=== PATIENT | male | born 1945 | race Caucasian/White ===

== ENCOUNTER → 2017-01-16 | Outpatient (CLI) | payer MEDICARE, MEDICAID ==
[~2017-01-16] MED LIST: ASP81CT PO; ASPI325T32 PO; ATOR40TA PO; CILO100T PO; CLCX200C PO; CLON2TAB3 PO; CLPD75T PO; FEXO180T PO; FLT11013 IH; FLUD0.1T7 PO; FNST5T PO; FURO40TA4 PO; IOHEXOL 350 MG/ML 100 ML (OMNIPAQUE 350) VIAL IV ONE; KCL10CCR PO; LEVO175T3 PO; LVT.15T PO; MORP100T8 PO; MORP60CA17 PO; MORP60TA28 PO; NS 100 ML (IVPB) BAG IV ONE; PANT40TA PO; RT-COMBINH IH; TMSL.4C PO; VIT1TABL82 PO
--- NOTE | 2017-01-16 11:32 | Diagnostic Imaging Report ---
PROCEDURE: CT chest with contrast only. TECHNIQUE: Multiple contiguous axial images were obtained through the chest after administration of intravenous contrast. INDICATION: Evaluate for pulmonary mass. Outside radiograph indicates pulmonary mass. COMPARISON: None available. FINDINGS: Lungs and airway: There is a spiculated nodule within the anterior aspect of the superior segment of the right lower lobe which has associated pleural tag. This nodule measures 1.9 x 1.7 cm. No additional indeterminate nodules. There is a subpleural 0.5 cm nodule in the posterior aspect of right upper lobe which is unchanged from CTA neck from 05/16/2016 and therefore of benign etiology given long-term stability. There are few subcentimeter triangular and rectangular nodules along the left major fissure inferiorly which likely represent intrapulmonary lymphoid tissue. Calcified right upper lobe pulmonary granuloma. Pleura: No pleural effusion, pneumothorax or nodularity. Heart and mediastinum: No supraclavicular or axillary lymphadenopathy. No mediastinal, hilar or juxtaphrenic lymphadenopathy. Heart is normal in size without pericardial effusion. There is fatty hypertrophy of the inter-atrial septum of the heart, which is an incidental finding frequently seen in asymptomatic patients. Normal caliber thoracic aorta. Upper abdomen: No evidence of metastatic disease in the upper abdomen. Musculoskeletal: No concerning focal osseous lesions. IMPRESSION: 1. Spiculated 1.9 cm nodule in the superior segment of the right lower lobe is most compatible with primary lung cancer. Consider PET/CT for further assessment. Alternatively, this may be biopsied with CT guidance. 2. No definitive pulmonary metastases. Micronodules along the left major fissure likely represent benign intrapulmonary lymphoid tissue. 3. No intrathoracic lymphadenopathy. Dictated by: Dictated on workstation # [id number]
== END ==
LOC: RAD 09:23
PROVIDERS: ATTEND Thoracic Surgery (Cardiothoracic Vascular Surgery)
DX: R91.8 Other nonspecific abnormal finding of lung field (principal)
CPT/HCPCS: 71260

== ENCOUNTER → 2017-01-24 | Outpatient (CLI) | payer MEDICARE, MEDICAID ==
[~2017-01-24] MED LIST changes: -IOHEXOL 350 MG/ML 100 ML (OMNIPAQUE 350) VIAL IV ONE; -NS 100 ML (IVPB) BAG IV ONE
--- NOTE | 2017-01-24 16:20 | Diagnostic Imaging Report ---
EXAMINATION: PET-CT TECHNIQUE: Serum glucose level at the time of the study is: 105 mg/dL. 13.1 mCi of FDG was administered intravenously followed by obtaining PET images with corresponding noncontrast CT scan images. The CT scan was performed for anatomic correlation and attenuation correction and was not performed according to the diagnostic protocol of the areas covered. The scan was performed from the head to mid thighs. INDICATION: Pulmonary nodule. FINDINGS: There is a hypermetabolic pulmonary nodule in the superior segment of the right lower lobe with maximum SUV of 8. This is highly suggestive of lung cancer. It is approximately 1.9 cm in size. It is located in the superior segment of the right lower lobe. There is no other suspicious pulmonary nodule seen. There is a calcified granuloma along the medial aspect of the right major fissure in the upper right chest. There is no hypermetabolic lymphadenopathy seen in the right hilum, or in the mediastinum. No significant hypermetabolic lesion is seen in the left lung. In the neck, there is a hypermetabolic lesion with maximum SUV of 5 seen within a small nodule in the left parotid gland. This measures 1.2 cm in size and could be an intraparotid lymph node or related to a primary parotid tumor. No other significant hypermetabolic lesion is seen in the neck. In the abdomen and pelvis, there is expected excretion of the tracer in the urinary tract with no suspicious hypermetabolic mass seen. There is mild hypermetabolism corresponding to nonspecific soft tissue thickening along the right groin anterior to location of a vascular graft which could relate to postoperative inflammatory changes. No suspicious hypermetabolic lesion in the abdomen or pelvis is identified. IMPRESSION: 1. A 1.9 cm suspicious hypermetabolic pulmonary nodule in the superior segment of the right lower lobe suggestive of a primary lung cancer. No associated lymphadenopathy in the right hilum or mediastinum seen. 2. A moderately hypermetabolic 1.2 cm nodule in the inferior aspect of the left parotid gland could relate to a lymph node or primary parotid tumor. This can be evaluated with ultrasound-guided fine needle aspiration if needed. Dictated by: Dictated on workstation # [id number]
== END ==
LOC: RAD 09:51
PROVIDERS: ATTEND Thoracic Surgery (Cardiothoracic Vascular Surgery)
DX: C78.01 Secondary malignant neoplasm of right lung (principal)

== ENCOUNTER → 2017-01-25 | Outpatient (CLI) | payer MEDICARE, MEDICAID ==
[~2017-01-25] MED LIST changes: +RT-ALBUTEROL SULF 2.5 MG/3 ML PRE-MIX VIAL IH ONE
== END ==
LOC: RT 14:08
PROVIDERS: ATTEND Thoracic Surgery (Cardiothoracic Vascular Surgery)
DX: R91.8 Other nonspecific abnormal finding of lung field (principal)
CPT/HCPCS: 94060; 94640; 94726; 94729

== ENCOUNTER → 2020-07-02 | Outpatient (CLI) | payer MEDICARE, MEDICAID ==
[~2020-07-02] VITALS: Ht 172.7 cm; Wt 109.1 kg
[~2020-07-02] MED LIST changes: +LIDOCAINE 1% INJ 20 ML 20 ML VIAL INJ ONE; -RT-ALBUTEROL SULF 2.5 MG/3 ML PRE-MIX VIAL IH ONE
--- NOTE | 2020-07-02 16:42 | Diagnostic Imaging Report ---
INDICATION: Left parotid nodule. EXAMINATION: Patient presents for fine-needle aspiration utilizing ultrasound guidance. PROCEDURE: Patient was brought to the procedure room and placed on table in the [id number] decubitus position. Left parotid region was evaluated to evaluate appropriate entry site. Left neck was then prepped and draped in the usual sterile fashion. A small amount of 1% lidocaine was utilized for local anesthesia. A total of three passes were made into the hypoechoic nodule in the left parotid gland utilizing 25-gauge needles and fine-needle aspiration technique. Hemostasis was obtained using manual compression. Patient tolerated the procedure well and left the department in stable condition. IMPRESSION: Successful ultrasound-guided left parotid nodule fine-needle aspiration. Pathology results are currently pending. Dictated by: Dictated on workstation # [id number]
== END ==
LOC: RAD 14:00
PROVIDERS: ATTEND Otolaryngology Otolaryngology/Facial Plastic Surgery
DX: K11.8 Other diseases of salivary glands (principal)
CPT/HCPCS: 76942

== ENCOUNTER → 2020-11-06 | Outpatient (CLI) | payer MEDICARE, MEDICAID ==
[~2020-11-06] MED LIST changes: -LIDOCAINE 1% INJ 20 ML 20 ML VIAL INJ ONE
== END | disposition home or self-care (01) ==
LOC: PREOP 05:33
PROVIDERS: ATTEND Otolaryngology Otolaryngology/Facial Plastic Surgery
DX: Z01.818 Encounter for other preprocedural examination (principal)

== ENCOUNTER 2020-11-26 09:04 | Outpatient (CLI) | payer MEDICARE, MEDICAID ==
[~2020-11-26] VITALS: Ht 172.7 cm; Wt 109.1 kg
== END 2020-11-26 14:22 ==
LOC: PREOP 09:04
PROVIDERS: ATTEND Otolaryngology Otolaryngology/Facial Plastic Surgery
DX: Z01.818 Encounter for other preprocedural examination (principal)

== ENCOUNTER 2020-12-04 06:07 | Day surgery (SDC) | payer MEDICARE, MEDICAID ==
[2020-12-04] VITALS (11 sets, daily range): BP systolic 133–177; BP diastolic 65–85
[~2020-12-04] VITALS: Ht 172.7 cm; Wt 109.1 kg
--- OUTSIDE RECORDS SUMMARY | 2020-12-04 06:11 | XMS REPORT | Clinical Summary ---
Author Author Admin, Charlie Hankins Organization [facility] Address Unknown Phone Unavailable Allergies, Adverse Reactions, Alerts Allergy Name Reaction Description Start Date Severity Status Pr ovider NKA Critical Active Dena Lacy APR N KEFLEX Mild No Longer Active Rui Arndt MD KEFLEX itch Moderate No Longer Active Vinod Alatorre DELIVERY DRIVER/SUPERVISOR NKDA Critical No Longer Active Rui Arndt MD KEFLEX UNK Inactive Georgina gautam MA NKDA Critical Inactive Irma Chaidez Conditions or Problems Problem Name Problem Code Onset Date Status Entry Date Provider Comment Standard Description Annotate COPD 496 Active Rui Arndt MD Chronic airway obstruction, not elsewhere classified Osteoporosis 733.00 Active Rui Arndt MD Osteoporosis, unspecified Osteoarthritis 715.90 Active Rui Arndt MD Osteoarthrosis, unspecified whether generalized or localized, involving unspecified site Seasonal allergies 477.9 Active Rui Arndt MD Allergic rhinitis, cause unspecified Hearing loss 389.9 Active Rui Arndt MD Unspecified hearing loss Hyperlipidemia 272.4 Refinement Rui Arndt MD Other and unspecified hyperlipidemia Familial hypercholesterolemia 272.4 Active 2018/0 10/26 Rui Arndt MD Other and unspecified hyperlipidemia Hypothyroidism 244.9 Active Rui Arndt MD Unspecified hypothyroidism HEALTH MAINTENANCE EXAM V70.0 Resolved Jose Arndt MD Routine general medical examination at [facility] Cataracts 366.9 Inactive Rui Arndt MD Unspecified cataract Examination, general medical V70.0 Resolved Rui Arndt MD Routine general medical examination at a health care facility Chronic pain syndrome 338.4 Resolved Georgina Luis A Chronic pain syndrome 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 Rui Arndt MD Neoplasm of uncertain behavior of skin Tobacco user 305.1 Resolved Rui Arndt MD Tobacco use disorder Hypogonadism, low testosterone 257.2 Active 10/07 Rui Arndt MD Other testicular hypofunction Contusion, shoulder 923.00 Resolved Rui sabillon MD Contusion of shoulder region Abdominal pain, left lower quadrant 789.04 Resolved Rui Arndt MD Abdominal pain, left lower quadrant Epistaxis 784.7 Resolved Rui Arndt MD Epistaxis Colonic polyps, hx of V12.72 Resolved Rui Arndt MD Personal history of colonic polyps GERD 530.81 Active Dena Glass ophageal reflux Dysphagia 787.20 Resolved Rui Arndt MD Dysphagia, unspecified Peripheral neuropathy 356.9 Active Rui Bee MD Unspecified hereditary and idiopathic peripheral neuropathy Diverticulosis 562.10 Active Rui Arndt MD Diverticulosis of colon (without mention of hemorrhage) Abnormal blood chemistry NEC 790.99 Resolved Rui Arndt MD Other nonspecific findings on examinatio n of blood Leg cramps 729.82 Resolved Rui Arndt MD Cramp of limb Fatigue 780.79 Resolved Rui Arndt MD Other malaise and fatigue Monoclonal gammopathy 273.1 Active Eboni villasenor CINDER SNAPPER Monoclonal paraproteinemia Peripheral edema 782.3 Active Fabiana Speaks A PRN Edema Dyspnea 786.09 Resolved Rui Arndt MD Other dyspnea and respiratory abnormality Need for prophylactic vaccination and inoculation against in fluenza V04.81 Resolved Rui Arndt MD Need for prophylactic vaccination and inoculation against influenza Peripheral artery disease 443.9 [facility] Peripheral vascular disease, unspecified Abdominal pain, left lower quadrant 789.04 Resolved Rui Arndt MD Abdominal pain, left lower quadrant Ileus 560.1 Resolved Rui Arndt MD Paralytic ileus Fever 780.60 Resolved Rui Arndt MD Fever, unspecified Diverticulitis of colon 562.11 Resolved Nadia Arndt MD Diverticulitis of colon without mention of hemorrhage Hammer toe, acquired 735.4 Active Rui sabillon MD Other hammer toe (acquired) Preoperative examination V72.84 Resolved Rui Arndt MD Preoperative examination, unspecified Frailty 797 Resolved Rui Arndt MD Senility without mention of psychosis Declining mobility 438.89 Resolved Rui villasenor MD Other late effects of cerebrovascular disease Congestive heart failure, chronic 428.0 Active 20 09/10/05 Teri Howard APRN Congestive heart failure, unspecified Wound check 879.8 Resolved Rui Arndt MD Open wound(s) (multiple) of unspecified site(s) except limbs, without mention of complication Upper respiratory infection 465.9 Resolved Rui Arndt MD Acute upper respiratory infections of un specified site Obstructive sleep apnea 327.23 Active Jose Arndt MD Obstructive sleep apnea (adult) (pediatric) Cigarette smoker 305.1 Active Lori Diaz LR T Tobacco use disorder Low testosterone level 796.4 Resolved Hardik Arndt MD Other abnormal clinical findings Pruritus 698.9 Resolved Rui Arndt MD Unspecified pruritic disorder Hyperglycemia 790.29 Active Rui Arndt MD Other abnormal glucose Excessive belching 787.3 Resolved Rui villasenor MD Flatulence, eructation, and gas pain Obesity, BMI 35-39.9, adult 278.00 Refinement Rui Arndt MD Obesity, unspecified Obesity Class II (BMI 35-39.9) 278.00 Refinement 05/09 Rui Arndt MD Obesity, unspecified Obesity Class III (BMI >=40) 278.00 Refinement Ade Brush MD Obesity, unspecified Obesity Class II (BMI 35-39.9) 278.00 Refinement 04/02 Rui Arndt MD Obesity, unspecified Obesity Class III (BMI >=40) 278.00 Refinement Rui Arndt MD Obesity, unspecified Obesity Class II (BMI 35-39.9) 278.00 Refinement 09/03 Rui Arndt MD Obesity, unspecified Morbid obesity due to excess calories 278.00 Refinemen t Rui Arndt MD Obesity, unspecified Obesity Class II (BMI 35-39.9) 278.00 Active 03/30 Rui Arndt MD Obesity, unspecified Depression, recurrent, in remission 296.36 Active Rui Arndt MD Major depressive disorder, recurrent epi sode, in full remission Insomnia 780.52 Active Rui Arndt MD Insomnia, unspecified BMI 37-37.9 adult V85.37 Resolved Rui Arndt MD Body Mass Index 37.0-37.9, adult BMI 36-36.9 adult V85.36 Inactive Rui Arndt MD Body Mass Index 36.0-36.9, adult BMI 38-38.9 adult V85.38 Resolved Rui Arndt MD Body Mass Index 38.0-38.9, adult COPD, acute exacerbation 491.21 Resolved Georgina Juancarlos garcia MA Obstructive chronic bronchitis with (acute) exacerbation Malignant neoplasm of lower lobe, right bronchus or lung 162.5 Active Carmen Madrid Malignant neoplasm of lower lobe, bronchus or lung History of colon polyps V12.72 Active Dena Lacy APRN Personal history of colonic polyps Pre-procedural laboratory examination V72.63 Resolved Rui Arndt MD Pre-procedural laboratory examination Pleural effusion 511.9 Resolved Rui Arndt MD Unspecified pleural effusion Fatigue 780.79 Resolved Rui Arndt MD Other malaise and fatigue Cough 786.2 Resolved Rui Arndt MD Cough Opioid dependence 304.00 Active Rui Arndt MD Opioid type dependence, unspecified use Chronic pain - on daily narcotics 338.29 Active 20 11/09/06 Rui Arndt MD Other chronic pain Wellness exam V70.0 Active Rui Arndt MD Routine general medical examination at a health care facility Pyloric channel ulcer 531.90 Active Dena CEE Gastric ulcer, unspecified as acute or chronic, without mention of hemorrhage or perforation, without mention of obstruction Influenza Vaccination for Prophylaxis V04.81 Inactive Mari Stanley PA-C Need for prophylactic vaccin ation and inoculation against influenza Congestive heart failure 428.0 Resolved Mari Stanley PA-C Congestive heart failure, unspecified Pre-Hypertension/Elevated BP 796.2 Resolved Rui Arndt MD Elevated blood pressure reading without diagnosis of hypertension Body Mass Index 39.0-39.9 Adult Refinement 2017 Rui Arndt MD Body Mass Index 39.0-39.9, adult BMI 38-38.9 Refinement Luke Gonzales APRN Body Mass Index 39.0-39.9, adult BMI 39-39.9 Refinement Rui Arndt MD Body Mass Index 39.0-39.9, adult BMI 38-38.9 Refinement Rui Arndt MD Body Mass Index 39.0-39.9, adult BMI 39-39.9 Refinement Rui Arndt MD Body Mass Index 39.0-39.9, adult BMI 40-44.9 Refinement Ade Brush MD Body Mass Index 39.0-39.9, adult BMI 39-39.9 Refinement Rui Arndt MD Body Mass Index 39.0-39.9, adult BMI 40-44.9 Refinement Rui Arndt MD Body Mass Index 39.0-39.9, adult BMI 38-38.9 Refinement Rui Arndt MD Body Mass Index 39.0-39.9, adult BMI 37-37.9 Refinement Rui Arndt MD Body Mass Index 39.0-39.9, adult BMI 38-38.9 Refinement Rui Arndt MD Body Mass Index 39.0-39.9, adult BMI 37-37.9 Refinement Rui Arndt MD Body Mass Index 39.0-39.9, adult BMI 38-38.9 Refinement Rui Arndt MD Body Mass Index 39.0-39.9, adult BMI 37-37.9 Active Keyonna Barajas DELIVERY DRIVER/SUPERVISOR-C Body Mass Index 39.0-39.9, adult Abdominal bloating 787.3 Active Luke SAM RN Flatulence, eructation, and gas pain Chest cough 786.2 Resolved Rui Arndt MD Cough 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 Ade Brush MD Hypertrophy (benign) of pros walls with urinary obstruction and other lower urinary tract symptoms (LUTS) Coronary artery disease 414.00 Active Jose Arndt MD Coronary atherosclerosis of unspecified type of vessel , [place] or graft 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 Tracie Sutton Generalized nonconvulsive epilepsy, without mention of intractable epilepsy Back pain, lumbar, with radiculopathy 724.4 Active Rui Arndt MD Thoracic or lumbosacral neuritis or radi culitis, unspecified Pre-Hypertension/Elevated BP 796.2 Active Rui Arndt MD Elevated blood pressure reading without diagnosis of hypertension Influenza Vaccination for Prophylaxis (ICD-V04.81) V04.81 202 Active Rui Arndt MD Need for prophylacti c vaccination and inoculation against influenza Elevated blood sugar 790.29 Resolved Rui Bee MD Other abnormal glucose Cough 786.2 Active Keyonna Barajas DELIVERY DRIVER/SUPERVISOR-C Cough Shortness of breath 786.05 Active Emanuel Barajas DELIVERY DRIVER/SUPERVISOR-C Shortness of breath HEALTH MAINTENANCE EXAM ICD-V70.0 Inactive Nadia Arndt MD Examination, general medical ICD-V70.0 Inactiv yassine Arndt MD Chronic pain syndrome ICD-338.4 Inactive Georgina Almaraz MA Tobacco user ICD-305.1 Inactive Rui Arndt MD 20 14/10/01 Contusion, shoulder ICD-923.00 Inactive Hardik Arndt MD Abdominal pain, left lower quadrant ICD-789.04 Inactive Rui Arndt MD Epistaxis ICD-784.7 Inactive Rui Arndt MD Colonic polyps, hx of ICD-V12.72 Inactive Rui Arndt MD Dysphagia ICD-787.20 Inactive Rui Booth Abnormal blood chemistry NEC ICD-790.99 Inactiv e Rui Arndt MD Leg cramps ICD-729.82 Inactive Rui Arndt MD Fatigue ICD-780.79 Inactive Rui Arndt MD 201 11/26/12 Dyspnea ICD-786.09 Inactive Rui Arndt MD 201 11/26/12 Need for prophylactic vaccination and inoculation against in fluenza ICD-V04.81 Inactive Rui Arndt MD Abdominal pain, left lower quadrant ICD-789.04 Inactive Rui Arndt MD Ileus ICD-560.1 Inactive Rui Arndt MD 2015 Fever ICD-780.60 Inactive Rui Arndt MD 201 08/26/02 Diverticulitis of colon ICD-562.11 Jose Raul Arndt MD Preoperative examination ICD-V72.84 Inactive Rui Arndt MD Frailty ICD-797 Inactive Rui Arndt MD 05/09 Declining mobility ICD-438.89 Inactive Rui Arndt MD Wound check ICD-879.8 Inactive Rui Arndt MD Upper respiratory infection ICD-465.9 Inactive Rui Arndt MD Low testosterone level ICD-796.4 Inactive Shahrzad Arndt MD Pruritus ICD-698.9 Inactive Rui Arndt MD 201 11/26/12 Excessive belching ICD-787.3 Inactive Rui Arndt MD BMI 37-37.9 adult ICD-V85.37 Inactive Rui Arndt MD BMI 38-38.9 adult ICD-V85.38 Inactive Rui Arndt MD COPD, acute exacerbation ICD-491.21 Inactive Georgina Almaraz MA Pre-procedural laboratory examination ICD-V72.63 3 Inactive Rui Arndt MD Pleural effusion ICD-511.9 Inactive Rui saleem MD Fatigue ICD-780.79 Inactive Rui Arndt MD 201 11/26/12 Cough ICD-786.2 Inactive Rui Arndt MD 2018 Influenza Vaccination for Prophylaxis ICD-V04.81 3 Inactive Yulissa Armenta MA Congestive heart failure ICD-428.0 Inactive Mari Stanley PA-C Pre-Hypertension/Elevated BP ICD-796.2 Inactiv e Rui Arndt MD Chest cough ICD-786.2 Inactive Rui Arndt MD Elevated blood sugar ICD-790.29 Inactive Rui Arndt MD Medication List Medication Instructions Start Date Stop Date Generic Name NDC Status Provider Patient Instruction PROAIR HFA 108 (90 BASE) MCG/ACT INHALATION AEROSOL SO LUTION Take 2 puffs every 6 hours as needed for shortness of breath or wheezing. ALBUTEROL SULFATE 97671878990 Active Keyonna Jenn DELIVERY DRIVER/SUPERVISOR-C Activ e PREDNISONE 20 MG ORAL TABLET Take 2 tablets by mouth d aily for 3 days then 1 tablet daily for 2 days PREDNISONE 07370927683 Active Keyonna Jenn DELIVERY DRIVER/SUPERVISOR-C Active ZITHROMAX 250 MG ORAL TABLET Take 2 tablets by mouth o n day 1 then 1 tablet the next 4 days AZITHROMYCIN 84040365787 Active Keyonna Br itt DELIVERY DRIVER/SUPERVISOR-C Active ZUBSOLV 11.4-2.9 MG SUBLINGUAL TABLET SUBLINGUAL Take 1 tablet dailyDEA; [id number] BUPRENORPHINE HCL-NALOXONE HCL 25557317848 Acti ve Rui Arndt MD Active CEFUROXIME AXETIL 500 MG ORAL TABLET TAKE 1/2 TABLET TWICE DAILY CEFUROXIME AXETIL 76477435103 No Longer Active Rui Arndt MD Active POTASSIUM CHLORIDE ER 10 MEQ CR-CAPS TAKE ONE TABLET BY MOUT H TWICE DAILY. POTASSIUM CHLORIDE 16175235256 AGUSTO Richardson Active OMEPRAZOLE 40MG TAKE 1 CAPSULE BY MOUTH EVERY MORNING OMEPRAZOLE 61094300067 AGUSTO Richardson Active SPIRIVA HANDIHLR INHALE CONTENTS OF ONE CAPSULE VIA HANDI HALER ONCE DAILY TIOTROPIUM BROMIDE MONOHYDRATE 65647294089 AGUSTO Richardson Active BUMETANIDE 1MG TAKE 1 TABLET BY MOUTH ONCE DAILY IF NEE DED FOR SWELLING BUMETANIDE 17841380455 AGUSTO Richardson Active ZOLPIDEM TARTRATE 10 MG TABS TAKE 1 TABLET BY MOUTH AT NIGHT IF NEEDED FOR SLEEP ZOLPIDEM TARTRATE 60320656776 Active Rui Arndt MD Active FUROSEMIDE 40MG TAKE 2 TABLETS BY MOUTH EVERY MORNING FUROSEMIDE 55375071952 Active Liudmila Tirado RN Active GABAPENTIN 300MG TAKE 1 CAPSULE BY MOUTH THREE TIMES DAILY GABAPENTIN 65179678752 Active AGUSTO Hall Active ATORVASTATIN 80MG TAKE 1 TABLET BY MOUTH DAILY AT BEDTIME 6 ATORVASTATIN CALCIUM 81662378216 Active AGUSTO Hall A ctive SUPER B-100 ORAL TABLET 1 q d B COMPLEX-BIOTI N-FA 98479614002 Active Tarun Chavez MD Active ASPIRIN 325 MG ORAL TABLET 1 q d ASPIRIN 6642929162 9 Active Tarun Chavez MD Active DIGITEK 125 MCG ORAL TABLET 1 q d DIGOXIN 164764891 01 Active Tarun Chavez MD Active VENTOLIN HFA 108 (90 BASE) MCG/ACT INHALATION AEROSOL SOLUTI ON 1 puff every day ALBUTEROL SULFATE 93460461569 No Longer Active Alan Chavez MD Active LEVOTHYROXINE SODIUM 200 MCG ORAL TABLET 1 po q a.m. for thyroid LEVOTHYROXINE SODIUM 43718965941 No Longer Active Tarun Chavez MD Active PROAIR HFA 108 (90 BASE) MCG/ACT INHALATION AEROSOL SO LUTION 2 puffs four times a day as needed ALBUTEROL SULFATE 65682989697 No Long er Active Tarun Chavez MD Active FLOMAX 0.4 MG ORAL CAPSULE 1 capsule by mouth in the evening for prostate TAMSULOSIN HCL 08396353126 No Longer Active Tarun Chavez MD Active ELIQUIS 5 MG TABS TAKE ONE TABLET BY MOUTH TWO TIMES A DAY APIXABAN 55712090576 Active AGUSTO Hall Active PREDNISONE 20 MG ORAL TABLET Take 2 tablets daily for 5 days and 1 tablet daily for 5 days. PREDNISONE 23265406885 No Longer Active Rui Arndt MD Active POTASSIUM CHLORIDE ER 10 MEQ CR-TABS TAKE ONE TABLET BY CATERINA TH TWICE DAILY. POTASSIUM CHLORIDE 96116697417 Active AGUSTO Hall Active KLOR-CON M10 10 MEQ ORAL TABLET EXTENDED RELEASE one tablet twic e a day POTASSIUM CHLORIDE JORDAN CR 03565132162 No Longer Active AGUSTO Suarez Active LORATADINE 10MG ORAL TABLET TAKE ONE TABLET BY MOUTH ONE TIME DAILY IF NEEDED FOR ALLERGIES. LORATADINE 37121725741 Active Alma Madrid AGUSTO Active LEVOTHYROXINE SODIUM 150MCG ORAL TABLET TAKE ONE TABLE T BY MOUTH ONE TIME DAILY FOR THYROID. LEVOTHYROXINE SODIUM 53155497983 Active S osiel Madrid AGUSTO Active PLAVIX 75 MG ORAL TABLET 1 tablet by mouth daily for 30 days 202 CLOPIDOGREL BISULFATE 66502820919 No Longer Active Rui Arndt MD Active PLAVIX 75 MG ORAL TABLET 1 tablet by mouth daily 03/11 CLOPIDOGREL BISULFATE 18081131013 No Longer Active Rui Arndt MD Activ e ASPIRIN 325 MG ORAL TABLET Take 1 tablet daily ASPIRIN 53822069610 No Longer Active Rui Arndt MD Active PREDNISONE 20 MG ORAL TABLET 1 tab twice daily for 3 d ay, then one daily for three days PREDNISONE 36798114574 No Longer Active Rui Arndt MD Active MORPHINE SULFATE ER 15 MG ORAL TABLET EXTENDED RELEASE 1 TID a d ay MORPHINE SULFATE 04839873593 No Longer Active Rui Arndt MD Active DEPO-TESTOSTERONE 100 MG/ML INTRAMUSCULAR SOLUTION 201 11/29/02 TESTOSTERONE CYPIONATE 19818051124 Active Brittny Aguila MA Active SUBOXONE 2-0.5 MG SUBLINGUAL FILM Bring to appointment before taking for induction. Stop the Morphine 12 hours before the appointment. BUPRENORPHINE HCL-NALOXONE HCL 85207157143 No Longer Active Rui Arndt MD Active MUCINEX D 60-600 MG ORAL TABLET EXTENDED RELEASE 12 HO UR 1 po BID PRN Congestion PSEUDOEPHEDRINE-GUAIFENESIN 33314326987 Active Luke Gonzales DELIVERY DRIVER/SUPERVISOR Active ZITHROMAX Z-PETE 250 MG ORAL TABLET 2 today, then 1 daily for 4 d ays AZITHROMYCIN 89033303633 No Longer Active Luke Gonzales APRN Active MORPHINE SULFATE ER 60 MG ORAL TABLET EXTENDED RELEASE 1 twi ce a day for pain MORPHINE SULFATE 49623624390 No Longer Active Luke valdez APRN Active MORPHINE SULFATE ER 100 MG ORAL TABLET EXTENDED RELEASE one tabl et at bedtime MORPHINE SULFATE 46513053820 No Longer Active Luke Gonzales APRN Active DEPO-TESTOSTERONE 100 MG/ML INTRAMUSCULAR SOLUTION 1mL q4H TESTOSTERONE CYPIONATE 33662053017 No Longer Active Luke Gonzales APRN Active PANTOPRAZOLE SODIUM 40 MG ORAL TABLET DELAYED RELEASE 1 pill by mouth daily PANTOPRAZOLE SODIUM 97478939015 No Longer Active Jose Arndt MD Active FLOMAX 0.4 MG ORAL CAPSULE one capsule in the evening 1/2 hour a fter supper TAMSULOSIN HCL 94150189092 No Longer Active Rui Arndt MD Active LEVOTHYROXINE SODIUM 175 MCG ORAL TABLET 1 pill by mouth daily f or thyroid LEVOTHYROXINE SODIUM 04392280939 No Longer Active Fabiana Perdomo RN Active CLARITIN 10 MG ORAL TABLET 1 tablet by mouth daily as needed for allergies LORATADINE 51972823547 No Longer Active Mari bhakta PA-C Active CARAFATE 1 GM ORAL TABLET Take 1 tablet 4 times daily. Before meals and at bedtime SUCRALFATE 71093015179 No Longer Active Mari Stanley PA-C Active DULCOLAX 5 MG ORAL TABLET DELAYED RELEASE 1 tab daily BISACODYL 48920826390 Active Sara Moeller RN Active SUCRALFATE 1 GM ORAL TABLET 1 four times a day for GERD SUCRALFATE 38915267500 No Longer Active Sara Moeller RN Act berna FISH OIL CAPSULE 1 capsule daily OMEGA-3 FATTY ACIDS CAPS 75525268869 No Longer Active Sara Moeller RN Active PROBIOTIC DAILY ORAL CAPSULE 1 capsule daily 3 PROBIOTIC PRODUCT 01699212560 No Longer Active Sara Moeller RN Act berna B COMPLEX FORMULA 1 ORAL TABLET 1 tablet daily B COMPLEX- FOLIC ACID 86969268091 No Longer Active Sara Moeller RN Act berna PROAIR HFA 108 (90 BASE) MCG/ACT INHALATION AEROSOL SO LUTION 2 puffs four times a day as needed ALBUTEROL SULFATE 36674311721 No Long er Active Sara Moeller RN Active MULTIVITAMINS ORAL CAPSULE Take 1 daily MULTIPL E VITAMIN 40826823299 No Longer Active Sara Moeller RN Active CLONAZEPAM 2 MG ORAL TABLET one tablet at bed time CLONAZEPAM 55671878329 No Longer Active Sara Moeller RN Active DEPO-TESTOSTERONE 200 MG/ML INTRAMUSCULAR SOLUTION 100mg it[place] ry 4 weeks TESTOSTERONE CYPIONATE 64530995838 No Longer Active Sara Moeller RN Active ATIVAN 0.5 MG ORAL TABLET 1 tab 30 minutes prior to sleep study LORAZEPAM 86061136098 No Longer Active Rui Arndt MD Active NARCAN 4 MG/0.1ML NASAL LIQUID 1 spray in nostril ever y 2 to 3 minutes until responsive or EMS arrives NALOXONE HCL 96684582624 Active Rui Arndt MD Active LEVAQUIN 500 MG ORAL TABLET 1 daily for infection 2017 LEVOFLOXACIN 94185280036 No Longer Active Dena Lacy APRN Active PREDNISONE 20 MG TABS Take 2 daily for 5 days and then 1 stephy ly for 5 days PREDNISONE 49339504086 No Longer Active Rui saleem MD Active PREDNISONE 20 MG ORAL TABLET 2 tabs daily for 4 days, 1 tab daily for 4 days, 1/2 tab daily for 4 days PREDNISONE 31765783965 No Longer Active Rui Arndt MD Active OXYGEN 2L at night time - Dx: J44.9 Active Lori Winter LPN Active PREDNISONE 20 MG ORAL TABLET Take 2 daily for 5 days a nd then 1 daily for 5 days PREDNISONE 22121340235 No Longer Active Rui Arndt MD Active NORCO 10-325 MG ORAL TABLET Take 1-2 tablets every 6 hours a s needed for pain HYDROCODONE-ACETAMINOPHEN 92687275078 No Longer Activ e Rui Arndt MD Active FUROSEMIDE 20 MG ORAL TABLET 1 daily for blood pressure and swel ling FUROSEMIDE 86802469815 No Longer Active Rui Arndt MD Active PAMELOR 10 MG ORAL CAPSULE NORTRIPTY LINE HCL 33842491250 No Longer Active Rui Arndt MD Active AEROSPAN 80 MCG/ACT INHALATION AEROSOL SOLUTION 2 puffs twice FLUNISOLIDE HFA 34213719854 No Longer Active Rui Arndt MD Active LISINOPRIL 10 MG ORAL TABLET take one tab once daily 09/22 LISINOPRIL 43360865323 No Longer Active Rui Arndt MD Active BD INTEGRA SYRINGE 25G X 1" 1 ML Use with Depo provera INSULIN SYRINGE-NEEDLE U-100 Active Brittny Aguila MA Act berna MORPHINE SULFATE ER BEADS 75 MG ORAL CAPSULE EXTENDED RELEASE 24 HOUR 1 twice a day MORPHINE SULFATE BEADS 33198383776 No Longer Ac tive Rui Arndt MD Active COMBIVENT RESPIMAT 20-100 MCG/ACT INHALATION AEROSOL S OLUTION 1 puff four times a day IPRATROPIUM-ALBUTEROL 28582483744 No Longer Act berna Rui Arndt MD Active POTASSIUM CHLORIDE 20 MEQ ORAL PACKET 1 qDay with Lasix POTASSIUM CHLORIDE 28185480780 No Longer Active Rui Arndt MD Activ e PROAIR HFA 108 (90 Base) MCG/ACT INHALATION AEROSOL SO LUTION 2 puffs four times a day as needed ALBUTEROL SULFATE 48111375536 No Longer Ac tive Rui Arndt MD Active ASMANEX 60 METERED DOSES 220 MCG/INH INHALATION AEROSO L POWDER BREATH ACTIVATED 1 puff bid with rinse after MOMETASONE FUROATE 7436430 4102 No Longer Active Rui Arndt MD Active OMEPRAZOLE 40 MG ORAL CAPSULE DELAYED RELEASE 1 po q a.m. OMEPRAZOLE 42661898444 No Longer Active Anahi Ashley LPN Act berna ASMANEX 60 METERED DOSES 220 MCG/INH INHALATION AEROSO L POWDER BREATH ACTIVATED 1 puff bid with rinse after ASMANEX 60 M ETERED DOSES 220 MCG/INH INHALATION AEROSOL POWDER BREATH ACTIVATED MOMETASONE FUROAT E Inactive PROAIR HFA 108 (90 Base) MCG/ACT INHALATION AEROSOL SO LUTION 2 puffs four times a day as needed PROAIR HFA 108 (90 B ase) MCG/ACT INHALATION AEROSOL SOLUTION ALBUTEROL SULFATE Inactive COMBIVENT RESPIMAT 20-100 MCG/ACT INHALATION AEROSOL S OLUTION 1 puff four times a day COMBIVENT RESPIMAT 2 0-100 MCG/ACT INHALATION AEROSOL SOLUTION IPRATROPIUM-ALBUTEROL Inactive MORPHINE SULFATE ER BEADS 75 MG ORAL CAPSULE EXTENDED RELEASE 24 HOUR 1 twice a day MORPHINE SULFATE ER BEADS 75 MG ORAL CAPSULE EXTENDED RELEASE 24 HOUR MORPHINE SULFATE BEADS Inactive LISINOPRIL 10 MG ORAL TABLET take one tab once daily 2 LISINOPRIL 10 MG ORAL TABLET 972843 LISINOPRIL Inactive AEROSPAN 80 MCG/ACT INHALATION AEROSOL SOLUTION 2 puffs twice AEROSPAN 80 MCG/ACT INHALATION AEROSOL SOLUTION FLUNISOLIDE HFA Inactive PAMELOR 10 MG ORAL CAPSULE PAMELOR 1 0 MG ORAL CAPSULE 209788 NORTRIPTYLINE HCL Inactive FUROSEMIDE 20 MG ORAL TABLET 1 daily for blood pressure and swel ling FUROSEMIDE 20 MG ORAL TABLET 206807 FUROSEMIDE Corinna ctive NORCO 10-325 MG ORAL TABLET Take 1-2 tablets every 6 hours a s needed for pain NORCO 10-325 MG ORAL TABLET HYDROCODONE-A CETAMINOPHEN Inactive PREDNISONE 20 MG ORAL TABLET 2 tabs daily for 4 days, 1 tab daily for 4 days, 1/2 tab daily for 4 days PREDNISONE 20 MG ORAL T ABLET 877107 PREDNISONE Inactive LEVAQUIN 500 MG ORAL TABLET 1 daily for infection 2017 LEVAQUIN 500 MG ORAL TABLET 766280 LEVOFLOXACIN Inactive ATIVAN 0.5 MG ORAL TABLET 1 tab 30 minutes prior to sleep study ATIVAN 0.5 MG ORAL TABLET 020545 LORAZEPAM Inacti ve DEPO-TESTOSTERONE 200 MG/ML INTRAMUSCULAR SOLUTION 100mg [place] ry 4 weeks DEPO-TESTOSTERONE 200 MG/ML INTRAMUSCULA R SOLUTION 8830239 TESTOSTERONE CYPIONATE Inactive CLONAZEPAM 2 MG ORAL TABLET one tablet at bed time 201 11/01/12 CLONAZEPAM 2 MG ORAL TABLET 748960 CLONAZEPAM Inactive MULTIVITAMINS ORAL CAPSULE Take 1 daily M ULTIVITAMINS ORAL CAPSULE MULTIPLE VITAMIN Inactive PROAIR HFA 108 (90 BASE) MCG/ACT INHALATION AEROSOL SO LUTION 2 puffs four times a day as needed PROAIR HFA 108 (90 B ASE) MCG/ACT INHALATION AEROSOL SOLUTION ALBUTEROL SULFATE Inactive B COMPLEX FORMULA 1 ORAL TABLET 1 tablet daily B COMPLEX FORMULA 1 ORAL TABLET B COMPLEX-FOLIC ACID Inactive PROBIOTIC DAILY ORAL CAPSULE 1 capsule daily 3 PROBIOTIC DAILY ORAL CAPSULE 7749874 PROBIOTIC PRODUCT Inactive FISH OIL CAPSULE 1 capsule daily FISH OIL CAPSUL E OMEGA- 3 FATTY ACIDS CAPS Inactive SUCRALFATE 1 GM ORAL TABLET 1 four times a day for GERD SUCRALFATE 1 GM ORAL TABLET 957452 SUCRALFATE Inactive CARAFATE 1 GM ORAL TABLET Take 1 tablet 4 times daily. Before meals and at bedtime CARAFATE 1 GM ORAL TABLET 781202 SUCRALFATE Inactive CLARITIN 10 MG ORAL TABLET 1 tablet by mouth daily as needed for allergies CLARITIN 10 MG ORAL TABLET 651981 LORATADINE I nactive LEVOTHYROXINE SODIUM 175 MCG ORAL TABLET 1 pill by mouth daily f or thyroid LEVOTHYROXINE SODIUM 175 MCG ORAL TABLET 464365 LEVOTHY ROXINE SODIUM Inactive FLOMAX 0.4 MG ORAL CAPSULE one capsule in the evening 1/2 hour a fter supper FLOMAX 0.4 MG ORAL CAPSULE 130042 TAMSULOSIN HCL Inact berna PANTOPRAZOLE SODIUM 40 MG ORAL TABLET DELAYED RELEASE 1 pill by mouth daily PANTOPRAZOLE SODIUM 40 MG ORAL TABLET DE LAYED RELEASE 492541 PANTOPRAZOLE SODIUM Inactive DEPO-TESTOSTERONE 100 MG/ML INTRAMUSCULAR SOLUTION 1mL q4H DEPO-TESTOSTERONE 100 MG/ML INTRAMUSCULAR SOLUTION 364589 TESTOSTERONE CYPIONATE Inactive MORPHINE SULFATE ER 100 MG ORAL TABLET EXTENDED RELEASE one tabl et at bedtime MORPHINE SULFATE ER 100 MG ORAL TABLET EXTENDED RELEASE MORPHINE SULFATE Inactive MORPHINE SULFATE ER 60 MG ORAL TABLET EXTENDED RELEASE 1 twi ce a day for pain MORPHINE SULFATE ER 60 MG ORAL TABLET EXTENDED R ELEASE MORPHINE SULFATE Inactive MORPHINE SULFATE ER 15 MG ORAL TABLET EXTENDED RELEASE 1 TID a d ay MORPHINE SULFATE ER 15 MG ORAL TABLET EXTENDED RELEASE MORPHINE SULFATE Inactive PREDNISONE 20 MG ORAL TABLET 1 tab twice daily for 3 d ay, then one daily for three days PREDNISONE 20 MG ORAL TABLET 015428 PREDNIS ONE Inactive ASPIRIN 325 MG ORAL TABLET Take 1 tablet daily ASPIRIN 325 MG ORAL TABLET 951059 ASPIRIN Inactive PLAVIX 75 MG ORAL TABLET 1 tablet by mouth daily 03/11 PLAVIX 75 MG ORAL TABLET 519099 CLOPIDOGREL BISULFATE Inactive PLAVIX 75 MG ORAL TABLET 1 tablet by mouth daily for 30 days 202 PLAVIX 75 MG ORAL TABLET 023273 CLOPIDOGREL BISULFATE I nactive KLOR-CON M10 10 MEQ ORAL TABLET EXTENDED RELEASE one tablet twic e a day KLOR-CON M10 10 MEQ ORAL TABLET EXTENDED RELEASE 2411880 POTASSIUM CHLORIDE JORDAN CR Inactive PREDNISONE 20 MG ORAL TABLET Take 2 tablets daily for 5 days and 1 tablet daily for 5 days. PREDNISONE 20 MG ORAL TABLET 451933 PREDNISONE Inactive FLOMAX 0.4 MG ORAL CAPSULE 1 capsule by mouth in the evening for prostate FLOMAX 0.4 MG ORAL CAPSULE 135179 TAMSULOSIN HCL Inactive PROAIR HFA 108 (90 BASE) MCG/ACT INHALATION AEROSOL SO LUTION 2 puffs four times a day as needed PROAIR HFA 108 (90 B ASE) MCG/ACT INHALATION AEROSOL SOLUTION ALBUTEROL SULFATE Inactive LEVOTHYROXINE SODIUM 200 MCG ORAL TABLET 1 po q a.m. for thyroid LEVOTHYROXINE SODIUM 200 MCG ORAL TABLET 582374 LEVOTHY ROXINE SODIUM Inactive VENTOLIN HFA 108 (90 BASE) MCG/ACT INHALATION AEROSOL SOLUTI ON 1 puff every day VENTOLIN HFA 108 (90 BASE) M CG/ACT INHALATION AEROSOL SOLUTION ALBUTEROL SULFATE Inactive POTASSIUM CHLORIDE 20 MEQ ORAL PACKET 1 qDay with Lasix POTASSIUM CHLORIDE 20 MEQ ORAL PACKET 0614261 POTASSIUM CHLORIDE Inactive PREDNISONE 20 MG ORAL TABLET Take 2 daily for 5 days a nd then 1 daily for 5 days PREDNISONE 20 MG ORAL TABLET 481258 PREDNIS ONE Inactive PREDNISONE 20 MG TABS Take 2 daily for 5 days and then 1 stephy ly for 5 days PREDNISONE 20 MG TABS 822267 PREDNISONE Inacti ve ZITHROMAX Z-PETE 250 MG ORAL TABLET 2 today, then 1 daily for 4 d ays ZITHROMAX Z-PETE 250 MG ORAL TABLET 529889 AZITHROMYCIN Inactive CEFUROXIME AXETIL 500 MG ORAL TABLET TAKE 1/2 TABLET TWICE DAILY CEFUROXIME AXETIL 500 MG ORAL TABLET 476836 CEFUROXIME AXETIL Inactive Advance Directives Directive Description Start Date PERMISSION TO SHARE FORMS GIVEN DISCUSSED WITH PATIENT -- NO DECISION MADE Immunizations Vaccine Administration Date Value Standard Emmanuel cription influenza immunization (Flu Vax) has been administered 12/30 Flublok Quadrivalent [place] influenza virus vaccine, unspecified formulation influenza immunization (Flu Vax) has been administered 12/18 Fluzone (Flu) 10Pk Syringe IM (Medicare) influenza virus vaccine, unspecified for mulation influenza immunization (Flu Vax) has been administered 01/26 Done according to patient influenza virus vaccine, unspecified for mulation pneumococcal immunization administered Pneumococ esvin Poly-unspecified pneumococcal polysaccharide vaccine, 23 valent Vital Signs Date Name Value Unit Range Description blood pressure, diastolic, repeated by physician 81 BP pena blood pressure, diastolic 81 mm[Hg] BP pena blood pressure, systolic, repeated by physician 117 BP sys blood pressure, systolic 117 mm[Hg] BP sys pulse rate 90 /min Heart rate respiratory rate E&M 22 /min Resp rate temperature E&M 98.4 [degF] Body temp erature weight E&M 240.50 [lb_av] Weight Measure d blood pressure, diastolic, second observation 72 m m[Hg] BP pena blood pressure, diastolic, repeated by physician 72 BP pena blood pressure, diastolic 69 mm[Hg] BP pena blood pressure, systolic, second observation 132 mm [Hg] BP sys blood pressure, systolic, repeated by physician 132 BP sys blood pressure, systolic 148 mm[Hg] BP sys height E&M 67 [in_us] Bdy height pulse rate 69 /min Heart rate temperature E&M 98.4 [degF] Body temp erature weight E&M 246 [lb_av] Weight Measure d blood pressure, diastolic 53 mm[Hg] BP pena blood pressure, systolic 135 mm[Hg] BP sys height E&M 67 [in_us] Bdy height pulse rate 75 /min Heart rate temperature E&M 98.1 [degF] Body temp erature weight E&M 240.50 [lb_av] Weight Measure d blood pressure, diastolic, repeated by physician 70 BP pena blood pressure, diastolic 70 mm[Hg] BP pena blood pressure, systolic, repeated by physician 121 BP sys blood pressure, systolic 121 mm[Hg] BP sys height E&M 67 [in_us] Bdy height pulse rate 88 /min Heart rate temperature E&M 99.2 [degF] Body temp erature weight E&M 243 [lb_av] Weight Measure d blood pressure, diastolic, second observation 72 m m[Hg] BP pena blood pressure, diastolic, repeated by physician 72 BP pena blood pressure, diastolic 67 mm[Hg] BP pena blood pressure, systolic, second observation 132 mm [Hg] BP sys blood pressure, systolic, repeated by physician 132 BP sys blood pressure, systolic 148 mm[Hg] BP sys height E&M 67 [in_us] Bdy height pulse rate 78 /min Heart rate temperature E&M 98.4 [degF] Body temp erature weight E&M 244.50 [lb_av] Weight Measure d blood pressure, diastolic, second observation 62 m m[Hg] BP pena blood pressure, diastolic, repeated by physician 62 BP pena blood pressure, diastolic 65 mm[Hg] BP pena blood pressure, systolic, second observation 135 mm [Hg] BP sys blood pressure, systolic, repeated by physician 135 BP sys blood pressure, systolic 143 mm[Hg] BP sys height E&M 67 [in_us] Bdy height pulse rate 72 /min Heart rate temperature E&M 97.7 [degF] Body temp erature blood pressure, diastolic, repeated by physician 60 BP pena blood pressure, diastolic 60 mm[Hg] BP pena blood pressure, systolic, repeated by physician 137 BP sys blood pressure, systolic 137 mm[Hg] BP sys height E&M 67 [in_us] Bdy height pulse rate 62 /min Heart rate temperature E&M 97.9 [degF] Body temp erature weight E&M 241.50 [lb_av] Weight Measure d Diagnostic Results Date Name Value Unit Range Description Lab Report: Comp. Metabolic Panel, Lipid Panel, Magnesium - Chemistry sodium, serum 138 mmol/L 805-124 8672/12/04 carbon dioxide, venous blood 28.3 mmol/L 21.0-32 .0 potassium, serum 4.3 mmol/L 3.5-5.2 chloride, serum 100 mmol/L 98-107 blood glucose 118 mg/dL 65-95 urea nitrogen, blood 16 mg/dL 7-18 creatinine, serum 1.22 mg/dL 0.60-1.30 Estimated Glomerular Filtration Rate (calc) 62 (?) mL/min/1.73m2 = OR > 60 mL/min alanine aminotransferase (SGPT), serum 20 U/L 12-78 aspartate aminotransferase (SGOT), serum 20 U/L 19-43 calcium, serum 9.0 mg/dL 8.5-10.1 bilirubin, serum, total 0.90 mg/dL 0.00-1.00 cholesterol, serum 121 mg/dL 064-789 9487/12/04 triglyceride, serum, fasting 137 mg/dL 30-200 HDL cholesterol, serum 26 mg/dL 32-60 LDL cholesterol, serum 68 mg/dL 0-130 Lab Report: Comp. Metabolic Panel, Lipid Panel, Magnesium - Lab Alkaline phosphatase 134 50-136 Lab Report: HGBA1C - Chemistry hemoglobin A1C, blood, as % of total hemoglobin 6.0 % 4.3-6.0 Lab Report: Prostatic Specific Ag, Comp. Metabolic Panel - Chemistry calcium, serum 8.1 mg/dL 8.5-10.1 bilirubin, serum, total 0.50 mg/dL 0.00-1.00 prostate specific antigen 2.60 ng/mL 0.00-4.00 sodium, serum 136 mmol/L 063-546 4126/10/06 carbon dioxide, venous blood 29.5 mmol/L 21.0-32 .0 potassium, serum 4.0 mmol/L 3.5-5.2 chloride, serum 102 mmol/L 98-107 blood glucose 118 mg/dL 65-95 urea nitrogen, blood 13 mg/dL 7-18 creatinine, serum 1.08 mg/dL 0.60-1.30 Estimated Glomerular Filtration Rate (calc) 71 (?) mL/min/1.73m2 = OR > 60 mL/min alanine aminotransferase (SGPT), serum 20 U/L 12-78 aspartate aminotransferase (SGOT), serum 21 U/L 19-43 Lab Report: Prostatic Specific Ag, Comp. Metabolic Panel - Lab Alkaline phosphatase 141 50-136 Office Visit: [facility] - SUB 107 - Lab PSA (prostate specific antigent), recomm endation and action PSA ordered Office Visit: pain, pduq 110 - PMH sexually transmitted disease no risk noted Encounters Code Encounter Date Provider Facility CPT-99227 80301: Ofc Vst-Est Level III-Low MDM or 20-29 minutes 08:12:06 CDT Keyonna COVINGTON [facility] CPT-50953 30256: Ofc Vst-Est Level IV-Moderate MDM or 30-39 minutes 12:21:30 CDT Rui Arndt MD [facility] CPT-89519 85447-Zkh Vst-Est Level IV 09:46:31 CDT Lobo Arndt MD [facility] CPT-27850 55533-Mhn Vst-Est Level IV 10:42:47 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 Lobo Arndt MD [facility] CPT-74833 72535-Eih Vst-Est Level IV 11:02:04 CDT Lobo Arndt MD [facility] CPT-52024 14517-Dem Vst-Est Level IV 13:58:45 CDT Lobo Arndt MD [facility] CPT-55055 99586-Mcv Vst-Est Level IV 15:13:53 CDT Lobo ert Wanda Arndt MD [facility] CPT-52340 30060-Zps Vst-Est Level IV 11:54:49 CDT Lobo ert Wanda Arndt MD [facility] CPT-79387 04716-Ukr Vst-Est Level IV 11:04:27 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 [employer] KN[employer] Lobo Arndt MD [facility] CPT-27972 Level 4 New Patient 12:35:21 CDT Ade chung MD [facility] CPT-56048 Ofc Vst-Est Level IV 16:12:07 CDT Rui Arndt MD [facility] CPT-84377 84181-Ylh Vst-Est Level IV 16:25:05 CDT Lobo Arndt MD [facility] CPT-18928 34051-Fky Vst-Est Level III 10:55:45 CDT Rui Arndt MD [facility] CPT-49646 47576-Jzj Vst-Est Level IV 14:16:20 CDT Lobo Arndt MD [facility] CPT-43324 Level 3 Est. 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 Patient 15:23:12 CDT Dena ley [facility] [place] CPT-06080 Level 4 Est. Patient 13:12:22 CDT Rui Arndt MD [facility] CPT-24849 Level 4 Est. Patient 14:44:13 CDT Dena ley [facility] [place] CPT-69216 80489-Mnt Vst-Est Level III 11:23:31 CDT Rui Arndt MD [facility] CPT-26296 93534-Gud Vst-Est Level V 10:04:33 CDT Jose Arndt [facility] CPT-59638 Level 4 Est. Patient 16:17:47 CDT Rui Arndt MD [facility] CPT-94409 Level 4 Est. Patient 10:53:57 CDT Rui Arndt MD [facility] CPT-19706 Level 3 Est. Patient 16:09:12 CDT Jemal marti [facility] CPT-18809 Level 4 Est. Patient 11:32:24 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 THREE KNIFE Rui Arndt MD [facility] CPT-97327 Level 4 Est. Patient 14:55:39 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 [employer] KNIFE Dena ley [facility] [place] CPT-47302 Level 3 Est. Patient 15:10:46 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 [employer] KNIFE Rui Arndt MD [facility]-44373 Level 3 Est. Patient 12:01:26 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 [employer] KNIFE Rui Arndt MD [facility] CPT-60666 Level 3 Est. Patient 10:35:15 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 [employer] KNIFE Rui Arndt MD [facility] CPT-58609 Level 3 Est. Patient 15:04:30 CDT Rui Arndt MD [facility] CPT-41632 Level 3 Est. Patient 10:15:00 CDT Vinod fenton [facility] [place] CPT-14002 Level 4 Est. Patient 14:59:25 CDT Rui Arndt MD [facility] CPT-65899 Level 4 Est. Patient 12:07:34 CDT Rui Arndt MD [facility]-43594 Level 3 Est. Patient 10:42:08 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 [employer] KNIFE Rui Arndt MD [facility]-07540 Level 3 Est. Patient 17:29:10 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 [employer] KN[employer] Rui Arndt MD [facility]-59820 Level 4 Est. Patient 15:12:05 CDT Rui Arndt MD [facility]-16302 Level 2 Est. Patient 16:27:53 CDT Rui Arndt MD [facility]-80037 Level 3 Est. Patient 12:02:36 CDT Rui Arndt MD [facility]-33712 Level 4 Est. Patient 11:17:39 CDT Rui Arndt MD [facility]-27914 Level 4 Est. Patient 15:46:07 CDT Rui Arndt MD [facility]-86681 Level 4 Est. Patient 17:18:59 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 [employer] KNIFE Rui Arndt MD [facility]-13138 Level 4 Est. Patient 15:09:55 CDT Fabiana Grayman ERICKSON [facility] CPT-02794 Level 3 Est. Patient 15:49:06 CDT Rui Arndt MD [facility] CPT-46216 Level 3 Est. Patient 11:40:46 CDT Rui Arndt MD [facility]-04585 Level 3 Est. Patient 18:00:51 CDT Rui Arndt MD [facility] CPT-83885 Level 4 Est. Patient 10:25:35 CDT Rui Arndt MD [facility]-03502 Level 3 Est. Patient 15:45:51 CDT Rui Arndt MD [facility]-01541 Level 4 Est. Patient 11:32:17 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 [employer] KNIFE Rui Arndt MD [facility] CPT-46453 Level 4 New Patient 17:03:03 CDT Rui yoder MD [facility] Procedures Code Procedure Name Date Entry Date Standard Desc ription CPT-58235 MOD COVID19 mRNA 100mcg/0.5mL 1st Dose 9 13:33:26 CDT CPT-J1071 Depo Testosterone 100mg 10:43:46 CDT 10/19 CPT-96565 Abx/Therapy Injection 10:43:46 CDT CPT-J1071 Depo Testosterone 100mg 13:15:20 CDT 09/16 CPT-30664 Abx/Therapy Injection 13:15:20 CDT CPT-J1071 Depo Testosterone 100mg 13:00:53 CDT 08/18 CPT-83708 Abx/Therapy Injection 13:00:53 CDT CPT-J1071 Depo Testosterone 100mg 16:00:36 CDT 07/22 CPT-95048 Abx/Therapy Injection 16:00:36 CDT CPT-J1071 Depo Testosterone 100mg 15:59:22 CDT 06/24 CPT-16699 Abx/Therapy Injection 15:59:22 CDT CPT-J1071 Depo Testosterone 100mg 17:34:08 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 [employer]NIFE 05/27 CPT-76071 Abx/Therapy Injection 17:34:08 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 [employer] CPT-LM8949D (4274F) Influenza immunization administe red or previously received 12:03:02 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 [employer] CPT-KV6253K (4274F) Influenza immunization administe red or previously received 10:42:46 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 [employer] CPT-J1071 Depo Testosterone 100mg 14:29:40 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 [employer] 05/19 CPT-72758 Abx/Therapy Injection 14:29:40 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 [employer] CPT-59698 Venipuncture Draw Fee 09:50:26 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 [employer] CPT-78897 Venipuncture Draw Fee 11:06:37 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 [employer] CPT-J1071 Depo Testosterone 100mg 13:49:54 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 [employer] 04/20 CPT-36420 Abx/Therapy Injection 13:49:54 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 [employer] CPT-J1071 Depo Testosterone 100mg 16:22:38 CDT CPT-35999 Abx/Therapy Injection 16:22:38 CDT CPT-000 Give Appropriate Flu Vaccine 11:02:04 CDT 2 CPT-48513 78292 - Immun Admin 1 vac 11:43:22 CDT 2019 CPT-81330 Flublok Quadrivalent [place] 11:43:22 CDT CPT-15571 Venipuncture Draw Fee 11:14:23 CDT CPT-SG6924K (4274F 2P) Patient Reason Influenza immu nization not administered 11:02:04 CDT CPT-G0439 Subsequent Annual Wellness Exam 14:24:52 CDT CPT-ZT9207U (4013F) Statin therapy prescribed or cur rently being taken 14:24:52 CDT CPT-GI7988M (4274F 2P) Patient Reason Influenza immu nization not administered 14:24:52 CDT CPT-J1071 Depo Testosterone 100mg 13:29:13 CDT 0 12/23 CPT-22017 Abx/Therapy Injection 13:29:13 CDT CPT-J1071 Depo Testosterone 100mg 14:43:03 CDT 0 11/24 CPT-37653 Abx/Therapy Injection 14:43:03 CDT CPT-J1071 Depo Testosterone 100mg 17:18:41 CDT 0 10/27 CPT-93645 Abx/Therapy Injection 17:18:41 CDT CPT-56862 4M Drug Screen cup test, Multi-panel, urine 2019 13:58:45 CDT CPT-J1071 Depo Testosterone 100mg 16:42:20 CDT 0 09/23 CPT-33246 Abx/Therapy Injection 16:42:20 CDT CPT-J1071 Depo Testosterone 100mg 16:43:18 CDT 0 08/26 CPT-62285 Abx/Therapy Injection 16:43:18 CDT CPT-81233 Venipuncture Draw Fee 13:01:56 CDT CPT-J1071 Depo Testosterone 100mg 15:54:02 CDT 0 07/28 CPT-20176 Abx/Therapy Injection 15:54:02 CDT CPT-J1071 Depo Testosterone 100mg 15:17:11 CDT 0 06/30 CPT-23259 Abx/Therapy Injection 15:17:10 CDT CPT-34478 Venipuncture Draw Fee 11:58:13 CDT CPT-J1071 Depo Testosterone 200mg 14:59:06 CDT 0 06/02 CPT-59986 Abx/Therapy Injection 14:59:06 CDT CPT-J1071 Depo Testosterone 100mg 14:08:37 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 [employer]NIFE 05/06 CPT-65165 Abx/Therapy Injection 14:08:37 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 [employer] CPT-97679 Venipuncture Draw Fee 15:15:20 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 [employer] CPT-J1071 Depo Testosterone 100mg 15:40:35 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 [employer]NIFE 04/08 CPT-08566 Abx/Therapy Injection 15:40:35 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 [employer] CPT-TCMM Transitional Care Mgmt-Moderate 12:40:08 CS T CPT-MC9909B (4274F) Influenza immunization administe red or previously received 12:40:07 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 [employer] CPT-83148 Venipuncture Draw Fee 15:13:23 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 [employer] CPT-03996 Venipuncture Draw Fee 12:39:02 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 [employer] CPT-J1071 Depo Testosterone 100mg 11:35:50 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 [employer]NIFE 05/12 CPT-37630 Abx/Therapy Injection 11:35:50 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 [employer] CPT-IK2965U (4274F) Influenza immunization administe red or previously received 11:04:25 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 [employer] CPT-J1071 Depo Testosterone 100mg 11:32:22 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 [employer]NIFE 04/13 CPT-23812 Abx/Therapy Injection 11:32:22 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 [employer]NIFE CPT-19127 26663 - Immun Admin 1 vac 16:43:51 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 [employer] KNIFE 2018 CPT-39134 Shingrix 16:43:51 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 [employer] CPT-J1071 Depo Testosterone 100mg 18:38:18 CDT CPT-16833 Abx/Therapy Injection 18:38:17 CDT CPT-J1071 Depo Testosterone 100mg 14:36:52 CDT 12/18 CPT-60553 Abx/Therapy Injection 14:36:52 CDT CPT-G0008 Administration of Influenza Virus Vaccine 12/18 14:35:05 CDT CPT-89535 Fluzone (Flu) 10Pk Syringe IM (Medicare) 14:35:05 CDT CPT-09010 Bladder Scan 12:35:21 CDT CPT-37199 Venipuncture Draw Fee 16:41:57 CDT CPT-43911 48117 - Immun Admin 1 vac 16:31:08 CDT 2018 CPT-65961 Shingrix 16:31:07 CDT CPT-G0439 [facility] Annual Wellness Exam 16:12:06 CDT CPT-J1071 Depo Testosterone 100mg 12:18:42 CDT 11/20 CPT-37527 Abx/Therapy Injection 12:18:42 CDT CPT-J1071 Depo Testosterone 100mg 11:42:38 CDT 09/03 CPT-82178 Abx/Therapy Injection 11:42:38 CDT CPT-J1071 Depo Testosterone 100mg 12:00:58 CDT 08/06 CPT-72002 Abx/Therapy Injection 12:00:58 CDT CPT-J1071 Depo Testosterone 100mg 12:34:21 CDT 07/09 CPT-30684 Abx/Therapy Injection 12:34:21 CDT CPT-59156 Abdomen, 2 views 13:20:15 CDT CPT-08549 Chest, 2 views 13:20:15 CDT CPT-J1071 Depo Testosterone 200mg 14:21:46 CDT 06/12 CPT-67155 Abx/Therapy Injection 14:21:46 CDT CPT-J1071 Depo Testosterone 100mg 14:34:38 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 [employer]IFE 05/14 CPT-37594 Abx/Therapy Injection 14:34:38 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 [employer] CPT-000 Give Pneumovax 11:57:22 CDT CPT-J1071 Depo Testosterone 100mg 17:09:47 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 [employer]NIFE 04/13 CPT-33488 Abx/Therapy Injection 17:09:47 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 [employer] CPT-J1071 Depo Testosterone 100mg 15:41:42 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 [employer]NIFE 05/17 CPT-13755 Abx/Therapy Injection 15:41:42 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 [employer] CPT-J1071 Depo Testosterone 100mg 13:42:43 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 [employer]NIFE 04/18 CPT-22776 Abx/Therapy Injection 13:42:43 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 [employer] CPT-J1071 Depo Testosterone 100mg 13:24:43 CDT CPT-67754 Abx/Therapy Injection 13:24:43 CDT CPT-60144 First Vx - Ix admin for Medicare patients 18:07:22 CDT CPT-97601 Fluzone Quadrivalent Intramuscular Suspe nsion 0.5 ML 18:07:22 CDT CPT-J1071 Depo Testosterone 100mg 12:06:21 CDT 12/21 CPT-57042 Abx/Therapy Injection 12:06:21 CDT CPT-J1071 Depo Testosterone 100mg 16:09:00 CDT 11/23 CPT-41003 Abx/Therapy Injection 16:09:00 CDT CPT-G0439 [facility] Annual Wellness Exam 13:12:23 CDT CPT-J1071 Depo Testosterone 100mg 10:40:29 CDT 10/26 CPT-08565 Abx/Therapy Injection 10:40:29 CDT CPT-J1071 Depo Testosterone 100mg 09:15:44 CDT 09/28 CPT-22921 Abx/Therapy Injection 09:15:43 CDT CPT-J1071 Depo Testosterone 100mg 10:53:34 CDT 08/31 CPT-13272 Abx/Therapy Injection 10:53:34 CDT CPT-96654 [place] pre/post w graphic rec - XRAY USE ONLY 201 10/30/06 10:24:51 CDT CPT-J1071 Depo Testosterone 100mg 14:11:00 CDT 08/03 CPT-71119 Abx/Therapy Injection 14:11:00 CDT CPT-J1071 Depo Testosterone 100mg 15:15:13 CDT 07/04 CPT-89898 Abx/Therapy Injection 15:15:13 CDT CPT-J2310 Narcan HCI .4mg per 1 ml 15:52:42 CDT 06/26 CPT-16033 Chest, 2 views 15:11:39 CDT CPT-000 Give Appropriate Flu Vaccine 12:01:26 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 [employer] 2 CPT-33555 Chest single view 16:11:20 CDT CPT-J1071 Depo Testosterone 100mg 10:50:45 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 [employer] 05/29 CPT-46436 Abx/Therapy Injection 10:50:45 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 [employer] CPT-83768 Chest, 2 views 11:49:28 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 [employer] CPT-J1071 Depo Testosterone 100mg 16:07:43 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 [employer] KNIFE 05/02 CPT-70136 Abx/Therapy Injection 16:07:43 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 [employer]NIFE CPT-J1071 Depo Testosterone 100mg 15:31:04 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 [employer] KNIFE 03/31 CPT-27097 Abx/Therapy Injection 15:31:04 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 [employer]NIFE CPT-J1071 Depo Testosterone 100mg 16:29:48 CDT CPT-73696 Abx/Therapy Injection 16:29:48 CDT CPT-J1071 Depo Testosterone 100mg 14:42:01 CDT 12/23 CPT-72021 Abx/Therapy Injection 14:42:01 CDT CPT-G0439 [facility] Annual Wellness Exam 14:14:09 CDT CPT-J1071 Depo Testosterone 100mg 13:48:18 CDT 11/17 CPT-00517 Abx/Therapy Injection 13:48:18 CDT CPT-G0009 Administration of Pneumococcal Vaccine 4 12:06:23 CDT CPT-37299 Pneumovax 23 Injection Injectable 25 MCG /0.5ML 12:06:23 CDT CPT-J1071 Depo Testosterone 100mg 13:11:36 CDT 10/19 CPT-89596 Abx/Therapy Injection 13:11:36 CDT CPT-J1071 Depo Testosterone 100mg 13:17:59 CDT 09/21 CPT-74288 Abx/Therapy Injection 13:17:59 CDT CPT-J1071 Depo Testosterone 100mg 13:08:38 CDT 09/21 CPT-J1071 Depo Testosterone 100mg 13:06:32 CDT 09/21 CPT-30629 Bone Density - XRAY USE ONLY 09:04:29 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 [employer]NIFE 2 CPT-08970 BMP - LAB USE ONLY 17:39:11 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 [employer] CPT-21162 Venipuncture Draw Fee 17:39:11 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 [employer] CPT-000 Give Appropriate Flu Vaccine 15:16:28 CDT CPT-J1071 Depo Testosterone 200mg 16:59:53 CDT 10/21 CPT-80728 Abx/Therapy Injection 16:59:53 CDT CPT-85275 Abx/Therapy Injection 18:58:42 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 [employer] CPT-41790 First Vx - Ix admin for Medicare patients 15:47:06 CDT CPT-68389 Fluzone High-Dose Intramuscular Suspension 01/19 15:47:06 CDT CPT-47908 Abx/Therapy Injection 14:12:15 CDT CPT-73974 Abx/Therapy Injection 13:34:08 CDT CPT-41312 Abx/Therapy Injection 14:41:47 CDT CPT-G0438 Initial Annual Wellness Exam 10:06:26 CD T CPT-J1071 Depo Testosterone 200mg 11:42:49 CDT 09/22 CPT-93785 Abx/Therapy Injection 11:42:49 CDT CPT-13680 Abx/Therapy Injection 16:55:18 CDT CPT-95368 Abx/Therapy Injection 13:49:32 CDT CPT-J1071 Depo Testosterone 200mg 09:48:27 CDT 06/28 CPT-53409 Abx/Therapy Injection 09:48:27 CDT CPT-93789 Abx/Therapy Injection 16:27:06 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 CPT-78102 No Charge Offi Visit 18:00:02 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 8 CPT-72107 Abd compl w upright 12:29:27 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 CPT-000 Give Appropriate Flu Vaccine 16:15:45 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 2 CPT-17375 Abx/Therapy Injection 11:03:39 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 CPT-99222 Venipuncture Draw Fee 13:07:59 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 CPT-98033 Immunization Single Admin 12:03:42 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 2014 CPT-28448 Fluzone High Dose (65+) 12:03:41 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 05/05 CPT-88938 Chest 2V Frontal and Lat 15:25:23 CDT 12/29 CPT-74851 Venipuncture Draw Fee 15:57:34 CDT CPT-76735 Abx/Therapy Injection 12:52:43 CDT CPT-50520 Abx/Therapy Injection 08:58:56 CDT CPT-59013 Venipuncture Draw Fee 15:59:37 CDT CPT-05592 Abx/Therapy Injection 08:36:16 CDT CPT-000 Give Pneumovax 11:32:18 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 CPT-000 Give Appropriate Flu Vaccine 11:32:18 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 2 CPT-09800 Abx/Therapy Injection 09:52:48 CDT CPT-27727 Abx/Therapy Injection 09:56:54 CDT CPT-OV Office Visit 16:35:19 CDT CPT-84662 Abx/Therapy Injection 08:25:48 CDT CPT-67585 Abx/Therapy Injection 09:17:15 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 CPT-92983 Abx/Therapy Injection 08:52:31 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 CPT-15482 Abx/Therapy Injection 09:32:50 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 CPT-68332 Abx/Therapy Injection 08:28:14 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 CPT-60707 Abx/Therapy Injection 10:43:07 CDT CPT-J1070 Depo Testosterone 100 mg 08:39:09 CDT 12/05 CPT-43896 Abx/Therapy Injection 08:39:09 CDT CPT-41222 Abx/Therapy Injection 11:22:03 CDT CPT-94963 Shoulder comp min 2V 14:11:48 CDT 1 CPT-50349 Abx/Therapy Injection 09:56:35 CDT CPT-LR Lesion Removal 09:49:45 CDT
--- OUTSIDE RECORDS SUMMARY | 2020-12-04 06:11 | XMS REPORT | Clinical Summary ---
Author Author Admin, Charlie Hankins Organization [facility] [employer] Address Unknown Phone Unavailable Allergies, Adverse Reactions, Alerts Allergy Name Reaction Description Start Date Severity Status Pr ovider NKA Critical Active Dena Lacy APR N KEFLEX Mild No Longer Active Rui Arndt MD KEFLEX itch Moderate No Longer Active Vinod Alatorre DIRECTOR NEWS NKDA Critical No Longer Active Rui Arndt MD NKDA Critical Inactive Irma Chaidez KEFLEX UNK Inactive Georgina gautam MA Conditions or Problems Problem Name Problem Code [...] Arndt MD [facility] Cat[facility] 366.9 Inactive Rui Arndt MD Unspecified [...] fatigue Monoclonal gammopathy 273.1 Active 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 Monoclonal paraproteinemia Peripheral edema 782.3 Active Fabiana Speaks A PRN Edema Dyspnea 786.09 Resolved Rui Arndt MD Other dyspnea and respiratory abnormality Need for prophylactic vaccination and inoculation against in fluenza V04.81 Resolved Rui Arndt MD Need for prophylactic vaccination and inoculation against influenza Peripheral artery disease 443.9 Active [facility] Peripheral vascular disease, unspecified Abdominal [...] sode, in full remission Insomnia 780.52 Active uRi Arndt MD Insomnia, unspecified BMI 37-37.9 adult [...] 39.0-39.9, adult BMI 37-37.9 Active Keyonna Barajas DIRECTOR NEWS-C Body Mass Index 39.0-39.9, adult Abdominal bloating [...] atherosclerosis of unspecified type of vessel , [place] or graft 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 ALBUTEROL SULFATE 95409346483 Active Keyonna Jenn DIRECTOR NEWS-C Activ e PREDNISONE 20 MG ORAL TABLET Take 2 tablets by mouth d aily for 3 days then 1 tablet daily for 2 days PREDNISONE 33588989160 Active Keyonna Jenn DIRECTOR NEWS-C Active ZITHROMAX 250 MG ORAL TABLET Take 2 tablets by mouth o n day 1 then 1 tablet the next 4 days AZITHROMYCIN 83457803264 Active Keyonna Br itt DIRECTOR NEWS-C Active ZUBSOLV 11.4-2.9 MG SUBLINGUAL TABLET SUBLINGUAL Take 1 tablet dailyDEA; [id number] BUPRENORPHINE HCL-NALOXONE HCL 89635090625 Acti ve Rui Arndt MD Active CEFUROXIME AXETIL 500 MG ORAL TABLET TAKE 1/2 TABLET TWICE DAILY CEFUROXIME AXETIL 34022762782 No Longer Active Rui Arndt MD Active POTASSIUM CHLORIDE ER 10 MEQ CR-CAPS TAKE ONE TABLET BY MOUT H TWICE DAILY. POTASSIUM CHLORIDE 16603471272 AGUSTO Richardson Active OMEPRAZOLE 40MG TAKE 1 CAPSULE BY MOUTH EVERY MORNING OMEPRAZOLE 43543205496 AGUSTO Richardson Active SPIRIVA HANDIHLR INHALE CONTENTS OF ONE CAPSULE VIA HANDI HALER ONCE DAILY TIOTROPIUM BROMIDE MONOHYDRATE 80703373158 AGUSTO Richardson Active BUMETANIDE 1MG TAKE 1 TABLET BY MOUTH ONCE DAILY IF NEE DED FOR SWELLING BUMETANIDE 36747933486 AGUSTO Richardson Active ZOLPIDEM TARTRATE 10 MG TABS TAKE 1 TABLET BY MOUTH AT NIGHT IF NEEDED FOR SLEEP ZOLPIDEM TARTRATE 75072258872 Active Rui Arndt MD Active FUROSEMIDE 40MG TAKE 2 TABLETS BY MOUTH EVERY MORNING FUROSEMIDE 08263921948 Active Liudmila Tirado RN Active GABAPENTIN 300MG TAKE 1 CAPSULE BY MOUTH THREE TIMES DAILY GABAPENTIN 28055134637 Active AGUSTO Hall Active ATORVASTATIN 80MG TAKE 1 TABLET BY MOUTH DAILY AT BEDTIME 6 ATORVASTATIN CALCIUM 27625051919 Active AGUSTO Hall A ctive SUPER B-100 ORAL TABLET 1 q d B COMPLEX-BIOTI N-FA 05348358191 Active Tarun Chavez MD Active ASPIRIN 325 MG ORAL TABLET 1 q d ASPIRIN 9864805998 9 Active Tarun Chavez MD Active DIGITEK 125 MCG ORAL TABLET 1 q d DIGOXIN 788445183 01 Active Tarun Chavez MD Active VENTOLIN HFA 108 (90 BASE) MCG/ACT INHALATION AEROSOL SOLUTI ON 1 puff every day ALBUTEROL SULFATE 95426772713 No Longer Active Alan Chavez MD Active LEVOTHYROXINE SODIUM 200 MCG ORAL TABLET 1 po q a.m. for thyroid LEVOTHYROXINE SODIUM 01772406462 No Longer Active Tarun Chavez MD Active PROAIR HFA 108 (90 BASE) MCG/ACT INHALATION AEROSOL SO LUTION 2 puffs four times a day as needed ALBUTEROL SULFATE 50660951491 No Long er Active Tarun Chavez MD Active FLOMAX 0.4 MG ORAL CAPSULE 1 capsule by mouth in the evening for prostate TAMSULOSIN HCL 31945515265 No Longer Active Tarun Chavez MD Active ELIQUIS 5 MG TABS TAKE ONE TABLET BY MOUTH TWO TIMES A DAY APIXABAN 64197963708 Active AGUSTO Hall Active PREDNISONE 20 MG ORAL TABLET Take 2 tablets daily for 5 days and 1 tablet daily for 5 days. PREDNISONE 30316790308 No Longer Active Rui Arndt MD Active POTASSIUM CHLORIDE ER 10 MEQ CR-TABS TAKE ONE TABLET BY CATERINA TH TWICE DAILY. POTASSIUM CHLORIDE 27537044707 Active AGUSTO Hall Active KLOR-CON M10 10 MEQ ORAL TABLET EXTENDED RELEASE one tablet twic e a day POTASSIUM CHLORIDE JORDAN CR 34850408982 No Longer Active AGSUTO Suarez Active LORATADINE 10MG ORAL TABLET TAKE ONE TABLET BY MOUTH ONE TIME DAILY IF NEEDED FOR ALLERGIES. LORATADINE 63220663738 Active Alma Madrid AGUSTO Active LEVOTHYROXINE SODIUM 150MCG ORAL TABLET TAKE ONE TABLE T BY MOUTH ONE TIME DAILY FOR THYROID. LEVOTHYROXINE SODIUM 72810182911 Active S osiel Madrid AGUSTO Active PLAVIX 75 MG ORAL TABLET 1 tablet by mouth daily for 30 days 202 CLOPIDOGREL BISULFATE 15338983093 No Longer Active Rui Arndt MD Active PLAVIX 75 MG ORAL TABLET 1 tablet by mouth daily 03/11 CLOPIDOGREL BISULFATE 40625975929 No Longer Active Rui Arndt MD Activ e ASPIRIN 325 MG ORAL TABLET Take 1 tablet daily ASPIRIN 45174419697 No Longer Active Rui Arndt MD Active PREDNISONE 20 MG ORAL TABLET 1 tab twice daily for 3 d ay, then one daily for three days PREDNISONE 89662315029 No Longer Active Rui Arndt MD Active MORPHINE SULFATE ER 15 MG ORAL TABLET EXTENDED RELEASE 1 TID a d ay MORPHINE SULFATE 13860055909 No Longer Active Rui Arndt MD Active DEPO-TESTOSTERONE 100 MG/ML INTRAMUSCULAR SOLUTION 201 11/29/02 TESTOSTERONE CYPIONATE 21109952449 Active Brittny Aguila MA Active SUBOXONE 2-0.5 MG SUBLINGUAL FILM Bring to appointment before taking for induction. Stop the Morphine 12 hours before the appointment. BUPRENORPHINE HCL-NALOXONE HCL 07650583971 No Longer Active Rui Arndt MD Active MUCINEX D 60-600 MG ORAL TABLET EXTENDED RELEASE 12 HO UR 1 po BID PRN Congestion PSEUDOEPHEDRINE-GUAIFENESIN 49321066704 Active Luke Gonzales DIRECTOR NEWS Active ZITHROMAX Z-PETE 250 MG ORAL TABLET 2 today, then 1 daily for 4 d ays AZITHROMYCIN 70170398920 No Longer Active Luke Gonzales APRN Active MORPHINE SULFATE ER 60 MG ORAL TABLET EXTENDED RELEASE 1 twi ce a day for pain MORPHINE SULFATE 06462547676 No Longer Active Luke valdez APRN Active MORPHINE SULFATE ER 100 MG ORAL TABLET EXTENDED RELEASE one tabl et at bedtime MORPHINE SULFATE 79496387443 No Longer Active Luke Gonzales APRN Active DEPO-TESTOSTERONE 100 MG/ML INTRAMUSCULAR SOLUTION 1mL q4H TESTOSTERONE CYPIONATE 52744725944 No Longer Active Luke Gonzales APRN Active PANTOPRAZOLE SODIUM 40 MG ORAL TABLET DELAYED RELEASE 1 pill by mouth daily PANTOPRAZOLE SODIUM 79654354166 No Longer Active Jose Arndt MD Active FLOMAX 0.4 MG ORAL CAPSULE one capsule in the evening 1/2 hour a fter supper TAMSULOSIN HCL 60148051227 No Longer Active Rui Arndt MD Active LEVOTHYROXINE SODIUM 175 MCG ORAL TABLET 1 pill by mouth daily f or thyroid LEVOTHYROXINE SODIUM 69074851231 No Longer Active Fabiana Perdomo RN Active CLARITIN 10 MG ORAL TABLET 1 tablet by mouth daily as needed for allergies LORATADINE 96005494375 No Longer Active Mari bhakta PA-C Active CARAFATE 1 GM ORAL TABLET Take 1 tablet 4 times daily. Before meals and at bedtime SUCRALFATE 38343441650 No Longer Active Mari Stanley PA-C Active DULCOLAX 5 MG ORAL TABLET DELAYED RELEASE 1 tab daily BISACODYL 23106983005 Active Sara Moeller RN Active SUCRALFATE 1 GM ORAL TABLET 1 four times a day for GERD SUCRALFATE 04596606736 No Longer Active Sara Moeller RN Act berna FISH OIL CAPSULE 1 capsule daily OMEGA-3 FATTY ACIDS CAPS 37350536800 No Longer Active Sara Moeller RN Active PROBIOTIC DAILY ORAL CAPSULE 1 capsule daily 3 PROBIOTIC PRODUCT 97917179786 No Longer Active Sara Moeller RN Act berna B COMPLEX FORMULA 1 ORAL TABLET 1 tablet daily B COMPLEX- FOLIC ACID 62613922360 No Longer Active Sara Moeller RN Act berna PROAIR HFA 108 (90 BASE) MCG/ACT INHALATION AEROSOL SO LUTION 2 puffs four times a day as needed ALBUTEROL SULFATE 15884031566 No Long er Active Sara Moeller RN Active MULTIVITAMINS ORAL CAPSULE Take 1 daily MULTIPL E VITAMIN 92913420498 No Longer Active Sara Moeller RN Active CLONAZEPAM 2 MG ORAL TABLET one tablet at bed time CLONAZEPAM 73620183291 No Longer Active Sara Moeller RN Active DEPO-TESTOSTERONE 200 MG/ML INTRAMUSCULAR SOLUTION 100mg italia ry 4 weeks TESTOSTERONE CYPIONATE 37906478681 No Longer Active Sara Moeller RN Active ATIVAN 0.5 MG ORAL TABLET 1 tab 30 minutes prior to sleep study LORAZEPAM 62521717554 No Longer Active Rui Arndt MD Active NARCAN 4 MG/0.1ML NASAL LIQUID 1 spray in nostril ever y 2 to 3 minutes until responsive or EMS arrives NALOXONE HCL 49453036482 Active Rui Arndt MD Active LEVAQUIN 500 MG ORAL TABLET 1 daily for infection 2017 LEVOFLOXACIN 03598335987 No Longer Active Dena Lacy APRN Active PREDNISONE 20 MG TABS Take 2 daily for 5 days and then 1 stephy ly for 5 days PREDNISONE 74833372692 No Longer Active Rui saleem MD Active PREDNISONE 20 MG ORAL TABLET 2 tabs daily for 4 days, 1 tab daily for 4 days, 1/2 tab daily for 4 days PREDNISONE 74652984001 No Longer Active Rui Arndt MD Active OXYGEN 2L at night time - Dx: J44.9 Active Lori Winter LPN Active PREDNISONE 20 MG ORAL TABLET Take 2 daily for 5 days a nd then 1 daily for 5 days PREDNISONE 13210987909 No Longer Active Rui Arndt MD Active NORCO 10-325 MG ORAL TABLET Take 1-2 tablets every 6 hours a s needed for pain HYDROCODONE-ACETAMINOPHEN 99930684507 No Longer Activ e Rui Arndt MD Active FUROSEMIDE 20 MG ORAL TABLET 1 daily for blood pressure and swel ling FUROSEMIDE 84657341808 No Longer Active Rui Arndt MD Active PAMELOR 10 MG ORAL CAPSULE NORTRIPTY LINE HCL 14965758746 No Longer Active Rui Arndt MD Active AEROSPAN 80 MCG/ACT INHALATION AEROSOL SOLUTION 2 puffs twice FLUNISOLIDE HFA 28825646846 No Longer Active Rui Arndt MD Active LISINOPRIL 10 MG ORAL TABLET take one tab once daily 09/22 LISINOPRIL 61199470507 No Longer Active Rui Arndt MD Active BD INTEGRA SYRINGE 25G X 1" 1 ML Use with Depo provera INSULIN SYRINGE-NEEDLE U-100 Active Brittny Aguila MA Act berna MORPHINE SULFATE ER BEADS 75 MG ORAL CAPSULE EXTENDED RELEASE 24 HOUR 1 twice a day MORPHINE SULFATE BEADS 17751440728 No Longer Ac tive Rui Arndt MD Active COMBIVENT RESPIMAT 20-100 MCG/ACT INHALATION AEROSOL S OLUTION 1 puff four times a day IPRATROPIUM-ALBUTEROL 29885585857 No Longer Act berna Rui Arndt MD Active POTASSIUM CHLORIDE 20 MEQ ORAL PACKET 1 qDay with Lasix POTASSIUM CHLORIDE 29560536729 No Longer Active Rui Arndt MD Activ e PROAIR HFA 108 (90 Base) MCG/ACT INHALATION AEROSOL SO LUTION 2 puffs four times a day as needed ALBUTEROL SULFATE 50911668968 No Longer Ac tive Rui Arndt MD Active ASMANEX 60 METERED DOSES 220 MCG/INH INHALATION AEROSO L POWDER BREATH ACTIVATED 1 puff bid with rinse after MOMETASONE FUROATE 0687132 4102 No Longer Active Rui Arndt MD Active OMEPRAZOLE 40 MG ORAL CAPSULE DELAYED RELEASE 1 po q a.m. OMEPRAZOLE 32467577318 No Longer Active Anahi Ashley LPN Act [...] daily 2 LISINOPRIL 10 MG ORAL TABLET 951302 LISINOPRIL Inactive AEROSPAN 80 MCG/ACT INHALATION AEROSOL SOLUTION 2 puffs twice AEROSPAN 80 MCG/ACT INHALATION AEROSOL SOLUTION FLUNISOLIDE HFA Inactive PAMELOR 10 MG ORAL CAPSULE PAMELOR 1 0 MG ORAL CAPSULE 259877 NORTRIPTYLINE HCL Inactive FUROSEMIDE 20 MG ORAL TABLET 1 daily for blood pressure and swel ling FUROSEMIDE 20 MG ORAL TABLET 472693 FUROSEMIDE Corinna ctive NORCO 10-325 MG ORAL TABLET Take 1-2 tablets every 6 hours a s needed for pain NORCO 10-325 MG ORAL TABLET HYDROCODONE-A CETAMINOPHEN Inactive PREDNISONE 20 MG ORAL TABLET 2 tabs daily for 4 days, 1 tab daily for 4 days, 1/2 tab daily for 4 days PREDNISONE 20 MG ORAL T ABLET 047180 PREDNISONE Inactive LEVAQUIN 500 MG ORAL TABLET 1 daily for infection 2017 LEVAQUIN 500 MG ORAL TABLET 649784 LEVOFLOXACIN Inactive ATIVAN 0.5 MG ORAL TABLET 1 tab 30 minutes prior to sleep study ATIVAN 0.5 MG ORAL TABLET 007189 LORAZEPAM Inacti ve DEPO-TESTOSTERONE 200 MG/ML INTRAMUSCULAR SOLUTION 100mg italia ry 4 weeks DEPO-TESTOSTERONE 200 MG/ML INTRAMUSCULA R SOLUTION 7462225 TESTOSTERONE CYPIONATE Inactive CLONAZEPAM 2 MG ORAL TABLET one tablet at bed time 201 11/01/12 CLONAZEPAM 2 MG ORAL TABLET 507591 CLONAZEPAM Inactive MULTIVITAMINS ORAL CAPSULE Take 1 [...] capsule daily 3 PROBIOTIC DAILY ORAL CAPSULE 0521385 PROBIOTIC PRODUCT Inactive FISH OIL CAPSULE 1 capsule daily FISH OIL CAPSUL E OMEGA- 3 FATTY ACIDS CAPS Inactive SUCRALFATE 1 GM ORAL TABLET 1 four times a day for GERD SUCRALFATE 1 GM ORAL TABLET 486749 SUCRALFATE Inactive CARAFATE 1 GM ORAL TABLET Take 1 tablet 4 times daily. Before meals and at bedtime CARAFATE 1 GM ORAL TABLET 640467 SUCRALFATE Inactive CLARITIN 10 MG ORAL TABLET 1 tablet by mouth daily as needed for allergies CLARITIN 10 MG ORAL TABLET 999475 LORATADINE I nactive LEVOTHYROXINE SODIUM 175 MCG ORAL TABLET 1 pill by mouth daily f or thyroid LEVOTHYROXINE SODIUM 175 MCG ORAL TABLET 706974 LEVOTHY ROXINE SODIUM Inactive FLOMAX 0.4 MG ORAL CAPSULE one capsule in the evening 1/2 hour a fter supper FLOMAX 0.4 MG ORAL CAPSULE 063738 TAMSULOSIN HCL Inact berna PANTOPRAZOLE SODIUM 40 MG ORAL TABLET DELAYED RELEASE 1 pill by mouth daily PANTOPRAZOLE SODIUM 40 MG ORAL TABLET DE LAYED RELEASE 769286 PANTOPRAZOLE SODIUM Inactive DEPO-TESTOSTERONE 100 MG/ML INTRAMUSCULAR SOLUTION 1mL q4H DEPO-TESTOSTERONE 100 MG/ML INTRAMUSCULAR SOLUTION 161627 TESTOSTERONE CYPIONATE Inactive MORPHINE SULFATE ER 100 [...] three days PREDNISONE 20 MG ORAL TABLET 964084 PREDNIS ONE Inactive ASPIRIN 325 MG ORAL TABLET Take 1 tablet daily ASPIRIN 325 MG ORAL TABLET 009721 ASPIRIN Inactive PLAVIX 75 MG ORAL TABLET 1 tablet by mouth daily 03/11 PLAVIX 75 MG ORAL TABLET 501527 CLOPIDOGREL BISULFATE Inactive PLAVIX 75 MG ORAL TABLET 1 tablet by mouth daily for 30 days 202 PLAVIX 75 MG ORAL TABLET 335715 CLOPIDOGREL BISULFATE I nactive KLOR-CON M10 10 MEQ ORAL TABLET EXTENDED RELEASE one tablet twic e a day KLOR-CON M10 10 MEQ ORAL TABLET EXTENDED RELEASE 3407232 POTASSIUM CHLORIDE JORDAN CR Inactive PREDNISONE 20 MG ORAL TABLET Take 2 tablets daily for 5 days and 1 tablet daily for 5 days. PREDNISONE 20 MG ORAL TABLET 768919 PREDNISONE Inactive FLOMAX 0.4 MG ORAL CAPSULE 1 capsule by mouth in the evening for prostate FLOMAX 0.4 MG ORAL CAPSULE 548546 TAMSULOSIN HCL Inactive PROAIR HFA 108 (90 BASE) MCG/ACT INHALATION AEROSOL SO LUTION 2 puffs four times a day as needed PROAIR HFA 108 (90 B ASE) MCG/ACT INHALATION AEROSOL SOLUTION ALBUTEROL SULFATE Inactive LEVOTHYROXINE SODIUM 200 MCG ORAL TABLET 1 po q a.m. for thyroid LEVOTHYROXINE SODIUM 200 MCG ORAL TABLET 399073 LEVOTHY ROXINE SODIUM Inactive VENTOLIN HFA 108 (90 BASE) MCG/ACT INHALATION AEROSOL SOLUTI ON 1 puff every day VENTOLIN HFA 108 (90 BASE) M CG/ACT INHALATION AEROSOL SOLUTION ALBUTEROL SULFATE Inactive POTASSIUM CHLORIDE 20 MEQ ORAL PACKET 1 qDay with Lasix POTASSIUM CHLORIDE 20 MEQ ORAL PACKET 4526919 POTASSIUM CHLORIDE Inactive PREDNISONE 20 MG ORAL TABLET Take 2 daily for 5 days a nd then 1 daily for 5 days PREDNISONE 20 MG ORAL TABLET 813817 PREDNIS ONE Inactive PREDNISONE 20 MG TABS Take 2 daily for 5 days and then 1 stephy ly for 5 days PREDNISONE 20 MG TABS 136574 PREDNISONE Inacti ve ZITHROMAX Z-PETE 250 MG ORAL TABLET 2 today, then 1 daily for 4 d ays ZITHROMAX Z-PETE 250 MG ORAL TABLET 278944 AZITHROMYCIN Inactive CEFUROXIME AXETIL 500 MG ORAL TABLET TAKE 1/2 TABLET TWICE DAILY CEFUROXIME AXETIL 500 MG ORAL TABLET 672185 CEFUROXIME AXETIL Inactive Advance Directives Directive Description [...] Magnesium - Chemistry sodium, serum 138 mmol/L 108-933 2588/12/04 carbon dioxide, venous blood 28.3 mmol/L 21.0-32 [...] 0.90 mg/dL 0.00-1.00 cholesterol, serum 121 mg/dL 129-096 4349/12/04 triglyceride, serum, fasting 137 mg/dL 30-200 HDL [...] 2.60 ng/mL 0.00-4.00 sodium, serum 136 mmol/L 443-895 3276/10/06 carbon dioxide, venous blood 29.5 mmol/L 21.0-32 [...] noted Encounters Code Encounter Date Provider Facility CPT-30396 56124: Ofc Vst-Est Level III-Low MDM or 20-29 minutes 08:12:06 CDT Keyonna C[facility] CPT-02201 11224: Ofc Vst-Est Level IV-Moderate MDM or 30-39 minutes 12:21:30 CDT Rui Arndt MD [facility] CPT-26777 77034-Qhw Vst-Est Level IV 09:46:31 CDT Lobo Arndt MD [facility] CPT-41745 12492-Zan Vst-Est Level IV 10:42:47 DATA EXAMINATION CLERK Lobo Arndt MD [facility] CPT-97506 86356-Knz Vst-Est Level IV 11:02:04 CDT Lobo Arndt MD [facility] CPT-73560 85965-Qen Vst-Est Level IV 13:58:45 CDT Lobo Arndt MD [facility] CPT-78436 19960-Btb Vst-Est Level IV 15:13:53 CDT Lobo ert Wanda Arndt MD [facility] CPT-60684 33831-Klk Vst-Est Level IV 11:54:49 CDT Lobo ert Wanda Arndt MD [facility] CPT-06381 53754-Yog Vst-Est Level IV 11:04:27 DATA EXAMINATION CLERK Lobo Arndt MD [facility] CPT-02640 Level 4 New Patient 12:35:21 CDT Ade chung MD [facility] CPT-05129 Ofc Vst-Est Level IV 16:12:07 CDT uRi Arndt MD [facility] CPT-07321 52420-Eju Vst-Est Level IV 16:25:05 CDT Lobo Arndt MD [facility] CPT-35715 17960-Ddg Vst-Est Level III 10:55:45 CDT Rui Arndt MD [facility] CPT-88277 28765-Vrl Vst-Est Level IV 14:16:20 CDT Lobo Arndt MD [facility] CPT-66299 Level 3 Est. Patient 13:14:20 CDT Luke rascon DIRECTOR NEWS [facility] CPT-93542 17571-Vwf Vst-Est Level IV 09:53:37 DATA EXAMINATION CLERK Lobo Arndt MD [facility] CPT-56904 63283-Hut Vst-Est Level IV 09:44:38 CDT Lobo Arndt MD [facility] CPT-00432 Level 3 Est. Patient 15:23:12 CDT Dena ley [facility] CPT-11639 Level 4 Est. Patient 13:12:22 CDT Rui Arndt MD [facility] CPT-46503 Level 4 Est. Patient 14:44:13 CDT eDna ley [facility] CPT-57779 97863-Zwh Vst-Est Level III 11:23:31 CDT Rui Arndt MD [facility] CPT-73355 93994-Ymv Vst-Est Level V 10:04:33 CDT Jose Arndt [facility] CPT-05622 Level 4 Est. Patient 16:17:47 CDT Rui Arndt MD [facility] CPT-16260 Level 4 Est. Patient 10:53:57 CDT Rui Arndt MD [facility] CPT-95621 Level 3 Est. Patient 16:09:12 CDT Jemal marti [facility] CPT-87688 Level 4 Est. Patient 11:32:24 DATA EXAMINATION CLERK Rui Arndt MD [facility] CPT-08144 Level 4 Est. Patient 14:55:39 DATA EXAMINATION CLERK Dena ley [facility] CPT-53170 Level 3 Est. Patient 15:10:46 DATA EXAMINATION CLERK Rui Arndt MD [facility]-63130 Level 3 Est. Patient 12:01:26 DATA EXAMINATION CLERK Rui Arndt MD [facility] CPT-99753 Level 3 Est. Patient 10:35:15 DATA EXAMINATION CLERK Rui Arndt MD [facility] CPT-21099 Level 3 Est. Patient 15:04:30 CDT Rui Arndt MD [facility] CPT-91133 Level 3 Est. Patient 10:15:00 CDT Vinod fenton [facility] CPT-37900 Level 4 Est. Patient 14:59:25 CDT Rui Arndt MD [facility] CPT-88997 Level 4 Est. Patient 12:07:34 CDT Rui Arndt MD [facility]-90230 Level 3 Est. Patient 10:42:08 DATA EXAMINATION CLERK Rui Arndt MD [facility]-42973 Level 3 Est. Patient 17:29:10 DATA EXAMINATION CLERK Rui Arndt MD [facility]-78959 Level 4 Est. Patient 15:12:05 CDT Rui Arndt MD [facility]-74390 Level 2 Est. Patient 16:27:53 CDT Rui Arndt MD [facility]-15321 Level 3 Est. Patient 12:02:36 CDT Rui Arndt MD [facility]-85338 Level 4 Est. Patient 11:17:39 CDT Rui Arndt MD [facility]-27681 Level 4 Est. Patient 15:46:07 CDT Rui Arndt MD [facility]-31986 Level 4 Est. Patient 17:18:59 DATA EXAMINATION CLERK Rui Arndt MD [facility]-57552 Level 4 Est. Patient 15:09:55 CDT Fabiana Grayman ERICKSON [facility] CPT-38857 Level 3 Est. Patient 15:49:06 CDT Rui Arndt MD [facility] CPT-70943 Level 3 Est. Patient 11:40:46 CDT Rui Arndt MD [facility]-97195 Level 3 Est. Patient 18:00:51 CDT Rui Arndt MD [facility] CPT-17615 Level 4 Est. Patient 10:25:35 CDT Rui Arndt MD [facility]-80102 Level 3 Est. Patient 15:45:51 CDT Rui Arndt MD [facility]-98707 Level 4 Est. Patient 11:32:17 DATA EXAMINATION CLERK Rui Arndt MD [facility] CPT-41018 Level 4 New Patient 17:03:03 CDT Rui yoder MD [facility] Procedures Code Procedure Name Date Entry Date Standard Desc ription CPT-68744 MOD COVID19 mRNA 100mcg/0.5mL 1st Dose 9 13:33:26 CDT CPT-J1071 Depo Testosterone 100mg 10:43:46 CDT 10/19 CPT-65654 Abx/Therapy Injection 10:43:46 CDT CPT-J1071 Depo Testosterone 100mg 13:15:20 CDT 09/16 CPT-49584 Abx/Therapy Injection 13:15:20 CDT CPT-J1071 Depo Testosterone 100mg 13:00:53 CDT 08/18 CPT-01653 Abx/Therapy Injection 13:00:53 CDT CPT-J1071 Depo Testosterone 100mg 16:00:36 CDT 07/22 CPT-97490 Abx/Therapy Injection 16:00:36 CDT CPT-J1071 Depo Testosterone 100mg 15:59:22 CDT 06/24 CPT-63377 Abx/Therapy Injection 15:59:22 CDT CPT-J1071 Depo Testosterone 100mg 17:34:08 DATA EXAMINATION CLERK 05/27 CPT-92540 Abx/Therapy Injection 17:34:08 DATA EXAMINATION CLERK CPT-OS0179Y (4274F) Influenza immunization administe red or previously received 12:03:02 DATA EXAMINATION CLERK CPT-IF8056I (4274F) Influenza immunization administe red or previously received 10:42:46 DATA EXAMINATION CLERK CPT-J1071 Depo Testosterone 100mg 14:29:40 DATA EXAMINATION CLERK 05/19 CPT-11330 Abx/Therapy Injection 14:29:40 DATA EXAMINATION CLERK CPT-11620 Venipuncture Draw Fee 09:50:26 DATA EXAMINATION CLERK CPT-97529 Venipuncture Draw Fee 11:06:37 DATA EXAMINATION CLERK CPT-J1071 Depo Testosterone 100mg 13:49:54 DATA EXAMINATION CLERK 04/20 CPT-02022 Abx/Therapy Injection 13:49:54 DATA EXAMINATION CLERK CPT-J1071 Depo Testosterone 100mg 16:22:38 CDT CPT-89163 Abx/Therapy Injection 16:22:38 CDT CPT-000 Give Appropriate Flu Vaccine 11:02:04 CDT 2 CPT-68006 57911 - Immun Admin 1 vac 11:43:22 CDT 2019 CPT-88851 [employer] Quadrivalent [place] 11:43:22 CDT CPT-18858 Venipuncture Draw Fee 11:14:23 CDT CPT-KS1991Q (4274F 2P) Patient Reason Influenza immu nization not administered 11:02:04 CDT CPT-G0439 Subsequent Annual Wellness Exam 14:24:52 CDT CPT-KS2190S (4013F) Statin therapy prescribed or cur rently being taken 14:24:52 CDT CPT-SO4583Y (4274F 2P) Patient Reason Influenza immu nization not administered 14:24:52 CDT CPT-J1071 Depo Testosterone 100mg 13:29:13 CDT 0 12/23 CPT-32666 Abx/Therapy Injection 13:29:13 CDT CPT-J1071 Depo Testosterone 100mg 14:43:03 CDT 0 11/24 CPT-80874 Abx/Therapy Injection 14:43:03 CDT CPT-J1071 Depo Testosterone 100mg 17:18:41 CDT 0 10/27 CPT-10652 Abx/Therapy Injection 17:18:41 CDT CPT-92774 4M Drug Screen cup test, Multi-panel, urine 2019 13:58:45 CDT CPT-J1071 Depo Testosterone 100mg 16:42:20 CDT 0 09/23 CPT-15925 Abx/Therapy Injection 16:42:20 CDT CPT-J1071 Depo Testosterone 100mg 16:43:18 CDT 0 08/26 CPT-63622 Abx/Therapy Injection 16:43:18 CDT CPT-25562 Venipuncture Draw Fee 13:01:56 CDT CPT-J1071 Depo Testosterone 100mg 15:54:02 CDT 0 07/28 CPT-22265 Abx/Therapy Injection 15:54:02 CDT CPT-J1071 Depo Testosterone 100mg 15:17:11 CDT 0 06/30 CPT-31102 Abx/Therapy Injection 15:17:10 CDT CPT-12400 Venipuncture Draw Fee 11:58:13 CDT CPT-J1071 Depo Testosterone 200mg 14:59:06 CDT 0 06/02 CPT-60224 Abx/Therapy Injection 14:59:06 CDT CPT-J1071 Depo Testosterone 100mg 14:08:37 DATA EXAMINATION CLERK 05/06 CPT-02008 Abx/Therapy Injection 14:08:37 DATA EXAMINATION CLERK CPT-04898 Venipuncture Draw Fee 15:15:20 DATA EXAMINATION CLERK CPT-J1071 Depo Testosterone 100mg 15:40:35 DATA EXAMINATION CLERK 04/08 CPT-25177 Abx/Therapy Injection 15:40:35 DATA EXAMINATION CLERK CPT-TCMM Transitional Care Mgmt-Moderate 12:40:08 CS T CPT-JO2104V (4274F) Influenza immunization administe red or previously received 12:40:07 DATA EXAMINATION CLERK CPT-11147 Venipuncture Draw Fee 15:13:23 DATA EXAMINATION CLERK CPT-09114 Venipuncture Draw Fee 12:39:02 DATA EXAMINATION CLERK CPT-J1071 Depo Testosterone 100mg 11:35:50 DATA EXAMINATION CLERK 05/12 CPT-40642 Abx/Therapy Injection 11:35:50 DATA EXAMINATION CLERK CPT-ID8385F (4274F) Influenza immunization administe red or previously received 11:04:25 DATA EXAMINATION CLERK CPT-J1071 Depo Testosterone 100mg 11:32:22 DATA EXAMINATION CLERK 04/13 CPT-72627 Abx/Therapy Injection 11:32:22 DATA EXAMINATION CLERK CPT-02089 89055 - Immun Admin 1 vac 16:43:51 DATA EXAMINATION CLERK 2018 CPT-18533 Shingrix 16:43:51 DATA EXAMINATION CLERK CPT-J1071 Depo Testosterone 100mg 18:38:18 CDT CPT-98574 Abx/Therapy Injection 18:38:17 CDT CPT-J1071 Depo Testosterone 100mg 14:36:52 CDT 12/18 CPT-90498 Abx/Therapy Injection 14:36:52 CDT CPT-G0008 Administration of Influenza Virus Vaccine 12/18 14:35:05 CDT CPT-08478 Fluzone (Flu) 10Pk Syringe IM (Medicare) 14:35:05 CDT CPT-44286 Bladder Scan 12:35:21 CDT CPT-39571 Venipuncture Draw Fee 16:41:57 CDT CPT-23152 66572 - Immun Admin 1 vac 16:31:08 CDT 2018 CPT-78558 Shingrix 16:31:07 CDT CPT-G0439 [facility] Annual Wellness Exam 16:12:06 CDT CPT-J1071 Depo Testosterone 100mg 12:18:42 CDT 11/20 CPT-89076 Abx/Therapy Injection 12:18:42 CDT CPT-J1071 Depo Testosterone 100mg 11:42:38 CDT 09/03 CPT-79812 Abx/Therapy Injection 11:42:38 CDT CPT-J1071 Depo Testosterone 100mg 12:00:58 CDT 08/06 CPT-35441 Abx/Therapy Injection 12:00:58 CDT CPT-J1071 Depo Testosterone 100mg 12:34:21 CDT 07/09 CPT-65836 Abx/Therapy Injection 12:34:21 CDT CPT-47700 Abdomen, 2 views 13:20:15 CDT CPT-85942 Chest, 2 views 13:20:15 CDT CPT-J1071 Depo Testosterone 200mg 14:21:46 CDT 06/12 CPT-28819 Abx/Therapy Injection 14:21:46 CDT CPT-J1071 Depo Testosterone 100mg 14:34:38 DATA EXAMINATION CLERK 05/14 CPT-46443 Abx/Therapy Injection 14:34:38 DATA EXAMINATION CLERK CPT-000 Give Pneumovax 11:57:22 CDT CPT-J1071 Depo Testosterone 100mg 17:09:47 DATA EXAMINATION CLERK 04/13 CPT-45556 Abx/Therapy Injection 17:09:47 DATA EXAMINATION CLERK CPT-J1071 Depo Testosterone 100mg 15:41:42 DATA EXAMINATION CLERK 05/17 CPT-32161 Abx/Therapy Injection 15:41:42 DATA EXAMINATION CLERK CPT-J1071 Depo Testosterone 100mg 13:42:43 DATA EXAMINATION CLERK 04/18 CPT-98145 Abx/Therapy Injection 13:42:43 DATA EXAMINATION CLERK CPT-J1071 Depo Testosterone 100mg 13:24:43 CDT CPT-19738 Abx/Therapy Injection 13:24:43 CDT CPT-57187 First Vx - Ix admin for Medicare patients 18:07:22 CDT CPT-32356 Fluzone Quadrivalent Intramuscular Suspe nsion 0.5 ML 18:07:22 CDT CPT-J1071 Depo Testosterone 100mg 12:06:21 CDT 12/21 CPT-01915 Abx/Therapy Injection 12:06:21 CDT CPT-J1071 Depo Testosterone 100mg 16:09:00 CDT 11/23 CPT-69200 Abx/Therapy Injection 16:09:00 CDT CPT-G0439 [facility] Annual Wellness Exam 13:12:23 CDT CPT-J1071 Depo Testosterone 100mg 10:40:29 CDT 10/26 CPT-83083 Abx/Therapy Injection 10:40:29 CDT CPT-J1071 Depo Testosterone 100mg 09:15:44 CDT 09/28 CPT-36179 Abx/Therapy Injection 09:15:43 CDT CPT-J1071 Depo Testosterone 100mg 10:53:34 CDT 08/31 CPT-53333 Abx/Therapy Injection 10:53:34 CDT CPT-42023 Nathalie pre/post w graphic rec - XRAY USE ONLY 201 10/30/06 10:24:51 CDT CPT-J1071 Depo Testosterone 100mg 14:11:00 CDT 08/03 CPT-13052 Abx/Therapy Injection 14:11:00 CDT CPT-J1071 Depo Testosterone 100mg 15:15:13 CDT 07/04 CPT-90401 Abx/Therapy Injection 15:15:13 CDT CPT-J2310 Narcan HCI .4mg per 1 ml 15:52:42 CDT 06/26 CPT-50118 Chest, 2 views 15:11:39 CDT CPT-000 Give Appropriate Flu Vaccine 12:01:26 DATA EXAMINATION CLERK 2 CPT-49182 Chest single view 16:11:20 CDT CPT-J1071 Depo Testosterone 100mg 10:50:45 DATA EXAMINATION CLERK 05/29 CPT-39167 Abx/Therapy Injection 10:50:45 DATA EXAMINATION CLERK CPT-41903 Chest, 2 views 11:49:28 DATA EXAMINATION CLERK CPT-J1071 Depo Testosterone 100mg 16:07:43 DATA EXAMINATION CLERK 05/02 CPT-75274 Abx/Therapy Injection 16:07:43 DATA EXAMINATION CLERK CPT-J1071 Depo Testosterone 100mg 15:31:04 DATA EXAMINATION CLERK 03/31 CPT-56823 Abx/Therapy Injection 15:31:04 DATA EXAMINATION CLERK CPT-J1071 Depo Testosterone 100mg 16:29:48 CDT CPT-83913 Abx/Therapy Injection 16:29:48 CDT CPT-J1071 Depo Testosterone 100mg 14:42:01 CDT 12/23 CPT-76032 Abx/Therapy Injection 14:42:01 CDT CPT-G0439 [facility] Annual Wellness Exam 14:14:09 CDT CPT-J1071 Depo Testosterone 100mg 13:48:18 CDT 11/17 CPT-09252 Abx/Therapy Injection 13:48:18 CDT CPT-G0009 Administration of Pneumococcal Vaccine 4 12:06:23 CDT CPT-63411 Pneumovax 23 Injection Injectable 25 MCG /0.5ML 12:06:23 CDT CPT-J1071 Depo Testosterone 100mg 13:11:36 CDT 10/19 CPT-49351 Abx/Therapy Injection 13:11:36 CDT CPT-J1071 Depo Testosterone 100mg 13:17:59 CDT 09/21 CPT-64031 Abx/Therapy Injection 13:17:59 CDT CPT-J1071 Depo Testosterone 100mg 13:08:38 CDT 09/21 CPT-J1071 Depo Testosterone 100mg 13:06:32 CDT 09/21 CPT-19904 Bone Density - XRAY USE ONLY 09:04:29 DATA EXAMINATION CLERK 2 CPT-79419 BMP - LAB USE ONLY 17:39:11 DATA EXAMINATION CLERK CPT-16329 Venipuncture Draw Fee 17:39:11 DATA EXAMINATION CLERK CPT-000 Give Appropriate Flu Vaccine 15:16:28 CDT CPT-J1071 Depo Testosterone 200mg 16:59:53 CDT 10/21 CPT-66741 Abx/Therapy Injection 16:59:53 CDT CPT-00433 Abx/Therapy Injection 18:58:42 DATA EXAMINATION CLERK CPT-32822 First Vx - Ix admin for Medicare patients 15:47:06 CDT CPT-43150 Fluzone High-Dose Intramuscular Suspension 01/19 15:47:06 CDT CPT-05715 Abx/Therapy Injection 14:12:15 CDT CPT-15981 Abx/Therapy Injection 13:34:08 CDT CPT-16824 Abx/Therapy Injection 14:41:47 CDT CPT-G0438 Initial Annual Wellness Exam 10:06:26 CD T CPT-J1071 Depo Testosterone 200mg 11:42:49 CDT 09/22 CPT-21279 Abx/Therapy Injection 11:42:49 CDT CPT-69417 Abx/Therapy Injection 16:55:18 CDT CPT-09168 Abx/Therapy Injection 13:49:32 CDT CPT-J1071 Depo Testosterone 200mg 09:48:27 CDT 06/28 CPT-50355 Abx/Therapy Injection 09:48:27 CDT CPT-92283 Abx/Therapy Injection 16:27:06 DATA EXAMINATION CLERK CPT-44622 No Charge Offi Visit 18:00:02 DATA EXAMINATION CLERK 8 CPT-25466 Abd compl w upright 12:29:27 DATA EXAMINATION CLERK CPT-000 Give Appropriate Flu Vaccine 16:15:45 DATA EXAMINATION CLERK 2 CPT-66771 Abx/Therapy Injection 11:03:39 DATA EXAMINATION CLERK CPT-69159 Venipuncture Draw Fee 13:07:59 DATA EXAMINATION CLERK CPT-96934 Immunization Single Admin 12:03:42 DATA EXAMINATION CLERK 2014 CPT-93196 Fluzone High Dose (65+) 12:03:41 DATA EXAMINATION CLERK 05/05 CPT-98784 Chest 2V Frontal and Lat 15:25:23 CDT 12/29 CPT-77156 Venipuncture Draw Fee 15:57:34 CDT CPT-24528 Abx/Therapy Injection 12:52:43 CDT CPT-49468 Abx/Therapy Injection 08:58:56 CDT CPT-59688 Venipuncture Draw Fee 15:59:37 CDT CPT-83979 Abx/Therapy Injection 08:36:16 CDT CPT-000 Give Pneumovax 11:32:18 DATA EXAMINATION CLERK CPT-000 Give Appropriate Flu Vaccine 11:32:18 DATA EXAMINATION CLERK 2 CPT-02309 Abx/Therapy Injection 09:52:48 CDT CPT-14553 Abx/Therapy Injection 09:56:54 CDT CPT-OV Office Visit 16:35:19 CDT CPT-54695 Abx/Therapy Injection 08:25:48 CDT CPT-43291 Abx/Therapy Injection 09:17:15 DATA EXAMINATION CLERK CPT-83233 Abx/Therapy Injection 08:52:31 DATA EXAMINATION CLERK CPT-26675 Abx/Therapy Injection 09:32:50 DATA EXAMINATION CLERK CPT-22445 Abx/Therapy Injection 08:28:14 DATA EXAMINATION CLERK CPT-45459 Abx/Therapy Injection 10:43:07 CDT CPT-J1070 Depo Testosterone 100 mg 08:39:09 CDT 12/05 CPT-76814 Abx/Therapy Injection 08:39:09 CDT CPT-46714 Abx/Therapy Injection 11:22:03 CDT CPT-08553 Shoulder comp min 2V 14:11:48 CDT 1 CPT-62186 Abx/Therapy Injection 09:56:35 CDT CPT-LR Lesion Removal 09:49:45 CDT
--- OUTSIDE RECORDS SUMMARY | 2020-12-04 06:11 | XMS REPORT | Clinical Summary ---
Author Author Mya, Charlie Hankins Organization [facility] Address Unknown Phone Unavailable Allergies, Adverse Reactions, Alerts Allergy Name Reaction Description Start Date Severity Status Pr ovider NKA Critical Active Dena Lacy APR N KEFLEX Mild No Longer Active Rui Arndt MD KEFLEX itch Moderate No Longer Active Vinod Alatorre KINESIOLOGIST NKDA Critical No Longer Active Rui Arndt [...] Arndt MD [facility]ine [facility] Cat[facility] 366.9 Inactive Rui Arndt MD Unspecified [...] fatigue Monoclonal gammopathy 273.1 Active Eboni villasenor NURSING PROJECT COORDINATOR Monoclonal paraproteinemia Peripheral edema 782.3 Active Fabiana Speaks A PRN Edema Dyspnea 786.09 Resolved Rui Arndt MD Other dyspnea and respiratory abnormality Need for prophylactic vaccination and inoculation against in fluenza V04.81 Resolved Rui Arndt MD Need for prophylactic vaccination and inoculation against influenza Peripheral artery disease 443.9 Active Laurita ChongMilton [facility] Peripheral vascular disease, unspecified Abdominal pain, left [...] 39.0-39.9, adult BMI 37-37.9 Active Keyonna Barajas KINESIOLOGIST-C Body Mass Index 39.0-39.9, adult Abdominal bloating [...] atherosclerosis of unspecified type of vessel , [place] or graft 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 Tracie [...] abnormal glucose Cough 786.2 Active Keyonna Barajas KINESIOLOGIST-C Cough Shortness of breath 786.05 Active Emanuel Barajas KINESIOLOGIST-C Shortness of breath HEALTH MAINTENANCE EXAM ICD-V70.0 Inactive Nadia Arndt MD Examination, general medical ICD-V70.0 Inactiv yassine Arndt MD Chronic pain syndrome ICD-338.4 Inactive Georgina Almaraz MA Tobacco user ICD-305.1 Inactive Rui Arndt MD 20 14/10/01 Contusion, shoulder ICD-923.00 Inactive Hardik Arndt MD Abdominal pain, left lower quadrant ICD-789.04 Inactive Rui Arndt MD Epistaxis ICD-784.7 Inactive Rui Arndt MD Dysphagia ICD-787.20 Inactive [...] MD 201 08/26/02 Diverticulitis of colon ICD-562.11 Inactive Nadia Arndt MD Preoperative examination ICD-V72.84 Inactive Rui Arndt MD Frailty ICD-797 Inactive Rui Arndt MD 05/09 Declining mobility ICD-438.89 Inactive Rui Arndt MD Wound check ICD-879.8 Inactive Rui Arndt MD Upper respiratory infection ICD-465.9 Inactive Rui Arndt MD Low testosterone level ICD-796.4 Inactive Shahrzad Arndt MD Pruritus ICD-698.9 Inactive Rui Arndt MD 201 11/26/12 Excessive belching ICD-787.3 Inactive Rui Arndt MD Colonic polyps, hx of ICD-V12.72 Inactive Rui Arndt MD BMI 37-37.9 adult ICD-V85.37 Inactive Rui Arndt MD COPD, acute exacerbation [...] BP ICD-796.2 Inactiv e Rui Arndt MD BMI 38-38.9 adult ICD-V85.38 Inactive Rui Arndt MD Chest cough ICD-786.2 Inactive Rui Arndt MD Elevated blood sugar ICD-790.29 Inactive Rui Arndt MD Medication List Medication Instructions Start Date Stop Date Generic Name NDC Status Provider Patient Instruction PROAIR HFA 108 (90 BASE) MCG/ACT INHALATION AEROSOL SO LUTION Take 2 puffs every 6 hours as needed for shortness of breath or wheezing. ALBUTEROL SULFATE 95823208422 Active Keyonna Jenn KINESIOLOGIST-C Activ e PREDNISONE 20 MG ORAL TABLET Take 2 tablets by mouth d aily for 3 days then 1 tablet daily for 2 days PREDNISONE 15284527543 Active Keyonna Jenn KINESIOLOGIST-C Active ZITHROMAX 250 MG ORAL TABLET Take 2 tablets by mouth o n day 1 then 1 tablet the next 4 days AZITHROMYCIN 37576794253 Active Keyonna Br itt KINESIOLOGIST-C Active ZUBSOLV 11.4-2.9 MG SUBLINGUAL TABLET SUBLINGUAL Take 1 tablet dailyDEA; [id number] BUPRENORPHINE HCL-NALOXONE HCL 70729113657 Acti ve Rui Arndt MD Active CEFUROXIME AXETIL 500 MG ORAL TABLET TAKE 1/2 TABLET TWICE DAILY CEFUROXIME AXETIL 96775708637 No Longer Active Rui Arndt MD Active POTASSIUM CHLORIDE ER 10 MEQ CR-CAPS TAKE ONE TABLET BY MOUT H TWICE DAILY. POTASSIUM CHLORIDE 78149813098 AGUSTO Richardson Active OMEPRAZOLE 40MG TAKE 1 CAPSULE BY MOUTH EVERY MORNING OMEPRAZOLE 30789340632 AGUSTO Richardson Active SPIRIVA HANDIHLR INHALE CONTENTS OF ONE CAPSULE VIA HANDI HALER ONCE DAILY TIOTROPIUM BROMIDE MONOHYDRATE 79591241537 AGUSTO Richardson Active BUMETANIDE 1MG TAKE 1 TABLET BY MOUTH ONCE DAILY IF NEE DED FOR SWELLING BUMETANIDE 90138013715 AGUSTO Richardson Active ZOLPIDEM TARTRATE 10 MG TABS TAKE 1 TABLET BY MOUTH AT NIGHT IF NEEDED FOR SLEEP ZOLPIDEM TARTRATE 90154138267 Active Rui Arndt MD Active FUROSEMIDE 40MG TAKE 2 TABLETS BY MOUTH EVERY MORNING FUROSEMIDE 31647657411 Active Liudmila Tirado RN Active GABAPENTIN 300MG TAKE 1 CAPSULE BY MOUTH THREE TIMES DAILY GABAPENTIN 48584018392 Active AGUSTO Hall Active ATORVASTATIN 80MG TAKE 1 TABLET BY MOUTH DAILY AT BEDTIME 6 ATORVASTATIN CALCIUM 24247759411 Active AGUSTO Hall A ctive SUPER B-100 ORAL TABLET 1 q d B COMPLEX-BIOTI N-FA 03431607752 Active Tarun Chavez MD Active ASPIRIN 325 MG ORAL TABLET 1 q d ASPIRIN 2976828584 9 Active Tarun Chavez MD Active DIGITEK 125 MCG ORAL TABLET 1 q d DIGOXIN 263753336 01 Active Tarun Chavez MD Active VENTOLIN HFA 108 (90 BASE) MCG/ACT INHALATION AEROSOL SOLUTI ON 1 puff every day ALBUTEROL SULFATE 86695848587 No Longer Active Alan Chavez MD Active LEVOTHYROXINE SODIUM 200 MCG ORAL TABLET 1 po q a.m. for thyroid LEVOTHYROXINE SODIUM 51137486191 No Longer Active Tarun Chavez MD Active PROAIR HFA 108 (90 BASE) MCG/ACT INHALATION AEROSOL SO LUTION 2 puffs four times a day as needed ALBUTEROL SULFATE 51339111200 No Long er Active Tarun Chavez MD Active FLOMAX 0.4 MG ORAL CAPSULE 1 capsule by mouth in the evening for prostate TAMSULOSIN HCL 34888550039 No Longer Active Tarun Chavez MD Active ELIQUIS 5 MG TABS TAKE ONE TABLET BY MOUTH TWO TIMES A DAY APIXABAN 83282437464 Active AGUSTO Hall Active PREDNISONE 20 MG ORAL TABLET Take 2 tablets daily for 5 days and 1 tablet daily for 5 days. PREDNISONE 30654569276 No Longer Active Rui Arndt MD Active POTASSIUM CHLORIDE ER 10 MEQ CR-TABS TAKE ONE TABLET BY CATERINA TWICE DAILY. POTASSIUM CHLORIDE 86060827576 Active Alma STEW MadridAlfred Active KLOR-CON M10 10 MEQ ORAL TABLET EXTENDED RELEASE one tablet twic e a day POTASSIUM CHLORIDE JORDAN CR 55905758376 No Longer Active Yuval izaguirre STEW MadridAlfred Active LORATADINE 10MG ORAL TABLET TAKE ONE TABLET BY MOUTH ONE TIME DAILY IF NEEDED FOR ALLERGIES. LORATADINE 31661326630 Active AlmaAGUSTO Chávez Active LEVOTHYROXINE SODIUM 150MCG ORAL TABLET TAKE ONE TABLE T BY MOUTH ONE TIME DAILY FOR THYROID. LEVOTHYROXINE SODIUM 07009553729 Active S osiel STEW MadridAlfred Active PLAVIX 75 MG ORAL TABLET 1 tablet by mouth daily for 30 days 202 CLOPIDOGREL BISULFATE 52421936420 No Longer Active Rui Arndt MD Active PLAVIX 75 MG ORAL TABLET 1 tablet by mouth daily 03/11 CLOPIDOGREL BISULFATE 31962675055 No Longer Active uRi Arndt MD Activ e ASPIRIN 325 MG ORAL TABLET Take 1 tablet daily ASPIRIN 37109671183 No Longer Active Rui Arndt MD Active PREDNISONE 20 MG ORAL TABLET 1 tab twice daily for 3 d ay, then one daily for three days PREDNISONE 60865339223 No Longer Active Rui Arndt MD Active MORPHINE SULFATE ER 15 MG ORAL TABLET EXTENDED RELEASE 1 TID a d ay MORPHINE SULFATE 39807535914 No Longer Active Rui Arndt MD Active DEPO-TESTOSTERONE 100 MG/ML INTRAMUSCULAR SOLUTION 201 11/29/02 TESTOSTERONE CYPIONATE 83499648366 Active Brittny Aguila MA Active SUBOXONE 2-0.5 MG SUBLINGUAL FILM Bring to appointment before taking for induction. Stop the Morphine 12 hours before the appointment. BUPRENORPHINE HCL-NALOXONE HCL 63289191670 No Longer Active Rui Arndt MD Active MUCINEX D 60-600 MG ORAL TABLET EXTENDED RELEASE 12 HO UR 1 po BID PRN Congestion PSEUDOEPHEDRINE-GUAIFENESIN 34993526902 Active Luke Christian KINESIOLOGIST Active ZITHROMAX Z-PETE 250 MG ORAL TABLET 2 today, then 1 daily for 4 d ays AZITHROMYCIN 30554722504 No Longer Active Luke Gonzales APRN Active MORPHINE SULFATE ER 60 MG ORAL TABLET EXTENDED RELEASE 1 twi ce a day for pain MORPHINE SULFATE 06270533764 No Longer Active Luke valdez APRN Active MORPHINE SULFATE ER 100 MG ORAL TABLET EXTENDED RELEASE one tabl et at bedtime MORPHINE SULFATE 26742132609 No Longer Active Luke Gonzales APRN Active DEPO-TESTOSTERONE 100 MG/ML INTRAMUSCULAR SOLUTION 1mL q4H TESTOSTERONE CYPIONATE 13997836449 No Longer Active Luke Gonzales APRN Active PANTOPRAZOLE SODIUM 40 MG ORAL TABLET DELAYED RELEASE 1 pill by mouth daily PANTOPRAZOLE SODIUM 32843978276 No Longer Active Jose Arndt MD Active FLOMAX 0.4 MG ORAL CAPSULE one capsule in the evening 1/2 hour a fter supper TAMSULOSIN HCL 76415593603 No Longer Active Rui Arndt MD Active LEVOTHYROXINE SODIUM 175 MCG ORAL TABLET 1 pill by mouth daily f or thyroid LEVOTHYROXINE SODIUM 51030596425 No Longer Active Fabiana Perdomo RN Active CLARITIN 10 MG ORAL TABLET 1 tablet by mouth daily as needed for allergies LORATADINE 58787645009 No Longer Active Mari bhakta PA-C Active CARAFATE 1 GM ORAL TABLET Take 1 tablet 4 times daily. Before meals and at bedtime SUCRALFATE 67835762798 No Longer Active Mari Stanley PA-C Active DULCOLAX 5 MG ORAL TABLET DELAYED RELEASE 1 tab daily BISACODYL 06688659846 Active Sara Moeller RN Active SUCRALFATE 1 GM ORAL TABLET 1 four times a day for GERD SUCRALFATE 02042504595 No Longer Active Sara Moeller RN Act berna FISH OIL CAPSULE 1 capsule daily OMEGA-3 FATTY ACIDS CAPS 18192833189 No Longer Active Sara Moeller RN Active PROBIOTIC DAILY ORAL CAPSULE 1 capsule daily 3 PROBIOTIC PRODUCT 60331129214 No Longer Active Sara Moeller RN Act berna B COMPLEX FORMULA 1 ORAL TABLET 1 tablet daily B COMPLEX- FOLIC ACID 85665482334 No Longer Active Sara Moeller RN Act berna PROAIR HFA 108 (90 BASE) MCG/ACT INHALATION AEROSOL SO LUTION 2 puffs four times a day as needed ALBUTEROL SULFATE 59595982938 No Long er Active Sara Moeller RN Active MULTIVITAMINS ORAL CAPSULE Take 1 daily MULTIPL E VITAMIN 40160757624 No Longer Active Sara Moeller RN Active CLONAZEPAM 2 MG ORAL TABLET one tablet at bed time CLONAZEPAM 82167979176 No Longer Active Sara Moeller RN Active DEPO-TESTOSTERONE 200 MG/ML INTRAMUSCULAR SOLUTION 100mg italia ry 4 weeks TESTOSTERONE CYPIONATE 77978713297 No Longer Active Sara Moeller RN Active ATIVAN 0.5 MG ORAL TABLET 1 tab 30 minutes prior to sleep study LORAZEPAM 04301633318 No Longer Active Rui Arndt MD Active NARCAN 4 MG/0.1ML NASAL LIQUID 1 spray in nostril ever y 2 to 3 minutes until responsive or EMS arrives NALOXONE HCL 89981070009 Active Rui Arndt MD Active LEVAQUIN 500 MG ORAL TABLET 1 daily for infection 2017 LEVOFLOXACIN 28843458581 No Longer Active Dena Lacy APRN Active PREDNISONE 20 MG TABS Take 2 daily for 5 days and then 1 stephy ly for 5 days PREDNISONE 80394986704 No Longer Active Rui saleem MD Active PREDNISONE 20 MG ORAL TABLET 2 tabs daily for 4 days, 1 tab daily for 4 days, 1/2 tab daily for 4 days PREDNISONE 84557838636 No Longer Active Rui Arndt MD Active OXYGEN 2L at night time - Dx: J44.9 Active Lori Winter LPN Active PREDNISONE 20 MG ORAL TABLET Take 2 daily for 5 days a nd then 1 daily for 5 days PREDNISONE 25758214367 No Longer Active Rui Arndt MD Active NORCO 10-325 MG ORAL TABLET Take 1-2 tablets every 6 hours a s needed for pain HYDROCODONE-ACETAMINOPHEN 64032753879 No Longer Activ e Rui Arndt MD Active FUROSEMIDE 20 MG ORAL TABLET 1 daily for blood pressure and swel ling FUROSEMIDE 14156325044 No Longer Active Rui Arndt MD Active PAMELOR 10 MG ORAL CAPSULE NORTRIPTY LINE HCL 14932239576 No Longer Active Rui Arndt MD Active AEROSPAN 80 MCG/ACT INHALATION AEROSOL SOLUTION 2 puffs twice FLUNISOLIDE HFA 51548802476 No Longer Active Rui Arndt MD Active LISINOPRIL 10 MG ORAL TABLET take one tab once daily 09/22 LISINOPRIL 26176101646 No Longer Active Rui Arndt MD Active BD INTEGRA SYRINGE 25G X 1" 1 ML Use with Depo provera INSULIN SYRINGE-NEEDLE U-100 Active Brittny MingoJESE Act berna MORPHINE SULFATE ER BEADS 75 MG ORAL CAPSULE EXTENDED RELEASE 24 HOUR 1 twice a day MORPHINE SULFATE BEADS 82259176555 No Longer Ac tive Rui Arndt MD Active COMBIVENT RESPIMAT 20-100 MCG/ACT INHALATION AEROSOL S OLUTION 1 puff four times a day IPRATROPIUM-ALBUTEROL 05397966672 No Longer Act berna Rui Arndt MD Active POTASSIUM CHLORIDE 20 MEQ ORAL PACKET 1 qDay with Lasix POTASSIUM CHLORIDE 95859766214 No Longer Active Rui Arndt MD Activ e PROAIR HFA 108 (90 Base) MCG/ACT INHALATION AEROSOL SO LUTION 2 puffs four times a day as needed ALBUTEROL SULFATE 00163661944 No Longer Ac tive Rui Arndt MD Active ASMANEX 60 METERED DOSES 220 MCG/INH INHALATION AEROSO L POWDER BREATH ACTIVATED 1 puff bid with rinse after MOMETASONE FUROATE 8342530 4102 No Longer Active Rui Arndt MD Active OMEPRAZOLE 40 MG ORAL CAPSULE DELAYED RELEASE 1 po q a.m. OMEPRAZOLE 14286149488 No Longer Active Anahi Ashley LPN Act [...] daily 2 LISINOPRIL 10 MG ORAL TABLET 769161 LISINOPRIL Inactive AEROSPAN 80 MCG/ACT INHALATION AEROSOL SOLUTION 2 puffs twice AEROSPAN 80 MCG/ACT INHALATION AEROSOL SOLUTION FLUNISOLIDE HFA Inactive PAMELOR 10 MG ORAL CAPSULE PAMELOR 1 0 MG ORAL CAPSULE 923044 NORTRIPTYLINE HCL Inactive FUROSEMIDE 20 MG ORAL TABLET 1 daily for blood pressure and swel ling FUROSEMIDE 20 MG ORAL TABLET 352298 FUROSEMIDE Corinna ctive NORCO 10-325 MG ORAL TABLET Take 1-2 tablets every 6 hours a s needed for pain NORCO 10-325 MG ORAL TABLET HYDROCODONE-A CETAMINOPHEN Inactive PREDNISONE 20 MG ORAL TABLET 2 tabs daily for 4 days, 1 tab daily for 4 days, 1/2 tab daily for 4 days PREDNISONE 20 MG ORAL T ABLET 050896 PREDNISONE Inactive LEVAQUIN 500 MG ORAL TABLET 1 daily for infection 2017 LEVAQUIN 500 MG ORAL TABLET 859847 LEVOFLOXACIN Inactive ATIVAN 0.5 MG ORAL TABLET 1 tab 30 minutes prior to sleep study ATIVAN 0.5 MG ORAL TABLET 291074 LORAZEPAM Inacti ve DEPO-TESTOSTERONE 200 MG/ML INTRAMUSCULAR SOLUTION 100mg italia ry 4 weeks DEPO-TESTOSTERONE 200 MG/ML INTRAMUSCULA R SOLUTION 2366515 TESTOSTERONE CYPIONATE Inactive CLONAZEPAM 2 MG ORAL TABLET one tablet at bed time 201 11/01/12 CLONAZEPAM 2 MG ORAL TABLET 951446 CLONAZEPAM Inactive MULTIVITAMINS ORAL CAPSULE Take 1 [...] capsule daily 3 PROBIOTIC DAILY ORAL CAPSULE 6817505 PROBIOTIC PRODUCT Inactive FISH OIL CAPSULE 1 capsule daily FISH OIL CAPSUL E OMEGA- 3 FATTY ACIDS CAPS Inactive SUCRALFATE 1 GM ORAL TABLET 1 four times a day for GERD SUCRALFATE 1 GM ORAL TABLET 904274 SUCRALFATE Inactive CARAFATE 1 GM ORAL TABLET Take 1 tablet 4 times daily. Before meals and at bedtime CARAFATE 1 GM ORAL TABLET 603624 SUCRALFATE Inactive CLARITIN 10 MG ORAL TABLET 1 tablet by mouth daily as needed for allergies CLARITIN 10 MG ORAL TABLET 115026 LORATADINE I nactive LEVOTHYROXINE SODIUM 175 MCG ORAL TABLET 1 pill by mouth daily f or thyroid LEVOTHYROXINE SODIUM 175 MCG ORAL TABLET 087335 LEVOTHY ROXINE SODIUM Inactive FLOMAX 0.4 MG ORAL CAPSULE one capsule in the evening 1/2 hour a fter supper FLOMAX 0.4 MG ORAL CAPSULE 555661 TAMSULOSIN HCL Inact berna PANTOPRAZOLE SODIUM 40 MG ORAL TABLET DELAYED RELEASE 1 pill by mouth daily PANTOPRAZOLE SODIUM 40 MG ORAL TABLET DE LAYED RELEASE 604792 PANTOPRAZOLE SODIUM Inactive DEPO-TESTOSTERONE 100 MG/ML INTRAMUSCULAR SOLUTION 1mL q4H DEPO-TESTOSTERONE 100 MG/ML INTRAMUSCULAR SOLUTION 065472 TESTOSTERONE CYPIONATE Inactive MORPHINE SULFATE ER 100 [...] three days PREDNISONE 20 MG ORAL TABLET 157987 PREDNIS ONE Inactive ASPIRIN 325 MG ORAL TABLET Take 1 tablet daily ASPIRIN 325 MG ORAL TABLET 679119 ASPIRIN Inactive PLAVIX 75 MG ORAL TABLET 1 tablet by mouth daily 03/11 PLAVIX 75 MG ORAL TABLET 690996 CLOPIDOGREL BISULFATE Inactive PLAVIX 75 MG ORAL TABLET 1 tablet by mouth daily for 30 days 202 PLAVIX 75 MG ORAL TABLET 626824 CLOPIDOGREL BISULFATE I nactive KLOR-CON M10 10 MEQ ORAL TABLET EXTENDED RELEASE one tablet twic e a day KLOR-CON M10 10 MEQ ORAL TABLET EXTENDED RELEASE 6533717 POTASSIUM CHLORIDE JORDAN CR Inactive PREDNISONE 20 MG ORAL TABLET Take 2 tablets daily for 5 days and 1 tablet daily for 5 days. PREDNISONE 20 MG ORAL TABLET 062114 PREDNISONE Inactive FLOMAX 0.4 MG ORAL CAPSULE 1 capsule by mouth in the evening for prostate FLOMAX 0.4 MG ORAL CAPSULE 101189 TAMSULOSIN HCL Inactive PROAIR HFA 108 (90 BASE) MCG/ACT INHALATION AEROSOL SO LUTION 2 puffs four times a day as needed PROAIR HFA 108 (90 B ASE) MCG/ACT INHALATION AEROSOL SOLUTION ALBUTEROL SULFATE Inactive LEVOTHYROXINE SODIUM 200 MCG ORAL TABLET 1 po q a.m. for thyroid LEVOTHYROXINE SODIUM 200 MCG ORAL TABLET 050263 LEVOTHY ROXINE SODIUM Inactive VENTOLIN HFA 108 (90 BASE) MCG/ACT INHALATION AEROSOL SOLUTI ON 1 puff every day VENTOLIN HFA 108 (90 BASE) M CG/ACT INHALATION AEROSOL SOLUTION ALBUTEROL SULFATE Inactive POTASSIUM CHLORIDE 20 MEQ ORAL PACKET 1 qDay with Lasix POTASSIUM CHLORIDE 20 MEQ ORAL PACKET 7706129 POTASSIUM CHLORIDE Inactive PREDNISONE 20 MG ORAL TABLET Take 2 daily for 5 days a nd then 1 daily for 5 days PREDNISONE 20 MG ORAL TABLET 074304 PREDNIS ONE Inactive PREDNISONE 20 MG TABS Take 2 daily for 5 days and then 1 stephy ly for 5 days PREDNISONE 20 MG TABS 035381 PREDNISONE Inacti ve ZITHROMAX Z-PETE 250 MG ORAL TABLET 2 today, then 1 daily for 4 d ays ZITHROMAX Z-PETE 250 MG ORAL TABLET 612190 AZITHROMYCIN Inactive CEFUROXIME AXETIL 500 MG ORAL TABLET TAKE 1/2 TABLET TWICE DAILY CEFUROXIME AXETIL 500 MG ORAL TABLET 595117 CEFUROXIME AXETIL Inactive Advance Directives Directive Description Start Date PERMISSION TO SHARE FORMS GIVEN DISCUSSED WITH PATIENT -- NO DECISION MADE Immunizations Vaccine Administration Date Value Standard Emmanuel cription influenza immunization (Flu Vax) has been administered 12/30 Flublok Quadrivalent [place] influenza immunization (Flu Vax) has been administered 12/18 Fluzone (Flu) 10Pk Syringe IM (Medicare) influenza immunization (Flu Vax) has been administered 01/26 Done according to patient pneumococcal immunization administered Pneumococ esvin Poly-unspecified Diagnostic Results Date Name Value Unit Range Description Lab Report: Comp. Metabolic Panel, Lipid Panel, Magnesium - Chemistry sodium, serum 138 mmol/L 850-246 4830/12/04 carbon dioxide, venous blood 28.3 mmol/L 21.0-32 [...] 0.90 mg/dL 0.00-1.00 cholesterol, serum 121 mg/dL 296-996 0242/12/04 triglyceride, serum, fasting 137 mg/dL 30-200 HDL [...] 2.60 ng/mL 0.00-4.00 sodium, serum 136 mmol/L 089-922 5173/10/06 carbon dioxide, venous blood 29.5 mmol/L 21.0-32 [...] noted Encounters Code Encounter Date Provider Facility CPT-84961 66588: Ofc Vst-Est Level III-Low MDM or 20-29 minutes 08:12:06 [facility] 84399: Ofc Vst-Est Level IV-Moderate MDM or 30-39 minutes 12:21:30 CDT Rui Arndt MD [facility] CPT-27276 99677-Xue Vst-Est Level IV 09:46:31 CDT Lobo Arndt MD [facility] CPT-54122 68855-Obh Vst-Est Level IV 10:42:47 INDUSTRIAL HYGENIST Lobo Arndt MD [facility] CPT-25549 13792-Szg Vst-Est Level IV 11:02:04 CDT Lobo Arndt MD [facility] CPT-30026 94420-Bxn Vst-Est Level IV 13:58:45 CDT Lobo Arndt MD [facility] CPT-73451 74463-Vcz Vst-Est Level IV 15:13:53 CDT Lobo Arndt MD [facility] CPT-81052 52250-Wnt Vst-Est Level IV 11:54:49 CDT Lobo Arndt MD [facility] CPT-85608 61884-Ctu Vst-Est Level IV 11:04:27 INDUSTRIAL HYGENIST Lobo Arndt MD [facility] CPT-23401 Level 4 New Patient 12:35:21 CDT Ade chung MD [facility] CPT-59299 Ofc Vst-Est Level IV 16:12:07 CDT Rui Arndt MD [facility] CPT-33453 78684-Juh Vst-Est Level IV 16:25:05 CDT Lobo Arndt MD [facility] CPT-97943 37215-Bgl Vst-Est Level III 10:55:45 CDT Rui Arndt MD [facility] CPT-73163 68533-Csr Vst-Est Level IV 14:16:20 CDT Lobo Arndt MD [facility] CPT-48542 Level 3 Est. Patient 13:14:20 CDT Luke rascon [facility] CPT-25157 71978-Kcm Vst-Est Level IV 09:53:37 INDUSTRIAL HYGENIST Lobo Arndt MD [facility] CPT-18317 49284-Dvo Vst-Est Level IV 09:44:38 CDT Lobo Arndt MD [facility] CPT-50932 Level 3 Est. Patient 15:23:12 CDT Dena ley [facility] CPT-22721 Level 4 Est. Patient 13:12:22 CDT Rui Arndt MD [facility] CPT-70528 Level 4 Est. Patient 14:44:13 CDT Dena ley [facility] CPT-62210 01451-Cjf Vst-Est Level III 11:23:31 CDT Rui Arndt MD [facility] CPT-32427 72948-Spb Vst-Est Level V 10:04:33 CDT Jose Arndt MD [facility]-38248 Level 4 Est. Patient 16:17:47 CDT Rui Arndt MD [facility]-50914 Level 4 Est. Patient 10:53:57 CDT Rui Arndt MD [facility]-71995 Level 3 Est. Patient 16:09:12 CDT Jemal marti MD [facility]-47604 Level 4 Est. Patient 11:32:24 INDUSTRIAL HYGENIST Rui Arntd MD [facility]-37888 Level 4 Est. Patient 14:55:39 INDUSTRIAL HYGENIST Dena ley [facility]-62353 Level 3 Est. Patient 15:10:46 INDUSTRIAL HYGENIST Rui Arndt MD [facility]-46325 Level 3 Est. Patient 12:01:26 INDUSTRIAL HYGENIST Rui Arndt MD [facility]-92977 Level 3 Est. Patient 10:35:15 INDUSTRIAL HYGENIST Rui Arndt MD [facility]-43963 Level 3 Est. Patient 15:04:30 CDT Rui Arndt MD [facility]-23843 Level 3 Est. Patient 10:15:00 CDT Vinod fenton [facility]-42318 Level 4 Est. Patient 14:59:25 CDT Rui Arndt MD [facility]-96120 Level 4 Est. Patient 12:07:34 CDT Rui Arndt MD [facility]-94185 Level 3 Est. Patient 10:42:08 INDUSTRIAL HYGENIST Rui Arndt MD [facility]-15128 Level 3 Est. Patient 17:29:10 INDUSTRIAL HYGENIST Rui Arndt MD [facility]-04540 Level 4 Est. Patient 15:12:05 CDT Rui Arndt MD [facility]-65065 Level 2 Est. Patient 16:27:53 CDT Rui Arndt MD [facility] CPT-30967 Level 3 Est. Patient 12:02:36 CDT Rui Arndt MD [facility] CPT-85004 Level 4 Est. Patient 11:17:39 CDT Rui Arndt MD [facility] CPT-29356 Level 4 Est. Patient 15:46:07 CDT Rui Arndt MD [facility] CPT-86321 Level 4 Est. Patient 17:18:59 INDUSTRIAL HYGENIST Rui Arndt MD [facility] CPT-97521 Level 4 Est. Patient 15:09:55 CDT Fabiana Vizcaino GEORGINA [facility] CPT-28357 Level 3 Est. Patient 15:49:06 CDT Rui Arndt MD [facility] CPT-28289 Level 3 Est. Patient 11:40:46 CDT Rui Arndt MD [facility] CPT-41868 Level 3 Est. Patient 18:00:51 CDT Rui Arndt MD [facility] CPT-96863 Level 4 Est. Patient 10:25:35 CDT Rui Arndt MD [facility] CPT-30118 Level 3 Est. Patient 15:45:51 CDT Rui Arndt MD [facility] CPT-22997 Level 4 Est. Patient 11:32:17 INDUSTRIAL HYGENIST Rui Arndt MD [facility] CPT-67347 Level 4 New Patient 17:03:03 CDT Rui yoder MD [facility] Procedures Code Procedure Name Date Entry Date Standard Desc ription CPT-82072 MOD COVID19 mRNA 100mcg/0.5mL 1st Dose 9 13:33:26 CDT CPT-J1071 Depo Testosterone 100mg 10:43:46 CDT 10/19 CPT-20436 Abx/Therapy Injection 10:43:46 CDT CPT-J1071 Depo Testosterone 100mg 13:15:20 CDT 09/16 CPT-40922 Abx/Therapy Injection 13:15:20 CDT CPT-J1071 Depo Testosterone 100mg 13:00:53 CDT 08/18 CPT-59406 Abx/Therapy Injection 13:00:53 CDT CPT-J1071 Depo Testosterone 100mg 16:00:36 CDT 07/22 CPT-26981 Abx/Therapy Injection 16:00:36 CDT CPT-J1071 Depo Testosterone 100mg 15:59:22 CDT 06/24 CPT-81121 Abx/Therapy Injection 15:59:22 CDT CPT-J1071 Depo Testosterone 100mg 17:34:08 INDUSTRIAL HYGENIST 05/27 CPT-54691 Abx/Therapy Injection 17:34:08 INDUSTRIAL HYGENIST CPT-LA0184F (4274F) Influenza immunization administe red or previously received 12:03:02 INDUSTRIAL HYGENIST CPT-UN9825P (4274F) Influenza immunization administe red or previously received 10:42:46 INDUSTRIAL HYGENIST CPT-J1071 Depo Testosterone 100mg 14:29:40 INDUSTRIAL HYGENIST 05/19 CPT-06142 Abx/Therapy Injection 14:29:40 INDUSTRIAL HYGENIST CPT-30423 Venipuncture Draw Fee 09:50:26 INDUSTRIAL HYGENIST CPT-93077 Venipuncture Draw Fee 11:06:37 INDUSTRIAL HYGENIST CPT-J1071 Depo Testosterone 100mg 13:49:54 INDUSTRIAL HYGENIST 04/20 CPT-50043 Abx/Therapy Injection 13:49:54 INDUSTRIAL HYGENIST CPT-J1071 Depo Testosterone 100mg 16:22:38 CDT CPT-72862 Abx/Therapy Injection 16:22:38 CDT CPT-000 Give Appropriate Flu Vaccine 11:02:04 CDT 2 CPT-55805 42172 - Immun Admin 1 vac 11:43:22 CDT 2019 CPT-93702 Flublok Quadrivalent [place] 11:43:22 CDT CPT-24671 Venipuncture Draw Fee 11:14:23 CDT CPT-BR1567M (4274F 2P) Patient Reason Influenza immu nization not administered 11:02:04 CDT CPT-G0439 Subsequent Annual Wellness Exam 14:24:52 CDT CPT-IS9021Y (4013F) Statin therapy prescribed or cur rently being taken 14:24:52 CDT CPT-SO7479U (4274F 2P) Patient Reason Influenza immu nization not administered 14:24:52 CDT CPT-J1071 Depo Testosterone 100mg 13:29:13 CDT 12/23 CPT-14570 Abx/Therapy Injection 13:29:13 CDT CPT-J1071 Depo Testosterone 100mg 14:43:03 CDT 11/24 CPT-30672 Abx/Therapy Injection 14:43:03 CDT CPT-J1071 Depo Testosterone 100mg 17:18:41 CDT 10/27 CPT-26850 Abx/Therapy Injection 17:18:41 CDT CPT-36105 4M Drug Screen cup test, Multi-panel, urine 2019 13:58:45 CDT CPT-J1071 Depo Testosterone 100mg 16:42:20 CDT 0 09/23 CPT-37469 Abx/Therapy Injection 16:42:20 CDT CPT-J1071 Depo Testosterone 100mg 16:43:18 CDT 0 08/26 CPT-43481 Abx/Therapy Injection 16:43:18 CDT CPT-33855 Venipuncture Draw Fee 13:01:56 CDT CPT-J1071 Depo Testosterone 100mg 15:54:02 CDT 07/28 CPT-18417 Abx/Therapy Injection 15:54:02 CDT CPT-J1071 Depo Testosterone 100mg 15:17:11 CDT 0 06/30 CPT-86123 Abx/Therapy Injection 15:17:10 CDT CPT-93465 Venipuncture Draw Fee 11:58:13 CDT CPT-J1071 Depo Testosterone 200mg 14:59:06 CDT 0 06/02 CPT-07779 Abx/Therapy Injection 14:59:06 CDT CPT-J1071 Depo Testosterone 100mg 14:08:37 INDUSTRIAL HYGENIST 0 05/06 CPT-59263 Abx/Therapy Injection 14:08:37 INDUSTRIAL HYGENIST CPT-42538 Venipuncture Draw Fee 15:15:20 INDUSTRIAL HYGENIST CPT-J1071 Depo Testosterone 100mg 15:40:35 INDUSTRIAL HYGENIST 0 04/08 CPT-26280 Abx/Therapy Injection 15:40:35 INDUSTRIAL HYGENIST CPT-TCMM Transitional Care Mgmt-Moderate 12:40:08 CS T CPT-NG5790D (4274F) Influenza immunization administe red or previously received 12:40:07 INDUSTRIAL HYGENIST CPT-08195 Venipuncture Draw Fee 15:13:23 INDUSTRIAL HYGENIST CPT-53389 Venipuncture Draw Fee 12:39:02 INDUSTRIAL HYGENIST CPT-J1071 Depo Testosterone 100mg 11:35:50 INDUSTRIAL HYGENIST 05/12 CPT-36397 Abx/Therapy Injection 11:35:50 INDUSTRIAL HYGENIST CPT-WD7826N (4274F) Influenza immunization administe red or previously received 11:04:25 INDUSTRIAL HYGENIST CPT-J1071 Depo Testosterone 100mg 11:32:22 INDUSTRIAL HYGENIST 04/13 CPT-98850 Abx/Therapy Injection 11:32:22 INDUSTRIAL HYGENIST CPT-89951 95148 - Immun Admin 1 vac 16:43:51 INDUSTRIAL HYGENIST 2018 CPT-42465 Shingrix 16:43:51 INDUSTRIAL HYGENIST CPT-J1071 Depo Testosterone 100mg 18:38:18 CDT CPT-88290 Abx/Therapy Injection 18:38:17 CDT CPT-J1071 Depo Testosterone 100mg 14:36:52 CDT 12/18 CPT-28336 Abx/Therapy Injection 14:36:52 CDT CPT-G0008 Administration of Influenza Virus Vaccine 12/18 14:35:05 CDT CPT-52457 Fluzone (Flu) 10Pk Syringe IM (Medicare) 14:35:05 CDT CPT-59726 Bladder Scan 12:35:21 CDT CPT-34758 Venipuncture Draw Fee 16:41:57 CDT CPT-68521 72837 - Immun Admin 1 vac 16:31:08 CDT 2018 CPT-95658 Shingrix 16:31:07 CDT CPT-G0439 Subsequent Annual Wellness Exam 16:12:06 CDT CPT-J1071 Depo Testosterone 100mg 12:18:42 CDT 11/20 CPT-86174 Abx/Therapy Injection 12:18:42 CDT CPT-J1071 Depo Testosterone 100mg 11:42:38 CDT 09/03 CPT-90545 Abx/Therapy Injection 11:42:38 CDT CPT-J1071 Depo Testosterone 100mg 12:00:58 CDT 08/06 CPT-90371 Abx/Therapy Injection 12:00:58 CDT CPT-J1071 Depo Testosterone 100mg 12:34:21 CDT 07/09 CPT-00804 Abx/Therapy Injection 12:34:21 CDT CPT-36168 Abdomen, 2 views 13:20:15 CDT CPT-71452 Chest, 2 views 13:20:15 CDT CPT-J1071 Depo Testosterone 200mg 14:21:46 CDT 06/12 CPT-92059 Abx/Therapy Injection 14:21:46 CDT CPT-J1071 Depo Testosterone 100mg 14:34:38 INDUSTRIAL HYGENIST 05/14 CPT-50274 Abx/Therapy Injection 14:34:38 INDUSTRIAL HYGENIST CPT-000 Give Pneumovax 11:57:22 CDT CPT-J1071 Depo Testosterone 100mg 17:09:47 INDUSTRIAL HYGENIST 04/13 CPT-59279 Abx/Therapy Injection 17:09:47 INDUSTRIAL HYGENIST CPT-J1071 Depo Testosterone 100mg 15:41:42 INDUSTRIAL HYGENIST 05/17 CPT-82767 Abx/Therapy Injection 15:41:42 INDUSTRIAL HYGENIST CPT-J1071 Depo Testosterone 100mg 13:42:43 INDUSTRIAL HYGENIST 04/18 CPT-67428 Abx/Therapy Injection 13:42:43 INDUSTRIAL HYGENIST CPT-J1071 Depo Testosterone 100mg 13:24:43 CDT CPT-37255 Abx/Therapy Injection 13:24:43 CDT CPT-64472 First Vx - Ix admin for Medicare patients 18:07:22 CDT CPT-70103 Fluzone Quadrivalent Intramuscular Suspe nsion 0.5 ML 18:07:22 CDT CPT-J1071 Depo Testosterone 100mg 12:06:21 CDT 12/21 CPT-32388 Abx/Therapy Injection 12:06:21 CDT CPT-J1071 Depo Testosterone 100mg 16:09:00 CDT 11/23 CPT-99804 Abx/Therapy Injection 16:09:00 CDT CPT-G0439 [facility] Annual Wellness Exam 13:12:23 CDT CPT-J1071 Depo Testosterone 100mg 10:40:29 CDT 10/26 CPT-47579 Abx/Therapy Injection 10:40:29 CDT CPT-J1071 Depo Testosterone 100mg 09:15:44 CDT 09/28 CPT-71110 Abx/Therapy Injection 09:15:43 CDT CPT-J1071 Depo Testosterone 100mg 10:53:34 CDT 08/31 CPT-39847 Abx/Therapy Injection 10:53:34 CDT CPT-26226 Kwan pre/post w graphic rec - XRAY USE ONLY 201 10/30/06 10:24:51 CDT CPT-J1071 Depo Testosterone 100mg 14:11:00 CDT 08/03 CPT-03368 Abx/Therapy Injection 14:11:00 CDT CPT-J1071 Depo Testosterone 100mg 15:15:13 CDT 07/04 CPT-77990 Abx/Therapy Injection 15:15:13 CDT CPT-J2310 Narcan HCI .4mg per 1 ml 15:52:42 CDT 06/26 CPT-43470 Chest, 2 views 15:11:39 CDT CPT-000 Give Appropriate Flu Vaccine 12:01:26 INDUSTRIAL HYGENIST 2 CPT-82521 Chest single view 16:11:20 CDT CPT-J1071 Depo Testosterone 100mg 10:50:45 INDUSTRIAL HYGENIST 05/29 CPT-45054 Abx/Therapy Injection 10:50:45 INDUSTRIAL HYGENIST CPT-57110 Chest, 2 views 11:49:28 INDUSTRIAL HYGENIST CPT-J1071 Depo Testosterone 100mg 16:07:43 INDUSTRIAL HYGENIST 05/02 CPT-88146 Abx/Therapy Injection 16:07:43 INDUSTRIAL HYGENIST CPT-J1071 Depo Testosterone 100mg 15:31:04 INDUSTRIAL HYGENIST 03/31 CPT-81977 Abx/Therapy Injection 15:31:04 INDUSTRIAL HYGENIST CPT-J1071 Depo Testosterone 100mg 16:29:48 CDT CPT-40957 Abx/Therapy Injection 16:29:48 CDT CPT-J1071 Depo Testosterone 100mg 14:42:01 CDT 12/23 CPT-93796 Abx/Therapy Injection 14:42:01 CDT CPT-G0439 [facility] Annual Wellness Exam 14:14:09 CDT CPT-J1071 Depo Testosterone 100mg 13:48:18 CDT 11/17 CPT-81559 Abx/Therapy Injection 13:48:18 CDT CPT-G0009 Administration of Pneumococcal Vaccine 4 12:06:23 CDT CPT-71327 Pneumovax 23 Injection Injectable 25 MCG /0.5ML 12:06:23 CDT CPT-J1071 Depo Testosterone 100mg 13:11:36 CDT 10/19 CPT-54315 Abx/Therapy Injection 13:11:36 CDT CPT-J1071 Depo Testosterone 100mg 13:17:59 CDT 09/21 CPT-40038 Abx/Therapy Injection 13:17:59 CDT CPT-J1071 Depo Testosterone 100mg 13:08:38 CDT 09/21 CPT-J1071 Depo Testosterone 100mg 13:06:32 CDT 09/21 CPT-16082 Bone Density - XRAY USE ONLY 09:04:29 INDUSTRIAL HYGENIST 2 CPT-95657 BMP - LAB USE ONLY 17:39:11 INDUSTRIAL HYGENIST CPT-24752 Venipuncture Draw Fee 17:39:11 INDUSTRIAL HYGENIST CPT-000 Give Appropriate Flu Vaccine 15:16:28 CDT 2 CPT-J1071 Depo Testosterone 200mg 16:59:53 CDT 10/21 CPT-77312 Abx/Therapy Injection 16:59:53 CDT CPT-71416 Abx/Therapy Injection 18:58:42 INDUSTRIAL HYGENIST CPT-31771 First Vx - Ix admin for Medicare patients 15:47:06 CDT CPT-17311 Fluzone High-Dose Intramuscular Suspension 01/19 15:47:06 CDT CPT-93781 Abx/Therapy Injection 14:12:15 CDT CPT-18098 Abx/Therapy Injection 13:34:08 CDT CPT-54820 Abx/Therapy Injection 14:41:47 CDT CPT-G0438 Initial Annual Wellness Exam 10:06:26 CD T CPT-J1071 Depo Testosterone 200mg 11:42:49 CDT 09/22 CPT-94077 Abx/Therapy Injection 11:42:49 CDT CPT-31648 Abx/Therapy Injection 16:55:18 CDT CPT-00542 Abx/Therapy Injection 13:49:32 CDT CPT-J1071 Depo Testosterone 200mg 09:48:27 CDT 06/28 CPT-05339 Abx/Therapy Injection 09:48:27 CDT CPT-56338 Abx/Therapy Injection 16:27:06 INDUSTRIAL HYGENIST CPT-14060 No Charge Offi Visit 18:00:02 INDUSTRIAL HYGENIST 8 CPT-04204 Abd compl w upright 12:29:27 INDUSTRIAL HYGENIST CPT-000 Give Appropriate Flu Vaccine 16:15:45 INDUSTRIAL HYGENIST 2 CPT-36538 Abx/Therapy Injection 11:03:39 INDUSTRIAL HYGENIST CPT-27367 Venipuncture Draw Fee 13:07:59 INDUSTRIAL HYGENIST CPT-12275 Immunization Single Admin 12:03:42 INDUSTRIAL HYGENIST 2014 CPT-59968 Fluzone High Dose (65+) 12:03:41 INDUSTRIAL HYGENIST 05/05 CPT-71870 Chest 2V Frontal and Lat 15:25:23 CDT 12/29 CPT-56166 Venipuncture Draw Fee 15:57:34 CDT CPT-59499 Abx/Therapy Injection 12:52:43 CDT CPT-78686 Abx/Therapy Injection 08:58:56 CDT CPT-52692 Venipuncture Draw Fee 15:59:37 CDT CPT-21205 Abx/Therapy Injection 08:36:16 CDT CPT-000 Give Pneumovax 11:32:18 INDUSTRIAL HYGENIST CPT-000 Give Appropriate Flu Vaccine 11:32:18 INDUSTRIAL HYGENIST 2 CPT-16397 Abx/Therapy Injection 09:52:48 CDT CPT-02252 Abx/Therapy Injection 09:56:54 CDT CPT-OV Office Visit 16:35:19 CDT CPT-77810 Abx/Therapy Injection 08:25:48 CDT CPT-71017 Abx/Therapy Injection 09:17:15 INDUSTRIAL HYGENIST CPT-17750 Abx/Therapy Injection 08:52:31 INDUSTRIAL HYGENIST CPT-50519 Abx/Therapy Injection 09:32:50 INDUSTRIAL HYGENIST CPT-30509 Abx/Therapy Injection 08:28:14 INDUSTRIAL HYGENIST CPT-27729 Abx/Therapy Injection 10:43:07 CDT CPT-J1070 Depo Testosterone 100 mg 08:39:09 CDT 12/05 CPT-12382 Abx/Therapy Injection 08:39:09 CDT CPT-78944 Abx/Therapy Injection 11:22:03 CDT CPT-51694 Shoulder comp min 2V 14:11:48 CDT 1 CPT-34183 Abx/Therapy Injection 09:56:35 CDT CPT-LR Lesion Removal 09:49:45 CDT
--- OUTSIDE RECORDS SUMMARY | 2020-12-04 06:12 | XMS REPORT | Clinical Summary ---
Author Author Admin, Charlie Hankins Organization [facility] [place] Address Unknown Phone Unavailable Allergies, Adverse Reactions, Alerts Allergy Name Reaction Description Start Date Severity Status Pr ovider NKA Critical Active Dena Lacy APR N KEFLEX Mild No Longer Active Rui Arndt MD KEFLEX itch Moderate No Longer Active Vinod Alatorre TIMING MACHINE OPERATOR NKDA Critical No Longer Active Rui Arndt [...] [facility] Cataracts 366.9 Inactive Rui Arndt MD Unspecified cataract Examination, general medical V70.0 Resolved Rui Arndt MD Routine general medical examination at a health care facility Chronic pain syndrome 338.4 Resolved Georgina Luis A Chronic pain syndrome 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 Rui Arndt MD Neoplasm of uncertain behavior of skin Tobacco user 305.1 Resolved Riu Arndt MD Tobacco use disorder Hypogonadism, low [...] fatigue Monoclonal gammopathy 273.1 Active Eboni villasenor PRODUCTION CORRUGATOR Monoclonal paraproteinemia Peripheral edema 782.3 Active Fabiana Speaks A PRN Edema Dyspnea 786.09 Resolved Rui Arndt MD Other dyspnea and respiratory abnormality Need for prophylactic vaccination and inoculation against in fluenza V04.81 Resolved Rui Arndt MD Need for prophylactic vaccination and inoculation against influenza Peripheral artery disease 443.9 Active Laurita ChongMilton [facility] Peripheral vascular disease, unspecified Abdominal pain, left [...] 39.0-39.9, adult BMI 37-37.9 Active Keyonna Barajas TIMING MACHINE OPERATOR-C Body Mass Index 39.0-39.9, adult Abdominal bloating [...] atherosclerosis of unspecified type of vessel , [place] or graft 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 ALBUTEROL SULFATE 73928062419 Active Keyonna Jenn TIMING MACHINE OPERATOR-C Activ e PREDNISONE 20 MG ORAL TABLET Take 2 tablets by mouth d aily for 3 days then 1 tablet daily for 2 days PREDNISONE 99016020702 Active Keyonna Jenn TIMING MACHINE OPERATOR-C Active ZITHROMAX 250 MG ORAL TABLET Take 2 tablets by mouth o n day 1 then 1 tablet the next 4 days AZITHROMYCIN 42541042134 Active Keyonna Br itt TIMING MACHINE OPERATOR-C Active ZUBSOLV 11.4-2.9 MG SUBLINGUAL TABLET SUBLINGUAL Take 1 tablet dailyDEA; [id number] BUPRENORPHINE HCL-NALOXONE HCL 01321628009 Acti ve Rui Arndt MD Active CEFUROXIME AXETIL 500 MG ORAL TABLET TAKE 1/2 TABLET TWICE DAILY CEFUROXIME AXETIL 16004893931 No Longer Active Rui Arndt MD Active POTASSIUM CHLORIDE ER 10 MEQ CR-CAPS TAKE ONE TABLET BY MOUT H TWICE DAILY. POTASSIUM CHLORIDE 65830295695 AGUSTO Richardson Active OMEPRAZOLE 40MG TAKE 1 CAPSULE BY MOUTH EVERY MORNING OMEPRAZOLE 52051760972 AGUSTO Richardson Active SPIRIVA HANDIHLR INHALE CONTENTS OF ONE CAPSULE VIA HANDI HALER ONCE DAILY TIOTROPIUM BROMIDE MONOHYDRATE 59657881800 AGUSTO Richardson Active BUMETANIDE 1MG TAKE 1 TABLET BY MOUTH ONCE DAILY IF NEE DED FOR SWELLING BUMETANIDE 38947725190 AGUSTO Richardson Active ZOLPIDEM TARTRATE 10 MG TABS TAKE 1 TABLET BY MOUTH AT NIGHT IF NEEDED FOR SLEEP ZOLPIDEM TARTRATE 97028515532 Active Rui Arndt MD Active FUROSEMIDE 40MG TAKE 2 TABLETS BY MOUTH EVERY MORNING FUROSEMIDE 56439433095 Active Liudmila Tirado RN Active GABAPENTIN 300MG TAKE 1 CAPSULE BY MOUTH THREE TIMES DAILY GABAPENTIN 92491196653 Active AGUSTO Hall Active ATORVASTATIN 80MG TAKE 1 TABLET BY MOUTH DAILY AT BEDTIME 6 ATORVASTATIN CALCIUM 41663819776 Active AGUSTO Hall A ctive SUPER B-100 ORAL TABLET 1 q d B COMPLEX-BIOTI N-FA 14526938584 Active Tarun Chavez MD Active ASPIRIN 325 MG ORAL TABLET 1 q d ASPIRIN 2592776539 9 Active Tarun Chavez MD Active DIGITEK 125 MCG ORAL TABLET 1 q d DIGOXIN 831362563 01 Active Tarun Chavez MD Active VENTOLIN HFA 108 (90 BASE) MCG/ACT INHALATION AEROSOL SOLUTI ON 1 puff every day ALBUTEROL SULFATE 75635736274 No Longer Active Alan Chavez MD Active LEVOTHYROXINE SODIUM 200 MCG ORAL TABLET 1 po q a.m. for thyroid LEVOTHYROXINE SODIUM 10720265682 No Longer Active Tarun Chavez MD Active PROAIR HFA 108 (90 BASE) MCG/ACT INHALATION AEROSOL SO LUTION 2 puffs four times a day as needed ALBUTEROL SULFATE 44708188552 No Long er Active Tarun Chavez MD Active FLOMAX 0.4 MG ORAL CAPSULE 1 capsule by mouth in the evening for prostate TAMSULOSIN HCL 73259960820 No Longer Active Tarun Chavez MD Active ELIQUIS 5 MG TABS TAKE ONE TABLET BY MOUTH TWO TIMES A DAY APIXABAN 61066883499 Active AGUSTO Hall Active PREDNISONE 20 MG ORAL TABLET Take 2 tablets daily for 5 days and 1 tablet daily for 5 days. PREDNISONE 47710383156 No Longer Active Rui Arndt MD Active POTASSIUM CHLORIDE ER 10 MEQ CR-TABS TAKE ONE TABLET BY CATERINA TH TWICE DAILY. POTASSIUM CHLORIDE 40764334245 Active AGUSTO Hall Active KLOR-CON M10 10 MEQ ORAL TABLET EXTENDED RELEASE one tablet twic e a day POTASSIUM CHLORIDE JORDAN CR 73242251048 No Longer Active AGUSTO Suarez Active LORATADINE 10MG ORAL TABLET TAKE ONE TABLET BY MOUTH ONE TIME DAILY IF NEEDED FOR ALLERGIES. LORATADINE 12430856038 Active Alma Madrid AGUSTO Active LEVOTHYROXINE SODIUM 150MCG ORAL TABLET TAKE ONE TABLE T BY MOUTH ONE TIME DAILY FOR THYROID. LEVOTHYROXINE SODIUM 27544747713 Active S osiel Madrid AGUSTO Active PLAVIX 75 MG ORAL TABLET 1 tablet by mouth daily for 30 days 202 CLOPIDOGREL BISULFATE 34785594607 No Longer Active Rui Arndt MD Active PLAVIX 75 MG ORAL TABLET 1 tablet by mouth daily 03/11 CLOPIDOGREL BISULFATE 05686040425 No Longer Active Rui Arndt MD Activ e ASPIRIN 325 MG ORAL TABLET Take 1 tablet daily ASPIRIN 49011085956 No Longer Active Rui Arndt MD Active PREDNISONE 20 MG ORAL TABLET 1 tab twice daily for 3 d ay, then one daily for three days PREDNISONE 44757404736 No Longer Active Rui Arndt MD Active MORPHINE SULFATE ER 15 MG ORAL TABLET EXTENDED RELEASE 1 TID a d ay MORPHINE SULFATE 50044861490 No Longer Active Rui Arndt MD Active DEPO-TESTOSTERONE 100 MG/ML INTRAMUSCULAR SOLUTION 201 11/29/02 TESTOSTERONE CYPIONATE 54624896169 Active Brittny Aguila MA Active SUBOXONE 2-0.5 MG SUBLINGUAL FILM Bring to appointment before taking for induction. Stop the Morphine 12 hours before the appointment. BUPRENORPHINE HCL-NALOXONE HCL 54818357028 No Longer Active Rui Arndt MD Active MUCINEX D 60-600 MG ORAL TABLET EXTENDED RELEASE 12 HO UR 1 po BID PRN Congestion PSEUDOEPHEDRINE-GUAIFENESIN 21515575940 Active Luke Gonzales TIMING MACHINE OPERATOR Active ZITHROMAX Z-PETE 250 MG ORAL TABLET 2 today, then 1 daily for 4 d ays AZITHROMYCIN 88156433160 No Longer Active Luke Gonzales APRN Active MORPHINE SULFATE ER 60 MG ORAL TABLET EXTENDED RELEASE 1 twi ce a day for pain MORPHINE SULFATE 48459822882 No Longer Active Luke valdez APRN Active MORPHINE SULFATE ER 100 MG ORAL TABLET EXTENDED RELEASE one tabl et at bedtime MORPHINE SULFATE 60856524049 No Longer Active Luke Gonzales APRN Active DEPO-TESTOSTERONE 100 MG/ML INTRAMUSCULAR SOLUTION 1mL q4H TESTOSTERONE CYPIONATE 80419974955 No Longer Active Luke Gonzales APRN Active PANTOPRAZOLE SODIUM 40 MG ORAL TABLET DELAYED RELEASE 1 pill by mouth daily PANTOPRAZOLE SODIUM 69690854735 No Longer Active Jose Arndt MD Active FLOMAX 0.4 MG ORAL CAPSULE one capsule in the evening 1/2 hour a fter supper TAMSULOSIN HCL 14496857891 No Longer Active Rui Arndt MD Active LEVOTHYROXINE SODIUM 175 MCG ORAL TABLET 1 pill by mouth daily f or thyroid LEVOTHYROXINE SODIUM 87280265721 No Longer Active Fabiana Perdomo RN Active CLARITIN 10 MG ORAL TABLET 1 tablet by mouth daily as needed for allergies LORATADINE 00478700972 No Longer Active Mari bhakta PA-C Active CARAFATE 1 GM ORAL TABLET Take 1 tablet 4 times daily. Before meals and at bedtime SUCRALFATE 48680943266 No Longer Active Mari Stanley PA-C Active DULCOLAX 5 MG ORAL TABLET DELAYED RELEASE 1 tab daily BISACODYL 12897917623 Active Sara Moeller RN Active SUCRALFATE 1 GM ORAL TABLET 1 four times a day for GERD SUCRALFATE 07943343600 No Longer Active Sara Moeller RN Act berna FISH OIL CAPSULE 1 capsule daily OMEGA-3 FATTY ACIDS CAPS 95023205383 No Longer Active Sara Moeller RN Active PROBIOTIC DAILY ORAL CAPSULE 1 capsule daily 3 PROBIOTIC PRODUCT 64845725714 No Longer Active Sara Moeller RN Act berna B COMPLEX FORMULA 1 ORAL TABLET 1 tablet daily B COMPLEX- FOLIC ACID 40058054369 No Longer Active Sara Moeller RN Act berna PROAIR HFA 108 (90 BASE) MCG/ACT INHALATION AEROSOL SO LUTION 2 puffs four times a day as needed ALBUTEROL SULFATE 74105951202 No Long er Active Sara Moeller RN Active MULTIVITAMINS ORAL CAPSULE Take 1 daily MULTIPL E VITAMIN 45365926976 No Longer Active Sara Moeller RN Active CLONAZEPAM 2 MG ORAL TABLET one tablet at bed time CLONAZEPAM 69825002743 No Longer Active Sara Moeller RN Active DEPO-TESTOSTERONE 200 MG/ML INTRAMUSCULAR SOLUTION 100mg italia ry 4 weeks TESTOSTERONE CYPIONATE 40301299592 No Longer Active Sara Moeller RN Active ATIVAN 0.5 MG ORAL TABLET 1 tab 30 minutes prior to sleep study LORAZEPAM 44970913404 No Longer Active Rui Arndt MD Active NARCAN 4 MG/0.1ML NASAL LIQUID 1 spray in nostril ever y 2 to 3 minutes until responsive or EMS arrives NALOXONE HCL 69393254432 Active Rui Arndt MD Active LEVAQUIN 500 MG ORAL TABLET 1 daily for infection 2017 LEVOFLOXACIN 29101099274 No Longer Active Dena Lacy APRN Active PREDNISONE 20 MG TABS Take 2 daily for 5 days and then 1 stephy ly for 5 days PREDNISONE 62162763676 No Longer Active Rui saleem MD Active PREDNISONE 20 MG ORAL TABLET 2 tabs daily for 4 days, 1 tab daily for 4 days, 1/2 tab daily for 4 days PREDNISONE 17987636591 No Longer Active Rui Arndt MD Active OXYGEN 2L at night time - Dx: J44.9 Active Lori Winter LPN Active PREDNISONE 20 MG ORAL TABLET Take 2 daily for 5 days a nd then 1 daily for 5 days PREDNISONE 98447236185 No Longer Active Rui Arndt MD Active NORCO 10-325 MG ORAL TABLET Take 1-2 tablets every 6 hours a s needed for pain HYDROCODONE-ACETAMINOPHEN 39388221478 No Longer Activ e Rui Arndt MD Active FUROSEMIDE 20 MG ORAL TABLET 1 daily for blood pressure and swel ling FUROSEMIDE 14293726285 No Longer Active Rui Arndt MD Active PAMELOR 10 MG ORAL CAPSULE NORTRIPTY LINE HCL 32445274415 No Longer Active Rui Arndt MD Active AEROSPAN 80 MCG/ACT INHALATION AEROSOL SOLUTION 2 puffs twice FLUNISOLIDE HFA 69144989140 No Longer Active Rui Arndt MD Active LISINOPRIL 10 MG ORAL TABLET take one tab once daily 09/22 LISINOPRIL 06349885920 No Longer Active Rui Arndt MD Active BD INTEGRA SYRINGE 25G X 1" 1 ML Use with Depo provera INSULIN SYRINGE-NEEDLE U-100 Active Brittny Aguila MA Act berna MORPHINE SULFATE ER BEADS 75 MG ORAL CAPSULE EXTENDED RELEASE 24 HOUR 1 twice a day MORPHINE SULFATE BEADS 02189181307 No Longer Ac tive Rui Arndt MD Active COMBIVENT RESPIMAT 20-100 MCG/ACT INHALATION AEROSOL S OLUTION 1 puff four times a day IPRATROPIUM-ALBUTEROL 09541397858 No Longer Act berna Rui Arndt MD Active POTASSIUM CHLORIDE 20 MEQ ORAL PACKET 1 qDay with Lasix POTASSIUM CHLORIDE 60003678987 No Longer Active Rui Arndt MD Activ e PROAIR HFA 108 (90 Base) MCG/ACT INHALATION AEROSOL SO LUTION 2 puffs four times a day as needed ALBUTEROL SULFATE 71826311448 No Longer Ac tive Rui Arndt MD Active ASMANEX 60 METERED DOSES 220 MCG/INH INHALATION AEROSO L POWDER BREATH ACTIVATED 1 puff bid with rinse after MOMETASONE FUROATE 0247522 4102 No Longer Active Rui Arndt MD Active OMEPRAZOLE 40 MG ORAL CAPSULE DELAYED RELEASE 1 po q a.m. OMEPRAZOLE 88843406480 No Longer Active Anahi Ashley LPN Act [...] daily 2 LISINOPRIL 10 MG ORAL TABLET 410393 LISINOPRIL Inactive AEROSPAN 80 MCG/ACT INHALATION AEROSOL SOLUTION 2 puffs twice AEROSPAN 80 MCG/ACT INHALATION AEROSOL SOLUTION FLUNISOLIDE HFA Inactive PAMELOR 10 MG ORAL CAPSULE PAMELOR 1 0 MG ORAL CAPSULE 365826 NORTRIPTYLINE HCL Inactive FUROSEMIDE 20 MG ORAL TABLET 1 daily for blood pressure and swel ling FUROSEMIDE 20 MG ORAL TABLET 227861 FUROSEMIDE Corinna ctive NORCO 10-325 MG ORAL TABLET Take 1-2 tablets every 6 hours a s needed for pain NORCO 10-325 MG ORAL TABLET HYDROCODONE-A CETAMINOPHEN Inactive PREDNISONE 20 MG ORAL TABLET 2 tabs daily for 4 days, 1 tab daily for 4 days, 1/2 tab daily for 4 days PREDNISONE 20 MG ORAL T ABLET 184191 PREDNISONE Inactive LEVAQUIN 500 MG ORAL TABLET 1 daily for infection 2017 LEVAQUIN 500 MG ORAL TABLET 776572 LEVOFLOXACIN Inactive ATIVAN 0.5 MG ORAL TABLET 1 tab 30 minutes prior to sleep study ATIVAN 0.5 MG ORAL TABLET 157896 LORAZEPAM Inacti ve DEPO-TESTOSTERONE 200 MG/ML INTRAMUSCULAR SOLUTION 100mg italia ry 4 weeks DEPO-TESTOSTERONE 200 MG/ML INTRAMUSCULA R SOLUTION 4551536 TESTOSTERONE CYPIONATE Inactive CLONAZEPAM 2 MG ORAL TABLET one tablet at bed time 201 11/01/12 CLONAZEPAM 2 MG ORAL TABLET 256171 CLONAZEPAM Inactive MULTIVITAMINS ORAL CAPSULE Take 1 [...] capsule daily 3 PROBIOTIC DAILY ORAL CAPSULE 7353424 PROBIOTIC PRODUCT Inactive FISH OIL CAPSULE 1 capsule daily FISH OIL CAPSUL E OMEGA- 3 FATTY ACIDS CAPS Inactive SUCRALFATE 1 GM ORAL TABLET 1 four times a day for GERD SUCRALFATE 1 GM ORAL TABLET 968746 SUCRALFATE Inactive CARAFATE 1 GM ORAL TABLET Take 1 tablet 4 times daily. Before meals and at bedtime CARAFATE 1 GM ORAL TABLET 727498 SUCRALFATE Inactive CLARITIN 10 MG ORAL TABLET 1 tablet by mouth daily as needed for allergies CLARITIN 10 MG ORAL TABLET 059061 LORATADINE I nactive LEVOTHYROXINE SODIUM 175 MCG ORAL TABLET 1 pill by mouth daily f or thyroid LEVOTHYROXINE SODIUM 175 MCG ORAL TABLET 775825 LEVOTHY ROXINE SODIUM Inactive FLOMAX 0.4 MG ORAL CAPSULE one capsule in the evening 1/2 hour a fter supper FLOMAX 0.4 MG ORAL CAPSULE 234585 TAMSULOSIN HCL Inact berna PANTOPRAZOLE SODIUM 40 MG ORAL TABLET DELAYED RELEASE 1 pill by mouth daily PANTOPRAZOLE SODIUM 40 MG ORAL TABLET DE LAYED RELEASE 932798 PANTOPRAZOLE SODIUM Inactive DEPO-TESTOSTERONE 100 MG/ML INTRAMUSCULAR SOLUTION 1mL q4H DEPO-TESTOSTERONE 100 MG/ML INTRAMUSCULAR SOLUTION 194522 TESTOSTERONE CYPIONATE Inactive MORPHINE SULFATE ER 100 [...] three days PREDNISONE 20 MG ORAL TABLET 317266 PREDNIS ONE Inactive ASPIRIN 325 MG ORAL TABLET Take 1 tablet daily ASPIRIN 325 MG ORAL TABLET 605909 ASPIRIN Inactive PLAVIX 75 MG ORAL TABLET 1 tablet by mouth daily 03/11 PLAVIX 75 MG ORAL TABLET 796535 CLOPIDOGREL BISULFATE Inactive PLAVIX 75 MG ORAL TABLET 1 tablet by mouth daily for 30 days 202 PLAVIX 75 MG ORAL TABLET 502011 CLOPIDOGREL BISULFATE I nactive KLOR-CON M10 10 MEQ ORAL TABLET EXTENDED RELEASE one tablet twic e a day KLOR-CON M10 10 MEQ ORAL TABLET EXTENDED RELEASE 1179783 POTASSIUM CHLORIDE JORDAN CR Inactive PREDNISONE 20 MG ORAL TABLET Take 2 tablets daily for 5 days and 1 tablet daily for 5 days. PREDNISONE 20 MG ORAL TABLET 637674 PREDNISONE Inactive FLOMAX 0.4 MG ORAL CAPSULE 1 capsule by mouth in the evening for prostate FLOMAX 0.4 MG ORAL CAPSULE 163992 TAMSULOSIN HCL Inactive PROAIR HFA 108 (90 BASE) MCG/ACT INHALATION AEROSOL SO LUTION 2 puffs four times a day as needed PROAIR HFA 108 (90 B ASE) MCG/ACT INHALATION AEROSOL SOLUTION ALBUTEROL SULFATE Inactive LEVOTHYROXINE SODIUM 200 MCG ORAL TABLET 1 po q a.m. for thyroid LEVOTHYROXINE SODIUM 200 MCG ORAL TABLET 857075 LEVOTHY ROXINE SODIUM Inactive VENTOLIN HFA 108 (90 BASE) MCG/ACT INHALATION AEROSOL SOLUTI ON 1 puff every day VENTOLIN HFA 108 (90 BASE) M CG/ACT INHALATION AEROSOL SOLUTION ALBUTEROL SULFATE Inactive POTASSIUM CHLORIDE 20 MEQ ORAL PACKET 1 qDay with Lasix POTASSIUM CHLORIDE 20 MEQ ORAL PACKET 4240787 POTASSIUM CHLORIDE Inactive PREDNISONE 20 MG ORAL TABLET Take 2 daily for 5 days a nd then 1 daily for 5 days PREDNISONE 20 MG ORAL TABLET 532220 PREDNIS ONE Inactive PREDNISONE 20 MG TABS Take 2 daily for 5 days and then 1 stephy ly for 5 days PREDNISONE 20 MG TABS 971050 PREDNISONE Inacti ve ZITHROMAX Z-PETE 250 MG ORAL TABLET 2 today, then 1 daily for 4 d ays ZITHROMAX Z-PETE 250 MG ORAL TABLET 912611 AZITHROMYCIN Inactive CEFUROXIME AXETIL 500 MG ORAL TABLET TAKE 1/2 TABLET TWICE DAILY CEFUROXIME AXETIL 500 MG ORAL TABLET 236478 CEFUROXIME AXETIL Inactive Advance Directives Directive Description [...] Magnesium - Chemistry sodium, serum 138 mmol/L 318-198 1489/12/04 carbon dioxide, venous blood 28.3 mmol/L 21.0-32 [...] 0.90 mg/dL 0.00-1.00 cholesterol, serum 121 mg/dL 907-307 6840/12/04 triglyceride, serum, fasting 137 mg/dL 30-200 HDL [...] 2.60 ng/mL 0.00-4.00 sodium, serum 136 mmol/L 669-401 3415/10/06 carbon dioxide, venous blood 29.5 mmol/L 21.0-32 [...] noted Encounters Code Encounter Date Provider Facility CPT-31821 68435: Ofc Vst-Est Level III-Low MDM or 20-29 minutes 08:12:06 [facility] C[facility]-75078 43219: Ofc Vst-Est Level IV-Moderate MDM or 30-39 minutes 12:21:30 CDT Rui Arndt MD [facility] CPT-74924 83400-Gps Vst-Est Level IV 09:46:31 CDT Lobo Arndt MD [facility] CPT-75361 23959-Pru Vst-Est Level IV 10:42:47 CIRCUS ARTIST Lobo Arndt MD [facility] CPT-43797 54127-Cpp Vst-Est Level IV 11:02:04 CDT Lobo Arndt MD [facility] CPT-18506 90380-Iwb Vst-Est Level IV 13:58:45 CDT Lobo Arndt MD [facility] CPT-81034 33601-Lbb Vst-Est Level IV 15:13:53 CDT Lobo Arndt MD [facility] CPT-63861 03554-Cqa Vst-Est Level IV 11:54:49 CDT Lobo Arndt MD [facility] CPT-98936 99484-Hwf Vst-Est Level IV 11:04:27 CIRCUS ARTIST Lobo Arndt MD [facility] CPT-68418 Level 4 New Patient 12:35:21 CDT Ade chung MD [facility] CPT-57852 Ofc Vst-Est Level IV 16:12:07 CDT Rui Arndt MD [facility] CPT-35939 12434-Pxp Vst-Est Level IV 16:25:05 CDT Lobo Arndt MD [facility] CPT-69940 97802-Rpm Vst-Est Level III 10:55:45 CDT Rui Arndt MD [facility] CPT-61851 80178-Brr Vst-Est Level IV 14:16:20 CDT Lobo Arndt MD [facility] CPT-95950 Level 3 Est. Patient 13:14:20 CDT Luke rascon [facility] CPT-16579 58646-Hqa Vst-Est Level IV 09:53:37 CIRCUS ARTIST Lobo Arndt MD [facility] CPT-31750 26586-Snq Vst-Est Level IV 09:44:38 CDT Lobo Arndt MD [facility] CPT-41293 Level 3 Est. Patient 15:23:12 CDT Dena ley [facility] CPT-73719 Level 4 Est. Patient 13:12:22 CDT Rui Arndt MD [facility] CPT-81916 Level 4 Est. Patient 14:44:13 CDT Dena ley [facility] CPT-31527 97786-Uxx Vst-Est Level III 11:23:31 CDT Rui Arndt MD [facility] CPT-80010 45434-Nul Vst-Est Level V 10:04:33 CDT oJse Arndt MD -94766 Level 4 Est. Patient 16:17:47 CDT Rui Arndt MD -24480 Level 4 Est. Patient 10:53:57 CDT Rui Arndt MD -35853 Level 3 Est. Patient 16:09:12 CDT Jemal marti MD -18377 Level 4 Est. Patient 11:32:24 CIRCUS ARTIST Rui Arndt MD -66814 Level 4 Est. Patient 14:55:39 CIRCUS ARTIST Dena ley [facility]-00074 Level 3 Est. Patient 15:10:46 CIRCUS ARTIST Rui Arndt MD -91664 Level 3 Est. Patient 12:01:26 CIRCUS ARTIST Rui Arndt MD -49153 Level 3 Est. Patient 10:35:15 CIRCUS ARTIST Rui Arndt MD -70523 Level 3 Est. Patient 15:04:30 CDT Rui Arndt MD -94836 Level 3 Est. Patient 10:15:00 CDT Vinod fenton [facility]-80572 Level 4 Est. Patient 14:59:25 CDT Rui Arndt MD -72583 Level 4 Est. Patient 12:07:34 CDT Rui Arndt MD -52132 Level 3 Est. Patient 10:42:08 CIRCUS ARTIST Rui Arndt MD -80744 Level 3 Est. Patient 17:29:10 CIRCUS ARTIST Rui Arndt MD -08251 Level 4 Est. Patient 15:12:05 CDT Rui Arndt MD -26225 Level 2 Est. Patient 16:27:53 CDT Rui Arndt MD [facility] CPT-27001 Level 3 Est. Patient 12:02:36 CDT Rui Arndt MD [facility] CPT-54525 Level 4 Est. Patient 11:17:39 CDT Rui Arndt MD [facility] CPT-83298 Level 4 Est. Patient 15:46:07 CDT Rui Arndt MD [facility] CPT-70148 Level 4 Est. Patient 17:18:59 CIRCUS ARTIST Rui Arndt MD -13933 Level 4 Est. Patient 15:09:55 CDT [facility]caino [facility] Level 3 Est. Patient 15:49:06 CDT Rui Arndt MD [facility] CPT-01743 Level 3 Est. Patient 11:40:46 CDT Rui Arndt MD [facility] CPT-82415 Level 3 Est. Patient 18:00:51 CDT Rui Arndt MD [facility] CPT-87358 Level 4 Est. Patient 10:25:35 CDT Rui Arndt MD [facility] CPT-61248 Level 3 Est. Patient 15:45:51 CDT Rui Arndt MD [facility] CPT-23416 Level 4 Est. Patient 11:32:17 CIRCUS ARTIST Rui Arndt MD [facility] CPT-12650 Level 4 New Patient 17:03:03 CDT Rui yoder MD [facility] Procedures Code Procedure Name Date Entry Date Standard Desc ription CPT-95945 MOD COVID19 mRNA 100mcg/0.5mL 1st Dose 9 13:33:26 CDT CPT-J1071 Depo Testosterone 100mg 10:43:46 CDT 10/19 CPT-74630 Abx/Therapy Injection 10:43:46 CDT CPT-J1071 Depo Testosterone 100mg 13:15:20 CDT 09/16 CPT-55463 Abx/Therapy Injection 13:15:20 CDT CPT-J1071 Depo Testosterone 100mg 13:00:53 CDT 08/18 CPT-84699 Abx/Therapy Injection 13:00:53 CDT CPT-J1071 Depo Testosterone 100mg 16:00:36 CDT 07/22 CPT-72652 Abx/Therapy Injection 16:00:36 CDT CPT-J1071 Depo Testosterone 100mg 15:59:22 CDT 06/24 CPT-60831 Abx/Therapy Injection 15:59:22 CDT CPT-J1071 Depo Testosterone 100mg 17:34:08 CIRCUS ARTIST 05/27 CPT-44413 Abx/Therapy Injection 17:34:08 CIRCUS ARTIST CPT-WJ7310L (4274F) Influenza immunization administe red or previously received 12:03:02 CIRCUS ARTIST CPT-RU5285O (4274F) Influenza immunization administe red or previously received 10:42:46 CIRCUS ARTIST CPT-J1071 Depo Testosterone 100mg 14:29:40 CIRCUS ARTIST 05/19 CPT-58536 Abx/Therapy Injection 14:29:40 CIRCUS ARTIST CPT-67074 Venipuncture Draw Fee 09:50:26 CIRCUS ARTIST CPT-18480 Venipuncture Draw Fee 11:06:37 CIRCUS ARTIST CPT-J1071 Depo Testosterone 100mg 13:49:54 CIRCUS ARTIST 04/20 CPT-07030 Abx/Therapy Injection 13:49:54 CIRCUS ARTIST CPT-J1071 Depo Testosterone 100mg 16:22:38 CDT CPT-74902 Abx/Therapy Injection 16:22:38 CDT CPT-000 Give Appropriate Flu Vaccine 11:02:04 CDT 2 CPT-50860 16531 - Immun Admin 1 vac 11:43:22 CDT 2019 CPT-98071 [employer] Quadrivalent [place] 11:43:22 CDT CPT-85426 Venipuncture Draw Fee 11:14:23 CDT CPT-[id number] (4274F 2P) Patient Reason Influenza immu nization not administered 11:02:04 CDT CPT-G0439 Subsequent Annual Wellness Exam 14:24:52 CDT CPT-[id number] (4013F) Statin therapy prescribed or cur rently being taken 14:24:52 CDT CPT-OJ5875K (4274F 2P) Patient Reason Influenza immu nization not administered 14:24:52 CDT CPT-J1071 Depo Testosterone 100mg 13:29:13 CDT 12/23 CPT-13874 Abx/Therapy Injection 13:29:13 CDT CPT-J1071 Depo Testosterone 100mg 14:43:03 CDT 11/24 CPT-84366 Abx/Therapy Injection 14:43:03 CDT CPT-J1071 Depo Testosterone 100mg 17:18:41 CDT 10/27 CPT-72632 Abx/Therapy Injection 17:18:41 CDT CPT-93835 4M Drug Screen cup test, Multi-panel, urine 2019 13:58:45 CDT CPT-J1071 Depo Testosterone 100mg 16:42:20 CDT 0 09/23 CPT-22853 Abx/Therapy Injection 16:42:20 CDT CPT-J1071 Depo Testosterone 100mg 16:43:18 CDT 0 08/26 CPT-01522 Abx/Therapy Injection 16:43:18 CDT CPT-44407 Venipuncture Draw Fee 13:01:56 CDT CPT-J1071 Depo Testosterone 100mg 15:54:02 CDT 07/28 CPT-65074 Abx/Therapy Injection 15:54:02 CDT CPT-J1071 Depo Testosterone 100mg 15:17:11 CDT 0 06/30 CPT-08246 Abx/Therapy Injection 15:17:10 CDT CPT-44514 Venipuncture Draw Fee 11:58:13 CDT CPT-J1071 Depo Testosterone 200mg 14:59:06 CDT 0 06/02 CPT-09948 Abx/Therapy Injection 14:59:06 CDT CPT-J1071 Depo Testosterone 100mg 14:08:37 CIRCUS ARTIST 0 05/06 CPT-63042 Abx/Therapy Injection 14:08:37 CIRCUS ARTIST CPT-41021 Venipuncture Draw Fee 15:15:20 CIRCUS ARTIST CPT-J1071 Depo Testosterone 100mg 15:40:35 CIRCUS ARTIST 0 04/08 CPT-38482 Abx/Therapy Injection 15:40:35 CIRCUS ARTIST CPT-TCMM Transitional Care Mgmt-Moderate 12:40:08 CS T CPT-UR3271M (4274F) Influenza immunization administe red or previously received 12:40:07 CIRCUS ARTIST CPT-43096 Venipuncture Draw Fee 15:13:23 CIRCUS ARTIST CPT-71605 Venipuncture Draw Fee 12:39:02 CIRCUS ARTIST CPT-J1071 Depo Testosterone 100mg 11:35:50 CIRCUS ARTIST 05/12 CPT-51144 Abx/Therapy Injection 11:35:50 CIRCUS ARTIST CPT-AQ1831Z (4274F) Influenza immunization administe red or previously received 11:04:25 CIRCUS ARTIST CPT-J1071 Depo Testosterone 100mg 11:32:22 CIRCUS ARTIST 04/13 CPT-36317 Abx/Therapy Injection 11:32:22 CIRCUS ARTIST CPT-70765 21097 - Immun Admin 1 vac 16:43:51 CIRCUS ARTIST 2018 CPT-09459 Shingrix 16:43:51 CIRCUS ARTIST CPT-J1071 Depo Testosterone 100mg 18:38:18 CDT CPT-90114 Abx/Therapy Injection 18:38:17 CDT CPT-J1071 Depo Testosterone 100mg 14:36:52 CDT 12/18 CPT-44562 Abx/Therapy Injection 14:36:52 CDT CPT-G0008 Administration of Influenza Virus Vaccine 12/18 14:35:05 CDT CPT-73566 Fluzone (Flu) 10Pk Syringe IM (Medicare) 14:35:05 CDT CPT-96103 Bladder Scan 12:35:21 CDT CPT-93319 Venipuncture Draw Fee 16:41:57 CDT CPT-62013 12682 - Immun Admin 1 vac 16:31:08 CDT 2018 CPT-11053 Shingrix 16:31:07 CDT CPT-G0439 [facility] Annual Wellness Exam 16:12:06 CDT CPT-J1071 Depo Testosterone 100mg 12:18:42 CDT 11/20 CPT-37285 Abx/Therapy Injection 12:18:42 CDT CPT-J1071 Depo Testosterone 100mg 11:42:38 CDT 09/03 CPT-19260 Abx/Therapy Injection 11:42:38 CDT CPT-J1071 Depo Testosterone 100mg 12:00:58 CDT 08/06 CPT-94167 Abx/Therapy Injection 12:00:58 CDT CPT-J1071 Depo Testosterone 100mg 12:34:21 CDT 07/09 CPT-67836 Abx/Therapy Injection 12:34:21 CDT CPT-23109 Abdomen, 2 views 13:20:15 CDT CPT-46706 Chest, 2 views 13:20:15 CDT CPT-J1071 Depo Testosterone 200mg 14:21:46 CDT 0 06/12 CPT-21857 Abx/Therapy Injection 14:21:46 CDT CPT-J1071 Depo Testosterone 100mg 14:34:38 CIRCUS ARTIST 0 05/14 CPT-93280 Abx/Therapy Injection 14:34:38 CIRCUS ARTIST CPT-000 Give Pneumovax 11:57:22 CDT CPT-J1071 Depo Testosterone 100mg 17:09:47 CIRCUS ARTIST 04/13 CPT-80521 Abx/Therapy Injection 17:09:47 CIRCUS ARTIST CPT-J1071 Depo Testosterone 100mg 15:41:42 CIRCUS ARTIST 05/17 CPT-58092 Abx/Therapy Injection 15:41:42 CIRCUS ARTIST CPT-J1071 Depo Testosterone 100mg 13:42:43 CIRCUS ARTIST 04/18 CPT-75176 Abx/Therapy Injection 13:42:43 CIRCUS ARTIST CPT-J1071 Depo Testosterone 100mg 13:24:43 CDT CPT-83351 Abx/Therapy Injection 13:24:43 CDT CPT-10315 First Vx - Ix admin for Medicare patients 18:07:22 CDT CPT-80606 Fluzone Quadrivalent Intramuscular Suspe nsion 0.5 ML 18:07:22 CDT CPT-J1071 Depo Testosterone 100mg 12:06:21 CDT 12/21 CPT-81447 Abx/Therapy Injection 12:06:21 CDT CPT-J1071 Depo Testosterone 100mg 16:09:00 CDT 11/23 CPT-91889 Abx/Therapy Injection 16:09:00 CDT CPT-G0439 [facility] Annual Wellness Exam 13:12:23 CDT CPT-J1071 Depo Testosterone 100mg 10:40:29 CDT 10/26 CPT-54694 Abx/Therapy Injection 10:40:29 CDT CPT-J1071 Depo Testosterone 100mg 09:15:44 CDT 09/28 CPT-75038 Abx/Therapy Injection 09:15:43 CDT CPT-J1071 Depo Testosterone 100mg 10:53:34 CDT 08/31 CPT-25805 Abx/Therapy Injection 10:53:34 CDT CPT-74256 Wells pre/post w graphic rec - XRAY USE ONLY 201 10/30/06 10:24:51 CDT CPT-J1071 Depo Testosterone 100mg 14:11:00 CDT 08/03 CPT-23052 Abx/Therapy Injection 14:11:00 CDT CPT-J1071 Depo Testosterone 100mg 15:15:13 CDT 07/04 CPT-99052 Abx/Therapy Injection 15:15:13 CDT CPT-J2310 Narcan HCI .4mg per 1 ml 15:52:42 CDT 06/26 CPT-38413 Chest, 2 views 15:11:39 CDT CPT-000 Give Appropriate Flu Vaccine 12:01:26 CIRCUS ARTIST 2 CPT-99693 Chest single view 16:11:20 CDT CPT-J1071 Depo Testosterone 100mg 10:50:45 CIRCUS ARTIST 05/29 CPT-97390 Abx/Therapy Injection 10:50:45 CIRCUS ARTIST CPT-25100 Chest, 2 views 11:49:28 CIRCUS ARTIST CPT-J1071 Depo Testosterone 100mg 16:07:43 CIRCUS ARTIST 05/02 CPT-01287 Abx/Therapy Injection 16:07:43 CIRCUS ARTIST CPT-J1071 Depo Testosterone 100mg 15:31:04 CIRCUS ARTIST 03/31 CPT-27552 Abx/Therapy Injection 15:31:04 CIRCUS ARTIST CPT-J1071 Depo Testosterone 100mg 16:29:48 CDT CPT-31111 Abx/Therapy Injection 16:29:48 CDT CPT-J1071 Depo Testosterone 100mg 14:42:01 CDT 12/23 CPT-59986 Abx/Therapy Injection 14:42:01 CDT CPT-G0439 [facility] Annual Wellness Exam 14:14:09 CDT CPT-J1071 Depo Testosterone 100mg 13:48:18 CDT 11/17 CPT-11769 Abx/Therapy Injection 13:48:18 CDT CPT-G0009 Administration of Pneumococcal Vaccine 4 12:06:23 CDT CPT-51447 Pneumovax 23 Injection Injectable 25 MCG /0.5ML 12:06:23 CDT CPT-J1071 Depo Testosterone 100mg 13:11:36 CDT 10/19 CPT-72116 Abx/Therapy Injection 13:11:36 CDT CPT-J1071 Depo Testosterone 100mg 13:17:59 CDT 09/21 CPT-27764 Abx/Therapy Injection 13:17:59 CDT CPT-J1071 Depo Testosterone 100mg 13:08:38 CDT 09/21 CPT-J1071 Depo Testosterone 100mg 13:06:32 CDT 09/21 CPT-28190 Bone Density - XRAY USE ONLY 09:04:29 CIRCUS ARTIST 2 CPT-78113 BMP - LAB USE ONLY 17:39:11 CIRCUS ARTIST CPT-80337 Venipuncture Draw Fee 17:39:11 CIRCUS ARTIST CPT-000 Give Appropriate Flu Vaccine 15:16:28 CDT 2 CPT-J1071 Depo Testosterone 200mg 16:59:53 CDT 10/21 CPT-95521 Abx/Therapy Injection 16:59:53 CDT CPT-20439 Abx/Therapy Injection 18:58:42 CIRCUS ARTIST CPT-20032 First Vx - Ix admin for Medicare patients 15:47:06 CDT CPT-46298 Fluzone High-Dose Intramuscular Suspension 01/19 15:47:06 CDT CPT-42673 Abx/Therapy Injection 14:12:15 CDT CPT-58807 Abx/Therapy Injection 13:34:08 CDT CPT-84451 Abx/Therapy Injection 14:41:47 CDT CPT-G0438 Initial Annual Wellness Exam 10:06:26 CD T CPT-J1071 Depo Testosterone 200mg 11:42:49 CDT 09/22 CPT-75171 Abx/Therapy Injection 11:42:49 CDT CPT-40793 Abx/Therapy Injection 16:55:18 CDT CPT-27146 Abx/Therapy Injection 13:49:32 CDT CPT-J1071 Depo Testosterone 200mg 09:48:27 CDT 06/28 CPT-90569 Abx/Therapy Injection 09:48:27 CDT CPT-84654 Abx/Therapy Injection 16:27:06 CIRCUS ARTIST CPT-60081 No Charge Offi Visit 18:00:02 CIRCUS ARTIST 8 CPT-03441 Abd compl w upright 12:29:27 CIRCUS ARTIST CPT-000 Give Appropriate Flu Vaccine 16:15:45 CIRCUS ARTIST 2 CPT-74515 Abx/Therapy Injection 11:03:39 CIRCUS ARTIST CPT-04706 Venipuncture Draw Fee 13:07:59 CIRCUS ARTIST CPT-17798 Immunization Single Admin 12:03:42 CIRCUS ARTIST 2014 CPT-01563 Fluzone High Dose (65+) 12:03:41 CIRCUS ARTIST 05/05 CPT-41410 Chest 2V Frontal and Lat 15:25:23 CDT 12/29 CPT-56356 Venipuncture Draw Fee 15:57:34 CDT CPT-77885 Abx/Therapy Injection 12:52:43 CDT CPT-78196 Abx/Therapy Injection 08:58:56 CDT CPT-97778 Venipuncture Draw Fee 15:59:37 CDT CPT-56197 Abx/Therapy Injection 08:36:16 CDT CPT-000 Give Pneumovax 11:32:18 CIRCUS ARTIST CPT-000 Give Appropriate Flu Vaccine 11:32:18 CIRCUS ARTIST 2 CPT-03974 Abx/Therapy Injection 09:52:48 CDT CPT-65044 Abx/Therapy Injection 09:56:54 CDT CPT-OV Office Visit 16:35:19 CDT CPT-83239 Abx/Therapy Injection 08:25:48 CDT CPT-74341 Abx/Therapy Injection 09:17:15 CIRCUS ARTIST CPT-76257 Abx/Therapy Injection 08:52:31 CIRCUS ARTIST CPT-09694 Abx/Therapy Injection 09:32:50 CIRCUS ARTIST CPT-04748 Abx/Therapy Injection 08:28:14 CIRCUS ARTIST CPT-02888 Abx/Therapy Injection 10:43:07 CDT CPT-J1070 Depo Testosterone 100 mg 08:39:09 CDT 12/05 CPT-08238 Abx/Therapy Injection 08:39:09 CDT CPT-58825 Abx/Therapy Injection 11:22:03 CDT CPT-81381 Shoulder comp min 2V 14:11:48 CDT 1 CPT-78666 Abx/Therapy Injection 09:56:35 CDT CPT-LR Lesion Removal 09:49:45 CDT
--- OUTSIDE RECORDS SUMMARY | 2020-12-04 06:12 | XMS REPORT | Clinical Summary ---
Author Author Mya, Charlie Hankins Organization [employer] Address Unknown Phone Unavailable Allergies, Adverse Reactions, Alerts Allergy Name Reaction Description Start Date Severity Status Pr ovider NKA Critical Active Dena Lacy APR N KEFLEX Mild No Longer Active Rui Arndt MD KEFLEX itch Moderate No Longer Active Vinod Alatorre GENERAL MACHINIST NKDA Critical No Longer Active Rui Arndt [...] Arndt MD [facility] Cat[facility] 366.9 Inactive Rui Arndt MD [...] pain, left lower quadrant Epistaxis 784.7 Resolved uRi Arndt MD Epistaxis Colonic polyps, hx of [...] fatigue Monoclonal gammopathy 273.1 Active Eboni villasenor DIGITAL ADVISOR Monoclonal paraproteinemia Peripheral edema 782.3 Active Fabiana Speaks A PRN Edema Dyspnea 786.09 Resolved Rui Arndt MD Other dyspnea and respiratory abnormality Need for prophylactic vaccination and inoculation against in fluenza V04.81 Resolved Rui Arndt MD Need for prophylactic vaccination and inoculation against influenza Peripheral artery disease 443.9 Active Laurita [facility] Peripheral vascular disease, unspecified Abdominal pain, left [...] 39.0-39.9, adult BMI 37-37.9 Active Keyonna Barajas GENERAL MACHINIST-C Body Mass Index 39.0-39.9, adult Abdominal bloating [...] atherosclerosis of unspecified type of vessel , [place] or graft 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 ALBUTEROL SULFATE 24673985943 Active Keyonna Jenn GENERAL MACHINIST-C Activ e PREDNISONE 20 MG ORAL TABLET Take 2 tablets by mouth d aily for 3 days then 1 tablet daily for 2 days PREDNISONE 42843903095 Active Keyonna Jenn GENERAL MACHINIST-C Active ZITHROMAX 250 MG ORAL TABLET Take 2 tablets by mouth o n day 1 then 1 tablet the next 4 days AZITHROMYCIN 17215893444 Active Keyonna Br itt GENERAL MACHINIST-C Active ZUBSOLV 11.4-2.9 MG SUBLINGUAL TABLET SUBLINGUAL Take 1 tablet dailyDEA; [id number] BUPRENORPHINE HCL-NALOXONE HCL 30403484371 Acti ve Rui Arndt MD Active CEFUROXIME AXETIL 500 MG ORAL TABLET TAKE 1/2 TABLET TWICE DAILY CEFUROXIME AXETIL 30474799253 No Longer Active Rui Arndt MD Active POTASSIUM CHLORIDE ER 10 MEQ CR-CAPS TAKE ONE TABLET BY MOUT H TWICE DAILY. POTASSIUM CHLORIDE 81887574300 AGUSTO Richardson Active OMEPRAZOLE 40MG TAKE 1 CAPSULE BY MOUTH EVERY MORNING OMEPRAZOLE 48326861582 AGUSTO Richardson Active SPIRIVA HANDIHLR INHALE CONTENTS OF ONE CAPSULE VIA HANDI HALER ONCE DAILY TIOTROPIUM BROMIDE MONOHYDRATE 80566636561 AGUSTO Richardson Active BUMETANIDE 1MG TAKE 1 TABLET BY MOUTH ONCE DAILY IF NEE DED FOR SWELLING BUMETANIDE 59408202297 AGUSTO Richardson Active ZOLPIDEM TARTRATE 10 MG TABS TAKE 1 TABLET BY MOUTH AT NIGHT IF NEEDED FOR SLEEP ZOLPIDEM TARTRATE 87211226200 Active Rui Arndt MD Active FUROSEMIDE 40MG TAKE 2 TABLETS BY MOUTH EVERY MORNING FUROSEMIDE 84734083132 Active Liudmila Tirado RN Active GABAPENTIN 300MG TAKE 1 CAPSULE BY MOUTH THREE TIMES DAILY GABAPENTIN 90724267762 Active AGUSTO Hall Active ATORVASTATIN 80MG TAKE 1 TABLET BY MOUTH DAILY AT BEDTIME 6 ATORVASTATIN CALCIUM 78952136356 Active AGUSTO Hall A ctive SUPER B-100 ORAL TABLET 1 q d B COMPLEX-BIOTI N-FA 36535828428 Active Tarun Chavez MD Active ASPIRIN 325 MG ORAL TABLET 1 q d ASPIRIN 5372154370 9 Active Tarun Chavez MD Active DIGITEK 125 MCG ORAL TABLET 1 q d DIGOXIN 361925675 01 Active Tarun Chavez MD Active VENTOLIN HFA 108 (90 BASE) MCG/ACT INHALATION AEROSOL SOLUTI ON 1 puff every day ALBUTEROL SULFATE 25274338789 No Longer Active Alan Chavez MD Active LEVOTHYROXINE SODIUM 200 MCG ORAL TABLET 1 po q a.m. for thyroid LEVOTHYROXINE SODIUM 83050951833 No Longer Active Tarun Chavez MD Active PROAIR HFA 108 (90 BASE) MCG/ACT INHALATION AEROSOL SO LUTION 2 puffs four times a day as needed ALBUTEROL SULFATE 44962460818 No Long er Active Tarun Chavez MD Active FLOMAX 0.4 MG ORAL CAPSULE 1 capsule by mouth in the evening for prostate TAMSULOSIN HCL 02068755333 No Longer Active Tarun Chavez MD Active ELIQUIS 5 MG TABS TAKE ONE TABLET BY MOUTH TWO TIMES A DAY APIXABAN 48089647999 Active AGUSTO Hall Active PREDNISONE 20 MG ORAL TABLET Take 2 tablets daily for 5 days and 1 tablet daily for 5 days. PREDNISONE 37744116271 No Longer Active Rui Arndt MD Active POTASSIUM CHLORIDE ER 10 MEQ CR-TABS TAKE ONE TABLET BY CATERINA TWICE DAILY. POTASSIUM CHLORIDE 12599792774 Active Alma STEW MadridAlfred Active KLOR-CON M10 10 MEQ ORAL TABLET EXTENDED RELEASE one tablet twic e a day POTASSIUM CHLORIDE JORDAN CR 87466045594 No Longer Active Yuval izaguirre STEW [place]Alfred Active LORATADINE 10MG ORAL TABLET TAKE ONE TABLET BY MOUTH ONE TIME DAILY IF NEEDED FOR ALLERGIES. LORATADINE 72906506329 Active AlmaAGUSTO Chávez Active LEVOTHYROXINE SODIUM 150MCG ORAL TABLET TAKE ONE TABLE T BY MOUTH ONE TIME DAILY FOR THYROID. LEVOTHYROXINE SODIUM 60384259438 Active S osiel STEW MadridAlfred Active PLAVIX 75 MG ORAL TABLET 1 tablet by mouth daily for 30 days 202 CLOPIDOGREL BISULFATE 81389685729 No Longer Active Rui Arndt MD Active PLAVIX 75 MG ORAL TABLET 1 tablet by mouth daily 03/11 CLOPIDOGREL BISULFATE 68162618083 No Longer Active Rui Arndt MD Activ e ASPIRIN 325 MG ORAL TABLET Take 1 tablet daily ASPIRIN 64894624101 No Longer Active Rui Arndt MD Active PREDNISONE 20 MG ORAL TABLET 1 tab twice daily for 3 d ay, then one daily for three days PREDNISONE 06365180721 No Longer Active Rui Arndt MD Active MORPHINE SULFATE ER 15 MG ORAL TABLET EXTENDED RELEASE 1 TID a d ay MORPHINE SULFATE 46320831839 No Longer Active Rui Arndt MD Active DEPO-TESTOSTERONE 100 MG/ML INTRAMUSCULAR SOLUTION 201 11/29/02 TESTOSTERONE CYPIONATE 13730935525 Active Brittny Aguila MA Active SUBOXONE 2-0.5 MG SUBLINGUAL FILM Bring to appointment before taking for induction. Stop the Morphine 12 hours before the appointment. BUPRENORPHINE HCL-NALOXONE HCL 12358046247 No Longer Active Rui Arndt MD Active MUCINEX D 60-600 MG ORAL TABLET EXTENDED RELEASE 12 HO UR 1 po BID PRN Congestion PSEUDOEPHEDRINE-GUAIFENESIN 67273051102 Active Luke Christian GENERAL MACHINIST Active ZITHROMAX Z-PETE 250 MG ORAL TABLET 2 today, then 1 daily for 4 d ays AZITHROMYCIN 20580453283 No Longer Active Luke Gonzales APRN Active MORPHINE SULFATE ER 60 MG ORAL TABLET EXTENDED RELEASE 1 twi ce a day for pain MORPHINE SULFATE 55772472916 No Longer Active Luke valdez APRN Active MORPHINE SULFATE ER 100 MG ORAL TABLET EXTENDED RELEASE one tabl et at bedtime MORPHINE SULFATE 41004118661 No Longer Active Luke Gonzales APRN Active DEPO-TESTOSTERONE 100 MG/ML INTRAMUSCULAR SOLUTION 1mL q4H TESTOSTERONE CYPIONATE 01909918762 No Longer Active Luke Gonzales APRN Active PANTOPRAZOLE SODIUM 40 MG ORAL TABLET DELAYED RELEASE 1 pill by mouth daily PANTOPRAZOLE SODIUM 14794776363 No Longer Active Jose Arndt MD Active FLOMAX 0.4 MG ORAL CAPSULE one capsule in the evening 1/2 hour a fter supper TAMSULOSIN HCL 21957629077 No Longer Active Rui Arndt MD Active LEVOTHYROXINE SODIUM 175 MCG ORAL TABLET 1 pill by mouth daily f or thyroid LEVOTHYROXINE SODIUM 13965881832 No Longer Active Fabiana Perdomo RN Active CLARITIN 10 MG ORAL TABLET 1 tablet by mouth daily as needed for allergies LORATADINE 55403642177 No Longer Active Mari bhakta PA-C Active CARAFATE 1 GM ORAL TABLET Take 1 tablet 4 times daily. Before meals and at bedtime SUCRALFATE 75403644426 No Longer Active Mari Stanley PA-C Active DULCOLAX 5 MG ORAL TABLET DELAYED RELEASE 1 tab daily BISACODYL 66962681632 Active Sara Moeller RN Active SUCRALFATE 1 GM ORAL TABLET 1 four times a day for GERD SUCRALFATE 31134462488 No Longer Active Sara Moeller RN Act berna FISH OIL CAPSULE 1 capsule daily OMEGA-3 FATTY ACIDS CAPS 17771460552 No Longer Active Sara Moeller RN Active PROBIOTIC DAILY ORAL CAPSULE 1 capsule daily 3 PROBIOTIC PRODUCT 66139639955 No Longer Active Sara Moeller RN Act berna B COMPLEX FORMULA 1 ORAL TABLET 1 tablet daily B COMPLEX- FOLIC ACID 90631049801 No Longer Active Sara Moeller RN Act berna PROAIR HFA 108 (90 BASE) MCG/ACT INHALATION AEROSOL SO LUTION 2 puffs four times a day as needed ALBUTEROL SULFATE 79557596681 No Long er Active Sara Moeller RN Active MULTIVITAMINS ORAL CAPSULE Take 1 daily MULTIPL E VITAMIN 81410872551 No Longer Active Sara Moeller RN Active CLONAZEPAM 2 MG ORAL TABLET one tablet at bed time CLONAZEPAM 68062696266 No Longer Active Sara Moeller RN Active DEPO-TESTOSTERONE 200 MG/ML INTRAMUSCULAR SOLUTION 100mg it[place] ry 4 weeks TESTOSTERONE CYPIONATE 05030236000 No Longer Active Sara Moeller RN Active ATIVAN 0.5 MG ORAL TABLET 1 tab 30 minutes prior to sleep study LORAZEPAM 82136569160 No Longer Active Rui Arndt MD Active NARCAN 4 MG/0.1ML NASAL LIQUID 1 spray in nostril ever y 2 to 3 minutes until responsive or EMS arrives NALOXONE HCL 44327835199 Active Rui Arndt MD Active LEVAQUIN 500 MG ORAL TABLET 1 daily for infection 2017 LEVOFLOXACIN 26033975530 No Longer Active Dena Lacy APRN Active PREDNISONE 20 MG TABS Take 2 daily for 5 days and then 1 stephy ly for 5 days PREDNISONE 27276929926 No Longer Active Rui saleem MD Active PREDNISONE 20 MG ORAL TABLET 2 tabs daily for 4 days, 1 tab daily for 4 days, 1/2 tab daily for 4 days PREDNISONE 34366874875 No Longer Active Rui Arndt MD Active OXYGEN 2L at night time - Dx: J44.9 Active Lori Winter LPN Active PREDNISONE 20 MG ORAL TABLET Take 2 daily for 5 days a nd then 1 daily for 5 days PREDNISONE 57125162080 No Longer Active Rui Arndt MD Active NORCO 10-325 MG ORAL TABLET Take 1-2 tablets every 6 hours a s needed for pain HYDROCODONE-ACETAMINOPHEN 40287003390 No Longer Activ e Rui Arndt MD Active FUROSEMIDE 20 MG ORAL TABLET 1 daily for blood pressure and swel ling FUROSEMIDE 68395730833 No Longer Active Rui Arndt MD Active PAMELOR 10 MG ORAL CAPSULE NORTRIPTY LINE HCL 99308797140 No Longer Active Rui Arndt MD Active AEROSPAN 80 MCG/ACT INHALATION AEROSOL SOLUTION 2 puffs twice FLUNISOLIDE HFA 44737529526 No Longer Active Rui Arndt MD Active LISINOPRIL 10 MG ORAL TABLET take one tab once daily 09/22 LISINOPRIL 81088968327 No Longer Active Rui Arndt MD Active BD INTEGRA SYRINGE 25G X 1" 1 ML Use with Depo provera INSULIN SYRINGE-NEEDLE U-100 Active Brittny MingoJESE Act berna MORPHINE SULFATE ER BEADS 75 MG ORAL CAPSULE EXTENDED RELEASE 24 HOUR 1 twice a day MORPHINE SULFATE BEADS 35093154580 No Longer Ac tive Rui Arndt MD Active COMBIVENT RESPIMAT 20-100 MCG/ACT INHALATION AEROSOL S OLUTION 1 puff four times a day IPRATROPIUM-ALBUTEROL 50727961734 No Longer Act berna Rui Arndt MD Active POTASSIUM CHLORIDE 20 MEQ ORAL PACKET 1 qDay with Lasix POTASSIUM CHLORIDE 41089167909 No Longer Active Rui Arndt MD Activ e PROAIR HFA 108 (90 Base) MCG/ACT INHALATION AEROSOL SO LUTION 2 puffs four times a day as needed ALBUTEROL SULFATE 34732448438 No Longer Ac tive Rui Arndt MD Active ASMANEX 60 METERED DOSES 220 MCG/INH INHALATION AEROSO L POWDER BREATH ACTIVATED 1 puff bid with rinse after MOMETASONE FUROATE 1161952 4102 No Longer Active Rui Arndt MD Active OMEPRAZOLE 40 MG ORAL CAPSULE DELAYED RELEASE 1 po q a.m. OMEPRAZOLE 55502913212 No Longer Active Anahi Ashley LPN Act [...] daily 2 LISINOPRIL 10 MG ORAL TABLET 345493 LISINOPRIL Inactive AEROSPAN 80 MCG/ACT INHALATION AEROSOL SOLUTION 2 puffs twice AEROSPAN 80 MCG/ACT INHALATION AEROSOL SOLUTION FLUNISOLIDE HFA Inactive PAMELOR 10 MG ORAL CAPSULE PAMELOR 1 0 MG ORAL CAPSULE 533832 NORTRIPTYLINE HCL Inactive FUROSEMIDE 20 MG ORAL TABLET 1 daily for blood pressure and swel ling FUROSEMIDE 20 MG ORAL TABLET 382897 FUROSEMIDE Corinna ctive NORCO 10-325 MG ORAL TABLET Take 1-2 tablets every 6 hours a s needed for pain NORCO 10-325 MG ORAL TABLET HYDROCODONE-A CETAMINOPHEN Inactive PREDNISONE 20 MG ORAL TABLET 2 tabs daily for 4 days, 1 tab daily for 4 days, 1/2 tab daily for 4 days PREDNISONE 20 MG ORAL T ABLET 786434 PREDNISONE Inactive LEVAQUIN 500 MG ORAL TABLET 1 daily for infection 2017 LEVAQUIN 500 MG ORAL TABLET 998412 LEVOFLOXACIN Inactive ATIVAN 0.5 MG ORAL TABLET 1 tab 30 minutes prior to sleep study ATIVAN 0.5 MG ORAL TABLET 158803 LORAZEPAM Inacti ve DEPO-TESTOSTERONE 200 MG/ML INTRAMUSCULAR SOLUTION 100mg it[place] ry 4 weeks DEPO-TESTOSTERONE 200 MG/ML INTRAMUSCULA R SOLUTION 0074727 TESTOSTERONE CYPIONATE Inactive CLONAZEPAM 2 MG ORAL TABLET one tablet at bed time 201 11/01/12 CLONAZEPAM 2 MG ORAL TABLET 115781 CLONAZEPAM Inactive MULTIVITAMINS ORAL CAPSULE Take 1 [...] capsule daily 3 PROBIOTIC DAILY ORAL CAPSULE 7820430 PROBIOTIC PRODUCT Inactive FISH OIL CAPSULE 1 capsule daily FISH OIL CAPSUL E OMEGA- 3 FATTY ACIDS CAPS Inactive SUCRALFATE 1 GM ORAL TABLET 1 four times a day for GERD SUCRALFATE 1 GM ORAL TABLET 253180 SUCRALFATE Inactive CARAFATE 1 GM ORAL TABLET Take 1 tablet 4 times daily. Before meals and at bedtime CARAFATE 1 GM ORAL TABLET 441625 SUCRALFATE Inactive CLARITIN 10 MG ORAL TABLET 1 tablet by mouth daily as needed for allergies CLARITIN 10 MG ORAL TABLET 208889 LORATADINE I nactive LEVOTHYROXINE SODIUM 175 MCG ORAL TABLET 1 pill by mouth daily f or thyroid LEVOTHYROXINE SODIUM 175 MCG ORAL TABLET 611267 LEVOTHY ROXINE SODIUM Inactive FLOMAX 0.4 MG ORAL CAPSULE one capsule in the evening 1/2 hour a fter supper FLOMAX 0.4 MG ORAL CAPSULE 821914 TAMSULOSIN HCL Inact berna PANTOPRAZOLE SODIUM 40 MG ORAL TABLET DELAYED RELEASE 1 pill by mouth daily PANTOPRAZOLE SODIUM 40 MG ORAL TABLET DE LAYED RELEASE 084971 PANTOPRAZOLE SODIUM Inactive DEPO-TESTOSTERONE 100 MG/ML INTRAMUSCULAR SOLUTION 1mL q4H DEPO-TESTOSTERONE 100 MG/ML INTRAMUSCULAR SOLUTION 456116 TESTOSTERONE CYPIONATE Inactive MORPHINE SULFATE ER 100 [...] three days PREDNISONE 20 MG ORAL TABLET 591789 PREDNIS ONE Inactive ASPIRIN 325 MG ORAL TABLET Take 1 tablet daily ASPIRIN 325 MG ORAL TABLET 440599 ASPIRIN Inactive PLAVIX 75 MG ORAL TABLET 1 tablet by mouth daily 03/11 PLAVIX 75 MG ORAL TABLET 265114 CLOPIDOGREL BISULFATE Inactive PLAVIX 75 MG ORAL TABLET 1 tablet by mouth daily for 30 days 202 PLAVIX 75 MG ORAL TABLET 000399 CLOPIDOGREL BISULFATE I nactive KLOR-CON M10 10 MEQ ORAL TABLET EXTENDED RELEASE one tablet twic e a day KLOR-CON M10 10 MEQ ORAL TABLET EXTENDED RELEASE 6981679 POTASSIUM CHLORIDE JORDAN CR Inactive PREDNISONE 20 MG ORAL TABLET Take 2 tablets daily for 5 days and 1 tablet daily for 5 days. PREDNISONE 20 MG ORAL TABLET 839728 PREDNISONE Inactive FLOMAX 0.4 MG ORAL CAPSULE 1 capsule by mouth in the evening for prostate FLOMAX 0.4 MG ORAL CAPSULE 021956 TAMSULOSIN HCL Inactive PROAIR HFA 108 (90 BASE) MCG/ACT INHALATION AEROSOL SO LUTION 2 puffs four times a day as needed PROAIR HFA 108 (90 B ASE) MCG/ACT INHALATION AEROSOL SOLUTION ALBUTEROL SULFATE Inactive LEVOTHYROXINE SODIUM 200 MCG ORAL TABLET 1 po q a.m. for thyroid LEVOTHYROXINE SODIUM 200 MCG ORAL TABLET 293483 LEVOTHY ROXINE SODIUM Inactive VENTOLIN HFA 108 (90 BASE) MCG/ACT INHALATION AEROSOL SOLUTI ON 1 puff every day VENTOLIN HFA 108 (90 BASE) M CG/ACT INHALATION AEROSOL SOLUTION ALBUTEROL SULFATE Inactive POTASSIUM CHLORIDE 20 MEQ ORAL PACKET 1 qDay with Lasix POTASSIUM CHLORIDE 20 MEQ ORAL PACKET 1939458 POTASSIUM CHLORIDE Inactive PREDNISONE 20 MG ORAL TABLET Take 2 daily for 5 days a nd then 1 daily for 5 days PREDNISONE 20 MG ORAL TABLET 556472 PREDNIS ONE Inactive PREDNISONE 20 MG TABS Take 2 daily for 5 days and then 1 stephy ly for 5 days PREDNISONE 20 MG TABS 222010 PREDNISONE Inacti ve ZITHROMAX Z-PETE 250 MG ORAL TABLET 2 today, then 1 daily for 4 d ays ZITHROMAX Z-PETE 250 MG ORAL TABLET 322472 AZITHROMYCIN Inactive CEFUROXIME AXETIL 500 MG ORAL TABLET TAKE 1/2 TABLET TWICE DAILY CEFUROXIME AXETIL 500 MG ORAL TABLET 201546 CEFUROXIME AXETIL Inactive Advance Directives Directive Description [...] Magnesium - Chemistry sodium, serum 138 mmol/L 303-545 5597/12/04 carbon dioxide, venous blood 28.3 mmol/L 21.0-32 [...] 0.90 mg/dL 0.00-1.00 cholesterol, serum 121 mg/dL 158-276 0557/12/04 triglyceride, serum, fasting 137 mg/dL 30-200 HDL [...] 2.60 ng/mL 0.00-4.00 sodium, serum 136 mmol/L 705-750 9211/10/06 carbon dioxide, venous blood 29.5 mmol/L 21.0-32 [...] noted Encounters Code Encounter Date Provider Facility CPT-57692 50057: Ofc Vst-Est Level III-Low MDM or 20-29 minutes 08:12[facility]06 [facility] 52038: Ofc Vst-Est Level IV-Moderate MDM or 30-39 minutes 12:21:30 CDT Rui Arndt MD [facility] CPT-53890 17675-Vqk Vst-Est Level IV 09:46:31 CDT Lobo Arndt MD [facility] CPT-80518 09832-Nht Vst-Est Level IV 10:42:47 MEDICAL RECEPTIONIST Lobo Arndt MD [facility] CPT-29113 05605-Cka Vst-Est Level IV 11:02:04 CDT Lobo Arndt MD [facility] CPT-42622 17472-Bfv Vst-Est Level IV 13:58:45 CDT Lobo Arndt MD [facility] CPT-20144 26573-Cdu Vst-Est Level IV 15:13:53 CDT Lobo Arndt MD [facility] CPT-06440 72329-Awp Vst-Est Level IV 11:54:49 CDT Lobo Arndt MD [facility] CPT-07220 09699-Gtj Vst-Est Level IV 11:04:27 MEDICAL RECEPTIONIST Lobo Arndt MD [facility] CPT-15562 Level 4 New Patient 12:35:21 CDT Ade chung MD [facility] CPT-79198 Ofc Vst-Est Level IV 16:12:07 CDT Rui Arndt MD [facility] CPT-33164 87144-Ivd Vst-Est Level IV 16:25:05 CDT Lobo Arndt MD [facility] CPT-15199 50635-Cqu Vst-Est Level III 10:55:45 CDT Rui Arndt MD [facility] CPT-97950 35476-Ayn Vst-Est Level IV 14:16:20 CDT Lobo Arndt MD [facility] CPT-85356 Level 3 Est. Patient 13:14:20 CDT Luke rascon [facility] CPT-32815 15771-Oqe Vst-Est Level IV 09:53:37 MEDICAL RECEPTIONIST Lobo Arndt MD [facility] CPT-15877 37609-Ohg Vst-Est Level IV 09:44:38 CDT Lobo Arndt MD [facility] CPT-44515 Level 3 Est. Patient 15:23:12 CDT Dena ley [facility] CPT-08459 Level 4 Est. Patient 13:12:22 CDT Rui Arndt MD [facility] CPT-53332 Level 4 Est. Patient 14:44:13 CDT Dena ley [facility] CPT-38493 57895-Ici Vst-Est Level III 11:23:31 CDT Rui Arndt MD [facility] CPT-13583 41086-Rsh Vst-Est Level V 10:04:33 CDT Jose Arndt MD [facility]-18581 Level 4 Est. Patient 16:17:47 CDT Rui Arndt MD [facility]-30000 Level 4 Est. Patient 10:53:57 CDT Rui Arndt MD [facility]-09095 Level 3 Est. Patient 16:09:12 CDT Jemal marti MD [facility]-92870 Level 4 Est. Patient 11:32:24 MEDICAL RECEPTIONIST Rui Arndt MD [facility]-19677 Level 4 Est. Patient 14:55:39 MEDICAL RECEPTIONIST Dena ley [facility]-33995 Level 3 Est. Patient 15:10:46 MEDICAL RECEPTIONIST Rui Arndt MD [facility]-78927 Level 3 Est. Patient 12:01:26 MEDICAL RECEPTIONIST Rui Arndt MD [facility]-96590 Level 3 Est. Patient 10:35:15 MEDICAL RECEPTIONIST Rui Arndt MD [facility]-20501 Level 3 Est. Patient 15:04:30 CDT Rui Arndt MD [facility]-14360 Level 3 Est. Patient 10:15:00 CDT Vinod fenton [facility]-13644 Level 4 Est. Patient 14:59:25 CDT Rui Arndt MD [facility]-86398 Level 4 Est. Patient 12:07:34 CDT uRi Arndt MD [facility]-71713 Level 3 Est. Patient 10:42:08 MEDICAL RECEPTIONIST Rui Arndt MD [facility]-91170 Level 3 Est. Patient 17:29:10 MEDICAL RECEPTIONIST Rui Arndt MD [facility]-00254 Level 4 Est. Patient 15:12:05 CDT Rui Arndt MD [facility]-87919 Level 2 Est. Patient 16:27:53 CDT Rui Arndt MD [facility] CPT-91104 Level 3 Est. Patient 12:02:36 CDT Rui Arndt MD [facility] CPT-23284 Level 4 Est. Patient 11:17:39 CDT Rui Arndt MD [facility] CPT-68591 Level 4 Est. Patient 15:46:07 CDT Rui Arndt MD [facility] CPT-52519 Level 4 Est. Patient 17:18:59 MEDICAL RECEPTIONIST Rui Arndt MD [facility] CPT-80865 Level 4 Est. Patient 15:09:55 CDT Fabiana Vizcaino GEORGINA [facility] CPT-60536 Level 3 Est. Patient 15:49:06 CDT Rui Arndt MD [facility] CPT-20409 Level 3 Est. Patient 11:40:46 CDT Rui Arndt MD [facility] CPT-56803 Level 3 Est. Patient 18:00:51 CDT Rui Arndt MD [facility] CPT-46070 Level 4 Est. Patient 10:25:35 CDT Rui Arndt MD [facility] CPT-41630 Level 3 Est. Patient 15:45:51 CDT Rui Arndt MD [facility] CPT-02780 Level 4 Est. Patient 11:32:17 MEDICAL RECEPTIONIST Rui Arndt MD [facility] CPT-02002 Level 4 New Patient 17:03:03 CDT Rui yoder MD [facility] Procedures Code Procedure Name Date Entry Date Standard Desc ription CPT-45106 MOD COVID19 mRNA 100mcg/0.5mL 1st Dose 9 13:33:26 CDT CPT-J1071 Depo Testosterone 100mg 10:43:46 CDT 10/19 CPT-31142 Abx/Therapy Injection 10:43:46 CDT CPT-J1071 Depo Testosterone 100mg 13:15:20 CDT 09/16 CPT-79939 Abx/Therapy Injection 13:15:20 CDT CPT-J1071 Depo Testosterone 100mg 13:00:53 CDT 08/18 CPT-94855 Abx/Therapy Injection 13:00:53 CDT CPT-J1071 Depo Testosterone 100mg 16:00:36 CDT 07/22 CPT-35863 Abx/Therapy Injection 16:00:36 CDT CPT-J1071 Depo Testosterone 100mg 15:59:22 CDT 06/24 CPT-41848 Abx/Therapy Injection 15:59:22 CDT CPT-J1071 Depo Testosterone 100mg 17:34:08 MEDICAL RECEPTIONIST 05/27 CPT-91031 Abx/Therapy Injection 17:34:08 MEDICAL RECEPTIONIST CPT-VI6510J (4274F) Influenza immunization administe red or previously received 12:03:02 MEDICAL RECEPTIONIST CPT-TN6222G (4274F) Influenza immunization administe red or previously received 10:42:46 MEDICAL RECEPTIONIST CPT-J1071 Depo Testosterone 100mg 14:29:40 MEDICAL RECEPTIONIST 05/19 CPT-16054 Abx/Therapy Injection 14:29:40 MEDICAL RECEPTIONIST CPT-21180 Venipuncture Draw Fee 09:50:26 MEDICAL RECEPTIONIST CPT-61227 Venipuncture Draw Fee 11:06:37 MEDICAL RECEPTIONIST CPT-J1071 Depo Testosterone 100mg 13:49:54 MEDICAL RECEPTIONIST 04/20 CPT-42100 Abx/Therapy Injection 13:49:54 MEDICAL RECEPTIONIST CPT-J1071 Depo Testosterone 100mg 16:22:38 CDT CPT-30676 Abx/Therapy Injection 16:22:38 CDT CPT-000 Give Appropriate Flu Vaccine 11:02:04 CDT 2 CPT-43889 48901 - Immun Admin 1 vac 11:43:22 CDT 2019 CPT-40984 [employer] Quadrivalent [place] 11:43:22 CDT CPT-51100 Venipuncture Draw Fee 11:14:23 CDT CPT-SF4539Q (4274F 2P) Patient Reason Influenza immu nization not administered 11:02:04 CDT CPT-G0439 Subsequent Annual Wellness Exam 14:24:52 CDT CPT-PM7602T (4013F) Statin therapy prescribed or cur rently being taken 14:24:52 CDT CPT-RA7897I (4274F 2P) Patient Reason Influenza immu nization not administered 14:24:52 CDT CPT-J1071 Depo Testosterone 100mg 13:29:13 CDT 12/23 CPT-55150 Abx/Therapy Injection 13:29:13 CDT CPT-J1071 Depo Testosterone 100mg 14:43:03 CDT 11/24 CPT-68071 Abx/Therapy Injection 14:43:03 CDT CPT-J1071 Depo Testosterone 100mg 17:18:41 CDT 10/27 CPT-18287 Abx/Therapy Injection 17:18:41 CDT CPT-05844 4M Drug Screen cup test, Multi-panel, urine 2019 13:58:45 CDT CPT-J1071 Depo Testosterone 100mg 16:42:20 CDT 0 09/23 CPT-50345 Abx/Therapy Injection 16:42:20 CDT CPT-J1071 Depo Testosterone 100mg 16:43:18 CDT 0 08/26 CPT-39246 Abx/Therapy Injection 16:43:18 CDT CPT-44298 Venipuncture Draw Fee 13:01:56 CDT CPT-J1071 Depo Testosterone 100mg 15:54:02 CDT 07/28 CPT-89625 Abx/Therapy Injection 15:54:02 CDT CPT-J1071 Depo Testosterone 100mg 15:17:11 CDT 0 06/30 CPT-01599 Abx/Therapy Injection 15:17:10 CDT CPT-82291 Venipuncture Draw Fee 11:58:13 CDT CPT-J1071 Depo Testosterone 200mg 14:59:06 CDT 0 06/02 CPT-48626 Abx/Therapy Injection 14:59:06 CDT CPT-J1071 Depo Testosterone 100mg 14:08:37 MEDICAL RECEPTIONIST 0 05/06 CPT-61683 Abx/Therapy Injection 14:08:37 MEDICAL RECEPTIONIST CPT-90436 Venipuncture Draw Fee 15:15:20 MEDICAL RECEPTIONIST CPT-J1071 Depo Testosterone 100mg 15:40:35 MEDICAL RECEPTIONIST 0 04/08 CPT-79440 Abx/Therapy Injection 15:40:35 MEDICAL RECEPTIONIST CPT-TCMM Transitional Care Mgmt-Moderate 12:40:08 CS T CPT-NW2873T (4274F) Influenza immunization administe red or previously received 12:40:07 MEDICAL RECEPTIONIST CPT-72899 Venipuncture Draw Fee 15:13:23 MEDICAL RECEPTIONIST CPT-33916 Venipuncture Draw Fee 12:39:02 MEDICAL RECEPTIONIST CPT-J1071 Depo Testosterone 100mg 11:35:50 MEDICAL RECEPTIONIST 05/12 CPT-83896 Abx/Therapy Injection 11:35:50 MEDICAL RECEPTIONIST CPT-QY7449I (4274F) Influenza immunization administe red or previously received 11:04:25 MEDICAL RECEPTIONIST CPT-J1071 Depo Testosterone 100mg 11:32:22 MEDICAL RECEPTIONIST 04/13 CPT-21621 Abx/Therapy Injection 11:32:22 MEDICAL RECEPTIONIST CPT-48576 91052 - Immun Admin 1 vac 16:43:51 MEDICAL RECEPTIONIST 2018 CPT-26768 Shingrix 16:43:51 MEDICAL RECEPTIONIST CPT-J1071 Depo Testosterone 100mg 18:38:18 CDT CPT-39639 Abx/Therapy Injection 18:38:17 CDT CPT-J1071 Depo Testosterone 100mg 14:36:52 CDT 12/18 CPT-49071 Abx/Therapy Injection 14:36:52 CDT CPT-G0008 Administration of Influenza Virus Vaccine 12/18 14:35:05 CDT CPT-04946 Fluzone (Flu) 10Pk Syringe IM (Medicare) 14:35:05 CDT CPT-42163 Bladder Scan 12:35:21 CDT CPT-89169 Venipuncture Draw Fee 16:41:57 CDT CPT-46822 70001 - Immun Admin 1 vac 16:31:08 CDT 2018 CPT-56871 Shingrix 16:31:07 CDT CPT-G0439 Subsequent Annual Wellness Exam 16:12:06 CDT CPT-J1071 Depo Testosterone 100mg 12:18:42 CDT 11/20 CPT-40007 Abx/Therapy Injection 12:18:42 CDT CPT-J1071 Depo Testosterone 100mg 11:42:38 CDT 09/03 CPT-74485 Abx/Therapy Injection 11:42:38 CDT CPT-J1071 Depo Testosterone 100mg 12:00:58 CDT 08/06 CPT-13711 Abx/Therapy Injection 12:00:58 CDT CPT-J1071 Depo Testosterone 100mg 12:34:21 CDT 07/09 CPT-04820 Abx/Therapy Injection 12:34:21 CDT CPT-71865 Abdomen, 2 views 13:20:15 CDT CPT-62677 Chest, 2 views 13:20:15 CDT CPT-J1071 Depo Testosterone 200mg 14:21:46 CDT 06/12 CPT-90526 Abx/Therapy Injection 14:21:46 CDT CPT-J1071 Depo Testosterone 100mg 14:34:38 MEDICAL RECEPTIONIST 05/14 CPT-55679 Abx/Therapy Injection 14:34:38 MEDICAL RECEPTIONIST CPT-000 Give Pneumovax 11:57:22 CDT CPT-J1071 Depo Testosterone 100mg 17:09:47 MEDICAL RECEPTIONIST 04/13 CPT-88301 Abx/Therapy Injection 17:09:47 MEDICAL RECEPTIONIST CPT-J1071 Depo Testosterone 100mg 15:41:42 MEDICAL RECEPTIONIST 05/17 CPT-87849 Abx/Therapy Injection 15:41:42 MEDICAL RECEPTIONIST CPT-J1071 Depo Testosterone 100mg 13:42:43 MEDICAL RECEPTIONIST 04/18 CPT-89404 Abx/Therapy Injection 13:42:43 MEDICAL RECEPTIONIST CPT-J1071 Depo Testosterone 100mg 13:24:43 CDT CPT-31289 Abx/Therapy Injection 13:24:43 CDT CPT-64693 First Vx - Ix admin for Medicare patients 18:07:22 CDT CPT-46346 Fluzone Quadrivalent Intramuscular Suspe nsion 0.5 ML 18:07:22 CDT CPT-J1071 Depo Testosterone 100mg 12:06:21 CDT 12/21 CPT-51174 Abx/Therapy Injection 12:06:21 CDT CPT-J1071 Depo Testosterone 100mg 16:09:00 CDT 11/23 CPT-68224 Abx/Therapy Injection 16:09:00 CDT CPT-G0439 [facility] Annual Wellness Exam 13:12:23 CDT CPT-J1071 Depo Testosterone 100mg 10:40:29 CDT 10/26 CPT-20674 Abx/Therapy Injection 10:40:29 CDT CPT-J1071 Depo Testosterone 100mg 09:15:44 CDT 09/28 CPT-39593 Abx/Therapy Injection 09:15:43 CDT CPT-J1071 Depo Testosterone 100mg 10:53:34 CDT 08/31 CPT-17867 Abx/Therapy Injection 10:53:34 CDT CPT-70548 Kwan pre/post w graphic rec - XRAY USE ONLY 201 10/30/06 10:24:51 CDT CPT-J1071 Depo Testosterone 100mg 14:11:00 CDT 08/03 CPT-24129 Abx/Therapy Injection 14:11:00 CDT CPT-J1071 Depo Testosterone 100mg 15:15:13 CDT 07/04 CPT-24587 Abx/Therapy Injection 15:15:13 CDT CPT-J2310 Narcan HCI .4mg per 1 ml 15:52:42 CDT 06/26 CPT-34086 Chest, 2 views 15:11:39 CDT CPT-000 Give Appropriate Flu Vaccine 12:01:26 MEDICAL RECEPTIONIST 2 CPT-73194 Chest single view 16:11:20 CDT CPT-J1071 Depo Testosterone 100mg 10:50:45 MEDICAL RECEPTIONIST 05/29 CPT-91071 Abx/Therapy Injection 10:50:45 MEDICAL RECEPTIONIST CPT-84426 Chest, 2 views 11:49:28 MEDICAL RECEPTIONIST CPT-J1071 Depo Testosterone 100mg 16:07:43 MEDICAL RECEPTIONIST 05/02 CPT-68910 Abx/Therapy Injection 16:07:43 MEDICAL RECEPTIONIST CPT-J1071 Depo Testosterone 100mg 15:31:04 MEDICAL RECEPTIONIST 03/31 CPT-79644 Abx/Therapy Injection 15:31:04 MEDICAL RECEPTIONIST CPT-J1071 Depo Testosterone 100mg 16:29:48 CDT CPT-23578 Abx/Therapy Injection 16:29:48 CDT CPT-J1071 Depo Testosterone 100mg 14:42:01 CDT 12/23 CPT-10882 Abx/Therapy Injection 14:42:01 CDT CPT-G0439 [facility] Annual Wellness Exam 14:14:09 CDT CPT-J1071 Depo Testosterone 100mg 13:48:18 CDT 11/17 CPT-83342 Abx/Therapy Injection 13:48:18 CDT CPT-G0009 Administration of Pneumococcal Vaccine 4 12:06:23 CDT CPT-93749 Pneumovax 23 Injection Injectable 25 MCG /0.5ML 12:06:23 CDT CPT-J1071 Depo Testosterone 100mg 13:11:36 CDT 10/19 CPT-10754 Abx/Therapy Injection 13:11:36 CDT CPT-J1071 Depo Testosterone 100mg 13:17:59 CDT 09/21 CPT-56871 Abx/Therapy Injection 13:17:59 CDT CPT-J1071 Depo Testosterone 100mg 13:08:38 CDT 09/21 CPT-J1071 Depo Testosterone 100mg 13:06:32 CDT 09/21 CPT-32164 Bone Density - XRAY USE ONLY 09:04:29 MEDICAL RECEPTIONIST 2 CPT-19890 BMP - LAB USE ONLY 17:39:11 MEDICAL RECEPTIONIST CPT-47850 Venipuncture Draw Fee 17:39:11 MEDICAL RECEPTIONIST CPT-000 Give Appropriate Flu Vaccine 15:16:28 CDT 2 CPT-J1071 Depo Testosterone 200mg 16:59:53 CDT 10/21 CPT-07120 Abx/Therapy Injection 16:59:53 CDT CPT-82741 Abx/Therapy Injection 18:58:42 MEDICAL RECEPTIONIST CPT-90130 First Vx - Ix admin for Medicare patients 15:47:06 CDT CPT-62271 Fluzone High-Dose Intramuscular Suspension 01/19 15:47:06 CDT CPT-30074 Abx/Therapy Injection 14:12:15 CDT CPT-77926 Abx/Therapy Injection 13:34:08 CDT CPT-17496 Abx/Therapy Injection 14:41:47 CDT CPT-G0438 Initial Annual Wellness Exam 10:06:26 CD T CPT-J1071 Depo Testosterone 200mg 11:42:49 CDT 09/22 CPT-76536 Abx/Therapy Injection 11:42:49 CDT CPT-61874 Abx/Therapy Injection 16:55:18 CDT CPT-75126 Abx/Therapy Injection 13:49:32 CDT CPT-J1071 Depo Testosterone 200mg 09:48:27 CDT 06/28 CPT-69104 Abx/Therapy Injection 09:48:27 CDT CPT-77003 Abx/Therapy Injection 16:27:06 MEDICAL RECEPTIONIST CPT-40207 No Charge Offi Visit 18:00:02 MEDICAL RECEPTIONIST 8 CPT-52439 Abd compl w upright 12:29:27 MEDICAL RECEPTIONIST CPT-000 Give Appropriate Flu Vaccine 16:15:45 MEDICAL RECEPTIONIST 2 CPT-58396 Abx/Therapy Injection 11:03:39 MEDICAL RECEPTIONIST CPT-28277 Venipuncture Draw Fee 13:07:59 MEDICAL RECEPTIONIST CPT-22247 Immunization Single Admin 12:03:42 MEDICAL RECEPTIONIST 2014 CPT-85926 Fluzone High Dose (65+) 12:03:41 MEDICAL RECEPTIONIST 05/05 CPT-27966 Chest 2V Frontal and Lat 15:25:23 CDT 12/29 CPT-71106 Venipuncture Draw Fee 15:57:34 CDT CPT-65474 Abx/Therapy Injection 12:52:43 CDT CPT-53192 Abx/Therapy Injection 08:58:56 CDT CPT-43809 Venipuncture Draw Fee 15:59:37 CDT CPT-61888 Abx/Therapy Injection 08:36:16 CDT CPT-000 Give Pneumovax 11:32:18 MEDICAL RECEPTIONIST CPT-000 Give Appropriate Flu Vaccine 11:32:18 MEDICAL RECEPTIONIST 2 CPT-56738 Abx/Therapy Injection 09:52:48 CDT CPT-44920 Abx/Therapy Injection 09:56:54 CDT CPT-OV Office Visit 16:35:19 CDT CPT-59189 Abx/Therapy Injection 08:25:48 CDT CPT-00044 Abx/Therapy Injection 09:17:15 MEDICAL RECEPTIONIST CPT-42477 Abx/Therapy Injection 08:52:31 MEDICAL RECEPTIONIST CPT-41431 Abx/Therapy Injection 09:32:50 MEDICAL RECEPTIONIST CPT-40982 Abx/Therapy Injection 08:28:14 MEDICAL RECEPTIONIST CPT-79836 Abx/Therapy Injection 10:43:07 CDT CPT-J1070 Depo Testosterone 100 mg 08:39:09 CDT 12/05 CPT-03498 Abx/Therapy Injection 08:39:09 CDT CPT-40916 Abx/Therapy Injection 11:22:03 CDT CPT-59440 Shoulder comp min 2V 14:11:48 CDT 1 CPT-13909 Abx/Therapy Injection 09:56:35 CDT CPT-LR Lesion Removal 09:49:45 CDT
--- OUTSIDE RECORDS SUMMARY | 2020-12-04 06:12 | XMS REPORT | Clinical Summary ---
Author Author Admin, Charlie Hankins Organization [facility] Address Unknown Phone Unavailable Allergies, Adverse Reactions, Alerts Allergy Name Reaction Description Start Date Severity Status Pr ovider NKA Critical Active Dena Lacy APR N KEFLEX Mild No Longer Active Rui Arndt MD KEFLEX itch Moderate No Longer Active Vinod Alatorre COMMERCIAL LOAN MANAGER NKDA Critical No Longer Active Rui Arndt [...] Arndt MD Routine general medical examination at 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 Monoclonal paraproteinemia Peripheral edema 782.3 Active Fabiana Speaks A PRN Edema Dyspnea 786.09 Resolved Rui Arndt MD Other dyspnea and respiratory abnormality Need for prophylactic vaccination and inoculation against in fluenza V04.81 Resolved Rui Arndt MD Need for prophylactic vaccination and inoculation against influenza Peripheral artery disease 443.9 Active Laurita ChongMilton [facility] Peripheral vascular disease, unspecified Abdominal pain, left [...] colonic polyps Pre-procedural laboratory examination V72.63 Resolved Riu Arndt MD Pre-procedural laboratory examination Pleural effusion [...] 39.0-39.9, adult BMI 37-37.9 Active Keyonna Barajas COMMERCIAL LOAN MANAGER-C Body Mass Index 39.0-39.9, adult Abdominal bloating [...] atherosclerosis of unspecified type of vessel , [place] or graft 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 ALBUTEROL SULFATE 27806797072 Active Keynona Jenn COMMERCIAL LOAN MANAGER-C Activ e PREDNISONE 20 MG ORAL TABLET Take 2 tablets by mouth d aily for 3 days then 1 tablet daily for 2 days PREDNISONE 96740981198 Active Keyonna Jenn COMMERCIAL LOAN MANAGER-C Active ZITHROMAX 250 MG ORAL TABLET Take 2 tablets by mouth o n day 1 then 1 tablet the next 4 days AZITHROMYCIN 80096595101 Active Keyonna Br itt COMMERCIAL LOAN MANAGER-C Active ZUBSOLV 11.4-2.9 MG SUBLINGUAL TABLET SUBLINGUAL Take 1 tablet dailyDEA; [id number] BUPRENORPHINE HCL-NALOXONE HCL 73625347822 Acti ve Rui Arndt MD Active CEFUROXIME AXETIL 500 MG ORAL TABLET TAKE 1/2 TABLET TWICE DAILY CEFUROXIME AXETIL 11668852446 No Longer Active Rui Arndt MD Active POTASSIUM CHLORIDE ER 10 MEQ CR-CAPS TAKE ONE TABLET BY MOUT H TWICE DAILY. POTASSIUM CHLORIDE 91123746310 AGUSTO Richardson Active OMEPRAZOLE 40MG TAKE 1 CAPSULE BY MOUTH EVERY MORNING OMEPRAZOLE 88665620881 AGUSTO Richardson Active SPIRIVA HANDIHLR INHALE CONTENTS OF ONE CAPSULE VIA HANDI HALER ONCE DAILY TIOTROPIUM BROMIDE MONOHYDRATE 15517242540 AGUSTO Richardson Active BUMETANIDE 1MG TAKE 1 TABLET BY MOUTH ONCE DAILY IF NEE DED FOR SWELLING BUMETANIDE 34437818719 AGUSTO Richardson Active ZOLPIDEM TARTRATE 10 MG TABS TAKE 1 TABLET BY MOUTH AT NIGHT IF NEEDED FOR SLEEP ZOLPIDEM TARTRATE 23580304975 Active Rui Arndt MD Active FUROSEMIDE 40MG TAKE 2 TABLETS BY MOUTH EVERY MORNING FUROSEMIDE 27032815269 Active Liudmila Tirado RN Active GABAPENTIN 300MG TAKE 1 CAPSULE BY MOUTH THREE TIMES DAILY GABAPENTIN 59782325977 Active AGUSTO Hall Active ATORVASTATIN 80MG TAKE 1 TABLET BY MOUTH DAILY AT BEDTIME 6 ATORVASTATIN CALCIUM 48401638106 Active AGUSTO Hall A ctive SUPER B-100 ORAL TABLET 1 q d B COMPLEX-BIOTI N-FA 84604678958 Active Tarun Chavez MD Active ASPIRIN 325 MG ORAL TABLET 1 q d ASPIRIN 2925833634 9 Active Tarun Chavez MD Active DIGITEK 125 MCG ORAL TABLET 1 q d DIGOXIN 314684636 01 Active Tarun Chavez MD Active VENTOLIN HFA 108 (90 BASE) MCG/ACT INHALATION AEROSOL SOLUTI ON 1 puff every day ALBUTEROL SULFATE 55787384571 No Longer Active Alan Chavez MD Active LEVOTHYROXINE SODIUM 200 MCG ORAL TABLET 1 po q a.m. for thyroid LEVOTHYROXINE SODIUM 55034550171 No Longer Active Tarun Chavez MD Active PROAIR HFA 108 (90 BASE) MCG/ACT INHALATION AEROSOL SO LUTION 2 puffs four times a day as needed ALBUTEROL SULFATE 20587555789 No Long er Active Tarun Chavez MD Active FLOMAX 0.4 MG ORAL CAPSULE 1 capsule by mouth in the evening for prostate TAMSULOSIN HCL 78871990177 No Longer Active Tarun Chavez MD Active ELIQUIS 5 MG TABS TAKE ONE TABLET BY MOUTH TWO TIMES A DAY APIXABAN 22042599701 Active AGUSTO Hall Active PREDNISONE 20 MG ORAL TABLET Take 2 tablets daily for 5 days and 1 tablet daily for 5 days. PREDNISONE 22449321777 No Longer Active Rui Arndt MD Active POTASSIUM CHLORIDE ER 10 MEQ CR-TABS TAKE ONE TABLET BY CATERINA TH TWICE DAILY. POTASSIUM CHLORIDE 23227854552 Active AGUSTO Hall Active KLOR-CON M10 10 MEQ ORAL TABLET EXTENDED RELEASE one tablet twic e a day POTASSIUM CHLORIDE JORDAN CR 51079962930 No Longer Active AGUSTO Suarez Active LORATADINE 10MG ORAL TABLET TAKE ONE TABLET BY MOUTH ONE TIME DAILY IF NEEDED FOR ALLERGIES. LORATADINE 36341923960 Active Alma Madrid AGUSTO Active LEVOTHYROXINE SODIUM 150MCG ORAL TABLET TAKE ONE TABLE T BY MOUTH ONE TIME DAILY FOR THYROID. LEVOTHYROXINE SODIUM 10409371056 Active S osiel Madrid AGUSTO Active PLAVIX 75 MG ORAL TABLET 1 tablet by mouth daily for 30 days 202 CLOPIDOGREL BISULFATE 30987201767 No Longer Active Rui Arndt MD Active PLAVIX 75 MG ORAL TABLET 1 tablet by mouth daily 03/11 CLOPIDOGREL BISULFATE 84097665745 No Longer Active Rui Arndt MD Activ e ASPIRIN 325 MG ORAL TABLET Take 1 tablet daily ASPIRIN 27732388415 No Longer Active Rui Arndt MD Active PREDNISONE 20 MG ORAL TABLET 1 tab twice daily for 3 d ay, then one daily for three days PREDNISONE 46196795934 No Longer Active Rui Arndt MD Active MORPHINE SULFATE ER 15 MG ORAL TABLET EXTENDED RELEASE 1 TID a d ay MORPHINE SULFATE 39318950142 No Longer Active Rui Arndt MD Active DEPO-TESTOSTERONE 100 MG/ML INTRAMUSCULAR SOLUTION 201 11/29/02 TESTOSTERONE CYPIONATE 76879050474 Active Brittny Aguila MA Active SUBOXONE 2-0.5 MG SUBLINGUAL FILM Bring to appointment before taking for induction. Stop the Morphine 12 hours before the appointment. BUPRENORPHINE HCL-NALOXONE HCL 73521533860 No Longer Active Rui Arndt MD Active MUCINEX D 60-600 MG ORAL TABLET EXTENDED RELEASE 12 HO UR 1 po BID PRN Congestion PSEUDOEPHEDRINE-GUAIFENESIN 72409302335 Active Luke Gonzales COMMERCIAL LOAN MANAGER Active ZITHROMAX Z-PETE 250 MG ORAL TABLET 2 today, then 1 daily for 4 d ays AZITHROMYCIN 08796877667 No Longer Active Luke Gonzales APRN Active MORPHINE SULFATE ER 60 MG ORAL TABLET EXTENDED RELEASE 1 twi ce a day for pain MORPHINE SULFATE 04627519970 No Longer Active Luke valdez APRN Active MORPHINE SULFATE ER 100 MG ORAL TABLET EXTENDED RELEASE one tabl et at bedtime MORPHINE SULFATE 49060834387 No Longer Active Luke Gonzales APRN Active DEPO-TESTOSTERONE 100 MG/ML INTRAMUSCULAR SOLUTION 1mL q4H TESTOSTERONE CYPIONATE 35824193894 No Longer Active Luke Gonzales APRN Active PANTOPRAZOLE SODIUM 40 MG ORAL TABLET DELAYED RELEASE 1 pill by mouth daily PANTOPRAZOLE SODIUM 10166816709 No Longer Active Jose Arndt MD Active FLOMAX 0.4 MG ORAL CAPSULE one capsule in the evening 1/2 hour a fter supper TAMSULOSIN HCL 57346343169 No Longer Active Rui Arndt MD Active LEVOTHYROXINE SODIUM 175 MCG ORAL TABLET 1 pill by mouth daily f or thyroid LEVOTHYROXINE SODIUM 12708931012 No Longer Active Fabiana Perdomo RN Active CLARITIN 10 MG ORAL TABLET 1 tablet by mouth daily as needed for allergies LORATADINE 53300338565 No Longer Active Mari bhakta PA-C Active CARAFATE 1 GM ORAL TABLET Take 1 tablet 4 times daily. Before meals and at bedtime SUCRALFATE 08546259518 No Longer Active Mari Stanley PA-C Active DULCOLAX 5 MG ORAL TABLET DELAYED RELEASE 1 tab daily BISACODYL 45875301503 Active Sara Moeller RN Active SUCRALFATE 1 GM ORAL TABLET 1 four times a day for GERD SUCRALFATE 45915287946 No Longer Active Sara Moeller RN Act berna FISH OIL CAPSULE 1 capsule daily OMEGA-3 FATTY ACIDS CAPS 51324753941 No Longer Active Sara Moeller RN Active PROBIOTIC DAILY ORAL CAPSULE 1 capsule daily 3 PROBIOTIC PRODUCT 89646636615 No Longer Active Sara Moeller RN Act berna B COMPLEX FORMULA 1 ORAL TABLET 1 tablet daily B COMPLEX- FOLIC ACID 64646308958 No Longer Active Sara Moeller RN Act berna PROAIR HFA 108 (90 BASE) MCG/ACT INHALATION AEROSOL SO LUTION 2 puffs four times a day as needed ALBUTEROL SULFATE 33830439026 No Long er Active Sara Moeller RN Active MULTIVITAMINS ORAL CAPSULE Take 1 daily MULTIPL E VITAMIN 05815225876 No Longer Active Sara Moeller RN Active CLONAZEPAM 2 MG ORAL TABLET one tablet at bed time CLONAZEPAM 69973075146 No Longer Active Sara Moeller RN Active DEPO-TESTOSTERONE 200 MG/ML INTRAMUSCULAR SOLUTION 100mg it[place] ry 4 weeks TESTOSTERONE CYPIONATE 71528676195 No Longer Active Sara Moeller RN Active ATIVAN 0.5 MG ORAL TABLET 1 tab 30 minutes prior to sleep study LORAZEPAM 82828294464 No Longer Active Rui Arndt MD Active NARCAN 4 MG/0.1ML NASAL LIQUID 1 spray in nostril ever y 2 to 3 minutes until responsive or EMS arrives NALOXONE HCL 09447230629 Active Rui Arndt MD Active LEVAQUIN 500 MG ORAL TABLET 1 daily for infection 2017 LEVOFLOXACIN 57384034598 No Longer Active Dnea Lacy APRN Active PREDNISONE 20 MG TABS Take 2 daily for 5 days and then 1 stephy ly for 5 days PREDNISONE 88687978534 No Longer Active Rui saleem MD Active PREDNISONE 20 MG ORAL TABLET 2 tabs daily for 4 days, 1 tab daily for 4 days, 1/2 tab daily for 4 days PREDNISONE 38614202265 No Longer Active Rui Arndt MD Active OXYGEN 2L at night time - Dx: J44.9 Active Lori Winter LPN Active PREDNISONE 20 MG ORAL TABLET Take 2 daily for 5 days a nd then 1 daily for 5 days PREDNISONE 83952650056 No Longer Active Rui Arndt MD Active NORCO 10-325 MG ORAL TABLET Take 1-2 tablets every 6 hours a s needed for pain HYDROCODONE-ACETAMINOPHEN 49479242963 No Longer Activ e Rui Arndt MD Active FUROSEMIDE 20 MG ORAL TABLET 1 daily for blood pressure and swel ling FUROSEMIDE 55763718814 No Longer Active Rui Anrdt MD Active PAMELOR 10 MG ORAL CAPSULE NORTRIPTY LINE HCL 71979305517 No Longer Active Rui Arndt MD Active AEROSPAN 80 MCG/ACT INHALATION AEROSOL SOLUTION 2 puffs twice FLUNISOLIDE HFA 64750601477 No Longer Active Rui Arndt MD Active LISINOPRIL 10 MG ORAL TABLET take one tab once daily 09/22 LISINOPRIL 09148299609 No Longer Active Rui Arndt MD Active BD INTEGRA SYRINGE 25G X 1" 1 ML Use with Depo provera INSULIN SYRINGE-NEEDLE U-100 Active Brittny Aguila MA Act berna MORPHINE SULFATE ER BEADS 75 MG ORAL CAPSULE EXTENDED RELEASE 24 HOUR 1 twice a day MORPHINE SULFATE BEADS 16695608760 No Longer Ac tive Rui Arndt MD Active COMBIVENT RESPIMAT 20-100 MCG/ACT INHALATION AEROSOL S OLUTION 1 puff four times a day IPRATROPIUM-ALBUTEROL 85210896837 No Longer Act berna Rui Arndt MD Active POTASSIUM CHLORIDE 20 MEQ ORAL PACKET 1 qDay with Lasix POTASSIUM CHLORIDE 67500213926 No Longer Active Rui Arndt MD Activ e PROAIR HFA 108 (90 Base) MCG/ACT INHALATION AEROSOL SO LUTION 2 puffs four times a day as needed ALBUTEROL SULFATE 91514450222 No Longer Ac tive Rui Arndt MD Active ASMANEX 60 METERED DOSES 220 MCG/INH INHALATION AEROSO L POWDER BREATH ACTIVATED 1 puff bid with rinse after MOMETASONE FUROATE 7062803 4102 No Longer Active Rui Arndt MD Active OMEPRAZOLE 40 MG ORAL CAPSULE DELAYED RELEASE 1 po q a.m. OMEPRAZOLE 73312104089 No Longer Active Anahi Ashley LPN Act [...] daily 2 LISINOPRIL 10 MG ORAL TABLET 433935 LISINOPRIL Inactive AEROSPAN 80 MCG/ACT INHALATION AEROSOL SOLUTION 2 puffs twice AEROSPAN 80 MCG/ACT INHALATION AEROSOL SOLUTION FLUNISOLIDE HFA Inactive PAMELOR 10 MG ORAL CAPSULE PAMELOR 1 0 MG ORAL CAPSULE 778194 NORTRIPTYLINE HCL Inactive FUROSEMIDE 20 MG ORAL TABLET 1 daily for blood pressure and swel ling FUROSEMIDE 20 MG ORAL TABLET 351350 FUROSEMIDE Corinna ctive NORCO 10-325 MG ORAL TABLET Take 1-2 tablets every 6 hours a s needed for pain NORCO 10-325 MG ORAL TABLET HYDROCODONE-A CETAMINOPHEN Inactive PREDNISONE 20 MG ORAL TABLET 2 tabs daily for 4 days, 1 tab daily for 4 days, 1/2 tab daily for 4 days PREDNISONE 20 MG ORAL T ABLET 710719 PREDNISONE Inactive LEVAQUIN 500 MG ORAL TABLET 1 daily for infection 2017 LEVAQUIN 500 MG ORAL TABLET 080519 LEVOFLOXACIN Inactive ATIVAN 0.5 MG ORAL TABLET 1 tab 30 minutes prior to sleep study ATIVAN 0.5 MG ORAL TABLET 954262 LORAZEPAM Inacti ve DEPO-TESTOSTERONE 200 MG/ML INTRAMUSCULAR SOLUTION 100mg it[place] ry 4 weeks DEPO-TESTOSTERONE 200 MG/ML INTRAMUSCULA R SOLUTION 8956985 TESTOSTERONE CYPIONATE Inactive CLONAZEPAM 2 MG ORAL TABLET one tablet at bed time 201 11/01/12 CLONAZEPAM 2 MG ORAL TABLET 447637 CLONAZEPAM Inactive MULTIVITAMINS ORAL CAPSULE Take 1 [...] capsule daily 3 PROBIOTIC DAILY ORAL CAPSULE 7423078 PROBIOTIC PRODUCT Inactive FISH OIL CAPSULE 1 capsule daily FISH OIL CAPSUL E OMEGA- 3 FATTY ACIDS CAPS Inactive SUCRALFATE 1 GM ORAL TABLET 1 four times a day for GERD SUCRALFATE 1 GM ORAL TABLET 470559 SUCRALFATE Inactive CARAFATE 1 GM ORAL TABLET Take 1 tablet 4 times daily. Before meals and at bedtime CARAFATE 1 GM ORAL TABLET 210029 SUCRALFATE Inactive CLARITIN 10 MG ORAL TABLET 1 tablet by mouth daily as needed for allergies CLARITIN 10 MG ORAL TABLET 218818 LORATADINE I nactive LEVOTHYROXINE SODIUM 175 MCG ORAL TABLET 1 pill by mouth daily f or thyroid LEVOTHYROXINE SODIUM 175 MCG ORAL TABLET 416417 LEVOTHY ROXINE SODIUM Inactive FLOMAX 0.4 MG ORAL CAPSULE one capsule in the evening 1/2 hour a fter supper FLOMAX 0.4 MG ORAL CAPSULE 069774 TAMSULOSIN HCL Inact berna PANTOPRAZOLE SODIUM 40 MG ORAL TABLET DELAYED RELEASE 1 pill by mouth daily PANTOPRAZOLE SODIUM 40 MG ORAL TABLET DE LAYED RELEASE 793952 PANTOPRAZOLE SODIUM Inactive DEPO-TESTOSTERONE 100 MG/ML INTRAMUSCULAR SOLUTION 1mL q4H DEPO-TESTOSTERONE 100 MG/ML INTRAMUSCULAR SOLUTION 144602 TESTOSTERONE CYPIONATE Inactive MORPHINE SULFATE ER 100 [...] three days PREDNISONE 20 MG ORAL TABLET 163590 PREDNIS ONE Inactive ASPIRIN 325 MG ORAL TABLET Take 1 tablet daily ASPIRIN 325 MG ORAL TABLET 991356 ASPIRIN Inactive PLAVIX 75 MG ORAL TABLET 1 tablet by mouth daily 03/11 PLAVIX 75 MG ORAL TABLET 697334 CLOPIDOGREL BISULFATE Inactive PLAVIX 75 MG ORAL TABLET 1 tablet by mouth daily for 30 days 202 PLAVIX 75 MG ORAL TABLET 038826 CLOPIDOGREL BISULFATE I nactive KLOR-CON M10 10 MEQ ORAL TABLET EXTENDED RELEASE one tablet twic e a day KLOR-CON M10 10 MEQ ORAL TABLET EXTENDED RELEASE 5353501 POTASSIUM CHLORIDE JORDAN CR Inactive PREDNISONE 20 MG ORAL TABLET Take 2 tablets daily for 5 days and 1 tablet daily for 5 days. PREDNISONE 20 MG ORAL TABLET 099847 PREDNISONE Inactive FLOMAX 0.4 MG ORAL CAPSULE 1 capsule by mouth in the evening for prostate FLOMAX 0.4 MG ORAL CAPSULE 125616 TAMSULOSIN HCL Inactive PROAIR HFA 108 (90 BASE) MCG/ACT INHALATION AEROSOL SO LUTION 2 puffs four times a day as needed PROAIR HFA 108 (90 B ASE) MCG/ACT INHALATION AEROSOL SOLUTION ALBUTEROL SULFATE Inactive LEVOTHYROXINE SODIUM 200 MCG ORAL TABLET 1 po q a.m. for thyroid LEVOTHYROXINE SODIUM 200 MCG ORAL TABLET 026908 LEVOTHY ROXINE SODIUM Inactive VENTOLIN HFA 108 (90 BASE) MCG/ACT INHALATION AEROSOL SOLUTI ON 1 puff every day VENTOLIN HFA 108 (90 BASE) M CG/ACT INHALATION AEROSOL SOLUTION ALBUTEROL SULFATE Inactive POTASSIUM CHLORIDE 20 MEQ ORAL PACKET 1 qDay with Lasix POTASSIUM CHLORIDE 20 MEQ ORAL PACKET 1809811 POTASSIUM CHLORIDE Inactive PREDNISONE 20 MG ORAL TABLET Take 2 daily for 5 days a nd then 1 daily for 5 days PREDNISONE 20 MG ORAL TABLET 343539 PREDNIS ONE Inactive PREDNISONE 20 MG TABS Take 2 daily for 5 days and then 1 stephy ly for 5 days PREDNISONE 20 MG TABS 609819 PREDNISONE Inacti ve ZITHROMAX Z-PETE 250 MG ORAL TABLET 2 today, then 1 daily for 4 d ays ZITHROMAX Z-PETE 250 MG ORAL TABLET 901368 AZITHROMYCIN Inactive CEFUROXIME AXETIL 500 MG ORAL TABLET TAKE 1/2 TABLET TWICE DAILY CEFUROXIME AXETIL 500 MG ORAL TABLET 293696 CEFUROXIME AXETIL Inactive Advance Directives Directive Description [...] Magnesium - Chemistry sodium, serum 138 mmol/L 489-755 6298/12/04 carbon dioxide, venous blood 28.3 mmol/L 21.0-32 [...] 0.90 mg/dL 0.00-1.00 cholesterol, serum 121 mg/dL 644-422 4157/12/04 triglyceride, serum, fasting 137 mg/dL 30-200 HDL [...] 2.60 ng/mL 0.00-4.00 sodium, serum 136 mmol/L 696-794 3421/10/06 carbon dioxide, venous blood 29.5 mmol/L 21.0-32 [...] noted Encounters Code Encounter Date Provider Facility CPT-49648 11412: Ofc Vst-Est Level III-Low MDM or 20-29 minutes 08:12:06 [facility] 61330: Ofc Vst-Est Level IV-Moderate MDM or 30-39 minutes 12:21:30 CDT Rui Arndt MD [facility] CPT-57025 80731-Osn Vst-Est Level IV 09:46:31 CDT Lobo Arndt MD [facility] CPT-03689 27965-Ksc Vst-Est Level IV 10:42:47 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 Lobo Arndt MD [facility] CPT-29863 59179-Cod Vst-Est Level IV 11:02:04 CDT Lobo Arndt MD [facility] CPT-52484 80409-Bmo Vst-Est Level IV 13:58:45 CDT Lobo Arndt MD [facility] CPT-89305 91538-Ipd Vst-Est Level IV 15:13:53 CDT Lobo Arndt MD [facility] CPT-46825 03870-Yys Vst-Est Level IV 11:54:49 CDT Lobo Arndt MD [facility] CPT-23261 54132-Gjy Vst-Est Level IV 11:04:27 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 Lobo Arndt MD [facility] CPT-66182 Level 4 New Patient 12:35:21 CDT Ade chung MD [facility] CPT-92398 Ofc Vst-Est Level IV 16:12:07 CDT Rui Arndt MD [facility] CPT-03514 80015-Hci Vst-Est Level IV 16:25:05 CDT Lobo Arndt MD [facility] CPT-45542 17493-Nkr Vst-Est Level III 10:55:45 CDT Rui Arndt MD [facility] CPT-95082 48407-Duy Vst-Est Level IV 14:16:20 CDT Lobo Arndt MD [facility] CPT-09538 Level 3 Est. Patient 13:14:20 CDT Luke rascon [facility] CPT-68656 32202-Mqo Vst-Est Level IV 09:53:37 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 Lobo Arndt MD [facility] CPT-43137 64429-Psp Vst-Est Level IV 09:44:38 CDT Lobo Arndt MD [facility] CPT-14572 Level 3 Est. Patient 15:23:12 CDT Dena ley [facility] CPT-78643 Level 4 Est. Patient 13:12:22 CDT Rui Arndt MD [facility] CPT-45648 Level 4 Est. Patient 14:44:13 CDT Dena ley [facility] CPT-48754 01006-Iti Vst-Est Level III 11:23:31 CDT Rui Arndt MD [facility] CPT-06944 26151-Nsj Vst-Est Level V 10:04:33 CDT Jose Arndt MD [facility]-26971 Level 4 Est. Patient 16:17:47 CDT Rui Arndt MD [facility]-80859 Level 4 Est. Patient 10:53:57 CDT Rui Arndt MD [facility]-26982 Level 3 Est. Patient 16:09:12 CDT Jemal marti MD [facility]-75217 Level 4 Est. Patient 11:32:24 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 Rui Arndt MD [facility]-50970 Level 4 Est. Patient 14:55:39 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 Dena ley [facility]-92901 Level 3 Est. Patient 15:10:46 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 Rui Arndt MD [facility]-57901 Level 3 Est. Patient 12:01:26 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 Rui Arndt MD [facility]-22347 Level 3 Est. Patient 10:35:15 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 Rui Arndt MD [facility]-13428 Level 3 Est. Patient 15:04:30 CDT Rui Arndt MD [facility]-16647 Level 3 Est. Patient 10:15:00 CDT Vinod fenton [facility]-97596 Level 4 Est. Patient 14:59:25 CDT Rui Arndt MD [facility]-10973 Level 4 Est. Patient 12:07:34 CDT Rui Arndt MD [facility]-93179 Level 3 Est. Patient 10:42:08 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 Rui Arndt MD [facility]-14629 Level 3 Est. Patient 17:29:10 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 Rui Arndt MD [facility]-51283 Level 4 Est. Patient 15:12:05 CDT Rui Arndt MD [facility]-78354 Level 2 Est. Patient 16:27:53 CDT Rui Arndt MD [facility] CPT-99254 Level 3 Est. Patient 12:02:36 CDT Rui Arndt MD [facility] CPT-69498 Level 4 Est. Patient 11:17:39 CDT Rui Arndt MD [facility] CPT-11676 Level 4 Est. Patient 15:46:07 CDT Rui Arndt MD [facility] CPT-44907 Level 4 Est. Patient 17:18:59 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 Rui Arndt MD [facility]-37847 Level 4 Est. Patient 15:09:55 CDT Fabiana [facility]izcaino [facility] Level 3 Est. Patient 15:49:06 CDT Rui Arndt MD [facility] CPT-73975 Level 3 Est. Patient 11:40:46 CDT Rui Arndt MD [facility] CPT-53692 Level 3 Est. Patient 18:00:51 CDT Rui Arndt MD [facility] CPT-03107 Level 4 Est. Patient 10:25:35 CDT Rui Arndt MD [facility] CPT-29519 Level 3 Est. Patient 15:45:51 CDT Rui Arndt MD [facility] CPT-71939 Level 4 Est. Patient 11:32:17 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 Rui Arndt MD [facility] CPT-59447 Level 4 New Patient 17:03:03 CDT Rui yoder MD [facility] Procedures Code Procedure Name Date Entry Date Standard Desc ription CPT-41345 MOD COVID19 mRNA 100mcg/0.5mL 1st Dose 9 13:33:26 CDT CPT-J1071 Depo Testosterone 100mg 10:43:46 CDT 10/19 CPT-19444 Abx/Therapy Injection 10:43:46 CDT CPT-J1071 Depo Testosterone 100mg 13:15:20 CDT 09/16 CPT-83169 Abx/Therapy Injection 13:15:20 CDT CPT-J1071 Depo Testosterone 100mg 13:00:53 CDT 08/18 CPT-75352 Abx/Therapy Injection 13:00:53 CDT CPT-J1071 Depo Testosterone 100mg 16:00:36 CDT 07/22 CPT-99859 Abx/Therapy Injection 16:00:36 CDT CPT-J1071 Depo Testosterone 100mg 15:59:22 CDT 06/24 CPT-53906 Abx/Therapy Injection 15:59:22 CDT CPT-J1071 Depo Testosterone 100mg 17:34:08 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 05/27 CPT-40255 Abx/Therapy Injection 17:34:08 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 CPT-KB8645Z (4274F) Influenza immunization administe red or previously received 12:03:02 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 CPT-AX1794A (4274F) Influenza immunization administe red or previously received 10:42:46 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 CPT-J1071 Depo Testosterone 100mg 14:29:40 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 05/19 CPT-77466 Abx/Therapy Injection 14:29:40 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 CPT-07830 Venipuncture Draw Fee 09:50:26 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 CPT-22145 Venipuncture Draw Fee 11:06:37 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 CPT-J1071 Depo Testosterone 100mg 13:49:54 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 04/20 CPT-29808 Abx/Therapy Injection 13:49:54 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 CPT-J1071 Depo Testosterone 100mg 16:22:38 CDT CPT-99729 Abx/Therapy Injection 16:22:38 CDT CPT-000 Give Appropriate Flu Vaccine 11:02:04 CDT 2 CPT-96080 16510 - Immun Admin 1 vac 11:43:22 CDT 2019 CPT-57619 [employer] Quadrivalent [place] 11:43:22 CDT CPT-91443 Venipuncture Draw Fee 11:14:23 CDT CPT-MA1392L (4274F 2P) Patient Reason Influenza immu nization not administered 11:02:04 CDT CPT-G0439 Subsequent Annual Wellness Exam 14:24:52 CDT CPT-MR1755Y (4013F) Statin therapy prescribed or cur rently being taken 14:24:52 CDT CPT-PB7594K (4274F 2P) Patient Reason Influenza immu nization not administered 14:24:52 CDT CPT-J1071 Depo Testosterone 100mg 13:29:13 CDT 12/23 CPT-06230 Abx/Therapy Injection 13:29:13 CDT CPT-J1071 Depo Testosterone 100mg 14:43:03 CDT 11/24 CPT-73634 Abx/Therapy Injection 14:43:03 CDT CPT-J1071 Depo Testosterone 100mg 17:18:41 CDT 10/27 CPT-26106 Abx/Therapy Injection 17:18:41 CDT CPT-48566 4M Drug Screen cup test, Multi-panel, urine 2019 13:58:45 CDT CPT-J1071 Depo Testosterone 100mg 16:42:20 CDT 0 09/23 CPT-35544 Abx/Therapy Injection 16:42:20 CDT CPT-J1071 Depo Testosterone 100mg 16:43:18 CDT 0 08/26 CPT-08517 Abx/Therapy Injection 16:43:18 CDT CPT-20027 Venipuncture Draw Fee 13:01:56 CDT CPT-J1071 Depo Testosterone 100mg 15:54:02 CDT 07/28 CPT-10472 Abx/Therapy Injection 15:54:02 CDT CPT-J1071 Depo Testosterone 100mg 15:17:11 CDT 0 06/30 CPT-71312 Abx/Therapy Injection 15:17:10 CDT CPT-96065 Venipuncture Draw Fee 11:58:13 CDT CPT-J1071 Depo Testosterone 200mg 14:59:06 CDT 0 06/02 CPT-59470 Abx/Therapy Injection 14:59:06 CDT CPT-J1071 Depo Testosterone 100mg 14:08:37 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 0 05/06 CPT-93940 Abx/Therapy Injection 14:08:37 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 CPT-47749 Venipuncture Draw Fee 15:15:20 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 CPT-J1071 Depo Testosterone 100mg 15:40:35 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 0 04/08 CPT-51776 Abx/Therapy Injection 15:40:35 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 CPT-TCMM Transitional Care Mgmt-Moderate 12:40:08 CS T CPT-XV1805X (4274F) Influenza immunization administe red or previously received 12:40:07 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 CPT-87785 Venipuncture Draw Fee 15:13:23 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 CPT-53855 Venipuncture Draw Fee 12:39:02 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 CPT-J1071 Depo Testosterone 100mg 11:35:50 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 05/12 CPT-27885 Abx/Therapy Injection 11:35:50 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 CPT-NM9111Z (4274F) Influenza immunization administe red or previously received 11:04:25 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 CPT-J1071 Depo Testosterone 100mg 11:32:22 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 04/13 CPT-82336 Abx/Therapy Injection 11:32:22 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 CPT-25407 90074 - Immun Admin 1 vac 16:43:51 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 2018 CPT-69221 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 16:43:51 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 CPT-J1071 Depo Testosterone 100mg 18:38:18 CDT CPT-52506 Abx/Therapy Injection 18:38:17 CDT CPT-J1071 Depo Testosterone 100mg 14:36:52 CDT 12/18 CPT-99901 Abx/Therapy Injection 14:36:52 CDT CPT-G0008 Administration of Influenza Virus Vaccine 12/18 14:35:05 CDT CPT-25184 Fluzone (Flu) 10Pk Syringe IM (Medicare) 14:35:05 CDT CPT-42370 Bladder Scan 12:35:21 CDT CPT-38926 Venipuncture Draw Fee 16:41:57 CDT CPT-92048 84352 - Immun Admin 1 vac 16:31:08 CDT 2018 CPT-70343 Shingrix 16:31:07 CDT CPT-G0439 [facility] Annual Wellness Exam 16:12:06 CDT CPT-J1071 Depo Testosterone 100mg 12:18:42 CDT 11/20 CPT-18662 Abx/Therapy Injection 12:18:42 CDT CPT-J1071 Depo Testosterone 100mg 11:42:38 CDT 09/03 CPT-47927 Abx/Therapy Injection 11:42:38 CDT CPT-J1071 Depo Testosterone 100mg 12:00:58 CDT 08/06 CPT-88943 Abx/Therapy Injection 12:00:58 CDT CPT-J1071 Depo Testosterone 100mg 12:34:21 CDT 07/09 CPT-97793 Abx/Therapy Injection 12:34:21 CDT CPT-25170 Abdomen, 2 views 13:20:15 CDT CPT-93998 Chest, 2 views 13:20:15 CDT CPT-J1071 Depo Testosterone 200mg 14:21:46 CDT 0 06/12 CPT-57247 Abx/Therapy Injection 14:21:46 CDT CPT-J1071 Depo Testosterone 100mg 14:34:38 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 0 05/14 CPT-93879 Abx/Therapy Injection 14:34:38 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 CPT-000 Give Pneumovax 11:57:22 CDT CPT-J1071 Depo Testosterone 100mg 17:09:47 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 04/13 CPT-85550 Abx/Therapy Injection 17:09:47 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 CPT-J1071 Depo Testosterone 100mg 15:41:42 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 05/17 CPT-24099 Abx/Therapy Injection 15:41:42 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 CPT-J1071 Depo Testosterone 100mg 13:42:43 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 04/18 CPT-29369 Abx/Therapy Injection 13:42:43 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 CPT-J1071 Depo Testosterone 100mg 13:24:43 CDT CPT-80519 Abx/Therapy Injection 13:24:43 CDT CPT-20803 First Vx - Ix admin for Medicare patients 18:07:22 CDT CPT-07847 Fluzone Quadrivalent Intramuscular Suspe nsion 0.5 ML 18:07:22 CDT CPT-J1071 Depo Testosterone 100mg 12:06:21 CDT 12/21 CPT-01100 Abx/Therapy Injection 12:06:21 CDT CPT-J1071 Depo Testosterone 100mg 16:09:00 CDT 11/23 CPT-30555 Abx/Therapy Injection 16:09:00 CDT CPT-G0439 [facility] Annual Wellness Exam 13:12:23 CDT CPT-J1071 Depo Testosterone 100mg 10:40:29 CDT 10/26 CPT-64679 Abx/Therapy Injection 10:40:29 CDT CPT-J1071 Depo Testosterone 100mg 09:15:44 CDT 09/28 CPT-41807 Abx/Therapy Injection 09:15:43 CDT CPT-J1071 Depo Testosterone 100mg 10:53:34 CDT 08/31 CPT-29155 Abx/Therapy Injection 10:53:34 CDT CPT-13044 [place] pre/post w graphic rec - XRAY USE ONLY 201 10/30/06 10:24:51 CDT CPT-J1071 Depo Testosterone 100mg 14:11:00 CDT 08/03 CPT-59743 Abx/Therapy Injection 14:11:00 CDT CPT-J1071 Depo Testosterone 100mg 15:15:13 CDT 07/04 CPT-35851 Abx/Therapy Injection 15:15:13 CDT CPT-J2310 Narcan HCI .4mg per 1 ml 15:52:42 CDT 06/26 CPT-34350 Chest, 2 views 15:11:39 CDT CPT-000 Give Appropriate Flu Vaccine 12:01:26 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 2 CPT-56891 Chest single view 16:11:20 CDT CPT-J1071 Depo Testosterone 100mg 10:50:45 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 05/29 CPT-16769 Abx/Therapy Injection 10:50:45 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 CPT-47614 Chest, 2 views 11:49:28 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 CPT-J1071 Depo Testosterone 100mg 16:07:43 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 05/02 CPT-52165 Abx/Therapy Injection 16:07:43 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 CPT-J1071 Depo Testosterone 100mg 15:31:04 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 03/31 CPT-08232 Abx/Therapy Injection 15:31:04 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 CPT-J1071 Depo Testosterone 100mg 16:29:48 CDT CPT-58493 Abx/Therapy Injection 16:29:48 CDT CPT-J1071 Depo Testosterone 100mg 14:42:01 CDT 12/23 CPT-04144 Abx/Therapy Injection 14:42:01 CDT CPT-G0439 [facility] Annual Wellness Exam 14:14:09 CDT CPT-J1071 Depo Testosterone 100mg 13:48:18 CDT 11/17 CPT-55776 Abx/Therapy Injection 13:48:18 CDT CPT-G0009 Administration of Pneumococcal Vaccine 4 12:06:23 CDT CPT-88343 Pneumovax 23 Injection Injectable 25 MCG /0.5ML 12:06:23 CDT CPT-J1071 Depo Testosterone 100mg 13:11:36 CDT 10/19 CPT-14872 Abx/Therapy Injection 13:11:36 CDT CPT-J1071 Depo Testosterone 100mg 13:17:59 CDT 09/21 CPT-50292 Abx/Therapy Injection 13:17:59 CDT CPT-J1071 Depo Testosterone 100mg 13:08:38 CDT 09/21 CPT-J1071 Depo Testosterone 100mg 13:06:32 CDT 09/21 CPT-38392 Bone Density - XRAY USE ONLY 09:04:29 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 2 CPT-16227 BMP - LAB USE ONLY 17:39:11 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 CPT-11976 Venipuncture Draw Fee 17:39:11 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 CPT-000 Give Appropriate Flu Vaccine 15:16:28 CDT 2 CPT-J1071 Depo Testosterone 200mg 16:59:53 CDT 10/21 CPT-62517 Abx/Therapy Injection 16:59:53 CDT CPT-24100 Abx/Therapy Injection 18:58:42 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 CPT-29878 First Vx - Ix admin for Medicare patients 15:47:06 CDT CPT-25758 Fluzone High-Dose Intramuscular Suspension 01/19 15:47:06 CDT CPT-23542 Abx/Therapy Injection 14:12:15 CDT CPT-11243 Abx/Therapy Injection 13:34:08 CDT CPT-79676 Abx/Therapy Injection 14:41:47 CDT CPT-G0438 Initial Annual Wellness Exam 10:06:26 CD T CPT-J1071 Depo Testosterone 200mg 11:42:49 CDT 09/22 CPT-77219 Abx/Therapy Injection 11:42:49 CDT CPT-40877 Abx/Therapy Injection 16:55:18 CDT CPT-72828 Abx/Therapy Injection 13:49:32 CDT CPT-J1071 Depo Testosterone 200mg 09:48:27 CDT 06/28 CPT-72022 Abx/Therapy Injection 09:48:27 CDT CPT-77261 Abx/Therapy Injection 16:27:06 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 CPT-31249 No Charge Offi Visit 18:00:02 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 8 CPT-87933 Abd compl w upright 12:29:27 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 CPT-000 Give Appropriate Flu Vaccine 16:15:45 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 2 CPT-21394 Abx/Therapy Injection 11:03:39 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 CPT-04687 Venipuncture Draw Fee 13:07:59 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 CPT-45758 Immunization Single Admin 12:03:42 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 2014 CPT-19017 Fluzone High Dose (65+) 12:03:41 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 05/05 CPT-90735 Chest 2V Frontal and Lat 15:25:23 CDT 12/29 CPT-12118 Venipuncture Draw Fee 15:57:34 CDT CPT-60182 Abx/Therapy Injection 12:52:43 CDT CPT-60533 Abx/Therapy Injection 08:58:56 CDT CPT-75940 Venipuncture Draw Fee 15:59:37 CDT CPT-71052 Abx/Therapy Injection 08:36:16 CDT CPT-000 Give Pneumovax 11:32:18 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 CPT-000 Give Appropriate Flu Vaccine 11:32:18 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 2 CPT-96185 Abx/Therapy Injection 09:52:48 CDT CPT-87876 Abx/Therapy Injection 09:56:54 CDT CPT-OV Office Visit 16:35:19 CDT CPT-46883 Abx/Therapy Injection 08:25:48 CDT CPT-44791 Abx/Therapy Injection 09:17:15 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 CPT-38799 Abx/Therapy Injection 08:52:31 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 CPT-55891 Abx/Therapy Injection 09:32:50 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 CPT-50425 Abx/Therapy Injection 08:28:14 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 CPT-66617 Abx/Therapy Injection 10:43:07 CDT CPT-J1070 Depo Testosterone 100 mg 08:39:09 CDT 12/05 CPT-33147 Abx/Therapy Injection 08:39:09 CDT CPT-74530 Abx/Therapy Injection 11:22:03 CDT CPT-41674 Shoulder comp min 2V 14:11:48 CDT 1 CPT-80170 Abx/Therapy Injection 09:56:35 CDT CPT-LR Lesion Removal 09:49:45 CDT
--- OUTSIDE RECORDS SUMMARY | 2020-12-04 06:12 | XMS REPORT | Clinical Summary ---
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 Monoclonal paraproteinemia Peripheral edema 782.3 Active Fabiana Speaks A PRN Edema Dyspnea 786.09 Resolved Rui Arndt MD Other dyspnea and respiratory abnormality Need for prophylactic vaccination and inoculation against in fluenza V04.81 Resolved Rui Arndt MD Need for prophylactic vaccination and inoculation against influenza Peripheral artery disease 443.9 Active Laurita [facility] Peripheral vascular disease, unspecified Abdominal pain, [...] 39.0-39.9, adult BMI 37-37.9 Active Keyonna Barajas CHILD CARE AIDE-C Body Mass Index 39.0-39.9, adult Abdominal bloating [...] atherosclerosis of unspecified type of vessel , [place] or graft 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 Tracie [...] Other abnormal glucose Cough 786.2 Active Keyonna aBrajas CHILD CARE AIDE-C Cough Shortness of breath 786.05 Active Emanuel Barajas CHILD CARE AIDE-C Shortness of breath HEALTH MAINTENANCE EXAM ICD-V70.0 [...] MD Low testosterone level ICD-796.4 Inactive Shahrzad rAndt MD Pruritus ICD-698.9 Inactive Rui Arndt MD 201 11/26/12 Excessive belching ICD-787.3 Inactive Rui Arndt MD BMI 38-38.9 adult [...] ICD-796.2 Inactiv e Rui Arndt MD BMI 37-37.9 adult ICD-V85.37 Inactive Rui Arndt MD Chest cough ICD-786.2 Inactive Rui Arndt MD Elevated blood sugar ICD-790.29 Inactive Rui Arndt MD Medication List Medication Instructions Start Date Stop Date Generic Name NDC Status Provider Patient Instruction PROAIR HFA 108 (90 BASE) MCG/ACT INHALATION AEROSOL SO LUTION Take 2 puffs every 6 hours as needed for shortness of breath or wheezing. ALBUTEROL SULFATE 72100853578 Active Keyonna Jenn CHILD CARE AIDE-C Activ e PREDNISONE 20 MG ORAL TABLET Take 2 tablets by mouth d aily for 3 days then 1 tablet daily for 2 days PREDNISONE 56300352389 Active Keyonna Jenn CHILD CARE AIDE-C Active ZITHROMAX 250 MG ORAL TABLET Take 2 tablets by mouth o n day 1 then 1 tablet the next 4 days AZITHROMYCIN 86965031810 Active Keyonna Br itt CHILD CARE AIDE-C Active ZUBSOLV 11.4-2.9 MG SUBLINGUAL TABLET SUBLINGUAL Take 1 tablet dailyDEA; [id number] BUPRENORPHINE HCL-NALOXONE HCL 94788288977 Acti ve Rui Arndt MD Active CEFUROXIME AXETIL 500 MG ORAL TABLET TAKE 1/2 TABLET TWICE DAILY CEFUROXIME AXETIL 26894007828 No Longer Active Rui Arndt MD Active POTASSIUM CHLORIDE ER 10 MEQ CR-CAPS TAKE ONE TABLET BY MOUT H TWICE DAILY. POTASSIUM CHLORIDE 16753234700 AGUSTO Richardson Active OMEPRAZOLE 40MG TAKE 1 CAPSULE BY MOUTH EVERY MORNING OMEPRAZOLE 05270586339 AGUSTO Richardson Active SPIRIVA HANDIHLR INHALE CONTENTS OF ONE CAPSULE VIA HANDI HALER ONCE DAILY TIOTROPIUM BROMIDE MONOHYDRATE 73163255162 AGUSTO Richardson Active BUMETANIDE 1MG TAKE 1 TABLET BY MOUTH ONCE DAILY IF NEE DED FOR SWELLING BUMETANIDE 55757948861 AGUSTO Richardson Active ZOLPIDEM TARTRATE 10 MG TABS TAKE 1 TABLET BY MOUTH AT NIGHT IF NEEDED FOR SLEEP ZOLPIDEM TARTRATE 77538537563 Active Rui Arndt MD Active FUROSEMIDE 40MG TAKE 2 TABLETS BY MOUTH EVERY MORNING FUROSEMIDE 41269205086 Active Liudmila Tirado RN Active GABAPENTIN 300MG TAKE 1 CAPSULE BY MOUTH THREE TIMES DAILY GABAPENTIN 06018030639 Active AGUSTO Hall Active ATORVASTATIN 80MG TAKE 1 TABLET BY MOUTH DAILY AT BEDTIME 6 ATORVASTATIN CALCIUM 48199176576 Active AGUSTO Hall A ctive SUPER B-100 ORAL TABLET 1 q d B COMPLEX-BIOTI N-FA 37403046216 Active Tarun Chavez MD Active ASPIRIN 325 MG ORAL TABLET 1 q d ASPIRIN 7335509387 9 Active Tarun Chavez MD Active DIGITEK 125 MCG ORAL TABLET 1 q d DIGOXIN 432043131 01 Active Tarun Chavez MD Active VENTOLIN HFA 108 (90 BASE) MCG/ACT INHALATION AEROSOL SOLUTI ON 1 puff every day ALBUTEROL SULFATE 53135409041 No Longer Active Alan Chavez MD Active LEVOTHYROXINE SODIUM 200 MCG ORAL TABLET 1 po q a.m. for thyroid LEVOTHYROXINE SODIUM 11075847958 No Longer Active Tarun Chavez MD Active PROAIR HFA 108 (90 BASE) MCG/ACT INHALATION AEROSOL SO LUTION 2 puffs four times a day as needed ALBUTEROL SULFATE 11529190997 No Long er Active Tarun Chavez MD Active FLOMAX 0.4 MG ORAL CAPSULE 1 capsule by mouth in the evening for prostate TAMSULOSIN HCL 65338053567 No Longer Active Tarun Chavez MD Active ELIQUIS 5 MG TABS TAKE ONE TABLET BY MOUTH TWO TIMES A DAY APIXABAN 66386652054 Active AGUSTO Hall Active PREDNISONE 20 MG ORAL TABLET Take 2 tablets daily for 5 days and 1 tablet daily for 5 days. PREDNISONE 29192419042 No Longer Active Rui Arndt MD Active POTASSIUM CHLORIDE ER 10 MEQ CR-TABS TAKE ONE TABLET BY CATERINA TH TWICE DAILY. POTASSIUM CHLORIDE 60899992443 Active AGUSTO Hall Active KLOR-CON M10 10 MEQ ORAL TABLET EXTENDED RELEASE one tablet twic e a day POTASSIUM CHLORIDE JORDAN CR 14927074920 No Longer Active AGUSTO Suarez Active LORATADINE 10MG ORAL TABLET TAKE ONE TABLET BY MOUTH ONE TIME DAILY IF NEEDED FOR ALLERGIES. LORATADINE 49782923220 Active Alma Madrid AGUSTO Active LEVOTHYROXINE SODIUM 150MCG ORAL TABLET TAKE ONE TABLE T BY MOUTH ONE TIME DAILY FOR THYROID. LEVOTHYROXINE SODIUM 53519550571 Active S osiel Madrid AGUSTO Active PLAVIX 75 MG ORAL TABLET 1 tablet by mouth daily for 30 days 202 CLOPIDOGREL BISULFATE 33694349861 No Longer Active Rui Arndt MD Active PLAVIX 75 MG ORAL TABLET 1 tablet by mouth daily 03/11 CLOPIDOGREL BISULFATE 62746488251 No Longer Active Rui Arndt MD Activ e ASPIRIN 325 MG ORAL TABLET Take 1 tablet daily ASPIRIN 75222954091 No Longer Active Rui Arndt MD Active PREDNISONE 20 MG ORAL TABLET 1 tab twice daily for 3 d ay, then one daily for three days PREDNISONE 38414290449 No Longer Active Rui Arndt MD Active MORPHINE SULFATE ER 15 MG ORAL TABLET EXTENDED RELEASE 1 TID a d ay MORPHINE SULFATE 83098740539 No Longer Active Rui Arndt MD Active DEPO-TESTOSTERONE 100 MG/ML INTRAMUSCULAR SOLUTION 201 11/29/02 TESTOSTERONE CYPIONATE 53289354394 Active Brittny Aguila MA Active SUBOXONE 2-0.5 MG SUBLINGUAL FILM Bring to appointment before taking for induction. Stop the Morphine 12 hours before the appointment. BUPRENORPHINE HCL-NALOXONE HCL 38671934220 No Longer Active Rui Arndt MD Active MUCINEX D 60-600 MG ORAL TABLET EXTENDED RELEASE 12 HO UR 1 po BID PRN Congestion PSEUDOEPHEDRINE-GUAIFENESIN 77960547669 Active Luke Gonzales CHILD CARE AIDE Active ZITHROMAX Z-PETE 250 MG ORAL TABLET 2 today, then 1 daily for 4 d ays AZITHROMYCIN 70173250283 No Longer Active Luke Gonzales APRN Active MORPHINE SULFATE ER 60 MG ORAL TABLET EXTENDED RELEASE 1 twi ce a day for pain MORPHINE SULFATE 19342091820 No Longer Active Luke valdez APRN Active MORPHINE SULFATE ER 100 MG ORAL TABLET EXTENDED RELEASE one tabl et at bedtime MORPHINE SULFATE 16698363080 No Longer Active Luke Gonzales APRN Active DEPO-TESTOSTERONE 100 MG/ML INTRAMUSCULAR SOLUTION 1mL q4H TESTOSTERONE CYPIONATE 18071862280 No Longer Active Luke Gonzales APRN Active PANTOPRAZOLE SODIUM 40 MG ORAL TABLET DELAYED RELEASE 1 pill by mouth daily PANTOPRAZOLE SODIUM 64063179456 No Longer Active Jose Arndt MD Active FLOMAX 0.4 MG ORAL CAPSULE one capsule in the evening 1/2 hour a fter supper TAMSULOSIN HCL 28363372851 No Longer Active uRi Arndt MD Active LEVOTHYROXINE SODIUM 175 MCG ORAL TABLET 1 pill by mouth daily f or thyroid LEVOTHYROXINE SODIUM 31449253120 No Longer Active Fabiana Perdomo RN Active CLARITIN 10 MG ORAL TABLET 1 tablet by mouth daily as needed for allergies LORATADINE 78343986671 No Longer Active Mari bhakta PA-C Active CARAFATE 1 GM ORAL TABLET Take 1 tablet 4 times daily. Before meals and at bedtime SUCRALFATE 19862600589 No Longer Active Mari Stanley PA-C Active DULCOLAX 5 MG ORAL TABLET DELAYED RELEASE 1 tab daily BISACODYL 74067018937 Active Sara Moeller RN Active SUCRALFATE 1 GM ORAL TABLET 1 four times a day for GERD SUCRALFATE 53875913330 No Longer Active Sara Moeller RN Act berna FISH OIL CAPSULE 1 capsule daily OMEGA-3 FATTY ACIDS CAPS 67340835082 No Longer Active Sara Moeller RN Active PROBIOTIC DAILY ORAL CAPSULE 1 capsule daily 3 PROBIOTIC PRODUCT 35027306864 No Longer Active Sara Moeller RN Act berna B COMPLEX FORMULA 1 ORAL TABLET 1 tablet daily B COMPLEX- FOLIC ACID 37032313324 No Longer Active Sara Moeller RN Act berna PROAIR HFA 108 (90 BASE) MCG/ACT INHALATION AEROSOL SO LUTION 2 puffs four times a day as needed ALBUTEROL SULFATE 57683204949 No Long er Active Sara Moeller RN Active MULTIVITAMINS ORAL CAPSULE Take 1 daily MULTIPL E VITAMIN 70639863410 No Longer Active Sara Moeller RN Active CLONAZEPAM 2 MG ORAL TABLET one tablet at bed time CLONAZEPAM 02762971384 No Longer Active Sara Moeller RN Active DEPO-TESTOSTERONE 200 MG/ML INTRAMUSCULAR SOLUTION 100mg italia ry 4 weeks TESTOSTERONE CYPIONATE 74367316758 No Longer Active Sara Moeller RN Active ATIVAN 0.5 MG ORAL TABLET 1 tab 30 minutes prior to sleep study LORAZEPAM 30582671089 No Longer Active Rui Arndt MD Active NARCAN 4 MG/0.1ML NASAL LIQUID 1 spray in nostril ever y 2 to 3 minutes until responsive or EMS arrives NALOXONE HCL 82764107406 Active Rui Arndt MD Active LEVAQUIN 500 MG ORAL TABLET 1 daily for infection 2017 LEVOFLOXACIN 26008844060 No Longer Active Dena Lacy APRN Active PREDNISONE 20 MG TABS Take 2 daily for 5 days and then 1 stephy ly for 5 days PREDNISONE 57192415849 No Longer Active Rui saleem MD Active PREDNISONE 20 MG ORAL TABLET 2 tabs daily for 4 days, 1 tab daily for 4 days, 1/2 tab daily for 4 days PREDNISONE 36187104570 No Longer Active Rui Arndt MD Active OXYGEN 2L at night time - Dx: J44.9 Active Lori Winter LPN Active PREDNISONE 20 MG ORAL TABLET Take 2 daily for 5 days a nd then 1 daily for 5 days PREDNISONE 17897517855 No Longer Active Rui Arndt MD Active NORCO 10-325 MG ORAL TABLET Take 1-2 tablets every 6 hours a s needed for pain HYDROCODONE-ACETAMINOPHEN 98971536157 No Longer Activ e Rui Arndt MD Active FUROSEMIDE 20 MG ORAL TABLET 1 daily for blood pressure and swel ling FUROSEMIDE 53506458695 No Longer Active Rui Arndt MD Active PAMELOR 10 MG ORAL CAPSULE NORTRIPTY LINE HCL 92429320807 No Longer Active Rui Arndt MD Active AEROSPAN 80 MCG/ACT INHALATION AEROSOL SOLUTION 2 puffs twice FLUNISOLIDE HFA 06657085485 No Longer Active Rui Arndt MD Active LISINOPRIL 10 MG ORAL TABLET take one tab once daily 09/22 LISINOPRIL 29030827323 No Longer Active Rui Arndt MD Active BD INTEGRA SYRINGE 25G X 1" 1 ML Use with Depo provera INSULIN SYRINGE-NEEDLE U-100 Active Brittny Aguila MA Act berna MORPHINE SULFATE ER BEADS 75 MG ORAL CAPSULE EXTENDED RELEASE 24 HOUR 1 twice a day MORPHINE SULFATE BEADS 13955761826 No Longer Ac tive Rui Arndt MD Active COMBIVENT RESPIMAT 20-100 MCG/ACT INHALATION AEROSOL S OLUTION 1 puff four times a day IPRATROPIUM-ALBUTEROL 09682515301 No Longer Act berna Rui Arndt MD Active POTASSIUM CHLORIDE 20 MEQ ORAL PACKET 1 qDay with Lasix POTASSIUM CHLORIDE 00727174371 No Longer Active Rui Arndt MD Activ e PROAIR HFA 108 (90 Base) MCG/ACT INHALATION AEROSOL SO LUTION 2 puffs four times a day as needed ALBUTEROL SULFATE 92681669640 No Longer Ac tive Rui Arndt MD Active ASMANEX 60 METERED DOSES 220 MCG/INH INHALATION AEROSO L POWDER BREATH ACTIVATED 1 puff bid with rinse after MOMETASONE FUROATE 2277045 4102 No Longer Active Rui Arndt MD Active OMEPRAZOLE 40 MG ORAL CAPSULE DELAYED RELEASE 1 po q a.m. OMEPRAZOLE 44247369097 No Longer Active Anahi Ashley LPN Act [...] daily 2 LISINOPRIL 10 MG ORAL TABLET 314287 LISINOPRIL Inactive AEROSPAN 80 MCG/ACT INHALATION AEROSOL SOLUTION 2 puffs twice AEROSPAN 80 MCG/ACT INHALATION AEROSOL SOLUTION FLUNISOLIDE HFA Inactive PAMELOR 10 MG ORAL CAPSULE PAMELOR 1 0 MG ORAL CAPSULE 911666 NORTRIPTYLINE HCL Inactive FUROSEMIDE 20 MG ORAL TABLET 1 daily for blood pressure and swel ling FUROSEMIDE 20 MG ORAL TABLET 346239 FUROSEMIDE Corinna ctive NORCO 10-325 MG ORAL TABLET Take 1-2 tablets every 6 hours a s needed for pain NORCO 10-325 MG ORAL TABLET HYDROCODONE-A CETAMINOPHEN Inactive PREDNISONE 20 MG ORAL TABLET 2 tabs daily for 4 days, 1 tab daily for 4 days, 1/2 tab daily for 4 days PREDNISONE 20 MG ORAL T ABLET 354847 PREDNISONE Inactive LEVAQUIN 500 MG ORAL TABLET 1 daily for infection 2017 LEVAQUIN 500 MG ORAL TABLET 010790 LEVOFLOXACIN Inactive ATIVAN 0.5 MG ORAL TABLET 1 tab 30 minutes prior to sleep study ATIVAN 0.5 MG ORAL TABLET 520573 LORAZEPAM Inacti ve DEPO-TESTOSTERONE 200 MG/ML INTRAMUSCULAR SOLUTION 100mg italia ry 4 weeks DEPO-TESTOSTERONE 200 MG/ML INTRAMUSCULA R SOLUTION 9536793 TESTOSTERONE CYPIONATE Inactive CLONAZEPAM 2 MG ORAL TABLET one tablet at bed time 201 11/01/12 CLONAZEPAM 2 MG ORAL TABLET 608770 CLONAZEPAM Inactive MULTIVITAMINS ORAL CAPSULE Take 1 [...] capsule daily 3 PROBIOTIC DAILY ORAL CAPSULE 8926320 PROBIOTIC PRODUCT Inactive FISH OIL CAPSULE 1 capsule daily FISH OIL CAPSUL E OMEGA- 3 FATTY ACIDS CAPS Inactive SUCRALFATE 1 GM ORAL TABLET 1 four times a day for GERD SUCRALFATE 1 GM ORAL TABLET 411095 SUCRALFATE Inactive CARAFATE 1 GM ORAL TABLET Take 1 tablet 4 times daily. Before meals and at bedtime CARAFATE 1 GM ORAL TABLET 446609 SUCRALFATE Inactive CLARITIN 10 MG ORAL TABLET 1 tablet by mouth daily as needed for allergies CLARITIN 10 MG ORAL TABLET 880826 LORATADINE I nactive LEVOTHYROXINE SODIUM 175 MCG ORAL TABLET 1 pill by mouth daily f or thyroid LEVOTHYROXINE SODIUM 175 MCG ORAL TABLET 627561 LEVOTHY ROXINE SODIUM Inactive FLOMAX 0.4 MG ORAL CAPSULE one capsule in the evening 1/2 hour a fter supper FLOMAX 0.4 MG ORAL CAPSULE 421417 TAMSULOSIN HCL Inact beran PANTOPRAZOLE SODIUM 40 MG ORAL TABLET DELAYED RELEASE 1 pill by mouth daily PANTOPRAZOLE SODIUM 40 MG ORAL TABLET DE LAYED RELEASE 627373 PANTOPRAZOLE SODIUM Inactive DEPO-TESTOSTERONE 100 MG/ML INTRAMUSCULAR SOLUTION 1mL q4H DEPO-TESTOSTERONE 100 MG/ML INTRAMUSCULAR SOLUTION 789055 TESTOSTERONE CYPIONATE Inactive MORPHINE SULFATE ER 100 [...] three days PREDNISONE 20 MG ORAL TABLET 229077 PREDNIS ONE Inactive ASPIRIN 325 MG ORAL TABLET Take 1 tablet daily ASPIRIN 325 MG ORAL TABLET 138803 ASPIRIN Inactive PLAVIX 75 MG ORAL TABLET 1 tablet by mouth daily 03/11 PLAVIX 75 MG ORAL TABLET 695342 CLOPIDOGREL BISULFATE Inactive PLAVIX 75 MG ORAL TABLET 1 tablet by mouth daily for 30 days 202 PLAVIX 75 MG ORAL TABLET 296183 CLOPIDOGREL BISULFATE I nactive KLOR-CON M10 10 MEQ ORAL TABLET EXTENDED RELEASE one tablet twic e a day KLOR-CON M10 10 MEQ ORAL TABLET EXTENDED RELEASE 2551527 POTASSIUM CHLORIDE JORDAN CR Inactive PREDNISONE 20 MG ORAL TABLET Take 2 tablets daily for 5 days and 1 tablet daily for 5 days. PREDNISONE 20 MG ORAL TABLET 735306 PREDNISONE Inactive FLOMAX 0.4 MG ORAL CAPSULE 1 capsule by mouth in the evening for prostate FLOMAX 0.4 MG ORAL CAPSULE 469436 TAMSULOSIN HCL Inactive PROAIR HFA 108 (90 BASE) MCG/ACT INHALATION AEROSOL SO LUTION 2 puffs four times a day as needed PROAIR HFA 108 (90 B ASE) MCG/ACT INHALATION AEROSOL SOLUTION ALBUTEROL SULFATE Inactive LEVOTHYROXINE SODIUM 200 MCG ORAL TABLET 1 po q a.m. for thyroid LEVOTHYROXINE SODIUM 200 MCG ORAL TABLET 791559 LEVOTHY ROXINE SODIUM Inactive VENTOLIN HFA 108 (90 BASE) MCG/ACT INHALATION AEROSOL SOLUTI ON 1 puff every day VENTOLIN HFA 108 (90 BASE) M CG/ACT INHALATION AEROSOL SOLUTION ALBUTEROL SULFATE Inactive POTASSIUM CHLORIDE 20 MEQ ORAL PACKET 1 qDay with Lasix POTASSIUM CHLORIDE 20 MEQ ORAL PACKET 8642725 POTASSIUM CHLORIDE Inactive PREDNISONE 20 MG ORAL TABLET Take 2 daily for 5 days a nd then 1 daily for 5 days PREDNISONE 20 MG ORAL TABLET 318825 PREDNIS ONE Inactive PREDNISONE 20 MG TABS Take 2 daily for 5 days and then 1 stephy ly for 5 days PREDNISONE 20 MG TABS 571574 PREDNISONE Inacti ve ZITHROMAX Z-PETE 250 MG ORAL TABLET 2 today, then 1 daily for 4 d ays ZITHROMAX Z-PETE 250 MG ORAL TABLET 036464 AZITHROMYCIN Inactive CEFUROXIME AXETIL 500 MG ORAL TABLET TAKE 1/2 TABLET TWICE DAILY CEFUROXIME AXETIL 500 MG ORAL TABLET 936049 CEFUROXIME AXETIL Inactive Advance Directives Directive Description [...] Magnesium - Chemistry sodium, serum 138 mmol/L 432-309 2603/12/04 carbon dioxide, venous blood 28.3 mmol/L 21.0-32 [...] 0.90 mg/dL 0.00-1.00 cholesterol, serum 121 mg/dL 213-503 8857/12/04 triglyceride, serum, fasting 137 mg/dL 30-200 HDL [...] 2.60 ng/mL 0.00-4.00 sodium, serum 136 mmol/L 274-161 2369/10/06 carbon dioxide, venous blood 29.5 mmol/L 21.0-32 [...] noted Encounters Code Encounter Date Provider Facility CPT-40251 80116: Ofc Vst-Est Level III-Low MDM or 20-29 minutes 08:12:06 [facility] 61529: Ofc Vst-Est Level IV-Moderate MDM or 30-39 minutes 12:21:30 CDT Rui Arndt MD [facility] CPT-21382 07240-Ijx Vst-Est Level IV 09:46:31 CDT Lobo Arndt MD [facility] CPT-65020 94268-Rmy Vst-Est Level IV 10:42:47 PHARMACY CASHIER Lobo Arndt MD [facility] CPT-70703 56976-Mhs Vst-Est Level IV 11:02:04 CDT Lobo Arndt MD [facility] CPT-11830 68901-Usp Vst-Est Level IV 13:58:45 CDT Lobo Arndt MD [facility] CPT-75596 54874-Fmg Vst-Est Level IV 15:13:53 CDT Lobo Arndt MD [facility] CPT-83123 29546-Ywr Vst-Est Level IV 11:54:49 CDT Lobo Arndt MD [facility] CPT-22081 23567-Jhp Vst-Est Level IV 11:04:27 PHARMACY CASHIER Lobo Arndt MD [facility] CPT-70337 Level 4 New Patient 12:35:21 CDT Ade chung MD [facility] CPT-57952 Ofc Vst-Est Level IV 16:12:07 CDT Rui Arndt MD [facility] CPT-44447 90201-Fic Vst-Est Level IV 16:25:05 CDT Lobo Arndt MD [facility] CPT-90650 87013-Yvz Vst-Est Level III 10:55:45 CDT Rui Arndt MD [facility] CPT-00915 73487-Ktu Vst-Est Level IV 14:16:20 CDT Lobo Arndt MD [facility] CPT-55058 Level 3 Est. Patient 13:14:20 CDT Luke rascon [facility] CPT-40462 76171-Unj Vst-Est Level IV 09:53:37 PHARMACY CASHIER Lobo Arndt MD [facility] CPT-06854 79982-Lcj Vst-Est Level IV 09:44:38 CDT Lobo Arndt MD [facility] CPT-89586 Level 3 Est. Patient 15:23:12 CDT Dena ley [facility] CPT-75961 Level 4 Est. Patient 13:12:22 CDT Rui Arndt MD [facility] CPT-84476 Level 4 Est. Patient 14:44:13 CDT Dena ley [facility] CPT-90820 94175-Dpd Vst-Est Level III 11:23:31 CDT Rui Arndt MD [facility] CPT-44291 62287-Bzv Vst-Est Level V 10:04:33 CDT Jose Arndt MD [facility]-79599 Level 4 Est. Patient 16:17:47 CDT Rui Arndt MD [facility]-29510 Level 4 Est. Patient 10:53:57 CDT Rui Arndt MD [facility]-40151 Level 3 Est. Patient 16:09:12 CDT Jemal marti MD [facility]-13205 Level 4 Est. Patient 11:32:24 PHARMACY CASHIER Rui Arndt MD [facility]-04841 Level 4 Est. Patient 14:55:39 PHARMACY CASHIER Dena ley [facility] [place][note 2]-81714 Level 3 Est. Patient 15:10:46 PHARMACY CASHIER Rui Arndt MD [facility]-48820 Level 3 Est. Patient 12:01:26 PHARMACY CASHIER Rui Arndt MD [facility]-34893 Level 3 Est. Patient 10:35:15 PHARMACY CASHIER Rui Arndt MD [facility]-39458 Level 3 Est. Patient 15:04:30 CDT Rui Arndt MD [facility]-50479 Level 3 Est. Patient 10:15:00 CDT Vinod fenton [facility] [place][note 2]-67817 Level 4 Est. Patient 14:59:25 CDT Rui Arndt MD [facility]-28180 Level 4 Est. Patient 12:07:34 CDT Rui Arndt MD [facility]-17874 Level 3 Est. Patient 10:42:08 PHARMACY CASHIER Rui Arndt MD [facility]-20089 Level 3 Est. Patient 17:29:10 PHARMACY CASHIER Rui Arndt MD [facility]-99438 Level 4 Est. Patient 15:12:05 CDT Rui Arndt MD [facility]-24465 Level 2 Est. Patient 16:27:53 CDT Rui Arndt MD [facility] CPT-17337 Level 3 Est. Patient 12:02:36 CDT Rui Arndt MD [facility] CPT-42692 Level 4 Est. Patient 11:17:39 CDT Rui Arndt MD [facility] CPT-20062 Level 4 Est. Patient 15:46:07 CDT Rui Arndt MD [facility] CPT-78547 Level 4 Est. Patient 17:18:59 PHARMACY CASHIER Rui Arndt MD [facility]-32284 Level 4 Est. Patient 15:09:55 CDT [facility] Level 3 Est. Patient 15:49:06 CDT Rui Arndt MD [facility] CPT-03248 Level 3 Est. Patient 11:40:46 CDT Rui Arndt MD [facility] CPT-85363 Level 3 Est. Patient 18:00:51 CDT Rui Arndt MD [facility] CPT-20725 Level 4 Est. Patient 10:25:35 CDT Rui Arndt MD [facility] CPT-62665 Level 3 Est. Patient 15:45:51 CDT Rui Arndt MD [facility] CPT-80129 Level 4 Est. Patient 11:32:17 PHARMACY CASHIER Rui Arndt MD [facility] CPT-38412 Level 4 New Patient 17:03:03 CDT Rui yoder MD [facility] Procedures Code Procedure Name Date Entry Date Standard Desc ription CPT-44644 MOD COVID19 mRNA 100mcg/0.5mL 1st Dose 9 13:33:26 CDT CPT-J1071 Depo Testosterone 100mg 10:43:46 CDT 10/19 CPT-62061 Abx/Therapy Injection 10:43:46 CDT CPT-J1071 Depo Testosterone 100mg 13:15:20 CDT 09/16 CPT-88000 Abx/Therapy Injection 13:15:20 CDT CPT-J1071 Depo Testosterone 100mg 13:00:53 CDT 08/18 CPT-20915 Abx/Therapy Injection 13:00:53 CDT CPT-J1071 Depo Testosterone 100mg 16:00:36 CDT 07/22 CPT-01357 Abx/Therapy Injection 16:00:36 CDT CPT-J1071 Depo Testosterone 100mg 15:59:22 CDT 06/24 CPT-85967 Abx/Therapy Injection 15:59:22 CDT CPT-J1071 Depo Testosterone 100mg 17:34:08 PHARMACY CASHIER 05/27 CPT-08643 Abx/Therapy Injection 17:34:08 PHARMACY CASHIER CPT-DI8157S (4274F) Influenza immunization administe red or previously received 12:03:02 PHARMACY CASHIER CPT-KI1669B (4274F) Influenza immunization administe red or previously received 10:42:46 PHARMACY CASHIER CPT-J1071 Depo Testosterone 100mg 14:29:40 PHARMACY CASHIER 05/19 CPT-24553 Abx/Therapy Injection 14:29:40 PHARMACY CASHIER CPT-65463 Venipuncture Draw Fee 09:50:26 PHARMACY CASHIER CPT-61719 Venipuncture Draw Fee 11:06:37 PHARMACY CASHIER CPT-J1071 Depo Testosterone 100mg 13:49:54 PHARMACY CASHIER 04/20 CPT-87296 Abx/Therapy Injection 13:49:54 PHARMACY CASHIER CPT-J1071 Depo Testosterone 100mg 16:22:38 CDT CPT-63580 Abx/Therapy Injection 16:22:38 CDT CPT-000 Give Appropriate Flu Vaccine 11:02:04 CDT 2 CPT-31527 15714 - Immun Admin 1 vac 11:43:22 CDT 2019 CPT-43452 [employer] Quadrivalent [place] 11:43:22 CDT CPT-35860 Venipuncture Draw Fee 11:14:23 CDT CPT-SM7431E (4274F 2P) Patient Reason Influenza immu nization not administered 11:02:04 CDT CPT-G0439 Subsequent Annual Wellness Exam 14:24:52 CDT CPT-PU9648Y (4013F) Statin therapy prescribed or cur rently being taken 14:24:52 CDT CPT-SW4975B (4274F 2P) Patient Reason Influenza immu nization not administered 14:24:52 CDT CPT-J1071 Depo Testosterone 100mg 13:29:13 CDT 12/23 CPT-53486 Abx/Therapy Injection 13:29:13 CDT CPT-J1071 Depo Testosterone 100mg 14:43:03 CDT 11/24 CPT-58201 Abx/Therapy Injection 14:43:03 CDT CPT-J1071 Depo Testosterone 100mg 17:18:41 CDT 10/27 CPT-32014 Abx/Therapy Injection 17:18:41 CDT CPT-32955 4M Drug Screen cup test, Multi-panel, urine 2019 13:58:45 CDT CPT-J1071 Depo Testosterone 100mg 16:42:20 CDT 0 09/23 CPT-00780 Abx/Therapy Injection 16:42:20 CDT CPT-J1071 Depo Testosterone 100mg 16:43:18 CDT 0 08/26 CPT-94635 Abx/Therapy Injection 16:43:18 CDT CPT-10940 Venipuncture Draw Fee 13:01:56 CDT CPT-J1071 Depo Testosterone 100mg 15:54:02 CDT 07/28 CPT-32012 Abx/Therapy Injection 15:54:02 CDT CPT-J1071 Depo Testosterone 100mg 15:17:11 CDT 0 06/30 CPT-94456 Abx/Therapy Injection 15:17:10 CDT CPT-12162 Venipuncture Draw Fee 11:58:13 CDT CPT-J1071 Depo Testosterone 200mg 14:59:06 CDT 0 06/02 CPT-63413 Abx/Therapy Injection 14:59:06 CDT CPT-J1071 Depo Testosterone 100mg 14:08:37 PHARMACY CASHIER 0 05/06 CPT-58281 Abx/Therapy Injection 14:08:37 PHARMACY CASHIER CPT-26870 Venipuncture Draw Fee 15:15:20 PHARMACY CASHIER CPT-J1071 Depo Testosterone 100mg 15:40:35 PHARMACY CASHIER 0 04/08 CPT-64542 Abx/Therapy Injection 15:40:35 PHARMACY CASHIER CPT-TCMM Transitional Care Mgmt-Moderate 12:40:08 CS T CPT-YY2226G (4274F) Influenza immunization administe red or previously received 12:40:07 PHARMACY CASHIER CPT-39826 Venipuncture Draw Fee 15:13:23 PHARMACY CASHIER CPT-80339 Venipuncture Draw Fee 12:39:02 PHARMACY CASHIER CPT-J1071 Depo Testosterone 100mg 11:35:50 PHARMACY CASHIER 05/12 CPT-96784 Abx/Therapy Injection 11:35:50 PHARMACY CASHIER CPT-PB0663C (4274F) Influenza immunization administe red or previously received 11:04:25 PHARMACY CASHIER CPT-J1071 Depo Testosterone 100mg 11:32:22 PHARMACY CASHIER 04/13 CPT-87645 Abx/Therapy Injection 11:32:22 PHARMACY CASHIER CPT-26606 80837 - Immun Admin 1 vac 16:43:51 PHARMACY CASHIER 2018 CPT-24961 Shingrix 16:43:51 PHARMACY CASHIER CPT-J1071 Depo Testosterone 100mg 18:38:18 CDT CPT-44221 Abx/Therapy Injection 18:38:17 CDT CPT-J1071 Depo Testosterone 100mg 14:36:52 CDT 12/18 CPT-01360 Abx/Therapy Injection 14:36:52 CDT CPT-G0008 Administration of Influenza Virus Vaccine 12/18 14:35:05 CDT CPT-34761 Fluzone (Flu) 10Pk Syringe IM (Medicare) 14:35:05 CDT CPT-67713 Bladder Scan 12:35:21 CDT CPT-19233 Venipuncture Draw Fee 16:41:57 CDT CPT-29512 15049 - Immun Admin 1 vac 16:31:08 CDT 2018 CPT-76934 Shingrix 16:31:07 CDT CPT-G0439 [facility] Annual Wellness Exam 16:12:06 CDT CPT-J1071 Depo Testosterone 100mg 12:18:42 CDT 11/20 CPT-35459 Abx/Therapy Injection 12:18:42 CDT CPT-J1071 Depo Testosterone 100mg 11:42:38 CDT 09/03 CPT-84777 Abx/Therapy Injection 11:42:38 CDT CPT-J1071 Depo Testosterone 100mg 12:00:58 CDT 08/06 CPT-71448 Abx/Therapy Injection 12:00:58 CDT CPT-J1071 Depo Testosterone 100mg 12:34:21 CDT 07/09 CPT-31950 Abx/Therapy Injection 12:34:21 CDT CPT-10832 Abdomen, 2 views 13:20:15 CDT CPT-91338 Chest, 2 views 13:20:15 CDT CPT-J1071 Depo Testosterone 200mg 14:21:46 CDT 0 06/12 CPT-96829 Abx/Therapy Injection 14:21:46 CDT CPT-J1071 Depo Testosterone 100mg 14:34:38 PHARMACY CASHIER 0 05/14 CPT-74456 Abx/Therapy Injection 14:34:38 PHARMACY CASHIER CPT-000 Give Pneumovax 11:57:22 CDT CPT-J1071 Depo Testosterone 100mg 17:09:47 PHARMACY CASHIER 04/13 CPT-62248 Abx/Therapy Injection 17:09:47 PHARMACY CASHIER CPT-J1071 Depo Testosterone 100mg 15:41:42 PHARMACY CASHIER 05/17 CPT-44615 Abx/Therapy Injection 15:41:42 PHARMACY CASHIER CPT-J1071 Depo Testosterone 100mg 13:42:43 PHARMACY CASHIER 04/18 CPT-17836 Abx/Therapy Injection 13:42:43 PHARMACY CASHIER CPT-J1071 Depo Testosterone 100mg 13:24:43 CDT CPT-56205 Abx/Therapy Injection 13:24:43 CDT CPT-48272 First Vx - Ix admin for Medicare patients 18:07:22 CDT CPT-87888 Fluzone Quadrivalent Intramuscular Suspe nsion 0.5 ML 18:07:22 CDT CPT-J1071 Depo Testosterone 100mg 12:06:21 CDT 12/21 CPT-26876 Abx/Therapy Injection 12:06:21 CDT CPT-J1071 Depo Testosterone 100mg 16:09:00 CDT 11/23 CPT-50163 Abx/Therapy Injection 16:09:00 CDT CPT-G0439 [facility] Annual Wellness Exam 13:12:23 CDT CPT-J1071 Depo Testosterone 100mg 10:40:29 CDT 10/26 CPT-63851 Abx/Therapy Injection 10:40:29 CDT CPT-J1071 Depo Testosterone 100mg 09:15:44 CDT 09/28 CPT-22009 Abx/Therapy Injection 09:15:43 CDT CPT-J1071 Depo Testosterone 100mg 10:53:34 CDT 08/31 CPT-28477 Abx/Therapy Injection 10:53:34 CDT CPT-10371 [place] pre/post w graphic rec - XRAY USE ONLY 201 10/30/06 10:24:51 CDT CPT-J1071 Depo Testosterone 100mg 14:11:00 CDT 08/03 CPT-31009 Abx/Therapy Injection 14:11:00 CDT CPT-J1071 Depo Testosterone 100mg 15:15:13 CDT 07/04 CPT-92635 Abx/Therapy Injection 15:15:13 CDT CPT-J2310 Narcan HCI .4mg per 1 ml 15:52:42 CDT 06/26 CPT-33586 Chest, 2 views 15:11:39 CDT CPT-000 Give Appropriate Flu Vaccine 12:01:26 PHARMACY CASHIER 2 CPT-45889 Chest single view 16:11:20 CDT CPT-J1071 Depo Testosterone 100mg 10:50:45 PHARMACY CASHIER 05/29 CPT-99619 Abx/Therapy Injection 10:50:45 PHARMACY CASHIER CPT-54734 Chest, 2 views 11:49:28 PHARMACY CASHIER CPT-J1071 Depo Testosterone 100mg 16:07:43 PHARMACY CASHIER 05/02 CPT-71954 Abx/Therapy Injection 16:07:43 PHARMACY CASHIER CPT-J1071 Depo Testosterone 100mg 15:31:04 PHARMACY CASHIER 03/31 CPT-97413 Abx/Therapy Injection 15:31:04 PHARMACY CASHIER CPT-J1071 Depo Testosterone 100mg 16:29:48 CDT CPT-17496 Abx/Therapy Injection 16:29:48 CDT CPT-J1071 Depo Testosterone 100mg 14:42:01 CDT 12/23 CPT-17793 Abx/Therapy Injection 14:42:01 CDT CPT-G0439 [facility] Annual Wellness Exam 14:14:09 CDT CPT-J1071 Depo Testosterone 100mg 13:48:18 CDT 11/17 CPT-43841 Abx/Therapy Injection 13:48:18 CDT CPT-G0009 Administration of Pneumococcal Vaccine 4 12:06:23 CDT CPT-78492 Pneumovax 23 Injection Injectable 25 MCG /0.5ML 12:06:23 CDT CPT-J1071 Depo Testosterone 100mg 13:11:36 CDT 10/19 CPT-71931 Abx/Therapy Injection 13:11:36 CDT CPT-J1071 Depo Testosterone 100mg 13:17:59 CDT 09/21 CPT-74368 Abx/Therapy Injection 13:17:59 CDT CPT-J1071 Depo Testosterone 100mg 13:08:38 CDT 09/21 CPT-J1071 Depo Testosterone 100mg 13:06:32 CDT 09/21 CPT-64715 Bone Density - XRAY USE ONLY 09:04:29 PHARMACY CASHIER 2 CPT-92384 BMP - LAB USE ONLY 17:39:11 PHARMACY CASHIER CPT-42307 Venipuncture Draw Fee 17:39:11 PHARMACY CASHIER CPT-000 Give Appropriate Flu Vaccine 15:16:28 CDT 2 CPT-J1071 Depo Testosterone 200mg 16:59:53 CDT 10/21 CPT-52260 Abx/Therapy Injection 16:59:53 CDT CPT-82667 Abx/Therapy Injection 18:58:42 PHARMACY CASHIER CPT-52069 First Vx - Ix admin for Medicare patients 15:47:06 CDT CPT-69400 Fluzone High-Dose Intramuscular Suspension 01/19 15:47:06 CDT CPT-20776 Abx/Therapy Injection 14:12:15 CDT CPT-89295 Abx/Therapy Injection 13:34:08 CDT CPT-58285 Abx/Therapy Injection 14:41:47 CDT CPT-G0438 Initial Annual Wellness Exam 10:06:26 CD T CPT-J1071 Depo Testosterone 200mg 11:42:49 CDT 09/22 CPT-23533 Abx/Therapy Injection 11:42:49 CDT CPT-61034 Abx/Therapy Injection 16:55:18 CDT CPT-04351 Abx/Therapy Injection 13:49:32 CDT CPT-J1071 Depo Testosterone 200mg 09:48:27 CDT 06/28 CPT-69861 Abx/Therapy Injection 09:48:27 CDT CPT-91108 Abx/Therapy Injection 16:27:06 PHARMACY CASHIER CPT-61834 No Charge Offi Visit 18:00:02 PHARMACY CASHIER 8 CPT-86518 Abd compl w upright 12:29:27 PHARMACY CASHIER CPT-000 Give Appropriate Flu Vaccine 16:15:45 PHARMACY CASHIER 2 CPT-47179 Abx/Therapy Injection 11:03:39 PHARMACY CASHIER CPT-77990 Venipuncture Draw Fee 13:07:59 PHARMACY CASHIER CPT-11095 Immunization Single Admin 12:03:42 PHARMACY CASHIER 2014 CPT-57586 Fluzone High Dose (65+) 12:03:41 PHARMACY CASHIER 05/05 CPT-56998 Chest 2V Frontal and Lat 15:25:23 CDT 12/29 CPT-94865 Venipuncture Draw Fee 15:57:34 CDT CPT-86414 Abx/Therapy Injection 12:52:43 CDT CPT-73949 Abx/Therapy Injection 08:58:56 CDT CPT-66153 Venipuncture Draw Fee 15:59:37 CDT CPT-87191 Abx/Therapy Injection 08:36:16 CDT CPT-000 Give Pneumovax 11:32:18 PHARMACY CASHIER CPT-000 Give Appropriate Flu Vaccine 11:32:18 PHARMACY CASHIER 2 CPT-16288 Abx/Therapy Injection 09:52:48 CDT CPT-29530 Abx/Therapy Injection 09:56:54 CDT CPT-OV Office Visit 16:35:19 CDT CPT-26454 Abx/Therapy Injection 08:25:48 CDT CPT-12969 Abx/Therapy Injection 09:17:15 PHARMACY CASHIER CPT-73184 Abx/Therapy Injection 08:52:31 PHARMACY CASHIER CPT-99287 Abx/Therapy Injection 09:32:50 PHARMACY CASHIER CPT-99937 Abx/Therapy Injection 08:28:14 PHARMACY CASHIER CPT-50374 Abx/Therapy Injection 10:43:07 CDT CPT-J1070 Depo Testosterone 100 mg 08:39:09 CDT 12/05 CPT-39597 Abx/Therapy Injection 08:39:09 CDT CPT-43921 Abx/Therapy Injection 11:22:03 CDT CPT-18025 Shoulder comp min 2V 14:11:48 CDT 1 CPT-13594 Abx/Therapy Injection 09:56:35 CDT CPT-LR Lesion Removal 09:49:45 CDT
--- OUTSIDE RECORDS SUMMARY | 2020-12-04 06:13 | XMS REPORT | Clinical Summary ---
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 Monoclonal paraproteinemia Peripheral edema 782.3 Active Fabiana Speaks A PRN Edema Dyspnea 786.09 Resolved Rui Arndt MD Other dyspnea and respiratory abnormality Need for prophylactic vaccination and inoculation against in fluenza V04.81 Resolved Rui Arndt MD Need for prophylactic vaccination and inoculation against influenza Peripheral artery disease 443.9 Active [facility] Peripheral vascular disease, unspecified Abdominal pain, left [...] unspecified Depression, recurrent, in remission 296.36 Active uRi Arndt MD Major depressive disorder, recurrent epi [...] 39.0-39.9, adult BMI 37-37.9 Active Keyonna Barajas DOOR TO DOOR FUNDRAISING COLLECTOR-C Body Mass Index 39.0-39.9, adult Abdominal bloating [...] atherosclerosis of unspecified type of vessel , [place] or graft 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 ALBUTEROL SULFATE 16119961347 Active Keyonna Jenn DOOR TO DOOR FUNDRAISING COLLECTOR-C Activ e PREDNISONE 20 MG ORAL TABLET Take 2 tablets by mouth d aily for 3 days then 1 tablet daily for 2 days PREDNISONE 19005848118 Active Keyonna Jenn DOOR TO DOOR FUNDRAISING COLLECTOR-C Active ZITHROMAX 250 MG ORAL TABLET Take 2 tablets by mouth o n day 1 then 1 tablet the next 4 days AZITHROMYCIN 88235828692 Active Keyonna Br itt DOOR TO DOOR FUNDRAISING COLLECTOR-C Active ZUBSOLV 11.4-2.9 MG SUBLINGUAL TABLET SUBLINGUAL Take 1 tablet dailyDEA; [id number] BUPRENORPHINE HCL-NALOXONE HCL 05696296677 Acti ve Rui Arndt MD Active CEFUROXIME AXETIL 500 MG ORAL TABLET TAKE 1/2 TABLET TWICE DAILY CEFUROXIME AXETIL 55343034531 No Longer Active Rui Arndt MD Active POTASSIUM CHLORIDE ER 10 MEQ CR-CAPS TAKE ONE TABLET BY MOUT H TWICE DAILY. POTASSIUM CHLORIDE 47586148914 AGUSTO Richardson Active OMEPRAZOLE 40MG TAKE 1 CAPSULE BY MOUTH EVERY MORNING OMEPRAZOLE 46357933623 AGUSTO Richardson Active SPIRIVA HANDIHLR INHALE CONTENTS OF ONE CAPSULE VIA HANDI HALER ONCE DAILY TIOTROPIUM BROMIDE MONOHYDRATE 14687696480 AGUSTO Richardson Active BUMETANIDE 1MG TAKE 1 TABLET BY MOUTH ONCE DAILY IF NEE DED FOR SWELLING BUMETANIDE 09656705421 AGUSTO Richardson Active ZOLPIDEM TARTRATE 10 MG TABS TAKE 1 TABLET BY MOUTH AT NIGHT IF NEEDED FOR SLEEP ZOLPIDEM TARTRATE 17354646333 Active Rui Arndt MD Active FUROSEMIDE 40MG TAKE 2 TABLETS BY MOUTH EVERY MORNING FUROSEMIDE 47907154423 Active Liudmila Tirado RN Active GABAPENTIN 300MG TAKE 1 CAPSULE BY MOUTH THREE TIMES DAILY GABAPENTIN 09525242815 Active AGUSTO Hall Active ATORVASTATIN 80MG TAKE 1 TABLET BY MOUTH DAILY AT BEDTIME 6 ATORVASTATIN CALCIUM 09507932680 Active AGUSTO Hall A ctive SUPER B-100 ORAL TABLET 1 q d B COMPLEX-BIOTI N-FA 89562586457 Active Tarun Chavez MD Active ASPIRIN 325 MG ORAL TABLET 1 q d ASPIRIN 3914977252 9 Active Tarun Chavez MD Active DIGITEK 125 MCG ORAL TABLET 1 q d DIGOXIN 983249749 01 Active Tarun Chavez MD Active VENTOLIN HFA 108 (90 BASE) MCG/ACT INHALATION AEROSOL SOLUTI ON 1 puff every day ALBUTEROL SULFATE 09543272194 No Longer Active Alan Chavez MD Active LEVOTHYROXINE SODIUM 200 MCG ORAL TABLET 1 po q a.m. for thyroid LEVOTHYROXINE SODIUM 81469260541 No Longer Active Tarun Chavez MD Active PROAIR HFA 108 (90 BASE) MCG/ACT INHALATION AEROSOL SO LUTION 2 puffs four times a day as needed ALBUTEROL SULFATE 37462494588 No Long er Active Tarun Chavez MD Active FLOMAX 0.4 MG ORAL CAPSULE 1 capsule by mouth in the evening for prostate TAMSULOSIN HCL 08480252818 No Longer Active Tarun Chavez MD Active ELIQUIS 5 MG TABS TAKE ONE TABLET BY MOUTH TWO TIMES A DAY APIXABAN 65521640317 Active AGUSTO Hall Active PREDNISONE 20 MG ORAL TABLET Take 2 tablets daily for 5 days and 1 tablet daily for 5 days. PREDNISONE 86951953530 No Longer Active Rui Arndt MD Active POTASSIUM CHLORIDE ER 10 MEQ CR-TABS TAKE ONE TABLET BY CATERINA TH TWICE DAILY. POTASSIUM CHLORIDE 75197843542 Active AGUSTO Hall Active KLOR-CON M10 10 MEQ ORAL TABLET EXTENDED RELEASE one tablet twic e a day POTASSIUM CHLORIDE JORDAN CR 73699527595 No Longer Active AGUSTO Suarez Active LORATADINE 10MG ORAL TABLET TAKE ONE TABLET BY MOUTH ONE TIME DAILY IF NEEDED FOR ALLERGIES. LORATADINE 80745943922 Active Alma [place] AGUSTO Active LEVOTHYROXINE SODIUM 150MCG ORAL TABLET TAKE ONE TABLE T BY MOUTH ONE TIME DAILY FOR THYROID. LEVOTHYROXINE SODIUM 83122915611 Active S osiel [place] AGUSTO Active PLAVIX 75 MG ORAL TABLET 1 tablet by mouth daily for 30 days 202 CLOPIDOGREL BISULFATE 33491896165 No Longer Active Rui Arndt MD Active PLAVIX 75 MG ORAL TABLET 1 tablet by mouth daily 03/11 CLOPIDOGREL BISULFATE 71859415914 No Longer Active Rui Arndt MD Activ e ASPIRIN 325 MG ORAL TABLET Take 1 tablet daily ASPIRIN 92490232587 No Longer Active Rui Arndt MD Active PREDNISONE 20 MG ORAL TABLET 1 tab twice daily for 3 d ay, then one daily for three days PREDNISONE 10035521926 No Longer Active Rui Arndt MD Active MORPHINE SULFATE ER 15 MG ORAL TABLET EXTENDED RELEASE 1 TID a d ay MORPHINE SULFATE 87032968834 No Longer Active Rui Arndt MD Active DEPO-TESTOSTERONE 100 MG/ML INTRAMUSCULAR SOLUTION 201 11/29/02 TESTOSTERONE CYPIONATE 27893583096 Active Brittny Aguila MA Active SUBOXONE 2-0.5 MG SUBLINGUAL FILM Bring to appointment before taking for induction. Stop the Morphine 12 hours before the appointment. BUPRENORPHINE HCL-NALOXONE HCL 52937231692 No Longer Active Rui Arndt MD Active MUCINEX D 60-600 MG ORAL TABLET EXTENDED RELEASE 12 HO UR 1 po BID PRN Congestion PSEUDOEPHEDRINE-GUAIFENESIN 48052676323 Active Luke Gonzales DOOR TO DOOR FUNDRAISING COLLECTOR Active ZITHROMAX Z-PETE 250 MG ORAL TABLET 2 today, then 1 daily for 4 d ays AZITHROMYCIN 88752645202 No Longer Active Luke Gonzales APRN Active MORPHINE SULFATE ER 60 MG ORAL TABLET EXTENDED RELEASE 1 twi ce a day for pain MORPHINE SULFATE 73012551155 No Longer Active Luke valdez APRN Active MORPHINE SULFATE ER 100 MG ORAL TABLET EXTENDED RELEASE one tabl et at bedtime MORPHINE SULFATE 60069192747 No Longer Active Luke Gonzales APRN Active DEPO-TESTOSTERONE 100 MG/ML INTRAMUSCULAR SOLUTION 1mL q4H TESTOSTERONE CYPIONATE 35980965835 No Longer Active Luke Gonzales APRN Active PANTOPRAZOLE SODIUM 40 MG ORAL TABLET DELAYED RELEASE 1 pill by mouth daily PANTOPRAZOLE SODIUM 31134294563 No Longer Active Jose Arndt MD Active FLOMAX 0.4 MG ORAL CAPSULE one capsule in the evening 1/2 hour a fter supper TAMSULOSIN HCL 98029358773 No Longer Active Rui Arndt MD Active LEVOTHYROXINE SODIUM 175 MCG ORAL TABLET 1 pill by mouth daily f or thyroid LEVOTHYROXINE SODIUM 63976050180 No Longer Active Fabiana Perdomo RN Active CLARITIN 10 MG ORAL TABLET 1 tablet by mouth daily as needed for allergies LORATADINE 34771834114 No Longer Active Mari bhakta PA-C Active CARAFATE 1 GM ORAL TABLET Take 1 tablet 4 times daily. Before meals and at bedtime SUCRALFATE 86621167871 No Longer Active Mari Stanley PA-C Active DULCOLAX 5 MG ORAL TABLET DELAYED RELEASE 1 tab daily BISACODYL 32766863186 Active Sara Moeller RN Active SUCRALFATE 1 GM ORAL TABLET 1 four times a day for GERD SUCRALFATE 60739546448 No Longer Active Sara Moeller RN Act berna FISH OIL CAPSULE 1 capsule daily OMEGA-3 FATTY ACIDS CAPS 65594116450 No Longer Active Sara Moeller RN Active PROBIOTIC DAILY ORAL CAPSULE 1 capsule daily 3 PROBIOTIC PRODUCT 60096341594 No Longer Active Sara Moeller RN Act berna B COMPLEX FORMULA 1 ORAL TABLET 1 tablet daily B COMPLEX- FOLIC ACID 04893550327 No Longer Active Sara Moeller RN Act berna PROAIR HFA 108 (90 BASE) MCG/ACT INHALATION AEROSOL SO LUTION 2 puffs four times a day as needed ALBUTEROL SULFATE 78467840181 No Long er Active Sara Moeller RN Active MULTIVITAMINS ORAL CAPSULE Take 1 daily MULTIPL E VITAMIN 78952713045 No Longer Active Sara Moeller RN Active CLONAZEPAM 2 MG ORAL TABLET one tablet at bed time CLONAZEPAM 62808257645 No Longer Active Sara Moeller RN Active DEPO-TESTOSTERONE 200 MG/ML INTRAMUSCULAR SOLUTION 100mg it[place] ry 4 weeks TESTOSTERONE CYPIONATE 98772591910 No Longer Active Sara Moeller RN Active ATIVAN 0.5 MG ORAL TABLET 1 tab 30 minutes prior to sleep study LORAZEPAM 20243729456 No Longer Active Rui Arndt MD Active NARCAN 4 MG/0.1ML NASAL LIQUID 1 spray in nostril ever y 2 to 3 minutes until responsive or EMS arrives NALOXONE HCL 89938783862 Active Rui Arndt MD Active LEVAQUIN 500 MG ORAL TABLET 1 daily for infection 2017 LEVOFLOXACIN 20208236108 No Longer Active Dena Lacy APRN Active PREDNISONE 20 MG TABS Take 2 daily for 5 days and then 1 stephy ly for 5 days PREDNISONE 46868525994 No Longer Active Rui saleem MD Active PREDNISONE 20 MG ORAL TABLET 2 tabs daily for 4 days, 1 tab daily for 4 days, 1/2 tab daily for 4 days PREDNISONE 26540253451 No Longer Active Rui Arndt MD Active OXYGEN 2L at night time - Dx: J44.9 Active Lori Winter LPN Active PREDNISONE 20 MG ORAL TABLET Take 2 daily for 5 days a nd then 1 daily for 5 days PREDNISONE 09657422830 No Longer Active Rui Arndt MD Active NORCO 10-325 MG ORAL TABLET Take 1-2 tablets every 6 hours a s needed for pain HYDROCODONE-ACETAMINOPHEN 86604196608 No Longer Activ e Rui Arndt MD Active FUROSEMIDE 20 MG ORAL TABLET 1 daily for blood pressure and swel ling FUROSEMIDE 58116852459 No Longer Active Rui Arndt MD Active PAMELOR 10 MG ORAL CAPSULE NORTRIPTY LINE HCL 08876817900 No Longer Active Rui Arndt MD Active AEROSPAN 80 MCG/ACT INHALATION AEROSOL SOLUTION 2 puffs twice FLUNISOLIDE HFA 87231242027 No Longer Active Rui Arndt MD Active LISINOPRIL 10 MG ORAL TABLET take one tab once daily 09/22 LISINOPRIL 19193604099 No Longer Active Rui Arndt MD Active BD INTEGRA SYRINGE 25G X 1" 1 ML Use with Depo provera INSULIN SYRINGE-NEEDLE U-100 Active Brittny Aguila MA Act berna MORPHINE SULFATE ER BEADS 75 MG ORAL CAPSULE EXTENDED RELEASE 24 HOUR 1 twice a day MORPHINE SULFATE BEADS 01775477648 No Longer Ac tive Rui Arndt MD Active COMBIVENT RESPIMAT 20-100 MCG/ACT INHALATION AEROSOL S OLUTION 1 puff four times a day IPRATROPIUM-ALBUTEROL 68903377898 No Longer Act berna Rui Arndt MD Active POTASSIUM CHLORIDE 20 MEQ ORAL PACKET 1 qDay with Lasix POTASSIUM CHLORIDE 50837229014 No Longer Active Rui Arndt MD Activ e PROAIR HFA 108 (90 Base) MCG/ACT INHALATION AEROSOL SO LUTION 2 puffs four times a day as needed ALBUTEROL SULFATE 10025231679 No Longer Ac tive Rui Arndt MD Active ASMANEX 60 METERED DOSES 220 MCG/INH INHALATION AEROSO L POWDER BREATH ACTIVATED 1 puff bid with rinse after MOMETASONE FUROATE 9024893 4102 No Longer Active Rui Arndt MD Active OMEPRAZOLE 40 MG ORAL CAPSULE DELAYED RELEASE 1 po q a.m. OMEPRAZOLE 69380322179 No Longer Active Anahi Ashley LPN Act [...] daily 2 LISINOPRIL 10 MG ORAL TABLET 568062 LISINOPRIL Inactive AEROSPAN 80 MCG/ACT INHALATION AEROSOL SOLUTION 2 puffs twice AEROSPAN 80 MCG/ACT INHALATION AEROSOL SOLUTION FLUNISOLIDE HFA Inactive PAMELOR 10 MG ORAL CAPSULE PAMELOR 1 0 MG ORAL CAPSULE 543638 NORTRIPTYLINE HCL Inactive FUROSEMIDE 20 MG ORAL TABLET 1 daily for blood pressure and swel ling FUROSEMIDE 20 MG ORAL TABLET 820712 FUROSEMIDE Corinna ctive NORCO 10-325 MG ORAL TABLET Take 1-2 tablets every 6 hours a s needed for pain NORCO 10-325 MG ORAL TABLET HYDROCODONE-A CETAMINOPHEN Inactive PREDNISONE 20 MG ORAL TABLET 2 tabs daily for 4 days, 1 tab daily for 4 days, 1/2 tab daily for 4 days PREDNISONE 20 MG ORAL T ABLET 691371 PREDNISONE Inactive LEVAQUIN 500 MG ORAL TABLET 1 daily for infection 2017 LEVAQUIN 500 MG ORAL TABLET 682780 LEVOFLOXACIN Inactive ATIVAN 0.5 MG ORAL TABLET 1 tab 30 minutes prior to sleep study ATIVAN 0.5 MG ORAL TABLET 403038 LORAZEPAM Inacti ve DEPO-TESTOSTERONE 200 MG/ML INTRAMUSCULAR SOLUTION 100mg it[place] ry 4 weeks DEPO-TESTOSTERONE 200 MG/ML INTRAMUSCULA R SOLUTION 5890397 TESTOSTERONE CYPIONATE Inactive CLONAZEPAM 2 MG ORAL TABLET one tablet at bed time 201 11/01/12 CLONAZEPAM 2 MG ORAL TABLET 881573 CLONAZEPAM Inactive MULTIVITAMINS ORAL CAPSULE Take 1 [...] capsule daily 3 PROBIOTIC DAILY ORAL CAPSULE 3877953 PROBIOTIC PRODUCT Inactive FISH OIL CAPSULE 1 capsule daily FISH OIL CAPSUL E OMEGA- 3 FATTY ACIDS CAPS Inactive SUCRALFATE 1 GM ORAL TABLET 1 four times a day for GERD SUCRALFATE 1 GM ORAL TABLET 938486 SUCRALFATE Inactive CARAFATE 1 GM ORAL TABLET Take 1 tablet 4 times daily. Before meals and at bedtime CARAFATE 1 GM ORAL TABLET 481195 SUCRALFATE Inactive CLARITIN 10 MG ORAL TABLET 1 tablet by mouth daily as needed for allergies CLARITIN 10 MG ORAL TABLET 016117 LORATADINE I nactive LEVOTHYROXINE SODIUM 175 MCG ORAL TABLET 1 pill by mouth daily f or thyroid LEVOTHYROXINE SODIUM 175 MCG ORAL TABLET 142339 LEVOTHY ROXINE SODIUM Inactive FLOMAX 0.4 MG ORAL CAPSULE one capsule in the evening 1/2 hour a fter supper FLOMAX 0.4 MG ORAL CAPSULE 295733 TAMSULOSIN HCL Inact berna PANTOPRAZOLE SODIUM 40 MG ORAL TABLET DELAYED RELEASE 1 pill by mouth daily PANTOPRAZOLE SODIUM 40 MG ORAL TABLET DE LAYED RELEASE 916055 PANTOPRAZOLE SODIUM Inactive DEPO-TESTOSTERONE 100 MG/ML INTRAMUSCULAR SOLUTION 1mL q4H DEPO-TESTOSTERONE 100 MG/ML INTRAMUSCULAR SOLUTION 647116 TESTOSTERONE CYPIONATE Inactive MORPHINE SULFATE ER 100 [...] three days PREDNISONE 20 MG ORAL TABLET 592992 PREDNIS ONE Inactive ASPIRIN 325 MG ORAL TABLET Take 1 tablet daily ASPIRIN 325 MG ORAL TABLET 201243 ASPIRIN Inactive PLAVIX 75 MG ORAL TABLET 1 tablet by mouth daily 03/11 PLAVIX 75 MG ORAL TABLET 904930 CLOPIDOGREL BISULFATE Inactive PLAVIX 75 MG ORAL TABLET 1 tablet by mouth daily for 30 days 202 PLAVIX 75 MG ORAL TABLET 390527 CLOPIDOGREL BISULFATE I nactive KLOR-CON M10 10 MEQ ORAL TABLET EXTENDED RELEASE one tablet twic e a day KLOR-CON M10 10 MEQ ORAL TABLET EXTENDED RELEASE 1994233 POTASSIUM CHLORIDE JORDAN CR Inactive PREDNISONE 20 MG ORAL TABLET Take 2 tablets daily for 5 days and 1 tablet daily for 5 days. PREDNISONE 20 MG ORAL TABLET 483472 PREDNISONE Inactive FLOMAX 0.4 MG ORAL CAPSULE 1 capsule by mouth in the evening for prostate FLOMAX 0.4 MG ORAL CAPSULE 796314 TAMSULOSIN HCL Inactive PROAIR HFA 108 (90 BASE) MCG/ACT INHALATION AEROSOL SO LUTION 2 puffs four times a day as needed PROAIR HFA 108 (90 B ASE) MCG/ACT INHALATION AEROSOL SOLUTION ALBUTEROL SULFATE Inactive LEVOTHYROXINE SODIUM 200 MCG ORAL TABLET 1 po q a.m. for thyroid LEVOTHYROXINE SODIUM 200 MCG ORAL TABLET 345376 LEVOTHY ROXINE SODIUM Inactive VENTOLIN HFA 108 (90 BASE) MCG/ACT INHALATION AEROSOL SOLUTI ON 1 puff every day VENTOLIN HFA 108 (90 BASE) M CG/ACT INHALATION AEROSOL SOLUTION ALBUTEROL SULFATE Inactive POTASSIUM CHLORIDE 20 MEQ ORAL PACKET 1 qDay with Lasix POTASSIUM CHLORIDE 20 MEQ ORAL PACKET 9409323 POTASSIUM CHLORIDE Inactive PREDNISONE 20 MG ORAL TABLET Take 2 daily for 5 days a nd then 1 daily for 5 days PREDNISONE 20 MG ORAL TABLET 448714 PREDNIS ONE Inactive PREDNISONE 20 MG TABS Take 2 daily for 5 days and then 1 stephy ly for 5 days PREDNISONE 20 MG TABS 977319 PREDNISONE Inacti ve ZITHROMAX Z-PETE 250 MG ORAL TABLET 2 today, then 1 daily for 4 d ays ZITHROMAX Z-PETE 250 MG ORAL TABLET 801640 AZITHROMYCIN Inactive CEFUROXIME AXETIL 500 MG ORAL TABLET TAKE 1/2 TABLET TWICE DAILY CEFUROXIME AXETIL 500 MG ORAL TABLET 360397 CEFUROXIME AXETIL Inactive Advance Directives Directive Description [...] Magnesium - Chemistry sodium, serum 138 mmol/L 328-141 7886/12/04 carbon dioxide, venous blood 28.3 mmol/L 21.0-32 [...] 0.90 mg/dL 0.00-1.00 cholesterol, serum 121 mg/dL 320-720 4892/12/04 triglyceride, serum, fasting 137 mg/dL 30-200 HDL [...] 2.60 ng/mL 0.00-4.00 sodium, serum 136 mmol/L 467-447 3693/10/06 carbon dioxide, venous blood 29.5 mmol/L 21.0-32 [...] noted Encounters Code Encounter Date Provider Facility CPT-62505 89550: Ofc Vst-Est Level III-Low MDM or 20-29 minutes 08:12:06 [facility] 13686: Ofc Vst-Est Level IV-Moderate MDM or 30-39 minutes 12:21:30 CDT Rui Arndt MD [facility] CPT-14589 06929-Ssq Vst-Est Level IV 09:46:31 CDT Lobo Arndt MD [facility] CPT-82765 98336-Egm Vst-Est Level IV 10:42:47 SPECIAL NEEDS BABYSITTER Lobo Arndt MD [facility] CPT-76195 82868-Phu Vst-Est Level IV 11:02:04 CDT Lobo Arndt MD [facility] CPT-05356 32662-Apy Vst-Est Level IV 13:58:45 CDT Lobo Arndt MD [facility] CPT-88343 26086-Tcn Vst-Est Level IV 15:13:53 CDT Lobo Arndt MD [facility] CPT-87289 44749-Asi Vst-Est Level IV 11:54:49 CDT Lobo Arndt MD [facility] CPT-60042 55218-Wfw Vst-Est Level IV 11:04:27 SPECIAL NEEDS BABYSITTER Lobo Arndt MD [facility] CPT-69766 Level 4 New Patient 12:35:21 CDT Ade chung MD [facility] CPT-24810 Ofc Vst-Est Level IV 16:12:07 CDT Rui Arndt MD [facility] CPT-96339 43704-Lbn Vst-Est Level IV 16:25:05 CDT Lobo Arndt MD [facility] CPT-69460 69229-Ife Vst-Est Level III 10:55:45 CDT Rui Arndt MD [facility] CPT-30601 85782-Lmt Vst-Est Level IV 14:16:20 CDT Lobo Arndt MD [facility] CPT-25142 Level 3 Est. Patient 13:14:20 CDT Luke rascon [facility] CPT-11594 35181-Cab Vst-Est Level IV 09:53:37 SPECIAL NEEDS BABYSITTER Lobo Arndt MD [facility] CPT-77089 24626-Pcj Vst-Est Level IV 09:44:38 CDT Lobo Arndt MD [facility] CPT-66034 Level 3 Est. Patient 15:23:12 CDT Dena ley [facility] CPT-82660 Level 4 Est. Patient 13:12:22 CDT Rui Arndt MD [facility] CPT-03266 Level 4 Est. Patient 14:44:13 CDT Dena ley [facility] CPT-16809 65947-Ggs Vst-Est Level III 11:23:31 CDT Rui Arndt MD [facility] CPT-08254 13950-Tel Vst-Est Level V 10:04:33 CDT Jose Arndt MD [facility]-37318 Level 4 Est. Patient 16:17:47 CDT Rui Arndt MD [facility]-63238 Level 4 Est. Patient 10:53:57 CDT Rui Arndt MD [facility]-40127 Level 3 Est. Patient 16:09:12 CDT Jemal marti MD [facility]-78030 Level 4 Est. Patient 11:32:24 SPECIAL NEEDS BABYSITTER Rui Arndt MD [facility]-30870 Level 4 Est. Patient 14:55:39 SPECIAL NEEDS BABYSITTER Dena ley [facility]-87107 Level 3 Est. Patient 15:10:46 SPECIAL NEEDS BABYSITTER Rui Arndt MD [facility]-70133 Level 3 Est. Patient 12:01:26 SPECIAL NEEDS BABYSITTER Rui Arndt MD [facility]-22141 Level 3 Est. Patient 10:35:15 SPECIAL NEEDS BABYSITTER Rui Arndt MD [facility]-10512 Level 3 Est. Patient 15:04:30 CDT Rui Arndt MD [facility]-15534 Level 3 Est. Patient 10:15:00 CDT Vinod fenton [facility]-07536 Level 4 Est. Patient 14:59:25 CDT Rui Arndt MD [facility]-84095 Level 4 Est. Patient 12:07:34 CDT Rui Arndt MD [facility]-15910 Level 3 Est. Patient 10:42:08 SPECIAL NEEDS BABYSITTER Rui Arndt MD [facility]-34935 Level 3 Est. Patient 17:29:10 SPECIAL NEEDS BABYSITTER Rui Arndt MD [facility]-52996 Level 4 Est. Patient 15:12:05 CDT Rui Arndt MD [facility]-80156 Level 2 Est. Patient 16:27:53 CDT Rui Arndt MD [facility] CPT-43063 Level 3 Est. Patient 12:02:36 CDT Rui Arndt MD [facility] CPT-12523 Level 4 Est. Patient 11:17:39 CDT Rui Arndt MD [facility] CPT-67731 Level 4 Est. Patient 15:46:07 CDT Rui Arndt MD [facility] CPT-67556 Level 4 Est. Patient 17:18:59 SPECIAL NEEDS BABYSITTER Rui Arndt MD [facility]-14648 Level 4 Est. Patient 15:09:55 CDT Fabiana Vizcaino [facility] CPT-51166 Level 3 Est. Patient 15:49:06 CDT Rui Arndt MD [facility] CPT-78297 Level 3 Est. Patient 11:40:46 CDT Rui Arndt MD [facility] CPT-22401 Level 3 Est. Patient 18:00:51 CDT Rui Arndt MD [facility] CPT-72875 Level 4 Est. Patient 10:25:35 CDT Rui Arndt MD [facility] CPT-70382 Level 3 Est. Patient 15:45:51 CDT Rui Arndt MD [facility] CPT-09359 Level 4 Est. Patient 11:32:17 SPECIAL NEEDS BABYSITTER Rui Arndt MD [facility] CPT-78869 Level 4 New Patient 17:03:03 CDT Rui yoder MD [facility] Procedures Code Procedure Name Date Entry Date Standard Desc ription CPT-J1071 Depo Testosterone 100mg 13:15:20 CDT 09/16 CPT-83348 Abx/Therapy Injection 13:15:20 CDT CPT-J1071 Depo Testosterone 100mg 13:00:53 CDT 08/18 CPT-69000 Abx/Therapy Injection 13:00:53 CDT CPT-J1071 Depo Testosterone 100mg 16:00:36 CDT 07/22 CPT-31664 Abx/Therapy Injection 16:00:36 CDT CPT-J1071 Depo Testosterone 100mg 15:59:22 CDT 06/24 CPT-56329 Abx/Therapy Injection 15:59:22 CDT CPT-J1071 Depo Testosterone 100mg 17:34:08 SPECIAL NEEDS BABYSITTER 05/27 CPT-66518 Abx/Therapy Injection 17:34:08 SPECIAL NEEDS BABYSITTER CPT-NC4822B (4274F) Influenza immunization administe red or previously received 12:03:02 SPECIAL NEEDS BABYSITTER CPT-IH3141F (4274F) Influenza immunization administe red or previously received 10:42:46 SPECIAL NEEDS BABYSITTER CPT-J1071 Depo Testosterone 100mg 14:29:40 SPECIAL NEEDS BABYSITTER 05/19 CPT-41581 Abx/Therapy Injection 14:29:40 SPECIAL NEEDS BABYSITTER CPT-76057 Venipuncture Draw Fee 09:50:26 SPECIAL NEEDS BABYSITTER CPT-61728 Venipuncture Draw Fee 11:06:37 SPECIAL NEEDS BABYSITTER CPT-J1071 Depo Testosterone 100mg 13:49:54 SPECIAL NEEDS BABYSITTER 04/20 CPT-08853 Abx/Therapy Injection 13:49:54 SPECIAL NEEDS BABYSITTER CPT-J1071 Depo Testosterone 100mg 16:22:38 CDT CPT-21620 Abx/Therapy Injection 16:22:38 CDT CPT-000 Give Appropriate Flu Vaccine 11:02:04 CDT 2 CPT-20582 09912 - Immun Admin 1 vac 11:43:22 CDT 2019 CPT-10469 [employer] Quadrivalent [place] 11:43:22 CDT CPT-85227 Venipuncture Draw Fee 11:14:23 CDT CPT-OJ9101F (4274F 2P) Patient Reason Influenza immu nization not administered 11:02:04 CDT CPT-G0439 Subsequent Annual Wellness Exam 14:24:52 CDT CPT-XK9104K (4013F) Statin therapy prescribed or cur rently being taken 14:24:52 CDT CPT-TO1224H (4274F 2P) Patient Reason Influenza immu nization not administered 14:24:52 CDT CPT-J1071 Depo Testosterone 100mg 13:29:13 CDT 12/23 CPT-65103 Abx/Therapy Injection 13:29:13 CDT CPT-J1071 Depo Testosterone 100mg 14:43:03 CDT 11/24 CPT-33573 Abx/Therapy Injection 14:43:03 CDT CPT-J1071 Depo Testosterone 100mg 17:18:41 CDT 10/27 CPT-56457 Abx/Therapy Injection 17:18:41 CDT CPT-79282 4M Drug Screen cup test, Multi-panel, urine 2019 13:58:45 CDT CPT-J1071 Depo Testosterone 100mg 16:42:20 CDT 09/23 CPT-12816 Abx/Therapy Injection 16:42:20 CDT CPT-J1071 Depo Testosterone 100mg 16:43:18 CDT 0 08/26 CPT-19482 Abx/Therapy Injection 16:43:18 CDT CPT-34753 Venipuncture Draw Fee 13:01:56 CDT CPT-J1071 Depo Testosterone 100mg 15:54:02 CDT 0 07/28 CPT-66103 Abx/Therapy Injection 15:54:02 CDT CPT-J1071 Depo Testosterone 100mg 15:17:11 CDT 0 06/30 CPT-56144 Abx/Therapy Injection 15:17:10 CDT CPT-60790 Venipuncture Draw Fee 11:58:13 CDT CPT-J1071 Depo Testosterone 200mg 14:59:06 CDT 0 06/02 CPT-65954 Abx/Therapy Injection 14:59:06 CDT CPT-J1071 Depo Testosterone 100mg 14:08:37 [facility] 0 05/06 CPT-91572 Abx/Therapy Injection 14:08:37 [facility] CPT-79973 Venipuncture Draw Fee 15:15:20 [facility] CPT-J1071 Depo Testosterone 100mg 15:40:35 [facility] 0 04/08 CPT-87148 Abx/Therapy Injection 15:40:35 [facility] CPT-TCMM Transitional Care Mgmt-Moderate 12:40:08 CS T CPT-[id number] (4274F) Influenza immunization administe red or previously received 12:40:07 [facility] CPT-88254 Venipuncture Draw Fee 15:13:23 [facility] CPT-96591 Venipuncture Draw Fee 12:39:02 [facility] CPT-J1071 Depo Testosterone 100mg 11:35:50 [facility] 05/12 CPT-38518 Abx/Therapy Injection 11:35:50 [facility] CPT-TV9932U (4274F) Influenza immunization administe red or previously received 11:04:25 [facility] CPT-J1071 Depo Testosterone 100mg 11:32:22 [facility] 04/13 CPT-72502 Abx/Therapy Injection 11:32:22 [facility] CPT-39668 75658 - Immun Admin 1 vac 16:43:51 [facility] 2018 CPT-21073 Shingrix 16:43:51 [facility] CPT-J1071 Depo Testosterone 100mg 18:38:18 CDT CPT-58165 Abx/Therapy Injection 18:38:17 CDT CPT-J1071 Depo Testosterone 100mg 14:36:52 CDT 12/18 CPT-89042 Abx/Therapy Injection 14:36:52 CDT CPT-G0008 Administration of Influenza Virus Vaccine 12/18 14:35:05 CDT CPT-52293 Fluzone (Flu) 10Pk Syringe IM (Medicare) 14:35:05 CDT CPT-84606 Bladder Scan 12:35:21 CDT CPT-34111 Venipuncture Draw Fee 16:41:57 CDT CPT-06232 20740 - Immun Admin 1 vac 16:31:08 CDT 2018 CPT-35122 Shingrix 16:31:07 CDT CPT-G0439 [facility] Annual Wellness Exam 16:12:06 CDT CPT-J1071 Depo Testosterone 100mg 12:18:42 CDT 0 11/20 CPT-43573 Abx/Therapy Injection 12:18:42 CDT CPT-J1071 Depo Testosterone 100mg 11:42:38 CDT 0 09/03 CPT-41804 Abx/Therapy Injection 11:42:38 CDT CPT-J1071 Depo Testosterone 100mg 12:00:58 CDT 0 08/06 CPT-44331 Abx/Therapy Injection 12:00:58 CDT CPT-J1071 Depo Testosterone 100mg 12:34:21 CDT 07/09 CPT-66928 Abx/Therapy Injection 12:34:21 CDT CPT-27294 Abdomen, 2 views 13:20:15 CDT CPT-72742 Chest, 2 views 13:20:15 CDT CPT-J1071 Depo Testosterone 200mg 14:21:46 CDT 0 06/12 CPT-72078 Abx/Therapy Injection 14:21:46 CDT CPT-J1071 Depo Testosterone 100mg 14:34:38 [facility] 0 05/14 CPT-35385 Abx/Therapy Injection 14:34:38 [facility] CPT-000 Give Pneumovax 11:57:22 CDT CPT-J1071 Depo Testosterone 100mg 17:09:47 [facility] 0 04/13 CPT-79896 Abx/Therapy Injection 17:09:47 [facility] CPT-J1071 Depo Testosterone 100mg 15:41:42 [facility] 05/17 CPT-68963 Abx/Therapy Injection 15:41:42 [facility] CPT-J1071 Depo Testosterone 100mg 13:42:43 [facility] 04/18 CPT-64160 Abx/Therapy Injection 13:42:43 [facility] CPT-J1071 Depo Testosterone 100mg 13:24:43 CDT CPT-82207 Abx/Therapy Injection 13:24:43 CDT CPT-48686 First Vx - Ix admin for Medicare patients 18:07:22 CDT CPT-17691 Fluzone Quadrivalent Intramuscular Suspe nsion 0.5 ML 18:07:22 CDT CPT-J1071 Depo Testosterone 100mg 12:06:21 CDT 12/21 CPT-06439 Abx/Therapy Injection 12:06:21 CDT CPT-J1071 Depo Testosterone 100mg 16:09:00 CDT 11/23 CPT-97886 Abx/Therapy Injection 16:09:00 CDT CPT-G0439 [facility] Annual Wellness Exam 13:12:23 CDT CPT-J1071 Depo Testosterone 100mg 10:40:29 CDT 10/26 CPT-56044 Abx/Therapy Injection 10:40:29 CDT CPT-J1071 Depo Testosterone 100mg 09:15:44 CDT 09/28 CPT-97681 Abx/Therapy Injection 09:15:43 CDT CPT-J1071 Depo Testosterone 100mg 10:53:34 CDT 08/31 CPT-77338 Abx/Therapy Injection 10:53:34 CDT CPT-64896 Kwan pre/post w graphic rec - XRAY USE ONLY 201 10/30/06 10:24:51 CDT CPT-J1071 Depo Testosterone 100mg 14:11:00 CDT 08/03 CPT-42678 Abx/Therapy Injection 14:11:00 CDT CPT-J1071 Depo Testosterone 100mg 15:15:13 CDT 07/04 CPT-24809 Abx/Therapy Injection 15:15:13 CDT CPT-J2310 Narcan HCI .4mg per 1 ml 15:52:42 CDT 06/26 CPT-41824 Chest, 2 views 15:11:39 CDT CPT-000 Give Appropriate Flu Vaccine 12:01:26 [facility] 2 CPT-18691 Chest single view 16:11:20 CDT CPT-J1071 Depo Testosterone 100mg 10:50:45 [facility] 05/29 CPT-76667 Abx/Therapy Injection 10:50:45 [facility] CPT-28400 Chest, 2 views 11:49:28 [facility] CPT-J1071 Depo Testosterone 100mg 16:07:43 [facility] 05/02 CPT-55013 Abx/Therapy Injection 16:07:43 [facility] CPT-J1071 Depo Testosterone 100mg 15:31:04 [facility] 03/31 CPT-83023 Abx/Therapy Injection 15:31:04 [facility] [employer] CPT-J1071 Depo Testosterone 100mg 16:29:48 CDT CPT-08118 Abx/Therapy Injection 16:29:48 CDT CPT-J1071 Depo Testosterone 100mg 14:42:01 CDT 12/23 CPT-51266 Abx/Therapy Injection 14:42:01 CDT CPT-G0439 [facility] Annual Wellness Exam 14:14:09 CDT CPT-J1071 Depo Testosterone 100mg 13:48:18 CDT 11/17 CPT-24423 Abx/Therapy Injection 13:48:18 CDT CPT-G0009 Administration of Pneumococcal Vaccine 4 12:06:23 CDT CPT-26173 Pneumovax 23 Injection Injectable 25 MCG /0.5ML 12:06:23 CDT CPT-J1071 Depo Testosterone 100mg 13:11:36 CDT 10/19 CPT-53906 Abx/Therapy Injection 13:11:36 CDT CPT-J1071 Depo Testosterone 100mg 13:17:59 CDT 09/21 CPT-84399 Abx/Therapy Injection 13:17:59 CDT CPT-J1071 Depo Testosterone 100mg 13:08:38 CDT 09/21 CPT-J1071 Depo Testosterone 100mg 13:06:32 CDT 09/21 CPT-54085 Bone Density - XRAY USE ONLY 09:04:29 [facility] 2 CPT-20907 BMP - LAB USE ONLY 17:39:11 [facility] CPT-59004 Venipuncture Draw Fee 17:39:11 [facility] CPT-000 Give Appropriate Flu Vaccine 15:16:28 CDT 2 CPT-J1071 Depo Testosterone 200mg 16:59:53 CDT 10/21 CPT-15161 Abx/Therapy Injection 16:59:53 CDT CPT-88981 Abx/Therapy Injection 18:58:42 [facility] CPT-76863 First Vx - Ix admin for Medicare patients 15:47:06 CDT CPT-35356 Fluzone High-Dose Intramuscular Suspension 01/19 15:47:06 CDT CPT-56995 Abx/Therapy Injection 14:12:15 CDT CPT-03948 Abx/Therapy Injection 13:34:08 CDT CPT-44602 Abx/Therapy Injection 14:41:47 CDT CPT-G0438 Initial Annual Wellness Exam 10:06:26 CD T CPT-J1071 Depo Testosterone 200mg 11:42:49 CDT 09/22 CPT-18162 Abx/Therapy Injection 11:42:49 CDT CPT-18881 Abx/Therapy Injection 16:55:18 CDT CPT-85047 Abx/Therapy Injection 13:49:32 CDT CPT-J1071 Depo Testosterone 200mg 09:48:27 CDT 06/28 CPT-14144 Abx/Therapy Injection 09:48:27 CDT CPT-37292 Abx/Therapy Injection 16:27:06 [facility] [employer] CPT-10992 No Charge Offi Visit 18:00:02 [facility] [employer] 8 CPT-40449 Abd compl w upright 12:29:27 [facility] CPT-000 Give Appropriate Flu Vaccine 16:15:45 [facility] [employer] 2 CPT-63376 Abx/Therapy Injection 11:03:39 [facility] [employer] CPT-75525 Venipuncture Draw Fee 13:07:59 [facility] CPT-82918 Immunization Single Admin 12:03:42 [facility] 2014 CPT-78907 Fluzone High Dose (65+) 12:03:41 [facility] 05/05 CPT-01370 Chest 2V Frontal and Lat 15:25:23 CDT 12/29 CPT-13741 Venipuncture Draw Fee 15:57:34 CDT CPT-65969 Abx/Therapy Injection 12:52:43 CDT CPT-88252 Abx/Therapy Injection 08:58:56 CDT CPT-09444 Venipuncture Draw Fee 15:59:37 CDT CPT-57967 Abx/Therapy Injection 08:36:16 CDT CPT-000 Give Pneumovax 11:32:18 [facility] CPT-000 Give Appropriate Flu Vaccine 11:32:18 [facility] [employer] 2 CPT-99994 Abx/Therapy Injection 09:52:48 CDT CPT-06393 Abx/Therapy Injection 09:56:54 CDT CPT-OV Office Visit 16:35:19 CDT CPT-31018 Abx/Therapy Injection 08:25:48 CDT CPT-40192 Abx/Therapy Injection 09:17:15 [facility] CPT-72430 Abx/Therapy Injection 08:52:31 [facility] CPT-87776 Abx/Therapy Injection 09:32:50 [facility] CPT-82870 Abx/Therapy Injection 08:28:14 [facility] CPT-77341 Abx/Therapy Injection 10:43:07 CDT CPT-J1070 Depo Testosterone 100 mg 08:39:09 CDT 12/05 CPT-46571 Abx/Therapy Injection 08:39:09 CDT CPT-13992 Abx/Therapy Injection 11:22:03 CDT CPT-99997 Shoulder comp min 2V 14:11:48 CDT 1 CPT-18720 Abx/Therapy Injection 09:56:35 CDT CPT-LR Lesion Removal 09:49:45 CDT
--- OUTSIDE RECORDS SUMMARY | 2020-12-04 06:13 | XMS REPORT | Clinical Summary ---
Author Author Admin, Charlie Hankins Organization [facility] Address Unknown Phone Unavailable Allergies, Adverse Reactions, Alerts Allergy Name Reaction Description Start Date Severity Status Pr ovider NKA Critical Active Dena Lacy APR N KEFLEX Mild No Longer Active Rui Arndt MD KEFLEX itch Moderate No Longer Active Vinod Alatorre PATIENT INTAKE COORDINATOR NKDA Critical No Longer Active Rui Arndt [...] Arndt MD [facility] 366.9 Inactive Rui Arndt [...] fatigue Monoclonal gammopathy 273.1 Active 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 Monoclonal paraproteinemia Peripheral edema 782.3 Active Fabiana Speaks A PRN Edema Dyspnea 786.09 Resolved Rui Arndt MD Other dyspnea and respiratory abnormality Need for prophylactic vaccination and inoculation against in fluenza V04.81 Resolved Rui Arndt MD Need for prophylactic vaccination and inoculation against influenza Peripheral artery disease 443.9 Active Laurita ChongMilton [facility] Peripheral vascular disease, unspecified Abdominal pain, left [...] Index 39.0-39.9, adult BMI 37-37.9 Active Keyonna aBrajas PATIENT INTAKE COORDINATOR-C Body Mass Index 39.0-39.9, adult Abdominal bloating [...] atherosclerosis of unspecified type of vessel , man[place] or graft 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 ALBUTEROL SULFATE 46105464860 Active Keyonna Jenn PATIENT INTAKE COORDINATOR-C Activ e PREDNISONE 20 MG ORAL TABLET Take 2 tablets by mouth d aily for 3 days then 1 tablet daily for 2 days PREDNISONE 90706434215 Active Keyonna Jenn PATIENT INTAKE COORDINATOR-C Active ZITHROMAX 250 MG ORAL TABLET Take 2 tablets by mouth o n day 1 then 1 tablet the next 4 days AZITHROMYCIN 84239416706 Active Keynona Br itt PATIENT INTAKE COORDINATOR-C Active ZUBSOLV 11.4-2.9 MG SUBLINGUAL TABLET SUBLINGUAL Take 1 tablet dailyDEA; [id number] BUPRENORPHINE HCL-NALOXONE HCL 68462778466 Acti ve Rui Arndt MD Active CEFUROXIME AXETIL 500 MG ORAL TABLET TAKE 1/2 TABLET TWICE DAILY CEFUROXIME AXETIL 15488918882 No Longer Active Rui Arndt MD Active POTASSIUM CHLORIDE ER 10 MEQ CR-CAPS TAKE ONE TABLET BY MOUT H TWICE DAILY. POTASSIUM CHLORIDE 05399465487 AGUSTO Richardson Active OMEPRAZOLE 40MG TAKE 1 CAPSULE BY MOUTH EVERY MORNING OMEPRAZOLE 29773578825 AGUSTO Richardson Active SPIRIVA HANDIHLR INHALE CONTENTS OF ONE CAPSULE VIA HANDI HALER ONCE DAILY TIOTROPIUM BROMIDE MONOHYDRATE 41330726754 AGUSTO Richardson Active BUMETANIDE 1MG TAKE 1 TABLET BY MOUTH ONCE DAILY IF NEE DED FOR SWELLING BUMETANIDE 90294339667 AGUSTO Richardson Active ZOLPIDEM TARTRATE 10 MG TABS TAKE 1 TABLET BY MOUTH AT NIGHT IF NEEDED FOR SLEEP ZOLPIDEM TARTRATE 74680784290 Active Rui Arndt MD Active FUROSEMIDE 40MG TAKE 2 TABLETS BY MOUTH EVERY MORNING FUROSEMIDE 33877924076 Active Liudmila Tirado RN Active GABAPENTIN 300MG TAKE 1 CAPSULE BY MOUTH THREE TIMES DAILY GABAPENTIN 77312196451 Active AGUSTO Hall Active ATORVASTATIN 80MG TAKE 1 TABLET BY MOUTH DAILY AT BEDTIME 6 ATORVASTATIN CALCIUM 89251169000 Active AGUSTO Hall A ctive SUPER B-100 ORAL TABLET 1 q d B COMPLEX-BIOTI N-FA 78737316600 Active Tarun Chavez MD Active ASPIRIN 325 MG ORAL TABLET 1 q d ASPIRIN 7021199851 9 Active Tarun Chavez MD Active DIGITEK 125 MCG ORAL TABLET 1 q d DIGOXIN 761875011 01 Active Tarun Chavez MD Active VENTOLIN HFA 108 (90 BASE) MCG/ACT INHALATION AEROSOL SOLUTI ON 1 puff every day ALBUTEROL SULFATE 33573075794 No Longer Active Alan Chavez MD Active LEVOTHYROXINE SODIUM 200 MCG ORAL TABLET 1 po q a.m. for thyroid LEVOTHYROXINE SODIUM 43713670771 No Longer Active Tarun Chavez MD Active PROAIR HFA 108 (90 BASE) MCG/ACT INHALATION AEROSOL SO LUTION 2 puffs four times a day as needed ALBUTEROL SULFATE 85190988519 No Long er Active Tarun Chavez MD Active FLOMAX 0.4 MG ORAL CAPSULE 1 capsule by mouth in the evening for prostate TAMSULOSIN HCL 94487543271 No Longer Active Tarun Chavez MD Active ELIQUIS 5 MG TABS TAKE ONE TABLET BY MOUTH TWO TIMES A DAY APIXABAN 61626547155 Active AGUSTO Hall Active PREDNISONE 20 MG ORAL TABLET Take 2 tablets daily for 5 days and 1 tablet daily for 5 days. PREDNISONE 37293854388 No Longer Active Rui Arndt MD Active POTASSIUM CHLORIDE ER 10 MEQ CR-TABS TAKE ONE TABLET BY CATERINA TH TWICE DAILY. POTASSIUM CHLORIDE 20697675827 Active AGUSTO Hall Active KLOR-CON M10 10 MEQ ORAL TABLET EXTENDED RELEASE one tablet twic e a day POTASSIUM CHLORIDE JORDAN CR 73699823913 No Longer Active AGUSTO Suarez Active LORATADINE 10MG ORAL TABLET TAKE ONE TABLET BY MOUTH ONE TIME DAILY IF NEEDED FOR ALLERGIES. LORATADINE 99072851026 Active Alma Madrid AGUSTO Active LEVOTHYROXINE SODIUM 150MCG ORAL TABLET TAKE ONE TABLE T BY MOUTH ONE TIME DAILY FOR THYROID. LEVOTHYROXINE SODIUM 25146010493 Active S osiel Madrid AGUSTO Active PLAVIX 75 MG ORAL TABLET 1 tablet by mouth daily for 30 days 202 CLOPIDOGREL BISULFATE 93978089972 No Longer Active Rui Arndt MD Active PLAVIX 75 MG ORAL TABLET 1 tablet by mouth daily 03/11 CLOPIDOGREL BISULFATE 43847676484 No Longer Active Rui Arndt MD Activ e ASPIRIN 325 MG ORAL TABLET Take 1 tablet daily ASPIRIN 01511749095 No Longer Active Rui Arndt MD Active PREDNISONE 20 MG ORAL TABLET 1 tab twice daily for 3 d ay, then one daily for three days PREDNISONE 69564791445 No Longer Active Rui Arndt MD Active MORPHINE SULFATE ER 15 MG ORAL TABLET EXTENDED RELEASE 1 TID a d ay MORPHINE SULFATE 32236800629 No Longer Active Rui Arndt MD Active DEPO-TESTOSTERONE 100 MG/ML INTRAMUSCULAR SOLUTION 201 11/29/02 TESTOSTERONE CYPIONATE 04022197762 Active Brittny Aguila MA Active SUBOXONE 2-0.5 MG SUBLINGUAL FILM Bring to appointment before taking for induction. Stop the Morphine 12 hours before the appointment. BUPRENORPHINE HCL-NALOXONE HCL 92530177189 No Longer Active Rui Arndt MD Active MUCINEX D 60-600 MG ORAL TABLET EXTENDED RELEASE 12 HO UR 1 po BID PRN Congestion PSEUDOEPHEDRINE-GUAIFENESIN 85659784993 Active Luke Gonzales PATIENT INTAKE COORDINATOR Active ZITHROMAX Z-PETE 250 MG ORAL TABLET 2 today, then 1 daily for 4 d ays AZITHROMYCIN 40564821105 No Longer Active Luke Gonzales APRN Active MORPHINE SULFATE ER 60 MG ORAL TABLET EXTENDED RELEASE 1 twi ce a day for pain MORPHINE SULFATE 05781027035 No Longer Active Luke valdez APRN Active MORPHINE SULFATE ER 100 MG ORAL TABLET EXTENDED RELEASE one tabl et at bedtime MORPHINE SULFATE 89942273626 No Longer Active Luke Gonzales APRN Active DEPO-TESTOSTERONE 100 MG/ML INTRAMUSCULAR SOLUTION 1mL q4H TESTOSTERONE CYPIONATE 40289383238 No Longer Active Luke Gonzales APRN Active PANTOPRAZOLE SODIUM 40 MG ORAL TABLET DELAYED RELEASE 1 pill by mouth daily PANTOPRAZOLE SODIUM 37808703103 No Longer Active Jose Arndt MD Active FLOMAX 0.4 MG ORAL CAPSULE one capsule in the evening 1/2 hour a fter supper TAMSULOSIN HCL 52351391947 No Longer Active Rui Arndt MD Active LEVOTHYROXINE SODIUM 175 MCG ORAL TABLET 1 pill by mouth daily f or thyroid LEVOTHYROXINE SODIUM 05723892915 No Longer Active Fabiana Perdomo RN Active CLARITIN 10 MG ORAL TABLET 1 tablet by mouth daily as needed for allergies LORATADINE 80624710453 No Longer Active Mari bhakta PA-C Active CARAFATE 1 GM ORAL TABLET Take 1 tablet 4 times daily. Before meals and at bedtime SUCRALFATE 30882114699 No Longer Active Mari Stanley PA-C Active DULCOLAX 5 MG ORAL TABLET DELAYED RELEASE 1 tab daily BISACODYL 55161792869 Active Sara Moeller RN Active SUCRALFATE 1 GM ORAL TABLET 1 four times a day for GERD SUCRALFATE 97294267211 No Longer Active Sara Moeller RN Act berna FISH OIL CAPSULE 1 capsule daily OMEGA-3 FATTY ACIDS CAPS 48521878749 No Longer Active Sara Moeller RN Active PROBIOTIC DAILY ORAL CAPSULE 1 capsule daily 3 PROBIOTIC PRODUCT 37270800754 No Longer Active Sara Moeller RN Act berna B COMPLEX FORMULA 1 ORAL TABLET 1 tablet daily B COMPLEX- FOLIC ACID 33319384449 No Longer Active Sara Moeller RN Act berna PROAIR HFA 108 (90 BASE) MCG/ACT INHALATION AEROSOL SO LUTION 2 puffs four times a day as needed ALBUTEROL SULFATE 10497753182 No Long er Active Sara Moeller RN Active MULTIVITAMINS ORAL CAPSULE Take 1 daily MULTIPL E VITAMIN 74703898057 No Longer Active Sara Moeller RN Active CLONAZEPAM 2 MG ORAL TABLET one tablet at bed time CLONAZEPAM 26056424823 No Longer Active Sara Moeller RN Active DEPO-TESTOSTERONE 200 MG/ML INTRAMUSCULAR SOLUTION 100mg italia ry 4 weeks TESTOSTERONE CYPIONATE 18691702432 No Longer Active Sara Moeller RN Active ATIVAN 0.5 MG ORAL TABLET 1 tab 30 minutes prior to sleep study LORAZEPAM 93895684945 No Longer Active Rui Arndt MD Active NARCAN 4 MG/0.1ML NASAL LIQUID 1 spray in nostril ever y 2 to 3 minutes until responsive or EMS arrives NALOXONE HCL 40051854633 Active Rui Arntd MD Active LEVAQUIN 500 MG ORAL TABLET 1 daily for infection 2017 LEVOFLOXACIN 75052833406 No Longer Active Dena Lacy APRN Active PREDNISONE 20 MG TABS Take 2 daily for 5 days and then 1 stephy ly for 5 days PREDNISONE 77005013904 No Longer Active Rui saleem MD Active PREDNISONE 20 MG ORAL TABLET 2 tabs daily for 4 days, 1 tab daily for 4 days, 1/2 tab daily for 4 days PREDNISONE 95408977770 No Longer Active Rui Arndt MD Active OXYGEN 2L at night time - Dx: J44.9 Active Lori Winter LPN Active PREDNISONE 20 MG ORAL TABLET Take 2 daily for 5 days a nd then 1 daily for 5 days PREDNISONE 47811923270 No Longer Active Riu Arndt MD Active NORCO 10-325 MG ORAL TABLET Take 1-2 tablets every 6 hours a s needed for pain HYDROCODONE-ACETAMINOPHEN 23091064082 No Longer Activ e Rui Arndt MD Active FUROSEMIDE 20 MG ORAL TABLET 1 daily for blood pressure and swel ling FUROSEMIDE 67069291112 No Longer Active Rui Arndt MD Active PAMELOR 10 MG ORAL CAPSULE NORTRIPTY LINE HCL 16237058044 No Longer Active Rui Arndt MD Active AEROSPAN 80 MCG/ACT INHALATION AEROSOL SOLUTION 2 puffs twice FLUNISOLIDE HFA 97060210925 No Longer Active Rui Arndt MD Active LISINOPRIL 10 MG ORAL TABLET take one tab once daily 09/22 LISINOPRIL 51807624068 No Longer Active Rui Arndt MD Active BD INTEGRA SYRINGE 25G X 1" 1 ML Use with Depo provera INSULIN SYRINGE-NEEDLE U-100 Active Brittny Aguila MA Act berna MORPHINE SULFATE ER BEADS 75 MG ORAL CAPSULE EXTENDED RELEASE 24 HOUR 1 twice a day MORPHINE SULFATE BEADS 33375246065 No Longer Ac tive Rui Arndt MD Active COMBIVENT RESPIMAT 20-100 MCG/ACT INHALATION AEROSOL S OLUTION 1 puff four times a day IPRATROPIUM-ALBUTEROL 15886170885 No Longer Act berna Rui Arndt MD Active POTASSIUM CHLORIDE 20 MEQ ORAL PACKET 1 qDay with Lasix POTASSIUM CHLORIDE 62160856536 No Longer Active Rui Arndt MD Activ e PROAIR HFA 108 (90 Base) MCG/ACT INHALATION AEROSOL SO LUTION 2 puffs four times a day as needed ALBUTEROL SULFATE 23314574504 No Longer Ac tive Rui Arndt MD Active ASMANEX 60 METERED DOSES 220 MCG/INH INHALATION AEROSO L POWDER BREATH ACTIVATED 1 puff bid with rinse after MOMETASONE FUROATE 2363451 4102 No Longer Active Rui Arndt MD Active OMEPRAZOLE 40 MG ORAL CAPSULE DELAYED RELEASE 1 po q a.m. OMEPRAZOLE 27310414539 No Longer Active Anahi Ashley LPN Act [...] daily 2 LISINOPRIL 10 MG ORAL TABLET 497084 LISINOPRIL Inactive AEROSPAN 80 MCG/ACT INHALATION AEROSOL SOLUTION 2 puffs twice AEROSPAN 80 MCG/ACT INHALATION AEROSOL SOLUTION FLUNISOLIDE HFA Inactive PAMELOR 10 MG ORAL CAPSULE PAMELOR 1 0 MG ORAL CAPSULE 819360 NORTRIPTYLINE HCL Inactive FUROSEMIDE 20 MG ORAL TABLET 1 daily for blood pressure and swel ling FUROSEMIDE 20 MG ORAL TABLET 169897 FUROSEMIDE Corinna ctive NORCO 10-325 MG ORAL TABLET Take 1-2 tablets every 6 hours a s needed for pain NORCO 10-325 MG ORAL TABLET HYDROCODONE-A CETAMINOPHEN Inactive PREDNISONE 20 MG ORAL TABLET 2 tabs daily for 4 days, 1 tab daily for 4 days, 1/2 tab daily for 4 days PREDNISONE 20 MG ORAL T ABLET 603174 PREDNISONE Inactive LEVAQUIN 500 MG ORAL TABLET 1 daily for infection 2017 LEVAQUIN 500 MG ORAL TABLET 285314 LEVOFLOXACIN Inactive ATIVAN 0.5 MG ORAL TABLET 1 tab 30 minutes prior to sleep study ATIVAN 0.5 MG ORAL TABLET 489804 LORAZEPAM Inacti ve DEPO-TESTOSTERONE 200 MG/ML INTRAMUSCULAR SOLUTION 100mg italia ry 4 weeks DEPO-TESTOSTERONE 200 MG/ML INTRAMUSCULA R SOLUTION 4771944 TESTOSTERONE CYPIONATE Inactive CLONAZEPAM 2 MG ORAL TABLET one tablet at bed time 201 11/01/12 CLONAZEPAM 2 MG ORAL TABLET 318794 CLONAZEPAM Inactive MULTIVITAMINS ORAL CAPSULE Take 1 [...] capsule daily 3 PROBIOTIC DAILY ORAL CAPSULE 0214550 PROBIOTIC PRODUCT Inactive FISH OIL CAPSULE 1 capsule daily FISH OIL CAPSUL E OMEGA- 3 FATTY ACIDS CAPS Inactive SUCRALFATE 1 GM ORAL TABLET 1 four times a day for GERD SUCRALFATE 1 GM ORAL TABLET 209263 SUCRALFATE Inactive CARAFATE 1 GM ORAL TABLET Take 1 tablet 4 times daily. Before meals and at bedtime CARAFATE 1 GM ORAL TABLET 842423 SUCRALFATE Inactive CLARITIN 10 MG ORAL TABLET 1 tablet by mouth daily as needed for allergies CLARITIN 10 MG ORAL TABLET 280029 LORATADINE I nactive LEVOTHYROXINE SODIUM 175 MCG ORAL TABLET 1 pill by mouth daily f or thyroid LEVOTHYROXINE SODIUM 175 MCG ORAL TABLET 321140 LEVOTHY ROXINE SODIUM Inactive FLOMAX 0.4 MG ORAL CAPSULE one capsule in the evening 1/2 hour a fter supper FLOMAX 0.4 MG ORAL CAPSULE 771945 TAMSULOSIN HCL Inact berna PANTOPRAZOLE SODIUM 40 MG ORAL TABLET DELAYED RELEASE 1 pill by mouth daily PANTOPRAZOLE SODIUM 40 MG ORAL TABLET DE LAYED RELEASE 158267 PANTOPRAZOLE SODIUM Inactive DEPO-TESTOSTERONE 100 MG/ML INTRAMUSCULAR SOLUTION 1mL q4H DEPO-TESTOSTERONE 100 MG/ML INTRAMUSCULAR SOLUTION 053690 TESTOSTERONE CYPIONATE Inactive MORPHINE SULFATE ER 100 [...] three days PREDNISONE 20 MG ORAL TABLET 032229 PREDNIS ONE Inactive ASPIRIN 325 MG ORAL TABLET Take 1 tablet daily ASPIRIN 325 MG ORAL TABLET 573688 ASPIRIN Inactive PLAVIX 75 MG ORAL TABLET 1 tablet by mouth daily 03/11 PLAVIX 75 MG ORAL TABLET 719991 CLOPIDOGREL BISULFATE Inactive PLAVIX 75 MG ORAL TABLET 1 tablet by mouth daily for 30 days 202 PLAVIX 75 MG ORAL TABLET 625240 CLOPIDOGREL BISULFATE I nactive KLOR-CON M10 10 MEQ ORAL TABLET EXTENDED RELEASE one tablet twic e a day KLOR-CON M10 10 MEQ ORAL TABLET EXTENDED RELEASE 5096515 POTASSIUM CHLORIDE JORDAN CR Inactive PREDNISONE 20 MG ORAL TABLET Take 2 tablets daily for 5 days and 1 tablet daily for 5 days. PREDNISONE 20 MG ORAL TABLET 500001 PREDNISONE Inactive FLOMAX 0.4 MG ORAL CAPSULE 1 capsule by mouth in the evening for prostate FLOMAX 0.4 MG ORAL CAPSULE 126241 TAMSULOSIN HCL Inactive PROAIR HFA 108 (90 BASE) MCG/ACT INHALATION AEROSOL SO LUTION 2 puffs four times a day as needed PROAIR HFA 108 (90 B ASE) MCG/ACT INHALATION AEROSOL SOLUTION ALBUTEROL SULFATE Inactive LEVOTHYROXINE SODIUM 200 MCG ORAL TABLET 1 po q a.m. for thyroid LEVOTHYROXINE SODIUM 200 MCG ORAL TABLET 618075 LEVOTHY ROXINE SODIUM Inactive VENTOLIN HFA 108 (90 BASE) MCG/ACT INHALATION AEROSOL SOLUTI ON 1 puff every day VENTOLIN HFA 108 (90 BASE) M CG/ACT INHALATION AEROSOL SOLUTION ALBUTEROL SULFATE Inactive POTASSIUM CHLORIDE 20 MEQ ORAL PACKET 1 qDay with Lasix POTASSIUM CHLORIDE 20 MEQ ORAL PACKET 7174030 POTASSIUM CHLORIDE Inactive PREDNISONE 20 MG ORAL TABLET Take 2 daily for 5 days a nd then 1 daily for 5 days PREDNISONE 20 MG ORAL TABLET 666924 PREDNIS ONE Inactive PREDNISONE 20 MG TABS Take 2 daily for 5 days and then 1 stephy ly for 5 days PREDNISONE 20 MG TABS 162685 PREDNISONE Inacti ve ZITHROMAX Z-PETE 250 MG ORAL TABLET 2 today, then 1 daily for 4 d ays ZITHROMAX Z-PETE 250 MG ORAL TABLET 842463 AZITHROMYCIN Inactive CEFUROXIME AXETIL 500 MG ORAL TABLET TAKE 1/2 TABLET TWICE DAILY CEFUROXIME AXETIL 500 MG ORAL TABLET 226696 CEFUROXIME AXETIL Inactive Advance Directives Directive Description [...] Magnesium - Chemistry sodium, serum 138 mmol/L 097-644 1658/12/04 carbon dioxide, venous blood 28.3 mmol/L 21.0-32 [...] 0.90 mg/dL 0.00-1.00 cholesterol, serum 121 mg/dL 417-545 8755/12/04 triglyceride, serum, fasting 137 mg/dL 30-200 HDL [...] 2.60 ng/mL 0.00-4.00 sodium, serum 136 mmol/L 687-904 5304/10/06 carbon dioxide, venous blood 29.5 mmol/L 21.0-32 [...] noted Encounters Code Encounter Date Provider Facility CPT-83021 61603: Ofc Vst-Est Level III-Low MDM or 20-29 minutes 08:12:06 [facility] 08561: Ofc Vst-Est Level IV-Moderate MDM or 30-39 minutes 12:21:30 CDT Rui Arndt MD [facility] CPT-21288 60829-Bge Vst-Est Level IV 09:46:31 CDT Lobo Arndt MD [facility] CPT-63051 17857-Isi Vst-Est Level IV 10:42:47 ROVING CAN TENDER Lobo Arndt MD [facility] CPT-18746 82172-Dhz Vst-Est Level IV 11:02:04 CDT Lobo Arndt MD [facility] CPT-91368 19782-Tev Vst-Est Level IV 13:58:45 CDT Lobo Arndt MD [facility] CPT-33090 45120-Chr Vst-Est Level IV 15:13:53 CDT Lobo Arndt MD [facility] CPT-55518 08878-Iaa Vst-Est Level IV 11:54:49 CDT Lobo Arndt MD [facility] CPT-61589 91422-Ndn Vst-Est Level IV 11:04:27 [employer]OVING [employer] TENDER Lobo Arndt MD [facility] CPT-44313 Level 4 New Patient 12:35:21 CDT Ade chung MD [facility] CPT-51829 Ofc Vst-Est Level IV 16:12:07 CDT Rui Arndt MD [facility] CPT-28951 28269-Vvd Vst-Est Level IV 16:25:05 CDT Lobo Arndt MD [facility] CPT-88988 77879-Oxt Vst-Est Level III 10:55:45 CDT Rui Arndt MD [facility] CPT-73398 97536-Kze Vst-Est Level IV 14:16:20 CDT Lobo Arndt MD [facility] CPT-41947 Level 3 Est. Patient 13:14:20 CDT Luke rascon [facility] CPT-49791 01196-Dvx Vst-Est Level IV 09:53:37 [employer]OVING [employer] TENDER Lobo Arndt MD [facility] CPT-23307 36731-Dqw Vst-Est Level IV 09:44:38 CDT Lobo Arndt MD [facility] CPT-81883 Level 3 Est. Patient 15:23:12 CDT Dena ley [facility] CPT-76199 Level 4 Est. Patient 13:12:22 CDT Rui Arndt MD [facility] CPT-48922 Level 4 Est. Patient 14:44:13 CDT Dena ley [facility] CPT-56722 53670-Kau Vst-Est Level III 11:23:31 CDT Rui Arndt MD [facility] CPT-24896 37201-Upx Vst-Est Level V 10:04:33 CDT Jose Arndt MD [facility]-62141 Level 4 Est. Patient 16:17:47 CDT Rui Arndt MD [facility]-55637 Level 4 Est. Patient 10:53:57 CDT Rui Arndt MD [facility]-64669 Level 3 Est. Patient 16:09:12 CDT Jemal marti MD [facility]-43539 Level 4 Est. Patient 11:32:24 [employer]ING [employer] Rui Arndt MD [facility]-57416 Level 4 Est. Patient 14:55:39 ROVING CAN TENDER Dena ley [facility]-23217 Level 3 Est. Patient 15:10:46 ROVING [employer] TENDER Rui Arndt MD [facility]-55117 Level 3 Est. Patient 12:01:26 ROVING [employer] TENDER Rui Arndt MD [facility]-13166 Level 3 Est. Patient 10:35:15 ROVING [employer] TENDER Rui Arndt MD [facility]-29217 Level 3 Est. Patient 15:04:30 CDT Rui Arndt MD [facility]-15930 Level 3 Est. Patient 10:15:00 CDT Vinod fenton [facility]-72761 Level 4 Est. Patient 14:59:25 CDT Rui Arndt MD [facility]-62892 Level 4 Est. Patient 12:07:34 CDT Rui Arndt MD [facility]-83422 Level 3 Est. Patient 10:42:08 ROVING [employer] TENDER Rui Arndt MD [facility]-86122 Level 3 Est. Patient 17:29:10 ROVING CAN TENDER Rui Arndt MD [facility]-63295 Level 4 Est. Patient 15:12:05 CDT Rui Arndt MD [facility]-81297 Level 2 Est. Patient 16:27:53 CDT Rui Arndt MD [facility] CPT-72697 Level 3 Est. Patient 12:02:36 CDT Rui Arndt MD [facility] CPT-00525 Level 4 Est. Patient 11:17:39 CDT Rui Arndt MD [facility] CPT-44372 Level 4 Est. Patient 15:46:07 CDT Rui Arndt MD [facility] CPT-45863 Level 4 Est. Patient 17:18:59 [employer]OVING [employer] TENDER Rui Arndt MD [facility]-17799 Level 4 Est. Patient 15:09:55 CDT Fabiana Vizcaino GEORGIN[facility] CPT-34507 Level 3 Est. Patient 15:49:06 CDT Rui Arndt MD [facility] CPT-27196 Level 3 Est. Patient 11:40:46 CDT Rui Arndt MD [facility] CPT-58324 Level 3 Est. Patient 18:00:51 CDT Rui Arndt MD [facility] CPT-84886 Level 4 Est. Patient 10:25:35 CDT Rui Arndt MD [facility] CPT-82669 Level 3 Est. Patient 15:45:51 CDT Rui Arndt MD [facility] CPT-83439 Level 4 Est. Patient 11:32:17 [employer]OVING [employer] Rui Arndt MD [facility] CPT-02756 Level 4 New Patient 17:03:03 CDT Rui yoder MD [facility] Procedures Code Procedure Name Date Entry Date Standard Desc ription CPT-J1071 Depo Testosterone 100mg 10:43:46 CDT 10/19 CPT-67791 Abx/Therapy Injection 10:43:46 CDT CPT-J1071 Depo Testosterone 100mg 13:15:20 CDT 09/16 CPT-90594 Abx/Therapy Injection 13:15:20 CDT CPT-J1071 Depo Testosterone 100mg 13:00:53 CDT 08/18 CPT-75667 Abx/Therapy Injection 13:00:53 CDT CPT-J1071 Depo Testosterone 100mg 16:00:36 CDT 07/22 CPT-96453 Abx/Therapy Injection 16:00:36 CDT CPT-J1071 Depo Testosterone 100mg 15:59:22 CDT 06/24 CPT-40386 Abx/Therapy Injection 15:59:22 CDT CPT-J1071 Depo Testosterone 100mg 17:34:08 [employer]ING [employer] 05/27 CPT-95625 Abx/Therapy Injection 17:34:08 [employer]OVING [employer] CPT-PD6660R (4274F) Influenza immunization administe red or previously received 12:03:02 [employer]ING [employer] CPT-WI9805V (4274F) Influenza immunization administe red or previously received 10:42:46 [employer]OVING [employer]ER CPT-J1071 Depo Testosterone 100mg 14:29:40 ROVING [employer] TENDER 05/19 CPT-35005 Abx/Therapy Injection 14:29:40 [employer]ING [employer] CPT-64393 Venipuncture Draw Fee 09:50:26 [employer]ING [employer] CPT-06384 Venipuncture Draw Fee 11:06:37 [employer]ING [employer] CPT-J1071 Depo Testosterone 100mg 13:49:54 ROVING [employer] TENDER 04/20 CPT-59151 Abx/Therapy Injection 13:49:54 ROVING [employer] TENDER CPT-J1071 Depo Testosterone 100mg 16:22:38 CDT CPT-61101 Abx/Therapy Injection 16:22:38 CDT CPT-000 Give Appropriate Flu Vaccine 11:02:04 CDT 2 CPT-57737 21567 - Immun Admin 1 vac 11:43:22 CDT 2019 CPT-30316 [employer] Quadrivalent [place] 11:43:22 CDT CPT-52048 Venipuncture Draw Fee 11:14:23 CDT CPT-OF6453W (4274F 2P) Patient Reason Influenza immu nization not administered 11:02:04 CDT CPT-G0439 Subsequent Annual Wellness Exam 14:24:52 CDT CPT-[id number] (4013F) Statin therapy prescribed or cur rently being taken 14:24:52 CDT CPT-VL0800D (4274F 2P) Patient Reason Influenza immu nization not administered 14:24:52 CDT CPT-J1071 Depo Testosterone 100mg 13:29:13 CDT 12/23 CPT-72868 Abx/Therapy Injection 13:29:13 CDT CPT-J1071 Depo Testosterone 100mg 14:43:03 CDT 11/24 CPT-59848 Abx/Therapy Injection 14:43:03 CDT CPT-J1071 Depo Testosterone 100mg 17:18:41 CDT 10/27 CPT-24675 Abx/Therapy Injection 17:18:41 CDT CPT-13284 4M Drug Screen cup test, Multi-panel, urine 2019 13:58:45 CDT CPT-J1071 Depo Testosterone 100mg 16:42:20 CDT 0 09/23 CPT-37012 Abx/Therapy Injection 16:42:20 CDT CPT-J1071 Depo Testosterone 100mg 16:43:18 CDT 0 08/26 CPT-16757 Abx/Therapy Injection 16:43:18 CDT CPT-79527 Venipuncture Draw Fee 13:01:56 CDT CPT-J1071 Depo Testosterone 100mg 15:54:02 CDT 07/28 CPT-82126 Abx/Therapy Injection 15:54:02 CDT CPT-J1071 Depo Testosterone 100mg 15:17:11 CDT 0 06/30 CPT-63405 Abx/Therapy Injection 15:17:10 CDT CPT-99959 Venipuncture Draw Fee 11:58:13 CDT CPT-J1071 Depo Testosterone 200mg 14:59:06 CDT 0 06/02 CPT-18502 Abx/Therapy Injection 14:59:06 CDT CPT-J1071 Depo Testosterone 100mg 14:08:37 ROVING CAN TENDER 2019/0 05/06 CPT-70708 Abx/Therapy Injection 14:08:37 [employer] CPT-44900 Venipuncture Draw Fee 15:15:20 [employer] CPT-J1071 Depo Testosterone 100mg 15:40:35 [employer] 2019/0 04/08 CPT-37288 Abx/Therapy Injection 15:40:35 [employer] CPT-TCMM Transitional Care Mgmt-Moderate 12:40:08 CS T CPT-[id number] ([id number]) Influenza immunization administe red or previously received 12:40:07 [employer] CPT-39786 Venipuncture Draw Fee 15:13:23 [employer] CPT-40332 Venipuncture Draw Fee 12:39:02 [employer] CPT-J1071 Depo Testosterone 100mg 11:35:50 [employer] 05/12 CPT-98202 Abx/Therapy Injection 11:35:50 [employer] CPT-RV8244Y (4274F) Influenza immunization administe red or previously received 11:04:25 [employer] CPT-J1071 Depo Testosterone 100mg 11:32:22 [employer] 04/13 CPT-43297 Abx/Therapy Injection 11:32:22 [employer] CPT-47238 48595 - Immun Admin 1 vac 16:43:51 [employer] 2018 CPT-21144 Shingrix 16:43:51 [employer] CPT-J1071 Depo Testosterone 100mg 18:38:18 CDT CPT-16326 Abx/Therapy Injection 18:38:17 CDT CPT-J1071 Depo Testosterone 100mg 14:36:52 CDT 12/18 CPT-37784 Abx/Therapy Injection 14:36:52 CDT CPT-G0008 Administration of Influenza Virus Vaccine 12/18 14:35:05 CDT CPT-45419 Fluzone (Flu) 10Pk Syringe IM (Medicare) 14:35:05 CDT CPT-45838 Bladder Scan 12:35:21 CDT CPT-71052 Venipuncture Draw Fee 16:41:57 CDT CPT-82376 73862 - Immun Admin 1 vac 16:31:08 CDT 2018 CPT-04971 Shingrix 16:31:07 CDT CPT-G0439 Subsequent Annual Wellness Exam 16:12:06 CDT CPT-J1071 Depo Testosterone 100mg 12:18:42 CDT 11/20 CPT-82016 Abx/Therapy Injection 12:18:42 CDT CPT-J1071 Depo Testosterone 100mg 11:42:38 CDT 09/03 CPT-69271 Abx/Therapy Injection 11:42:38 CDT CPT-J1071 Depo Testosterone 100mg 12:00:58 CDT 08/06 CPT-16516 Abx/Therapy Injection 12:00:58 CDT CPT-J1071 Depo Testosterone 100mg 12:34:21 CDT 07/09 CPT-04864 Abx/Therapy Injection 12:34:21 CDT CPT-35331 Abdomen, 2 views 13:20:15 CDT CPT-02276 Chest, 2 views 13:20:15 CDT CPT-J1071 Depo Testosterone 200mg 14:21:46 CDT 0 06/12 CPT-86028 Abx/Therapy Injection 14:21:46 CDT CPT-J1071 Depo Testosterone 100mg 14:34:38 [employer] 0 05/14 CPT-74093 Abx/Therapy Injection 14:34:38 [employer] CPT-000 Give Pneumovax 11:57:22 CDT CPT-J1071 Depo Testosterone 100mg 17:09:47 [employer] 04/13 CPT-59182 Abx/Therapy Injection 17:09:47 [employer] CPT-J1071 Depo Testosterone 100mg 15:41:42 [employer] 05/17 CPT-37552 Abx/Therapy Injection 15:41:42 [employer] CPT-J1071 Depo Testosterone 100mg 13:42:43 [employer] 04/18 CPT-08902 Abx/Therapy Injection 13:42:43 [employer] CPT-J1071 Depo Testosterone 100mg 13:24:43 CDT CPT-60131 Abx/Therapy Injection 13:24:43 CDT CPT-58619 First Vx - Ix admin for Medicare patients 18:07:22 CDT CPT-63275 Fluzone Quadrivalent Intramuscular Suspe nsion 0.5 ML 18:07:22 CDT CPT-J1071 Depo Testosterone 100mg 12:06:21 CDT 12/21 CPT-03102 Abx/Therapy Injection 12:06:21 CDT CPT-J1071 Depo Testosterone 100mg 16:09:00 CDT 11/23 CPT-21032 Abx/Therapy Injection 16:09:00 CDT CPT-G0439 [facility] Annual Wellness Exam 13:12:23 CDT CPT-J1071 Depo Testosterone 100mg 10:40:29 CDT 10/26 CPT-08006 Abx/Therapy Injection 10:40:29 CDT CPT-J1071 Depo Testosterone 100mg 09:15:44 CDT 09/28 CPT-98897 Abx/Therapy Injection 09:15:43 CDT CPT-J1071 Depo Testosterone 100mg 10:53:34 CDT 08/31 CPT-43704 Abx/Therapy Injection 10:53:34 CDT CPT-74696 [place] pre/post w graphic rec - XRAY USE ONLY 201 10/30/06 10:24:51 CDT CPT-J1071 Depo Testosterone 100mg 14:11:00 CDT 08/03 CPT-44299 Abx/Therapy Injection 14:11:00 CDT CPT-J1071 Depo Testosterone 100mg 15:15:13 CDT 07/04 CPT-11895 Abx/Therapy Injection 15:15:13 CDT CPT-J2310 Narcan HCI .4mg per 1 ml 15:52:42 CDT 06/26 CPT-20906 Chest, 2 views 15:11:39 CDT CPT-000 Give Appropriate Flu Vaccine 12:01:26 [employer] 2 CPT-18193 Chest single view 16:11:20 CDT CPT-J1071 Depo Testosterone 100mg 10:50:45 [employer] 05/29 CPT-87577 Abx/Therapy Injection 10:50:45 [employer] CPT-31089 Chest, 2 views 11:49:28 [employer] CPT-J1071 Depo Testosterone 100mg 16:07:43 [employer] 05/02 CPT-64915 Abx/Therapy Injection 16:07:43 [employer] CPT-J1071 Depo Testosterone 100mg 15:31:04 [employer] 03/31 CPT-14030 Abx/Therapy Injection 15:31:04 [employer] CPT-J1071 Depo Testosterone 100mg 16:29:48 CDT CPT-12450 Abx/Therapy Injection 16:29:48 CDT CPT-J1071 Depo Testosterone 100mg 14:42:01 CDT 12/23 CPT-30255 Abx/Therapy Injection 14:42:01 CDT CPT-G0439 [facility] Annual Wellness Exam 14:14:09 CDT CPT-J1071 Depo Testosterone 100mg 13:48:18 CDT 11/17 CPT-28948 Abx/Therapy Injection 13:48:18 CDT CPT-G0009 Administration of Pneumococcal Vaccine 4 12:06:23 CDT CPT-00222 Pneumovax 23 Injection Injectable 25 MCG /0.5ML 12:06:23 CDT CPT-J1071 Depo Testosterone 100mg 13:11:36 CDT 10/19 CPT-92629 Abx/Therapy Injection 13:11:36 CDT CPT-J1071 Depo Testosterone 100mg 13:17:59 CDT 09/21 CPT-25579 Abx/Therapy Injection 13:17:59 CDT CPT-J1071 Depo Testosterone 100mg 13:08:38 CDT 09/21 CPT-J1071 Depo Testosterone 100mg 13:06:32 CDT 09/21 CPT-26910 Bone Density - XRAY USE ONLY 09:04:29 [employer] 2 CPT-12116 BMP - LAB USE ONLY 17:39:11 [employer] CPT-71512 Venipuncture Draw Fee 17:39:11 [employer] CPT-000 Give Appropriate Flu Vaccine 15:16:28 CDT 2 CPT-J1071 Depo Testosterone 200mg 16:59:53 CDT 10/21 CPT-74836 Abx/Therapy Injection 16:59:53 CDT CPT-97931 Abx/Therapy Injection 18:58:42 [employer] CPT-39352 First Vx - Ix admin for Medicare patients 15:47:06 CDT CPT-64366 Fluzone High-Dose Intramuscular Suspension 01/19 15:47:06 CDT CPT-36680 Abx/Therapy Injection 14:12:15 CDT CPT-38035 Abx/Therapy Injection 13:34:08 CDT CPT-02324 Abx/Therapy Injection 14:41:47 CDT CPT-G0438 Initial Annual Wellness Exam 10:06:26 CD T CPT-J1071 Depo Testosterone 200mg 11:42:49 CDT 09/22 CPT-18514 Abx/Therapy Injection 11:42:49 CDT CPT-44565 Abx/Therapy Injection 16:55:18 CDT CPT-93918 Abx/Therapy Injection 13:49:32 CDT CPT-J1071 Depo Testosterone 200mg 09:48:27 CDT 06/28 CPT-38659 Abx/Therapy Injection 09:48:27 CDT CPT-46585 Abx/Therapy Injection 16:27:06 [employer] CPT-26799 No Charge Offi Visit 18:00:02 [employer] 8 CPT-89615 Abd compl w upright 12:29:27 [employer] CPT-000 Give Appropriate Flu Vaccine 16:15:45 [employer] 2 CPT-55104 Abx/Therapy Injection 11:03:39 [employer] CPT-31244 Venipuncture Draw Fee 13:07:59 [employer] CPT-70078 Immunization Single Admin 12:03:42 [employer] 2014 CPT-00766 Fluzone High Dose (65+) 12:03:41 [employer] 05/05 CPT-04044 Chest 2V Frontal and Lat 15:25:23 CDT 12/29 CPT-81626 Venipuncture Draw Fee 15:57:34 CDT CPT-20441 Abx/Therapy Injection 12:52:43 CDT CPT-55440 Abx/Therapy Injection 08:58:56 CDT CPT-40633 Venipuncture Draw Fee 15:59:37 CDT CPT-64723 Abx/Therapy Injection 08:36:16 CDT CPT-000 Give Pneumovax 11:32:18 [employer] CPT-000 Give Appropriate Flu Vaccine 11:32:18 [employer] 2 CPT-14883 Abx/Therapy Injection 09:52:48 CDT CPT-78097 Abx/Therapy Injection 09:56:54 CDT CPT-OV Office Visit 16:35:19 CDT CPT-12643 Abx/Therapy Injection 08:25:48 CDT CPT-90245 Abx/Therapy Injection 09:17:15 [employer] CPT-74893 Abx/Therapy Injection 08:52:31 [employer] CPT-31651 Abx/Therapy Injection 09:32:50 [employer] CPT-17508 Abx/Therapy Injection 08:28:14 [employer] CPT-31884 Abx/Therapy Injection 10:43:07 CDT CPT-J1070 Depo Testosterone 100 mg 08:39:09 CDT 12/05 CPT-43428 Abx/Therapy Injection 08:39:09 CDT CPT-19835 Abx/Therapy Injection 11:22:03 CDT CPT-76087 Shoulder comp min 2V 14:11:48 CDT 1 CPT-73421 Abx/Therapy Injection 09:56:35 CDT CPT-LR Lesion Removal 09:49:45 CDT
--- OUTSIDE RECORDS SUMMARY | 2020-12-04 06:13 | XMS REPORT | Clinical Summary ---
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 Monoclonal paraproteinemia Peripheral edema 782.3 Active Fabiana Speaks A PRN Edema Dyspnea 786.09 Resolved Rui Arndt MD Other dyspnea and respiratory abnormality Need for prophylactic vaccination and inoculation against in fluenza V04.81 Resolved Rui Arndt MD Need for prophylactic vaccination and inoculation against influenza Peripheral artery disease 443.9 Active Laurita [facility]ongMilton [facility] Peripheral vascular disease, unspecified Abdominal pain, [...] Body Mass Index 39.0-39.9 Adult Refinement 2017 Riu Arndt MD Body Mass Index 39.0-39.9, adult BMI 38-38.9 Refinement Luek Gonzales APRN Body Mass Index 39.0-39.9, adult [...] 39.0-39.9, adult BMI 37-37.9 Active Keyonna Barajas DIGITAL COMPOSER-C Body Mass Index 39.0-39.9, adult Abdominal bloating [...] atherosclerosis of unspecified type of vessel , sycuan or graft 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 ALBUTEROL SULFATE 25130345989 Active Keyonna Jenn DIGITAL COMPOSER-C Activ e PREDNISONE 20 MG ORAL TABLET Take 2 tablets by mouth d aily for 3 days then 1 tablet daily for 2 days PREDNISONE 68465242113 Active Keyonna Jenn DIGITAL COMPOSER-C Active ZITHROMAX 250 MG ORAL TABLET Take 2 tablets by mouth o n day 1 then 1 tablet the next 4 days AZITHROMYCIN 80541250534 Active Keyonna Br itt DIGITAL COMPOSER-C Active ZUBSOLV 11.4-2.9 MG SUBLINGUAL TABLET SUBLINGUAL Take 1 tablet dailyDEA; [id number] BUPRENORPHINE HCL-NALOXONE HCL 94209663011 Acti ve Rui Arndt MD Active CEFUROXIME AXETIL 500 MG ORAL TABLET TAKE 1/2 TABLET TWICE DAILY CEFUROXIME AXETIL 80693484656 No Longer Active Rui Arndt MD Active POTASSIUM CHLORIDE ER 10 MEQ CR-CAPS TAKE ONE TABLET BY MOUT H TWICE DAILY. POTASSIUM CHLORIDE 67041323396 AGUSTO Richardson Active OMEPRAZOLE 40MG TAKE 1 CAPSULE BY MOUTH EVERY MORNING OMEPRAZOLE 35660008399 AGUSTO Richardson Active SPIRIVA HANDIHLR INHALE CONTENTS OF ONE CAPSULE VIA HANDI HALER ONCE DAILY TIOTROPIUM BROMIDE MONOHYDRATE 00120575915 AGUSTO Richardson Active BUMETANIDE 1MG TAKE 1 TABLET BY MOUTH ONCE DAILY IF NEE DED FOR SWELLING BUMETANIDE 36011362088 AGUSTO Richardson Active ZOLPIDEM TARTRATE 10 MG TABS TAKE 1 TABLET BY MOUTH AT NIGHT IF NEEDED FOR SLEEP ZOLPIDEM TARTRATE 57089816810 Active Rui Arndt MD Active FUROSEMIDE 40MG TAKE 2 TABLETS BY MOUTH EVERY MORNING FUROSEMIDE 87768948126 Active Liudmila Tirado RN Active GABAPENTIN 300MG TAKE 1 CAPSULE BY MOUTH THREE TIMES DAILY GABAPENTIN 84542236207 Active AGUSTO Hall Active ATORVASTATIN 80MG TAKE 1 TABLET BY MOUTH DAILY AT BEDTIME 6 ATORVASTATIN CALCIUM 98521388853 Active AGUSTO Hall A ctive SUPER B-100 ORAL TABLET 1 q d B COMPLEX-BIOTI N-FA 81679619907 Active Tarun Chavez MD Active ASPIRIN 325 MG ORAL TABLET 1 q d ASPIRIN 6894580708 9 Active Tarun Chavez MD Active DIGITEK 125 MCG ORAL TABLET 1 q d DIGOXIN 661754609 01 Active Tarun Chavez MD Active VENTOLIN HFA 108 (90 BASE) MCG/ACT INHALATION AEROSOL SOLUTI ON 1 puff every day ALBUTEROL SULFATE 76758271532 No Longer Active Alan Chavez MD Active LEVOTHYROXINE SODIUM 200 MCG ORAL TABLET 1 po q a.m. for thyroid LEVOTHYROXINE SODIUM 03900688026 No Longer Active Tarun Chavez MD Active PROAIR HFA 108 (90 BASE) MCG/ACT INHALATION AEROSOL SO LUTION 2 puffs four times a day as needed ALBUTEROL SULFATE 40007191659 No Long er Active Tarun Chavez MD Active FLOMAX 0.4 MG ORAL CAPSULE 1 capsule by mouth in the evening for prostate TAMSULOSIN HCL 81118986259 No Longer Active Tarun Chavez MD Active ELIQUIS 5 MG TABS TAKE ONE TABLET BY MOUTH TWO TIMES A DAY APIXABAN 74216230310 Active AGUSTO Hall Active PREDNISONE 20 MG ORAL TABLET Take 2 tablets daily for 5 days and 1 tablet daily for 5 days. PREDNISONE 49786709693 No Longer Active Rui Arndt MD Active POTASSIUM CHLORIDE ER 10 MEQ CR-TABS TAKE ONE TABLET BY CATERINA TH TWICE DAILY. POTASSIUM CHLORIDE 51535480966 Active AGUSTO Hall Active KLOR-CON M10 10 MEQ ORAL TABLET EXTENDED RELEASE one tablet twic e a day POTASSIUM CHLORIDE JORDAN CR 77089748305 No Longer Active AGUSTO Suarez Active LORATADINE 10MG ORAL TABLET TAKE ONE TABLET BY MOUTH ONE TIME DAILY IF NEEDED FOR ALLERGIES. LORATADINE 72671037343 Active Alma Madrid AGUSTO Active LEVOTHYROXINE SODIUM 150MCG ORAL TABLET TAKE ONE TABLE T BY MOUTH ONE TIME DAILY FOR THYROID. LEVOTHYROXINE SODIUM 73789089692 Active S osiel Madrid AGUSTO Active PLAVIX 75 MG ORAL TABLET 1 tablet by mouth daily for 30 days 202 CLOPIDOGREL BISULFATE 47303470798 No Longer Active Rui Arndt MD Active PLAVIX 75 MG ORAL TABLET 1 tablet by mouth daily 03/11 CLOPIDOGREL BISULFATE 37172798084 No Longer Active Rui Arndt MD Activ e ASPIRIN 325 MG ORAL TABLET Take 1 tablet daily ASPIRIN 77898653505 No Longer Active Rui Arndt MD Active PREDNISONE 20 MG ORAL TABLET 1 tab twice daily for 3 d ay, then one daily for three days PREDNISONE 41722158158 No Longer Active Rui Arndt MD Active MORPHINE SULFATE ER 15 MG ORAL TABLET EXTENDED RELEASE 1 TID a d ay MORPHINE SULFATE 25094433455 No Longer Active Rui Arndt MD Active DEPO-TESTOSTERONE 100 MG/ML INTRAMUSCULAR SOLUTION 201 11/29/02 TESTOSTERONE CYPIONATE 93734873541 Active Brittny Aguila MA Active SUBOXONE 2-0.5 MG SUBLINGUAL FILM Bring to appointment before taking for induction. Stop the Morphine 12 hours before the appointment. BUPRENORPHINE HCL-NALOXONE HCL 59819000711 No Longer Active Rui Arndt MD Active MUCINEX D 60-600 MG ORAL TABLET EXTENDED RELEASE 12 HO UR 1 po BID PRN Congestion PSEUDOEPHEDRINE-GUAIFENESIN 63254798399 Active Luke Gonzales DIGITAL COMPOSER Active ZITHROMAX Z-PETE 250 MG ORAL TABLET 2 today, then 1 daily for 4 d ays AZITHROMYCIN 25199704846 No Longer Active Luke Gonzales APRN Active MORPHINE SULFATE ER 60 MG ORAL TABLET EXTENDED RELEASE 1 twi ce a day for pain MORPHINE SULFATE 17318384662 No Longer Active Luke valdez APRN Active MORPHINE SULFATE ER 100 MG ORAL TABLET EXTENDED RELEASE one tabl et at bedtime MORPHINE SULFATE 96695651495 No Longer Active Luke Gonzales APRN Active DEPO-TESTOSTERONE 100 MG/ML INTRAMUSCULAR SOLUTION 1mL q4H TESTOSTERONE CYPIONATE 15551101597 No Longer Active Luke Gonzales APRN Active PANTOPRAZOLE SODIUM 40 MG ORAL TABLET DELAYED RELEASE 1 pill by mouth daily PANTOPRAZOLE SODIUM 75186630416 No Longer Active Jose Arndt MD Active FLOMAX 0.4 MG ORAL CAPSULE one capsule in the evening 1/2 hour a fter supper TAMSULOSIN HCL 93380636486 No Longer Active Rui Arndt MD Active LEVOTHYROXINE SODIUM 175 MCG ORAL TABLET 1 pill by mouth daily f or thyroid LEVOTHYROXINE SODIUM 72133260197 No Longer Active Fabiana Perdomo RN Active CLARITIN 10 MG ORAL TABLET 1 tablet by mouth daily as needed for allergies LORATADINE 68967944401 No Longer Active Mari bhakta PA-C Active CARAFATE 1 GM ORAL TABLET Take 1 tablet 4 times daily. Before meals and at bedtime SUCRALFATE 51855284551 No Longer Active Mari Stanley PA-C Active DULCOLAX 5 MG ORAL TABLET DELAYED RELEASE 1 tab daily BISACODYL 88716070682 Active Sara Moeller RN Active SUCRALFATE 1 GM ORAL TABLET 1 four times a day for GERD SUCRALFATE 26093647235 No Longer Active Sara Moeller RN Act berna FISH OIL CAPSULE 1 capsule daily OMEGA-3 FATTY ACIDS CAPS 46726224073 No Longer Active Sara Moeller RN Active PROBIOTIC DAILY ORAL CAPSULE 1 capsule daily 3 PROBIOTIC PRODUCT 32908621194 No Longer Active Sara Moeller RN Act berna B COMPLEX FORMULA 1 ORAL TABLET 1 tablet daily B COMPLEX- FOLIC ACID 34490048318 No Longer Active Sara Moeller RN Act berna PROAIR HFA 108 (90 BASE) MCG/ACT INHALATION AEROSOL SO LUTION 2 puffs four times a day as needed ALBUTEROL SULFATE 09522123988 No Long er Active Sara Moeller RN Active MULTIVITAMINS ORAL CAPSULE Take 1 daily MULTIPL E VITAMIN 55041385441 No Longer Active Sara Moeller RN Active CLONAZEPAM 2 MG ORAL TABLET one tablet at bed time CLONAZEPAM 50014384589 No Longer Active Sara Moeller RN Active DEPO-TESTOSTERONE 200 MG/ML INTRAMUSCULAR SOLUTION 100mg italia ry 4 weeks TESTOSTERONE CYPIONATE 32600864330 No Longer Active Sara Moeller RN Active ATIVAN 0.5 MG ORAL TABLET 1 tab 30 minutes prior to sleep study LORAZEPAM 62098924348 No Longer Active Rui Arndt MD Active NARCAN 4 MG/0.1ML NASAL LIQUID 1 spray in nostril ever y 2 to 3 minutes until responsive or EMS arrives NALOXONE HCL 59929352640 Active Rui Arndt MD Active LEVAQUIN 500 MG ORAL TABLET 1 daily for infection 2017 LEVOFLOXACIN 86201069855 No Longer Active Dena Lacy APRN Active PREDNISONE 20 MG TABS Take 2 daily for 5 days and then 1 stephy ly for 5 days PREDNISONE 21225862671 No Longer Active Rui saleem MD Active PREDNISONE 20 MG ORAL TABLET 2 tabs daily for 4 days, 1 tab daily for 4 days, 1/2 tab daily for 4 days PREDNISONE 49461008137 No Longer Active Rui Arndt MD Active OXYGEN 2L at night time - Dx: J44.9 Active Lori Winter LPN Active PREDNISONE 20 MG ORAL TABLET Take 2 daily for 5 days a nd then 1 daily for 5 days PREDNISONE 23382258978 No Longer Active Rui Arndt MD Active NORCO 10-325 MG ORAL TABLET Take 1-2 tablets every 6 hours a s needed for pain HYDROCODONE-ACETAMINOPHEN 37982409956 No Longer Activ e Rui Arndt MD Active FUROSEMIDE 20 MG ORAL TABLET 1 daily for blood pressure and swel ling FUROSEMIDE 01410435917 No Longer Active Rui Arndt MD Active PAMELOR 10 MG ORAL CAPSULE NORTRIPTY LINE HCL 60910055397 No Longer Active Rui Arndt MD Active AEROSPAN 80 MCG/ACT INHALATION AEROSOL SOLUTION 2 puffs twice FLUNISOLIDE HFA 56603777445 No Longer Active Rui Arndt MD Active LISINOPRIL 10 MG ORAL TABLET take one tab once daily 09/22 LISINOPRIL 99344013641 No Longer Active Rui Arndt MD Active BD INTEGRA SYRINGE 25G X 1" 1 ML Use with Depo provera INSULIN SYRINGE-NEEDLE U-100 Active Brittny Aguila MA Act berna MORPHINE SULFATE ER BEADS 75 MG ORAL CAPSULE EXTENDED RELEASE 24 HOUR 1 twice a day MORPHINE SULFATE BEADS 99852935569 No Longer Ac tive Rui Arndt MD Active COMBIVENT RESPIMAT 20-100 MCG/ACT INHALATION AEROSOL S OLUTION 1 puff four times a day IPRATROPIUM-ALBUTEROL 38417718255 No Longer Act berna Rui Arndt MD Active POTASSIUM CHLORIDE 20 MEQ ORAL PACKET 1 qDay with Lasix POTASSIUM CHLORIDE 99555704248 No Longer Active Rui Arndt MD Activ e PROAIR HFA 108 (90 Base) MCG/ACT INHALATION AEROSOL SO LUTION 2 puffs four times a day as needed ALBUTEROL SULFATE 95734452527 No Longer Ac tive Rui Arndt MD Active ASMANEX 60 METERED DOSES 220 MCG/INH INHALATION AEROSO L POWDER BREATH ACTIVATED 1 puff bid with rinse after MOMETASONE FUROATE 8766741 4102 No Longer Active Rui Arndt MD Active OMEPRAZOLE 40 MG ORAL CAPSULE DELAYED RELEASE 1 po q a.m. OMEPRAZOLE 20352668380 No Longer Active Anahi Ashley LPN Act [...] daily 2 LISINOPRIL 10 MG ORAL TABLET 574526 LISINOPRIL Inactive AEROSPAN 80 MCG/ACT INHALATION AEROSOL SOLUTION 2 puffs twice AEROSPAN 80 MCG/ACT INHALATION AEROSOL SOLUTION FLUNISOLIDE HFA Inactive PAMELOR 10 MG ORAL CAPSULE PAMELOR 1 0 MG ORAL CAPSULE 744184 NORTRIPTYLINE HCL Inactive FUROSEMIDE 20 MG ORAL TABLET 1 daily for blood pressure and swel ling FUROSEMIDE 20 MG ORAL TABLET 999801 FUROSEMIDE Corinna ctive NORCO 10-325 MG ORAL TABLET Take 1-2 tablets every 6 hours a s needed for pain NORCO 10-325 MG ORAL TABLET HYDROCODONE-A CETAMINOPHEN Inactive PREDNISONE 20 MG ORAL TABLET 2 tabs daily for 4 days, 1 tab daily for 4 days, 1/2 tab daily for 4 days PREDNISONE 20 MG ORAL T ABLET 003710 PREDNISONE Inactive LEVAQUIN 500 MG ORAL TABLET 1 daily for infection 2017 LEVAQUIN 500 MG ORAL TABLET 069560 LEVOFLOXACIN Inactive ATIVAN 0.5 MG ORAL TABLET 1 tab 30 minutes prior to sleep study ATIVAN 0.5 MG ORAL TABLET 858412 LORAZEPAM Inacti ve DEPO-TESTOSTERONE 200 MG/ML INTRAMUSCULAR SOLUTION 100mg italia ry 4 weeks DEPO-TESTOSTERONE 200 MG/ML INTRAMUSCULA R SOLUTION 4681353 TESTOSTERONE CYPIONATE Inactive CLONAZEPAM 2 MG ORAL TABLET one tablet at bed time 201 11/01/12 CLONAZEPAM 2 MG ORAL TABLET 493583 CLONAZEPAM Inactive MULTIVITAMINS ORAL CAPSULE Take 1 [...] capsule daily 3 PROBIOTIC DAILY ORAL CAPSULE 4618549 PROBIOTIC PRODUCT Inactive FISH OIL CAPSULE 1 capsule daily FISH OIL CAPSUL E OMEGA- 3 FATTY ACIDS CAPS Inactive SUCRALFATE 1 GM ORAL TABLET 1 four times a day for GERD SUCRALFATE 1 GM ORAL TABLET 352409 SUCRALFATE Inactive CARAFATE 1 GM ORAL TABLET Take 1 tablet 4 times daily. Before meals and at bedtime CARAFATE 1 GM ORAL TABLET 459563 SUCRALFATE Inactive CLARITIN 10 MG ORAL TABLET 1 tablet by mouth daily as needed for allergies CLARITIN 10 MG ORAL TABLET 228935 LORATADINE I nactive LEVOTHYROXINE SODIUM 175 MCG ORAL TABLET 1 pill by mouth daily f or thyroid LEVOTHYROXINE SODIUM 175 MCG ORAL TABLET 180314 LEVOTHY ROXINE SODIUM Inactive FLOMAX 0.4 MG ORAL CAPSULE one capsule in the evening 1/2 hour a fter supper FLOMAX 0.4 MG ORAL CAPSULE 551624 TAMSULOSIN HCL Inact berna PANTOPRAZOLE SODIUM 40 MG ORAL TABLET DELAYED RELEASE 1 pill by mouth daily PANTOPRAZOLE SODIUM 40 MG ORAL TABLET DE LAYED RELEASE 013760 PANTOPRAZOLE SODIUM Inactive DEPO-TESTOSTERONE 100 MG/ML INTRAMUSCULAR SOLUTION 1mL q4H DEPO-TESTOSTERONE 100 MG/ML INTRAMUSCULAR SOLUTION 046797 TESTOSTERONE CYPIONATE Inactive MORPHINE SULFATE ER 100 [...] three days PREDNISONE 20 MG ORAL TABLET 076707 PREDNIS ONE Inactive ASPIRIN 325 MG ORAL TABLET Take 1 tablet daily ASPIRIN 325 MG ORAL TABLET 424298 ASPIRIN Inactive PLAVIX 75 MG ORAL TABLET 1 tablet by mouth daily 03/11 PLAVIX 75 MG ORAL TABLET 615968 CLOPIDOGREL BISULFATE Inactive PLAVIX 75 MG ORAL TABLET 1 tablet by mouth daily for 30 days 202 PLAVIX 75 MG ORAL TABLET 180527 CLOPIDOGREL BISULFATE I nactive KLOR-CON M10 10 MEQ ORAL TABLET EXTENDED RELEASE one tablet twic e a day KLOR-CON M10 10 MEQ ORAL TABLET EXTENDED RELEASE 2379868 POTASSIUM CHLORIDE JORDAN CR Inactive PREDNISONE 20 MG ORAL TABLET Take 2 tablets daily for 5 days and 1 tablet daily for 5 days. PREDNISONE 20 MG ORAL TABLET 873303 PREDNISONE Inactive FLOMAX 0.4 MG ORAL CAPSULE 1 capsule by mouth in the evening for prostate FLOMAX 0.4 MG ORAL CAPSULE 204225 TAMSULOSIN HCL Inactive PROAIR HFA 108 (90 BASE) MCG/ACT INHALATION AEROSOL SO LUTION 2 puffs four times a day as needed PROAIR HFA 108 (90 B ASE) MCG/ACT INHALATION AEROSOL SOLUTION ALBUTEROL SULFATE Inactive LEVOTHYROXINE SODIUM 200 MCG ORAL TABLET 1 po q a.m. for thyroid LEVOTHYROXINE SODIUM 200 MCG ORAL TABLET 149192 LEVOTHY ROXINE SODIUM Inactive VENTOLIN HFA 108 (90 BASE) MCG/ACT INHALATION AEROSOL SOLUTI ON 1 puff every day VENTOLIN HFA 108 (90 BASE) M CG/ACT INHALATION AEROSOL SOLUTION ALBUTEROL SULFATE Inactive POTASSIUM CHLORIDE 20 MEQ ORAL PACKET 1 qDay with Lasix POTASSIUM CHLORIDE 20 MEQ ORAL PACKET 8621297 POTASSIUM CHLORIDE Inactive PREDNISONE 20 MG ORAL TABLET Take 2 daily for 5 days a nd then 1 daily for 5 days PREDNISONE 20 MG ORAL TABLET 015882 PREDNIS ONE Inactive PREDNISONE 20 MG TABS Take 2 daily for 5 days and then 1 stephy ly for 5 days PREDNISONE 20 MG TABS 262650 PREDNISONE Inacti ve ZITHROMAX Z-PETE 250 MG ORAL TABLET 2 today, then 1 daily for 4 d ays ZITHROMAX Z-PETE 250 MG ORAL TABLET 197175 AZITHROMYCIN Inactive CEFUROXIME AXETIL 500 MG ORAL TABLET TAKE 1/2 TABLET TWICE DAILY CEFUROXIME AXETIL 500 MG ORAL TABLET 900715 CEFUROXIME AXETIL Inactive Advance Directives Directive Description [...] Magnesium - Chemistry sodium, serum 138 mmol/L 303-274 7892/12/04 carbon dioxide, venous blood 28.3 mmol/L 21.0-32 [...] 0.90 mg/dL 0.00-1.00 cholesterol, serum 121 mg/dL 127-254 2056/12/04 triglyceride, serum, fasting 137 mg/dL 30-200 HDL [...] 2.60 ng/mL 0.00-4.00 sodium, serum 136 mmol/L 709-040 6839/10/06 carbon dioxide, venous blood 29.5 mmol/L 21.0-32 [...] noted Encounters Code Encounter Date Provider Facility CPT-52458 75760: Ofc Vst-Est Level III-Low MDM or 20-29 minutes 08:12:06 [facility] 39848: Ofc Vst-Est Level IV-Moderate MDM or 30-39 minutes 12:21:30 CDT Rui Arndt MD [facility] CPT-01842 82599-Xuh Vst-Est Level IV 09:46:31 CDT Lobo Arndt MD [facility] CPT-96857 38386-Wmb Vst-Est Level IV 10:42:47 WATER VALVE MECHANIC Lobo Arndt MD [facility] CPT-33675 82927-Fwg Vst-Est Level IV 11:02:04 CDT Lobo Arndt MD [facility] CPT-62862 33231-Qhq Vst-Est Level IV 13:58:45 CDT Lobo Arndt MD [facility] CPT-56715 55759-Nwd Vst-Est Level IV 15:13:53 CDT Lobo Arndt MD [facility] CPT-66633 92592-Edm Vst-Est Level IV 11:54:49 CDT Lobo Arndt MD [facility] CPT-15976 67769-Jkn Vst-Est Level IV 11:04:27 WATER VALVE MECHANIC Lobo Arndt MD [facility] CPT-40657 Level 4 New Patient 12:35:21 CDT Ade chung MD [facility] CPT-43085 Ofc Vst-Est Level IV 16:12:07 CDT Rui Arndt MD [facility] CPT-36186 97197-Qaw Vst-Est Level IV 16:25:05 CDT Lobo Arndt MD [facility] CPT-61789 29926-Iyj Vst-Est Level III 10:55:45 CDT Rui Arndt MD [facility] CPT-97648 13109-Lxh Vst-Est Level IV 14:16:20 CDT Lobo Arndt MD [facility] CPT-55101 Level 3 Est. Patient 13:14:20 CDT Luke rascon [facility] CPT-50004 94732-Tmh Vst-Est Level IV 09:53:37 WATER VALVE MECHANIC Lobo Arndt MD [facility] CPT-80387 75888-Ftb Vst-Est Level IV 09:44:38 CDT Lobo Arndt MD [facility] CPT-07325 Level 3 Est. Patient 15:23:12 CDT Dena ley [facility] CPT-49462 Level 4 Est. Patient 13:12:22 CDT Rui Arndt MD [facility] CPT-01246 Level 4 Est. Patient 14:44:13 CDT Dena ley [facility] CPT-69328 56493-Wts Vst-Est Level III 11:23:31 CDT Rui Arndt MD [facility] CPT-26951 65448-Ydv Vst-Est Level V 10:04:33 CDT Jose Arndt MD [facility]-32557 Level 4 Est. Patient 16:17:47 CDT Rui Arndt MD [facility]-03127 Level 4 Est. Patient 10:53:57 CDT Rui Arndt MD [facility]-11265 Level 3 Est. Patient 16:09:12 CDT Jemal marti MD [facility]-88217 Level 4 Est. Patient 11:32:24 WATER VALVE MECHANIC Rui Arndt MD [facility]-70733 Level 4 Est. Patient 14:55:39 WATER VALVE MECHANIC Dena ley [facility]-50201 Level 3 Est. Patient 15:10:46 WATER VALVE MECHANIC Rui Arndt MD [facility]-35911 Level 3 Est. Patient 12:01:26 WATER VALVE MECHANIC Rui Arndt MD [facility]-76173 Level 3 Est. Patient 10:35:15 WATER VALVE MECHANIC Rui Arndt MD [facility]-20713 Level 3 Est. Patient 15:04:30 CDT Rui Arndt MD [facility]-11195 Level 3 Est. Patient 10:15:00 CDT Vinod fenton [facility]-91750 Level 4 Est. Patient 14:59:25 CDT Rui Arndt MD [facility]-83514 Level 4 Est. Patient 12:07:34 CDT Rui Arndt MD [facility]-56989 Level 3 Est. Patient 10:42:08 WATER VALVE MECHANIC Rui Arndt MD [facility]-99745 Level 3 Est. Patient 17:29:10 WATER VALVE MECHANIC Rui Arndt MD [facility]-11596 Level 4 Est. Patient 15:12:05 CDT Rui Arndt MD [facility]-21449 Level 2 Est. Patient 16:27:53 CDT Rui Arndt MD [facility] CPT-84269 Level 3 Est. Patient 12:02:36 CDT Rui Arndt MD [facility] CPT-80037 Level 4 Est. Patient 11:17:39 CDT Rui Arndt MD [facility] CPT-80614 Level 4 Est. Patient 15:46:07 CDT Rui Arndt MD [facility] CPT-15791 Level 4 Est. Patient 17:18:59 WATER VALVE MECHANIC Rui Arndt MD [facility]-55365 Level 4 Est. Patient 15:09:55 CDT Fabiana Vizcaino GEORGINA [facility] CPT-31002 Level 3 Est. Patient 15:49:06 CDT Rui Arndt MD [facility] CPT-65293 Level 3 Est. Patient 11:40:46 CDT Rui Arndt MD [facility] CPT-80670 Level 3 Est. Patient 18:00:51 CDT Rui Arndt MD [facility] CPT-19184 Level 4 Est. Patient 10:25:35 CDT Rui Arndt MD [facility] CPT-50508 Level 3 Est. Patient 15:45:51 CDT Rui Arndt MD [facility] CPT-89143 Level 4 Est. Patient 11:32:17 WATER VALVE MECHANIC Rui Arndt MD [facility] CPT-42326 Level 4 New Patient 17:03:03 CDT Rui yoder MD [facility] Procedures Code Procedure Name Date Entry Date Standard Desc ription CPT-J1071 Depo Testosterone 100mg 10:43:46 CDT 10/19 CPT-67463 Abx/Therapy Injection 10:43:46 CDT CPT-J1071 Depo Testosterone 100mg 13:15:20 CDT 09/16 CPT-02338 Abx/Therapy Injection 13:15:20 CDT CPT-J1071 Depo Testosterone 100mg 13:00:53 CDT 08/18 CPT-47920 Abx/Therapy Injection 13:00:53 CDT CPT-J1071 Depo Testosterone 100mg 16:00:36 CDT 07/22 CPT-08433 Abx/Therapy Injection 16:00:36 CDT CPT-J1071 Depo Testosterone 100mg 15:59:22 CDT 06/24 CPT-01959 Abx/Therapy Injection 15:59:22 CDT CPT-J1071 Depo Testosterone 100mg 17:34:08 WATER VALVE MECHANIC 05/27 CPT-48000 Abx/Therapy Injection 17:34:08 WATER VALVE MECHANIC CPT-GB7541N (4274F) Influenza immunization administe red or previously received 12:03:02 WATER VALVE MECHANIC CPT-QT5071P (4274F) Influenza immunization administe red or previously received 10:42:46 WATER VALVE MECHANIC CPT-J1071 Depo Testosterone 100mg 14:29:40 WATER VALVE MECHANIC 05/19 CPT-22720 Abx/Therapy Injection 14:29:40 WATER VALVE MECHANIC CPT-85054 Venipuncture Draw Fee 09:50:26 WATER VALVE MECHANIC CPT-74860 Venipuncture Draw Fee 11:06:37 WATER VALVE MECHANIC CPT-J1071 Depo Testosterone 100mg 13:49:54 WATER VALVE MECHANIC 04/20 CPT-64355 Abx/Therapy Injection 13:49:54 WATER VALVE MECHANIC CPT-J1071 Depo Testosterone 100mg 16:22:38 CDT CPT-32130 Abx/Therapy Injection 16:22:38 CDT CPT-000 Give Appropriate Flu Vaccine 11:02:04 CDT 2 CPT-08009 26088 - Immun Admin 1 vac 11:43:22 CDT 2019 CPT-11903 Flublok Quadrivalent [place] 11:43:22 CDT CPT-07490 Venipuncture Draw Fee 11:14:23 CDT CPT-CU5914Q (4274F 2P) Patient Reason Influenza immu nization not administered 11:02:04 CDT CPT-G0439 Subsequent Annual Wellness Exam 14:24:52 CDT CPT-KR4307B (4013F) Statin therapy prescribed or cur rently being taken 14:24:52 CDT CPT-WC1358D (4274F 2P) Patient Reason Influenza immu nization not administered 14:24:52 CDT CPT-J1071 Depo Testosterone 100mg 13:29:13 CDT 12/23 CPT-26970 Abx/Therapy Injection 13:29:13 CDT CPT-J1071 Depo Testosterone 100mg 14:43:03 CDT 11/24 CPT-08484 Abx/Therapy Injection 14:43:03 CDT CPT-J1071 Depo Testosterone 100mg 17:18:41 CDT 10/27 CPT-61204 Abx/Therapy Injection 17:18:41 CDT CPT-38096 4M Drug Screen cup test, Multi-panel, urine 2019 13:58:45 CDT CPT-J1071 Depo Testosterone 100mg 16:42:20 CDT 0 09/23 CPT-56010 Abx/Therapy Injection 16:42:20 CDT CPT-J1071 Depo Testosterone 100mg 16:43:18 CDT 0 08/26 CPT-45543 Abx/Therapy Injection 16:43:18 CDT CPT-22809 Venipuncture Draw Fee 13:01:56 CDT CPT-J1071 Depo Testosterone 100mg 15:54:02 CDT 07/28 CPT-12099 Abx/Therapy Injection 15:54:02 CDT CPT-J1071 Depo Testosterone 100mg 15:17:11 CDT 0 06/30 CPT-55196 Abx/Therapy Injection 15:17:10 CDT CPT-81054 Venipuncture Draw Fee 11:58:13 CDT CPT-J1071 Depo Testosterone 200mg 14:59:06 CDT 0 06/02 CPT-97797 Abx/Therapy Injection 14:59:06 CDT CPT-J1071 Depo Testosterone 100mg 14:08:37 [employer] 2019/0 05/06 CPT-79131 Abx/Therapy Injection 14:08:37 [employer] CPT-67629 Venipuncture Draw Fee 15:15:20 [employer] CPT-J1071 Depo Testosterone 100mg 15:40:35 [employer] 2019/0 04/08 CPT-01204 Abx/Therapy Injection 15:40:35 [employer] CPT-TCMM Transitional Care Mgmt-Moderate 12:40:08 CS T CPT-CU5171D (4274F) Influenza immunization administe red or previously received 12:40:07 [employer] CPT-16780 Venipuncture Draw Fee 15:13:23 [employer] CPT-01458 Venipuncture Draw Fee 12:39:02 [employer] CPT-J1071 Depo Testosterone 100mg 11:35:50 [employer] 05/12 CPT-06729 Abx/Therapy Injection 11:35:50 [employer] CPT-CG2437Q (4274F) Influenza immunization administe red or previously received 11:04:25 [employer] CPT-J1071 Depo Testosterone 100mg 11:32:22 [employer] 04/13 CPT-01352 Abx/Therapy Injection 11:32:22 [employer] CPT-99323 44859 - Immun Admin 1 vac 16:43:51 [employer] 2018 CPT-35059 Shingrix 16:43:51 [employer] CPT-J1071 Depo Testosterone 100mg 18:38:18 CDT CPT-66426 Abx/Therapy Injection 18:38:17 CDT CPT-J1071 Depo Testosterone 100mg 14:36:52 CDT 12/18 CPT-86208 Abx/Therapy Injection 14:36:52 CDT CPT-G0008 Administration of Influenza Virus Vaccine 12/18 14:35:05 CDT CPT-58341 Fluzone (Flu) 10Pk Syringe IM (Medicare) 14:35:05 CDT CPT-45731 Bladder Scan 12:35:21 CDT CPT-59674 Venipuncture Draw Fee 16:41:57 CDT CPT-03806 33290 - Immun Admin 1 vac 16:31:08 CDT 2018 CPT-63538 Shingrix 16:31:07 CDT CPT-G0439 Subsequent Annual Wellness Exam 16:12:06 CDT CPT-J1071 Depo Testosterone 100mg 12:18:42 CDT 11/20 CPT-31946 Abx/Therapy Injection 12:18:42 CDT CPT-J1071 Depo Testosterone 100mg 11:42:38 CDT 09/03 CPT-03066 Abx/Therapy Injection 11:42:38 CDT CPT-J1071 Depo Testosterone 100mg 12:00:58 CDT 08/06 CPT-93762 Abx/Therapy Injection 12:00:58 CDT CPT-J1071 Depo Testosterone 100mg 12:34:21 CDT 07/09 CPT-99254 Abx/Therapy Injection 12:34:21 CDT CPT-28293 Abdomen, 2 views 13:20:15 CDT CPT-14993 Chest, 2 views 13:20:15 CDT CPT-J1071 Depo Testosterone 200mg 14:21:46 CDT 0 06/12 CPT-89316 Abx/Therapy Injection 14:21:46 CDT CPT-J1071 Depo Testosterone 100mg 14:34:38 [employer] 0 05/14 CPT-72864 Abx/Therapy Injection 14:34:38 [employer] CPT-000 Give Pneumovax 11:57:22 CDT CPT-J1071 Depo Testosterone 100mg 17:09:47 [employer] 04/13 CPT-94928 Abx/Therapy Injection 17:09:47 [employer] CPT-J1071 Depo Testosterone 100mg 15:41:42 [employer] 05/17 CPT-44377 Abx/Therapy Injection 15:41:42 [employer] CPT-J1071 Depo Testosterone 100mg 13:42:43 [employer] 04/18 CPT-80006 Abx/Therapy Injection 13:42:43 [employer] CPT-J1071 Depo Testosterone 100mg 13:24:43 CDT CPT-94565 Abx/Therapy Injection 13:24:43 CDT CPT-83365 First Vx - Ix admin for Medicare patients 18:07:22 CDT CPT-14310 Fluzone Quadrivalent Intramuscular Suspe nsion 0.5 ML 18:07:22 CDT CPT-J1071 Depo Testosterone 100mg 12:06:21 CDT 12/21 CPT-55582 Abx/Therapy Injection 12:06:21 CDT CPT-J1071 Depo Testosterone 100mg 16:09:00 CDT 11/23 CPT-33209 Abx/Therapy Injection 16:09:00 CDT CPT-G0439 [facility] Annual Wellness Exam 13:12:23 CDT CPT-J1071 Depo Testosterone 100mg 10:40:29 CDT 10/26 CPT-24327 Abx/Therapy Injection 10:40:29 CDT CPT-J1071 Depo Testosterone 100mg 09:15:44 CDT 09/28 CPT-19493 Abx/Therapy Injection 09:15:43 CDT CPT-J1071 Depo Testosterone 100mg 10:53:34 CDT 08/31 CPT-93075 Abx/Therapy Injection 10:53:34 CDT CPT-56976 [place] pre/post w graphic rec - XRAY USE ONLY 201 10/30/06 10:24:51 CDT CPT-J1071 Depo Testosterone 100mg 14:11:00 CDT 08/03 CPT-78618 Abx/Therapy Injection 14:11:00 CDT CPT-J1071 Depo Testosterone 100mg 15:15:13 CDT 07/04 CPT-47866 Abx/Therapy Injection 15:15:13 CDT CPT-J2310 Narcan HCI .4mg per 1 ml 15:52:42 CDT 06/26 CPT-30383 Chest, 2 views 15:11:39 CDT CPT-000 Give Appropriate Flu Vaccine 12:01:26 [employer] 2 CPT-47163 Chest single view 16:11:20 CDT CPT-J1071 Depo Testosterone 100mg 10:50:45 [employer] 05/29 CPT-45105 Abx/Therapy Injection 10:50:45 [employer] CPT-33672 Chest, 2 views 11:49:28 [employer] CPT-J1071 Depo Testosterone 100mg 16:07:43 [employer] 05/02 CPT-43153 Abx/Therapy Injection 16:07:43 [employer] CPT-J1071 Depo Testosterone 100mg 15:31:04 [employer] 03/31 CPT-48752 Abx/Therapy Injection 15:31:04 [employer] CPT-J1071 Depo Testosterone 100mg 16:29:48 CDT CPT-09038 Abx/Therapy Injection 16:29:48 CDT CPT-J1071 Depo Testosterone 100mg 14:42:01 CDT 12/23 CPT-81985 Abx/Therapy Injection 14:42:01 CDT CPT-G0439 [facility] Annual Wellness Exam 14:14:09 CDT CPT-J1071 Depo Testosterone 100mg 13:48:18 CDT 11/17 CPT-51002 Abx/Therapy Injection 13:48:18 CDT CPT-G0009 Administration of Pneumococcal Vaccine 4 12:06:23 CDT CPT-39705 Pneumovax 23 Injection Injectable 25 MCG /0.5ML 12:06:23 CDT CPT-J1071 Depo Testosterone 100mg 13:11:36 CDT 10/19 CPT-59424 Abx/Therapy Injection 13:11:36 CDT CPT-J1071 Depo Testosterone 100mg 13:17:59 CDT 09/21 CPT-96389 Abx/Therapy Injection 13:17:59 CDT CPT-J1071 Depo Testosterone 100mg 13:08:38 CDT 09/21 CPT-J1071 Depo Testosterone 100mg 13:06:32 CDT 09/21 CPT-03032 Bone Density - XRAY USE ONLY 09:04:29 [employer] 2 CPT-26445 BMP - LAB USE ONLY 17:39:11 [employer] CPT-09362 Venipuncture Draw Fee 17:39:11 [employer] CPT-000 Give Appropriate Flu Vaccine 15:16:28 CDT 2 CPT-J1071 Depo Testosterone 200mg 16:59:53 CDT 10/21 CPT-82769 Abx/Therapy Injection 16:59:53 CDT CPT-63114 Abx/Therapy Injection 18:58:42 [employer] CPT-53522 First Vx - Ix admin for Medicare patients 15:47:06 CDT CPT-24542 Fluzone High-Dose Intramuscular Suspension 01/19 15:47:06 CDT CPT-72610 Abx/Therapy Injection 14:12:15 CDT CPT-69233 Abx/Therapy Injection 13:34:08 CDT CPT-70558 Abx/Therapy Injection 14:41:47 CDT CPT-G0438 Initial Annual Wellness Exam 10:06:26 CD T CPT-J1071 Depo Testosterone 200mg 11:42:49 CDT 09/22 CPT-18349 Abx/Therapy Injection 11:42:49 CDT CPT-92427 Abx/Therapy Injection 16:55:18 CDT CPT-54605 Abx/Therapy Injection 13:49:32 CDT CPT-J1071 Depo Testosterone 200mg 09:48:27 CDT 06/28 CPT-13857 Abx/Therapy Injection 09:48:27 CDT CPT-96493 Abx/Therapy Injection 16:27:06 [employer] CPT-76016 No Charge Offi Visit 18:00:02 [employer] 8 CPT-20896 Abd compl w upright 12:29:27 [employer] CPT-000 Give Appropriate Flu Vaccine 16:15:45 [employer] 2 CPT-31469 Abx/Therapy Injection 11:03:39 [employer] CPT-03214 Venipuncture Draw Fee 13:07:59 [employer] CPT-32284 Immunization Single Admin 12:03:42 [employer] 2014 CPT-67887 Fluzone High Dose (65+) 12:03:41 [employer] 05/05 CPT-25109 Chest 2V Frontal and Lat 15:25:23 CDT 12/29 CPT-64508 Venipuncture Draw Fee 15:57:34 CDT CPT-57377 Abx/Therapy Injection 12:52:43 CDT CPT-51621 Abx/Therapy Injection 08:58:56 CDT CPT-05392 Venipuncture Draw Fee 15:59:37 CDT CPT-78394 Abx/Therapy Injection 08:36:16 CDT CPT-000 Give Pneumovax 11:32:18 [employer] CPT-000 Give Appropriate Flu Vaccine 11:32:18 [employer] 2 CPT-69617 Abx/Therapy Injection 09:52:48 CDT CPT-55990 Abx/Therapy Injection 09:56:54 CDT CPT-OV Office Visit 16:35:19 CDT CPT-46866 Abx/Therapy Injection 08:25:48 CDT CPT-88699 Abx/Therapy Injection 09:17:15 [employer] CPT-11545 Abx/Therapy Injection 08:52:31 [employer] CPT-55816 Abx/Therapy Injection 09:32:50 [employer] CPT-55491 Abx/Therapy Injection 08:28:14 [employer] CPT-75298 Abx/Therapy Injection 10:43:07 CDT CPT-J1070 Depo Testosterone 100 mg 08:39:09 CDT 12/05 CPT-95663 Abx/Therapy Injection 08:39:09 CDT CPT-51008 Abx/Therapy Injection 11:22:03 CDT CPT-44332 Shoulder comp min 2V 14:11:48 CDT 1 CPT-00821 Abx/Therapy Injection 09:56:35 CDT CPT-LR Lesion Removal 09:49:45 CDT
--- OUTSIDE RECORDS SUMMARY | 2020-12-04 06:14 | XMS REPORT | Clinical Summary ---
Author Author Mya, Charlie Hankins Organization [employer] Address Unknown Phone Unavailable Allergies, Adverse Reactions, Alerts Allergy Name Reaction Description Start Date Severity Status Pr ovider NKA Critical Active Dena Lacy APR N KEFLEX Mild No Longer Active Rui Arndt MD KEFLEX itch Moderate No Longer Active Vinod Alatorre [employer] NKDA Critical No Longer Active Rui Arndt [...] [facility] Catar[facility] 366.9 Inactive Rui Arndt [...] fatigue Monoclonal gammopathy 273.1 Active Eboni villasenor DEPARTMENT HEAD Monoclonal paraproteinemia Peripheral edema 782.3 Active Fabiana Speaks A PRN Edema Dyspnea 786.09 Resolved Rui Arndt MD Other dyspnea and respiratory abnormality Need for prophylactic vaccination and inoculation against in fluenza V04.81 Resolved Rui Arndt MD Need for prophylactic vaccination and inoculation against influenza Peripheral artery disease 443.9 [facility] Peripheral vascular disease, unspecified Abdominal pain, [...] 39.0-39.9, adult BMI 37-37.9 Active Keyonna Barajas [employer] Body Mass Index 39.0-39.9, adult Abdominal bloating [...] atherosclerosis of unspecified type of vessel , [place] or graft 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 Tracie [...] abnormal glucose Cough 786.2 Active Keyonna Barajas [employer] Cough Shortness of breath 786.05 Active Emanuel Barajas [employer] Shortness of breath Examination, general medical ICD-V70.0 Inactiv e Rui Arndt MD HEALTH MAINTENANCE EXAM ICD-V70.0 Inactive Nadia Arndt MD Tobacco user ICD-305.1 Inactive Rui Arndt MD [...] lower quadrant ICD-789.04 Inactive Rui Arndt MD Chronic pain syndrome ICD-338.4 Inactive Georgina Almaraz MA Fever ICD-780.60 Inactive Rui Arndt MD 201 08/26/02 Diverticulitis of colon ICD-562.11 Inactive Nadia Arndt MD Preoperative examination ICD-V72.84 Inactive Rui Arndt MD Frailty ICD-797 Inactive Rui Arndt MD 05/09 Declining mobility ICD-438.89 Inactive Rui Arndt MD Wound check ICD-879.8 Inactive Rui Arndt MD Ileus ICD-560.1 Inactive Rui Arndt MD 2015 Low testosterone level ICD-796.4 Inactive Shahrzad Arndt MD Pruritus ICD-698.9 Inactive Rui Arndt MD 201 11/26/12 Excessive belching ICD-787.3 Inactive Rui Arndt MD Colonic polyps, hx of ICD-V12.72 Inactive Rui Arndt MD Upper respiratory infection ICD-465.9 Inactive Rui Arndt MD BMI 37-37.9 adult ICD-V85.37 Inactive Rui Arndt MD COPD, acute exacerbation ICD-491.21 Inactive Georgina Almaraz MA Pre-procedural laboratory examination ICD-V72.63 3 Inactive Rui Arndt MD Pleural effusion ICD-511.9 Inactive Rui saleem MD Fatigue ICD-780.79 Inactive Rui Arndt MD 201 11/26/12 Cough ICD-786.2 Inactive Rui Arndt MD 2018 Influenza Vaccination for Prophylaxis ICD-V04.81 3 Inactive Yulissa Armenta MA BMI 38-38.9 adult ICD-V85.38 Inactive Rui Arndt MD Pre-Hypertension/Elevated BP ICD-796.2 Inactiv e Rui Arndt MD Congestive heart failure ICD-428.0 Inactive Mari Stanley PA-C Chest cough ICD-786.2 Inactive Rui Arndt MD Elevated blood sugar ICD-790.29 Inactive Rui Arndt MD Medication List Medication Instructions Start Date Stop Date Generic Name NDC Status Provider Patient Instruction PROAIR HFA 108 (90 BASE) MCG/ACT INHALATION AEROSOL SO LUTION Take 2 puffs every 6 hours as needed for shortness of breath or wheezing. ALBUTEROL SULFATE 25518692342 Active Keyonna Jenn [employer] Activ e PREDNISONE 20 MG ORAL TABLET Take 2 tablets by mouth d aily for 3 days then 1 tablet daily for 2 days PREDNISONE 87321424799 Active Keyonna Jenn [employer]C Active ZITHROMAX 250 MG ORAL TABLET Take 2 tablets by mouth o n day 1 then 1 tablet the next 4 days AZITHROMYCIN 41538859568 Active Keyonna Br itt [employer]-C Active ZUBSOLV 11.4-2.9 MG SUBLINGUAL TABLET SUBLINGUAL Take 1 tablet dailyDEA; [id number] BUPRENORPHINE HCL-NALOXONE HCL 24806529776 Acti ve Rui Arndt MD Active CEFUROXIME AXETIL 500 MG ORAL TABLET TAKE 1/2 TABLET TWICE DAILY CEFUROXIME AXETIL 75469190016 No Longer Active Rui Arndt MD Active POTASSIUM CHLORIDE ER 10 MEQ CR-CAPS TAKE ONE TABLET BY MOUT H TWICE DAILY. POTASSIUM CHLORIDE 31598837016 AGUSTO Richardson Active OMEPRAZOLE 40MG TAKE 1 CAPSULE BY MOUTH EVERY MORNING OMEPRAZOLE 94479257644 AGUSTO Richardson Active SPIRIVA HANDIHLR INHALE CONTENTS OF ONE CAPSULE VIA HANDI HALER ONCE DAILY TIOTROPIUM BROMIDE MONOHYDRATE 30826333644 AGUSTO Richardson Active BUMETANIDE 1MG TAKE 1 TABLET BY MOUTH ONCE DAILY IF NEE DED FOR SWELLING BUMETANIDE 09971591351 AGUSTO Richardson Active ZOLPIDEM TARTRATE 10 MG TABS TAKE 1 TABLET BY MOUTH AT NIGHT IF NEEDED FOR SLEEP ZOLPIDEM TARTRATE 06903578681 Active Rui Arndt MD Active FUROSEMIDE 40MG TAKE 2 TABLETS BY MOUTH EVERY MORNING FUROSEMIDE 32441952396 Active Liudmila Tirado RN Active GABAPENTIN 300MG TAKE 1 CAPSULE BY MOUTH THREE TIMES DAILY GABAPENTIN 88418121664 Active AGUSTO Hall Active ATORVASTATIN 80MG TAKE 1 TABLET BY MOUTH DAILY AT BEDTIME 6 ATORVASTATIN CALCIUM 55958795684 Active AGUSTO Hall A ctive SUPER B-100 ORAL TABLET 1 q d B COMPLEX-BIOTI N-FA 77664892497 Active Tarun Chavez MD Active ASPIRIN 325 MG ORAL TABLET 1 q d ASPIRIN 9898905966 9 Active Tarun Chavez MD Active DIGITEK 125 MCG ORAL TABLET 1 q d DIGOXIN 327655910 01 Active Tarun Chavez MD Active VENTOLIN HFA 108 (90 BASE) MCG/ACT INHALATION AEROSOL SOLUTI ON 1 puff every day ALBUTEROL SULFATE 06313682782 No Longer Active Alan Chavez MD Active LEVOTHYROXINE SODIUM 200 MCG ORAL TABLET 1 po q a.m. for thyroid LEVOTHYROXINE SODIUM 73351234042 No Longer Active Tarun Chavez MD Active PROAIR HFA 108 (90 BASE) MCG/ACT INHALATION AEROSOL SO LUTION 2 puffs four times a day as needed ALBUTEROL SULFATE 10559657672 No Long er Active Tarun Chavez MD Active FLOMAX 0.4 MG ORAL CAPSULE 1 capsule by mouth in the evening for prostate TAMSULOSIN HCL 33010645781 No Longer Active Tarun Chavez MD Active ELIQUIS 5 MG TABS TAKE ONE TABLET BY MOUTH TWO TIMES A DAY APIXABAN 56412734322 Active AGUSTO Hall Active PREDNISONE 20 MG ORAL TABLET Take 2 tablets daily for 5 days and 1 tablet daily for 5 days. PREDNISONE 53560850616 No Longer Active Rui Arndt MD Active POTASSIUM CHLORIDE ER 10 MEQ CR-TABS TAKE ONE TABLET BY CATERINA TWICE DAILY. POTASSIUM CHLORIDE 18415085432 Active Alma STEW MadridAlfred Active KLOR-CON M10 10 MEQ ORAL TABLET EXTENDED RELEASE one tablet twic e a day POTASSIUM CHLORIDE JORDAN CR 66379090429 No Longer Active Yuval izaguirre STEW MadridAlfred Active LORATADINE 10MG ORAL TABLET TAKE ONE TABLET BY MOUTH ONE TIME DAILY IF NEEDED FOR ALLERGIES. LORATADINE 01210553915 Active AlmaAGUSTO Chávez Active LEVOTHYROXINE SODIUM 150MCG ORAL TABLET TAKE ONE TABLE T BY MOUTH ONE TIME DAILY FOR THYROID. LEVOTHYROXINE SODIUM 71617558491 Active S osiel STEW MadridAlfred Active PLAVIX 75 MG ORAL TABLET 1 tablet by mouth daily for 30 days 202 CLOPIDOGREL BISULFATE 33118856333 No Longer Active Rui Arndt MD Active PLAVIX 75 MG ORAL TABLET 1 tablet by mouth daily 03/11 CLOPIDOGREL BISULFATE 96368171506 No Longer Active Rui Arndt MD Activ e ASPIRIN 325 MG ORAL TABLET Take 1 tablet daily ASPIRIN 61799548806 No Longer Active Rui Arndt MD Active PREDNISONE 20 MG ORAL TABLET 1 tab twice daily for 3 d ay, then one daily for three days PREDNISONE 66347231085 No Longer Active Rui Arndt MD Active MORPHINE SULFATE ER 15 MG ORAL TABLET EXTENDED RELEASE 1 TID a d ay MORPHINE SULFATE 34716958444 No Longer Active Rui Arndt MD Active DEPO-TESTOSTERONE 100 MG/ML INTRAMUSCULAR SOLUTION 201 11/29/02 TESTOSTERONE CYPIONATE 45245292496 Active Brittny Aguila MA Active SUBOXONE 2-0.5 MG SUBLINGUAL FILM Bring to appointment before taking for induction. Stop the Morphine 12 hours before the appointment. BUPRENORPHINE HCL-NALOXONE HCL 45595767541 No Longer Active Rui Arndt MD Active MUCINEX D 60-600 MG ORAL TABLET EXTENDED RELEASE 12 HO UR 1 po BID PRN Congestion PSEUDOEPHEDRINE-GUAIFENESIN 82524105133 Active Luke Christian [employer] Active ZITHROMAX Z-PETE 250 MG ORAL TABLET 2 today, then 1 daily for 4 d ays AZITHROMYCIN 47679173848 No Longer Active Luke Gonzales APRN Active MORPHINE SULFATE ER 60 MG ORAL TABLET EXTENDED RELEASE 1 twi ce a day for pain MORPHINE SULFATE 22919821513 No Longer Active Luke valdez APRN Active MORPHINE SULFATE ER 100 MG ORAL TABLET EXTENDED RELEASE one tabl et at bedtime MORPHINE SULFATE 74018339833 No Longer Active Luke Gonzales APRN Active DEPO-TESTOSTERONE 100 MG/ML INTRAMUSCULAR SOLUTION 1mL q4H TESTOSTERONE CYPIONATE 91710351665 No Longer Active Luke Gonzales APRN Active PANTOPRAZOLE SODIUM 40 MG ORAL TABLET DELAYED RELEASE 1 pill by mouth daily PANTOPRAZOLE SODIUM 73005024474 No Longer Active Jose Arndt MD Active FLOMAX 0.4 MG ORAL CAPSULE one capsule in the evening 1/2 hour a fter supper TAMSULOSIN HCL 39482993065 No Longer Active Rui Arndt MD Active LEVOTHYROXINE SODIUM 175 MCG ORAL TABLET 1 pill by mouth daily f or thyroid LEVOTHYROXINE SODIUM 12242776946 No Longer Active Fabiana Perdomo RN Active CLARITIN 10 MG ORAL TABLET 1 tablet by mouth daily as needed for allergies LORATADINE 67581487731 No Longer Active Mari bhakta PA-C Active CARAFATE 1 GM ORAL TABLET Take 1 tablet 4 times daily. Before meals and at bedtime SUCRALFATE 74343154889 No Longer Active Mari Stanley PA-C Active DULCOLAX 5 MG ORAL TABLET DELAYED RELEASE 1 tab daily BISACODYL 77360118746 Active Sara Moeller RN Active SUCRALFATE 1 GM ORAL TABLET 1 four times a day for GERD SUCRALFATE 49700459174 No Longer Active Sara Moeller RN Act berna FISH OIL CAPSULE 1 capsule daily OMEGA-3 FATTY ACIDS CAPS 58044377940 No Longer Active Sara Moeller RN Active PROBIOTIC DAILY ORAL CAPSULE 1 capsule daily 3 PROBIOTIC PRODUCT 25539839597 No Longer Active Sara Moeller RN Act berna B COMPLEX FORMULA 1 ORAL TABLET 1 tablet daily B COMPLEX- FOLIC ACID 73029406324 No Longer Active Sara Moeller RN Act berna PROAIR HFA 108 (90 BASE) MCG/ACT INHALATION AEROSOL SO LUTION 2 puffs four times a day as needed ALBUTEROL SULFATE 25962728520 No Long er Active Sara Moeller RN Active MULTIVITAMINS ORAL CAPSULE Take 1 daily MULTIPL E VITAMIN 25052622222 No Longer Active Sara Moeller RN Active CLONAZEPAM 2 MG ORAL TABLET one tablet at bed time CLONAZEPAM 53632651755 No Longer Active Sara Moeller RN Active DEPO-TESTOSTERONE 200 MG/ML INTRAMUSCULAR SOLUTION 100mg italia ry 4 weeks TESTOSTERONE CYPIONATE 79823200387 No Longer Active Sara Moeller RN Active ATIVAN 0.5 MG ORAL TABLET 1 tab 30 minutes prior to sleep study LORAZEPAM 80816959136 No Longer Active Rui Arndt MD Active NARCAN 4 MG/0.1ML NASAL LIQUID 1 spray in nostril ever y 2 to 3 minutes until responsive or EMS arrives NALOXONE HCL 53591792902 Active Rui Arndt MD Active LEVAQUIN 500 MG ORAL TABLET 1 daily for infection 2017 LEVOFLOXACIN 65440820884 No Longer Active Dena Lacy APRN Active PREDNISONE 20 MG TABS Take 2 daily for 5 days and then 1 stephy ly for 5 days PREDNISONE 25821273088 No Longer Active Riu saleem MD Active PREDNISONE 20 MG ORAL TABLET 2 tabs daily for 4 days, 1 tab daily for 4 days, 1/2 tab daily for 4 days PREDNISONE 04989935056 No Longer Active Rui Arndt MD Active OXYGEN 2L at night time - Dx: J44.9 Active Lori Winter LPN Active PREDNISONE 20 MG ORAL TABLET Take 2 daily for 5 days a nd then 1 daily for 5 days PREDNISONE 72785091034 No Longer Active Rui Arndt MD Active NORCO 10-325 MG ORAL TABLET Take 1-2 tablets every 6 hours a s needed for pain HYDROCODONE-ACETAMINOPHEN 38114771639 No Longer Activ e Rui Arndt MD Active FUROSEMIDE 20 MG ORAL TABLET 1 daily for blood pressure and swel ling FUROSEMIDE 94720375492 No Longer Active Rui Arndt MD Active PAMELOR 10 MG ORAL CAPSULE NORTRIPTY LINE HCL 13579924347 No Longer Active Rui Arndt MD Active AEROSPAN 80 MCG/ACT INHALATION AEROSOL SOLUTION 2 puffs twice FLUNISOLIDE HFA 50827601215 No Longer Active Rui Arndt MD Active LISINOPRIL 10 MG ORAL TABLET take one tab once daily 09/22 LISINOPRIL 11754322258 No Longer Active Rui Arndt MD Active BD INTEGRA SYRINGE 25G X 1" 1 ML Use with Depo provera INSULIN SYRINGE-NEEDLE U-100 Active Brittny MingoJESE Act berna MORPHINE SULFATE ER BEADS 75 MG ORAL CAPSULE EXTENDED RELEASE 24 HOUR 1 twice a day MORPHINE SULFATE BEADS 81592662690 No Longer Ac tive Rui Arndt MD Active COMBIVENT RESPIMAT 20-100 MCG/ACT INHALATION AEROSOL S OLUTION 1 puff four times a day IPRATROPIUM-ALBUTEROL 07096686755 No Longer Act berna Rui Arndt MD Active POTASSIUM CHLORIDE 20 MEQ ORAL PACKET 1 qDay with Lasix POTASSIUM CHLORIDE 53114726480 No Longer Active Rui Arndt MD Activ e PROAIR HFA 108 (90 Base) MCG/ACT INHALATION AEROSOL SO LUTION 2 puffs four times a day as needed ALBUTEROL SULFATE 34634417376 No Longer Ac tive Rui Arndt MD Active ASMANEX 60 METERED DOSES 220 MCG/INH INHALATION AEROSO L POWDER BREATH ACTIVATED 1 puff bid with rinse after MOMETASONE FUROATE 7230045 4102 No Longer Active Rui Arndt MD Active OMEPRAZOLE 40 MG ORAL CAPSULE DELAYED RELEASE 1 po q a.m. OMEPRAZOLE 76230645543 No Longer Active Anahi Ashley LPN Act [...] daily 2 LISINOPRIL 10 MG ORAL TABLET 226097 LISINOPRIL Inactive AEROSPAN 80 MCG/ACT INHALATION AEROSOL SOLUTION 2 puffs twice AEROSPAN 80 MCG/ACT INHALATION AEROSOL SOLUTION FLUNISOLIDE HFA Inactive PAMELOR 10 MG ORAL CAPSULE PAMELOR 1 0 MG ORAL CAPSULE 088578 NORTRIPTYLINE HCL Inactive FUROSEMIDE 20 MG ORAL TABLET 1 daily for blood pressure and swel ling FUROSEMIDE 20 MG ORAL TABLET 259003 FUROSEMIDE Corinna ctive NORCO 10-325 MG ORAL TABLET Take 1-2 tablets every 6 hours a s needed for pain NORCO 10-325 MG ORAL TABLET HYDROCODONE-A CETAMINOPHEN Inactive PREDNISONE 20 MG ORAL TABLET 2 tabs daily for 4 days, 1 tab daily for 4 days, 1/2 tab daily for 4 days PREDNISONE 20 MG ORAL T ABLET 801715 PREDNISONE Inactive LEVAQUIN 500 MG ORAL TABLET 1 daily for infection 2017 LEVAQUIN 500 MG ORAL TABLET 508452 LEVOFLOXACIN Inactive ATIVAN 0.5 MG ORAL TABLET 1 tab 30 minutes prior to sleep study ATIVAN 0.5 MG ORAL TABLET 142530 LORAZEPAM Inacti ve DEPO-TESTOSTERONE 200 MG/ML INTRAMUSCULAR SOLUTION 100mg italia ry 4 weeks DEPO-TESTOSTERONE 200 MG/ML INTRAMUSCULA R SOLUTION 5773573 TESTOSTERONE CYPIONATE Inactive CLONAZEPAM 2 MG ORAL TABLET one tablet at bed time 201 11/01/12 CLONAZEPAM 2 MG ORAL TABLET 377673 CLONAZEPAM Inactive MULTIVITAMINS ORAL CAPSULE Take 1 [...] capsule daily 3 PROBIOTIC DAILY ORAL CAPSULE 9312645 PROBIOTIC PRODUCT Inactive FISH OIL CAPSULE 1 capsule daily FISH OIL CAPSUL E OMEGA- 3 FATTY ACIDS CAPS Inactive SUCRALFATE 1 GM ORAL TABLET 1 four times a day for GERD SUCRALFATE 1 GM ORAL TABLET 045667 SUCRALFATE Inactive CARAFATE 1 GM ORAL TABLET Take 1 tablet 4 times daily. Before meals and at bedtime CARAFATE 1 GM ORAL TABLET 270506 SUCRALFATE Inactive CLARITIN 10 MG ORAL TABLET 1 tablet by mouth daily as needed for allergies CLARITIN 10 MG ORAL TABLET 988104 LORATADINE I nactive LEVOTHYROXINE SODIUM 175 MCG ORAL TABLET 1 pill by mouth daily f or thyroid LEVOTHYROXINE SODIUM 175 MCG ORAL TABLET 075891 LEVOTHY ROXINE SODIUM Inactive FLOMAX 0.4 MG ORAL CAPSULE one capsule in the evening 1/2 hour a fter supper FLOMAX 0.4 MG ORAL CAPSULE 447741 TAMSULOSIN HCL Inact berna PANTOPRAZOLE SODIUM 40 MG ORAL TABLET DELAYED RELEASE 1 pill by mouth daily PANTOPRAZOLE SODIUM 40 MG ORAL TABLET DE LAYED RELEASE 886911 PANTOPRAZOLE SODIUM Inactive DEPO-TESTOSTERONE 100 MG/ML INTRAMUSCULAR SOLUTION 1mL q4H DEPO-TESTOSTERONE 100 MG/ML INTRAMUSCULAR SOLUTION 962855 TESTOSTERONE CYPIONATE Inactive MORPHINE SULFATE ER 100 [...] three days PREDNISONE 20 MG ORAL TABLET 240771 PREDNIS ONE Inactive ASPIRIN 325 MG ORAL TABLET Take 1 tablet daily ASPIRIN 325 MG ORAL TABLET 938516 ASPIRIN Inactive PLAVIX 75 MG ORAL TABLET 1 tablet by mouth daily 03/11 PLAVIX 75 MG ORAL TABLET 455056 CLOPIDOGREL BISULFATE Inactive PLAVIX 75 MG ORAL TABLET 1 tablet by mouth daily for 30 days 202 PLAVIX 75 MG ORAL TABLET 611821 CLOPIDOGREL BISULFATE I nactive KLOR-CON M10 10 MEQ ORAL TABLET EXTENDED RELEASE one tablet twic e a day KLOR-CON M10 10 MEQ ORAL TABLET EXTENDED RELEASE 8434545 POTASSIUM CHLORIDE JORDAN CR Inactive PREDNISONE 20 MG ORAL TABLET Take 2 tablets daily for 5 days and 1 tablet daily for 5 days. PREDNISONE 20 MG ORAL TABLET 678653 PREDNISONE Inactive FLOMAX 0.4 MG ORAL CAPSULE 1 capsule by mouth in the evening for prostate FLOMAX 0.4 MG ORAL CAPSULE 311711 TAMSULOSIN HCL Inactive PROAIR HFA 108 (90 BASE) MCG/ACT INHALATION AEROSOL SO LUTION 2 puffs four times a day as needed PROAIR HFA 108 (90 B ASE) MCG/ACT INHALATION AEROSOL SOLUTION ALBUTEROL SULFATE Inactive LEVOTHYROXINE SODIUM 200 MCG ORAL TABLET 1 po q a.m. for thyroid LEVOTHYROXINE SODIUM 200 MCG ORAL TABLET 314524 LEVOTHY ROXINE SODIUM Inactive VENTOLIN HFA 108 (90 BASE) MCG/ACT INHALATION AEROSOL SOLUTI ON 1 puff every day VENTOLIN HFA 108 (90 BASE) M CG/ACT INHALATION AEROSOL SOLUTION ALBUTEROL SULFATE Inactive POTASSIUM CHLORIDE 20 MEQ ORAL PACKET 1 qDay with Lasix POTASSIUM CHLORIDE 20 MEQ ORAL PACKET 4697454 POTASSIUM CHLORIDE Inactive PREDNISONE 20 MG ORAL TABLET Take 2 daily for 5 days a nd then 1 daily for 5 days PREDNISONE 20 MG ORAL TABLET 930681 PREDNIS ONE Inactive PREDNISONE 20 MG TABS Take 2 daily for 5 days and then 1 stephy ly for 5 days PREDNISONE 20 MG TABS 857180 PREDNISONE Inacti ve ZITHROMAX Z-PETE 250 MG ORAL TABLET 2 today, then 1 daily for 4 d ays ZITHROMAX Z-PETE 250 MG ORAL TABLET 288867 AZITHROMYCIN Inactive CEFUROXIME AXETIL 500 MG ORAL TABLET TAKE 1/2 TABLET TWICE DAILY CEFUROXIME AXETIL 500 MG ORAL TABLET 706391 CEFUROXIME AXETIL Inactive Advance Directives Directive Description [...] Magnesium - Chemistry sodium, serum 138 mmol/L 785-983 5790/12/04 carbon dioxide, venous blood 28.3 mmol/L 21.0-32 [...] 0.90 mg/dL 0.00-1.00 cholesterol, serum 121 mg/dL 196-762 3626/12/04 triglyceride, serum, fasting 137 mg/dL 30-200 HDL [...] 2.60 ng/mL 0.00-4.00 sodium, serum 136 mmol/L 690-087 1704/10/06 carbon dioxide, venous blood 29.5 mmol/L 21.0-32 [...] noted Encounters Code Encounter Date Provider Facility CPT-31972 35202: Ofc Vst-Est Level III-Low MDM or 20-29 minutes 08:12:06 [facility] 83893: Ofc Vst-Est Level IV-Moderate MDM or 30-39 minutes 12:21:30 CDT Rui Arndt MD [facility] CPT-20077 21788-Wyk Vst-Est Level IV 09:46:31 CDT Lobo Arndt MD [facility] CPT-39546 59034-Cps Vst-Est Level IV 10:42:47 STEAM CRANE OPERATOR Lobo Arndt MD [facility] CPT-36069 27887-Eeo Vst-Est Level IV 11:02:04 CDT Lobo Arndt MD [facility] CPT-50411 24809-Wok Vst-Est Level IV 13:58:45 CDT Lobo Arndt MD [facility] CPT-21891 73283-Kfh Vst-Est Level IV 15:13:53 CDT Lobo Arndt MD [facility] CPT-40477 62677-Trq Vst-Est Level IV 11:54:49 CDT Lobo Arndt MD [facility] CPT-87578 89000-Qrl Vst-Est Level IV 11:04:27 STEAM CRANE OPERATOR Lobo Arndt MD [facility] CPT-89921 Level 4 New Patient 12:35:21 CDT Ade chung MD [facility] CPT-98146 Ofc Vst-Est Level IV 16:12:07 CDT Rui Arndt MD [facility] CPT-54440 52264-Yhr Vst-Est Level IV 16:25:05 CDT Lobo Arndt MD [facility] CPT-64313 36501-Cwa Vst-Est Level III 10:55:45 CDT Rui Arndt MD [facility] CPT-66665 24945-Rhr Vst-Est Level IV 14:16:20 CDT Lobo Arndt MD [facility] CPT-27519 Level 3 Est. Patient 13:14:20 CDT Luke rascon [facility] CPT-00728 77150-Vui Vst-Est Level IV 09:53:37 STEAM CRANE OPERATOR Lobo Arndt MD [facility] CPT-24617 68120-Kwk Vst-Est Level IV 09:44:38 CDT Lobo Arndt MD [facility] CPT-65588 Level 3 Est. Patient 15:23:12 CDT Dena ley [facility] CPT-97454 Level 4 Est. Patient 13:12:22 CDT Rui Arndt MD [facility] CPT-51702 Level 4 Est. Patient 14:44:13 CDT Dena ley [facility] CPT-35367 14522-Pep Vst-Est Level III 11:23:31 CDT Rui Arndt MD [facility] CPT-69514 94608-Zwu Vst-Est Level V 10:04:33 CDT Jose Arndt MD [facility]-74247 Level 4 Est. Patient 16:17:47 CDT Rui Arndt MD [facility]-27497 Level 4 Est. Patient 10:53:57 CDT Rui Arndt MD [facility]-48736 Level 3 Est. Patient 16:09:12 CDT Jemal marti MD [facility]-42598 Level 4 Est. Patient 11:32:24 STEAM CRANE OPERATOR Rui Arndt MD [facility]-30311 Level 4 Est. Patient 14:55:39 STEAM CRANE OPERATOR Dena ley [facility]-13878 Level 3 Est. Patient 15:10:46 STEAM CRANE OPERATOR Rui Arndt MD [facility]-13476 Level 3 Est. Patient 12:01:26 STEAM CRANE OPERATOR Rui Arndt MD [facility]-35208 Level 3 Est. Patient 10:35:15 STEAM CRANE OPERATOR Rui Arndt MD [facility]-31245 Level 3 Est. Patient 15:04:30 CDT Rui Arndt MD [facility]-57355 Level 3 Est. Patient 10:15:00 CDT Vinod fenton [facility]-55651 Level 4 Est. Patient 14:59:25 CDT Rui Arndt MD [facility]-55716 Level 4 Est. Patient 12:07:34 CDT Rui Arndt MD [facility]-37456 Level 3 Est. Patient 10:42:08 STEAM CRANE OPERATOR Rui Arndt MD [facility]-25460 Level 3 Est. Patient 17:29:10 STEAM CRANE OPERATOR Rui Arndt MD [facility]-28852 Level 4 Est. Patient 15:12:05 CDT Rui Arndt MD [facility]-95627 Level 2 Est. Patient 16:27:53 CDT Rui Arndt MD [facility] CPT-35015 Level 3 Est. Patient 12:02:36 CDT Rui Arndt MD [facility] CPT-35017 Level 4 Est. Patient 11:17:39 CDT Rui Arndt MD [facility] CPT-52755 Level 4 Est. Patient 15:46:07 CDT Rui Arndt MD [facility] CPT-43982 Level 4 Est. Patient 17:18:59 STEAM CRANE OPERATOR Rui Arndt MD [facility] CPT-90149 Level 4 Est. Patient 15:09:55 CDT Fabiana Vizcaino GEORGINA [facility] CPT-36374 Level 3 Est. Patient 15:49:06 CDT Rui Arndt MD [facility] CPT-30497 Level 3 Est. Patient 11:40:46 CDT Rui Arndt MD [facility] CPT-63641 Level 3 Est. Patient 18:00:51 CDT Rui Arndt MD [facility] CPT-34231 Level 4 Est. Patient 10:25:35 CDT Rui Arndt MD [facility] CPT-89731 Level 3 Est. Patient 15:45:51 CDT Rui Arndt MD [facility] CPT-61372 Level 4 Est. Patient 11:32:17 STEAM CRANE OPERATOR Rui Arndt MD [facility] CPT-64428 Level 4 New Patient 17:03:03 CDT Rui yoder MD [facility] Procedures Code Procedure Name Date Entry Date Standard Desc ription CPT-J1071 Depo Testosterone 100mg 13:15:20 CDT 0 09/16 CPT-08351 Abx/Therapy Injection 13:15:20 CDT CPT-J1071 Depo Testosterone 100mg 13:00:53 CDT 08/18 CPT-46286 Abx/Therapy Injection 13:00:53 CDT CPT-J1071 Depo Testosterone 100mg 16:00:36 CDT 07/22 CPT-04169 Abx/Therapy Injection 16:00:36 CDT CPT-J1071 Depo Testosterone 100mg 15:59:22 CDT 06/24 CPT-12787 Abx/Therapy Injection 15:59:22 CDT CPT-J1071 Depo Testosterone 100mg 17:34:08 STEAM CRANE OPERATOR 05/27 CPT-38305 Abx/Therapy Injection 17:34:08 STEAM CRANE OPERATOR CPT-NH8995D (4274F) Influenza immunization administe red or previously received 12:03:02 STEAM CRANE OPERATOR CPT-XK3184J (4274F) Influenza immunization administe red or previously received 10:42:46 STEAM CRANE OPERATOR CPT-J1071 Depo Testosterone 100mg 14:29:40 STEAM CRANE OPERATOR 05/19 CPT-53200 Abx/Therapy Injection 14:29:40 STEAM CRANE OPERATOR CPT-12144 Venipuncture Draw Fee 09:50:26 STEAM CRANE OPERATOR CPT-21456 Venipuncture Draw Fee 11:06:37 STEAM CRANE OPERATOR CPT-J1071 Depo Testosterone 100mg 13:49:54 STEAM CRANE OPERATOR 04/20 CPT-58196 Abx/Therapy Injection 13:49:54 STEAM CRANE OPERATOR CPT-J1071 Depo Testosterone 100mg 16:22:38 CDT CPT-48026 Abx/Therapy Injection 16:22:38 CDT CPT-000 Give Appropriate Flu Vaccine 11:02:04 CDT 2 CPT-41222 30449 - Immun Admin 1 vac 11:43:22 CDT 2019 CPT-19476 Flublok Quadrivalent [place] 11:43:22 CDT CPT-03502 Venipuncture Draw Fee 11:14:23 CDT CPT-TV4269S (4274F 2P) Patient Reason Influenza immu nization not administered 11:02:04 CDT CPT-G0439 Subsequent Annual Wellness Exam 14:24:52 CDT CPT-FN6950N (4013F) Statin therapy prescribed or cur rently being taken 14:24:52 CDT CPT-HF7843X (4274F 2P) Patient Reason Influenza immu nization not administered 14:24:52 CDT CPT-J1071 Depo Testosterone 100mg 13:29:13 CDT 12/23 CPT-48276 Abx/Therapy Injection 13:29:13 CDT CPT-J1071 Depo Testosterone 100mg 14:43:03 CDT 11/24 CPT-95185 Abx/Therapy Injection 14:43:03 CDT CPT-J1071 Depo Testosterone 100mg 17:18:41 CDT 10/27 CPT-04455 Abx/Therapy Injection 17:18:41 CDT CPT-43735 4M Drug Screen cup test, Multi-panel, urine 2019 13:58:45 CDT CPT-J1071 Depo Testosterone 100mg 16:42:20 CDT 09/23 CPT-97693 Abx/Therapy Injection 16:42:20 CDT CPT-J1071 Depo Testosterone 100mg 16:43:18 CDT 0 08/26 CPT-23800 Abx/Therapy Injection 16:43:18 CDT CPT-40573 Venipuncture Draw Fee 13:01:56 CDT CPT-J1071 Depo Testosterone 100mg 15:54:02 CDT 0 07/28 CPT-32577 Abx/Therapy Injection 15:54:02 CDT CPT-J1071 Depo Testosterone 100mg 15:17:11 CDT 0 06/30 CPT-76285 Abx/Therapy Injection 15:17:10 CDT CPT-33795 Venipuncture Draw Fee 11:58:13 CDT CPT-J1071 Depo Testosterone 200mg 14:59:06 CDT 0 06/02 CPT-98874 Abx/Therapy Injection 14:59:06 CDT CPT-J1071 Depo Testosterone 100mg 14:08:37 STEAM CRANE OPERATOR 0 05/06 CPT-63157 Abx/Therapy Injection 14:08:37 STEAM CRANE OPERATOR CPT-53318 Venipuncture Draw Fee 15:15:20 STEAM CRANE OPERATOR CPT-J1071 Depo Testosterone 100mg 15:40:35 STEAM CRANE OPERATOR 0 04/08 CPT-84421 Abx/Therapy Injection 15:40:35 STEAM CRANE OPERATOR CPT-TCMM Transitional Care Mgmt-Moderate 12:40:08 CS T CPT-IJ5608O (4274F) Influenza immunization administe red or previously received 12:40:07 STEAM CRANE OPERATOR CPT-01021 Venipuncture Draw Fee 15:13:23 STEAM CRANE OPERATOR CPT-96155 Venipuncture Draw Fee 12:39:02 [facility] CPT-J1071 Depo Testosterone 100mg 11:35:50 [facility] 05/12 CPT-86537 Abx/Therapy Injection 11:35:50 STEAM CRANE OPERATOR CPT-XW2360F (4274F) Influenza immunization administe red or previously received 11:04:25 [facility] CPT-J1071 Depo Testosterone 100mg 11:32:22 [facility] 04/13 CPT-54404 Abx/Therapy Injection 11:32:22 [facility] CPT-34620 25775 - Immun Admin 1 vac 16:43:51 [facility] 2018 CPT-43338 Shingrix 16:43:51 [facility] CPT-J1071 Depo Testosterone 100mg 18:38:18 CDT CPT-74961 Abx/Therapy Injection 18:38:17 CDT CPT-J1071 Depo Testosterone 100mg 14:36:52 CDT 12/18 CPT-53222 Abx/Therapy Injection 14:36:52 CDT CPT-G0008 Administration of Influenza Virus Vaccine 12/18 14:35:05 CDT CPT-35320 Fluzone (Flu) 10Pk Syringe IM (Medicare) 14:35:05 CDT CPT-76735 Bladder Scan 12:35:21 CDT CPT-15098 Venipuncture Draw Fee 16:41:57 CDT CPT-51745 03485 - Immun Admin 1 vac 16:31:08 CDT 2018 CPT-21927 Shingrix 16:31:07 CDT CPT-G0439 [facility] Annual Wellness Exam 16:12:06 CDT CPT-J1071 Depo Testosterone 100mg 12:18:42 CDT 0 11/20 CPT-06018 Abx/Therapy Injection 12:18:42 CDT CPT-J1071 Depo Testosterone 100mg 11:42:38 CDT 0 09/03 CPT-02944 Abx/Therapy Injection 11:42:38 CDT CPT-J1071 Depo Testosterone 100mg 12:00:58 CDT 08/06 CPT-08795 Abx/Therapy Injection 12:00:58 CDT CPT-J1071 Depo Testosterone 100mg 12:34:21 CDT 07/09 CPT-52987 Abx/Therapy Injection 12:34:21 CDT CPT-01801 Abdomen, 2 views 13:20:15 CDT CPT-52228 Chest, 2 views 13:20:15 CDT CPT-J1071 Depo Testosterone 200mg 14:21:46 CDT 0 06/12 CPT-99049 Abx/Therapy Injection 14:21:46 CDT CPT-J1071 Depo Testosterone 100mg 14:34:38 STEAM CRANE OPERATOR 0 05/14 CPT-90208 Abx/Therapy Injection 14:34:38 STEAM CRANE OPERATOR CPT-000 Give Pneumovax 11:57:22 CDT CPT-J1071 Depo Testosterone 100mg 17:09:47 STEAM CRANE OPERATOR 0 04/13 CPT-66179 Abx/Therapy Injection 17:09:47 STEAM CRANE OPERATOR CPT-J1071 Depo Testosterone 100mg 15:41:42 STEAM CRANE OPERATOR 05/17 CPT-64259 Abx/Therapy Injection 15:41:42 STEAM CRANE OPERATOR CPT-J1071 Depo Testosterone 100mg 13:42:43 STEAM CRANE OPERATOR 04/18 CPT-55407 Abx/Therapy Injection 13:42:43 STEAM CRANE OPERATOR CPT-J1071 Depo Testosterone 100mg 13:24:43 CDT CPT-96378 Abx/Therapy Injection 13:24:43 CDT CPT-89518 First Vx - Ix admin for Medicare patients 18:07:22 CDT CPT-15316 Fluzone Quadrivalent Intramuscular Suspe nsion 0.5 ML 18:07:22 CDT CPT-J1071 Depo Testosterone 100mg 12:06:21 CDT 12/21 CPT-92100 Abx/Therapy Injection 12:06:21 CDT CPT-J1071 Depo Testosterone 100mg 16:09:00 CDT 11/23 CPT-05830 Abx/Therapy Injection 16:09:00 CDT CPT-G0439 [facility] Annual Wellness Exam 13:12:23 CDT CPT-J1071 Depo Testosterone 100mg 10:40:29 CDT 10/26 CPT-34091 Abx/Therapy Injection 10:40:29 CDT CPT-J1071 Depo Testosterone 100mg 09:15:44 CDT 09/28 CPT-27710 Abx/Therapy Injection 09:15:43 CDT CPT-J1071 Depo Testosterone 100mg 10:53:34 CDT 08/31 CPT-08353 Abx/Therapy Injection 10:53:34 CDT CPT-65113 Kwan pre/post w graphic rec - XRAY USE ONLY 201 10/30/06 10:24:51 CDT CPT-J1071 Depo Testosterone 100mg 14:11:00 CDT 08/03 CPT-25460 Abx/Therapy Injection 14:11:00 CDT CPT-J1071 Depo Testosterone 100mg 15:15:13 CDT 07/04 CPT-55062 Abx/Therapy Injection 15:15:13 CDT CPT-J2310 Narcan HCI .4mg per 1 ml 15:52:42 CDT 06/26 CPT-21264 Chest, 2 views 15:11:39 CDT CPT-000 Give Appropriate Flu Vaccine 12:01:26 STEAM CRANE OPERATOR 2 CPT-57059 Chest single view 16:11:20 CDT CPT-J1071 Depo Testosterone 100mg 10:50:45 STEAM CRANE OPERATOR 05/29 CPT-05333 Abx/Therapy Injection 10:50:45 STEAM CRANE OPERATOR CPT-87268 Chest, 2 views 11:49:28 STEAM CRANE OPERATOR CPT-J1071 Depo Testosterone 100mg 16:07:43 STEAM CRANE OPERATOR 05/02 CPT-18962 Abx/Therapy Injection 16:07:43 STEAM CRANE OPERATOR CPT-J1071 Depo Testosterone 100mg 15:31:04 STEAM CRANE OPERATOR 03/31 CPT-97590 Abx/Therapy Injection 15:31:04 STEAM CRANE OPERATOR CPT-J1071 Depo Testosterone 100mg 16:29:48 CDT CPT-58132 Abx/Therapy Injection 16:29:48 CDT CPT-J1071 Depo Testosterone 100mg 14:42:01 CDT 12/23 CPT-17976 Abx/Therapy Injection 14:42:01 CDT CPT-G0439 Subsequent Annual Wellness Exam 14:14:09 CDT CPT-J1071 Depo Testosterone 100mg 13:48:18 CDT 11/17 CPT-26055 Abx/Therapy Injection 13:48:18 CDT CPT-G0009 Administration of Pneumococcal Vaccine 4 12:06:23 CDT CPT-45353 Pneumovax 23 Injection Injectable 25 MCG /0.5ML 12:06:23 CDT CPT-J1071 Depo Testosterone 100mg 13:11:36 CDT 10/19 CPT-26851 Abx/Therapy Injection 13:11:36 CDT CPT-J1071 Depo Testosterone 100mg 13:17:59 CDT 09/21 CPT-47314 Abx/Therapy Injection 13:17:59 CDT CPT-J1071 Depo Testosterone 100mg 13:08:38 CDT 09/21 CPT-J1071 Depo Testosterone 100mg 13:06:32 CDT 09/21 CPT-21508 Bone Density - XRAY USE ONLY 09:04:29 STEAM CRANE OPERATOR 2 CPT-27355 BMP - LAB USE ONLY 17:39:11 STEAM CRANE OPERATOR CPT-00505 Venipuncture Draw Fee 17:39:11 STEAM CRANE OPERATOR CPT-000 Give Appropriate Flu Vaccine 15:16:28 CDT 2 CPT-J1071 Depo Testosterone 200mg 16:59:53 CDT 10/21 CPT-33439 Abx/Therapy Injection 16:59:53 CDT CPT-17880 Abx/Therapy Injection 18:58:42 STEAM CRANE OPERATOR CPT-88845 First Vx - Ix admin for Medicare patients 15:47:06 CDT CPT-70736 Fluzone High-Dose Intramuscular Suspension 01/19 15:47:06 CDT CPT-15741 Abx/Therapy Injection 14:12:15 CDT CPT-28823 Abx/Therapy Injection 13:34:08 CDT CPT-24703 Abx/Therapy Injection 14:41:47 CDT CPT-G0438 Initial Annual Wellness Exam 10:06:26 CD T CPT-J1071 Depo Testosterone 200mg 11:42:49 CDT 09/22 CPT-80222 Abx/Therapy Injection 11:42:49 CDT CPT-03663 Abx/Therapy Injection 16:55:18 CDT CPT-74074 Abx/Therapy Injection 13:49:32 CDT CPT-J1071 Depo Testosterone 200mg 09:48:27 CDT 06/28 CPT-74714 Abx/Therapy Injection 09:48:27 CDT CPT-90372 Abx/Therapy Injection 16:27:06 STEAM CRANE OPERATOR CPT-40107 No Charge Offi Visit 18:00:02 STEAM CRANE OPERATOR 8 CPT-07256 Abd compl w upright 12:29:27 STEAM CRANE OPERATOR CPT-000 Give Appropriate Flu Vaccine 16:15:45 STEAM CRANE OPERATOR 2 CPT-75779 Abx/Therapy Injection 11:03:39 STEAM CRANE OPERATOR CPT-98020 Venipuncture Draw Fee 13:07:59 STEAM CRANE OPERATOR CPT-35624 Immunization Single Admin 12:03:42 STEAM CRANE OPERATOR 2014 CPT-76847 Fluzone High Dose (65+) 12:03:41 STEAM CRANE OPERATOR 05/05 CPT-50575 Chest 2V Frontal and Lat 15:25:23 CDT 12/29 CPT-26224 Venipuncture Draw Fee 15:57:34 CDT CPT-20217 Abx/Therapy Injection 12:52:43 CDT CPT-04063 Abx/Therapy Injection 08:58:56 CDT CPT-90241 Venipuncture Draw Fee 15:59:37 CDT CPT-73033 Abx/Therapy Injection 08:36:16 CDT CPT-000 Give Pneumovax 11:32:18 STEAM CRANE OPERATOR CPT-000 Give Appropriate Flu Vaccine 11:32:18 STEAM CRANE OPERATOR 2 CPT-83275 Abx/Therapy Injection 09:52:48 CDT CPT-38435 Abx/Therapy Injection 09:56:54 CDT CPT-OV Office Visit 16:35:19 CDT CPT-23532 Abx/Therapy Injection 08:25:48 CDT CPT-57631 Abx/Therapy Injection 09:17:15 STEAM CRANE OPERATOR CPT-33255 Abx/Therapy Injection 08:52:31 STEAM CRANE OPERATOR CPT-51372 Abx/Therapy Injection 09:32:50 STEAM CRANE OPERATOR CPT-32174 Abx/Therapy Injection 08:28:14 STEAM CRANE OPERATOR CPT-29017 Abx/Therapy Injection 10:43:07 CDT CPT-J1070 Depo Testosterone 100 mg 08:39:09 CDT 12/05 CPT-11309 Abx/Therapy Injection 08:39:09 CDT CPT-25782 Abx/Therapy Injection 11:22:03 CDT CPT-99769 Shoulder comp min 2V 14:11:48 CDT 1 CPT-16452 Abx/Therapy Injection 09:56:35 CDT CPT-LR Lesion Removal 09:49:45 CDT
--- OUTSIDE RECORDS SUMMARY | 2020-12-04 06:14 | XMS REPORT | Clinical Summary ---
Author Author Admin, Charlie Hankins Organization [facility] [place] Address Unknown Phone Unavailable Allergies, Adverse Reactions, Alerts Allergy Name Reaction Description Start Date Severity Status Pr ovider NKA Critical Active Dena Lacy APR N KEFLEX Mild No Longer Active Rui Arndt MD KEFLEX itch Moderate No Longer Active Vinod Alatorre EMERGENCY DETAIL DRIVER NKDA Critical No Longer Active Rui Arndt [...] involving unspecified site Seasonal allergies 477.9 Active uRi Arndt MD Allergic rhinitis, cause unspecified Hearing loss 389.9 Active Rui Arndt MD Unspecified hearing loss Hyperlipidemia 272.4 Refinement Rui Arndt MD Other and unspecified hyperlipidemia Familial hypercholesterolemia 272.4 Active 2018/0 10/26 Rui Arndt MD Other and unspecified hyperlipidemia Hypothyroidism 244.9 Active Rui Arndt MD Unspecified hypothyroidism HEALTH MAINTENANCE EXAM V70.0 Resolved Jose Arndt MD Routine general medical examination at [facility] Cataracts 366.9 Inactive Rui Arndt MD [...] fatigue Monoclonal gammopathy 273.1 Active Eboni villasenor TAG WRITER Monoclonal paraproteinemia Peripheral edema 782.3 Active Fabiana Speaks A PRN Edema Dyspnea 786.09 Resolved Rui Arndt MD Other dyspnea and respiratory abnormality Need for prophylactic vaccination and inoculation against in fluenza V04.81 Resolved Rui Arndt MD Need for prophylactic vaccination and inoculation against influenza Peripheral artery disease 443.9 Active Laruita ChongMilton [facility] Peripheral vascular disease, unspecified Abdominal pain, left [...] Body Mass Index 39.0-39.9, adult BMI 38-38.9 Active Rui Arndt MD Body Mass Index 39.0-39.9, adult Abdominal bloating 787.3 Active Luke Gonzales AP RN Flatulence, eructation, and gas pain Chest cough 786.2 Resolved Rui Arndt MD Cough 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 Ade Brush MD Hypertrophy (benign) of pros walls with urinary obstruction and other lower urinary tract symptoms (LUTS) Coronary artery disease 414.00 Active Jose Arndt MD Coronary atherosclerosis of unspecified type of vessel , [place] or graft 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 Tracie [...] Resolved Rui Bee MD Other abnormal glucose HEALTH MAINTENANCE EXAM ICD-V70.0 Inactive Nadia Arndt MD Examination, general medical ICD-V70.0 Inactiv e Rui Arndt MD Chronic pain syndrome ICD-338.4 [...] Generic Name NDC Status Provider Patient Instruction ZUBSOLV 11.4-2.9 MG SUBLINGUAL TABLET SUBLINGUAL Take 1 tablet dailyDEA; [id number] BUPRENORPHINE HCL-NALOXONE HCL [id number] Acti ve Rui Arndt MD Active CEFUROXIME AXETIL 500 MG ORAL TABLET TAKE 1/2 TABLET TWICE DAILY CEFUROXIME AXETIL 38850924654 No Longer Active Rui Arndt MD Active POTASSIUM CHLORIDE ER 10 MEQ CR-CAPS TAKE ONE TABLET BY MOUT H TWICE DAILY. POTASSIUM CHLORIDE 77330920007 Active AGUSTO Hall Active OMEPRAZOLE 40MG TAKE 1 CAPSULE BY MOUTH EVERY MORNING OMEPRAZOLE 59998268278 Active AGUSTO Hall Active SPIRIVA HANDIHLR INHALE CONTENTS OF ONE CAPSULE VIA HANDI HALER ONCE DAILY TIOTROPIUM BROMIDE MONOHYDRATE 97137698400 Active AGUSTO Hall Active BUMETANIDE 1MG TAKE 1 TABLET BY MOUTH ONCE DAILY IF NEE DED FOR SWELLING BUMETANIDE 91415291572 Active AGUSTO Hall Active ZOLPIDEM TARTRATE 10 MG TABS TAKE 1 TABLET BY MOUTH AT NIGHT IF NEEDED FOR SLEEP ZOLPIDEM TARTRATE 18356787501 Active Rui Arndt MD Active FUROSEMIDE 40MG TAKE 2 TABLETS BY MOUTH EVERY MORNING FUROSEMIDE 65501813254 Active Liudmila Tirado RN Active GABAPENTIN 300MG TAKE 1 CAPSULE BY MOUTH THREE TIMES DAILY GABAPENTIN 81827625369 Active AGUSTO Hall Active ATORVASTATIN 80MG TAKE 1 TABLET BY MOUTH DAILY AT BEDTIME 6 ATORVASTATIN CALCIUM 36586546678 Active AGUSTO Hall A ctive SUPER B-100 ORAL TABLET 1 q d B COMPLEX-BIOTI N-FA 75193801374 Active Tarun Chavez MD Active ASPIRIN 325 MG ORAL TABLET 1 q d ASPIRIN 0195559382 9 Active Tarun Chavez MD Active DIGITEK 125 MCG ORAL TABLET 1 q d DIGOXIN 580213645 01 Active Tarun Chavez MD Active VENTOLIN HFA 108 (90 BASE) MCG/ACT INHALATION AEROSOL SOLUTI ON 1 puff every day ALBUTEROL SULFATE 72367256300 No Longer Active Alan Chavez MD Active LEVOTHYROXINE SODIUM 200 MCG ORAL TABLET 1 po q a.m. for thyroid LEVOTHYROXINE SODIUM 54018413299 No Longer Active Tarun Chavez MD Active PROAIR HFA 108 (90 BASE) MCG/ACT INHALATION AEROSOL SO LUTION 2 puffs four times a day as needed ALBUTEROL SULFATE 71776106139 No Long er Active Tarun Chavez MD Active FLOMAX 0.4 MG ORAL CAPSULE 1 capsule by mouth in the evening for prostate TAMSULOSIN HCL 41601952926 No Longer Active Tarun Chavez MD Active ELIQUIS 5 MG TABS TAKE ONE TABLET BY MOUTH TWO TIMES A DAY APIXABAN 87311463022 Active AGUSTO Hall Active PREDNISONE 20 MG ORAL TABLET Take 2 tablets daily for 5 days and 1 tablet daily for 5 days. PREDNISONE 45177132448 No Longer Active Rui Arndt MD Active POTASSIUM CHLORIDE ER 10 MEQ CR-TABS TAKE ONE TABLET BY CATERINA TWICE DAILY. POTASSIUM CHLORIDE 19225120472 Active AGUSTO Hall Active KLOR-CON M10 10 MEQ ORAL TABLET EXTENDED RELEASE one tablet tw e a day POTASSIUM CHLORIDE JORDAN CR 66702355226 No Longer Active AGUSTO Suarez Active LORATADINE 10MG ORAL TABLET TAKE ONE TABLET BY MOUTH ONE TIME DAILY IF NEEDED FOR ALLERGIES. LORATADINE 50783129808 Active AGUSTO Hall Active LEVOTHYROXINE SODIUM 150MCG ORAL TABLET TAKE ONE TABLE T BY MOUTH ONE TIME DAILY FOR THYROID. LEVOTHYROXINE SODIUM 62827723738 Active AGUSTO Aquino Active PLAVIX 75 MG ORAL TABLET 1 tablet by mouth daily for 30 days 202 CLOPIDOGREL BISULFATE 10876025983 No Longer Active Rui Arndt MD Active PLAVIX 75 MG ORAL TABLET 1 tablet by mouth daily 03/11 CLOPIDOGREL BISULFATE 71549684886 No Longer Active Rui Arndt MD Activ e ASPIRIN 325 MG ORAL TABLET Take 1 tablet daily ASPIRIN 99978777451 No Longer Active Rui Arndt MD Active PREDNISONE 20 MG ORAL TABLET 1 tab twice daily for 3 d ay, then one daily for three days PREDNISONE 82200447005 No Longer Active Rui Arndt MD Active MORPHINE SULFATE ER 15 MG ORAL TABLET EXTENDED RELEASE 1 TID a d ay MORPHINE SULFATE 34852912459 No Longer Active Rui Arndt MD Active DEPO-TESTOSTERONE 100 MG/ML INTRAMUSCULAR SOLUTION 201 11/29/02 TESTOSTERONE CYPIONATE 27726669247 Active Brittny Aguila MA Active SUBOXONE 2-0.5 MG SUBLINGUAL FILM Bring to appointment before taking for induction. Stop the Morphine 12 hours before the appointment. BUPRENORPHINE HCL-NALOXONE HCL 52661487022 No Longer Active Rui Arndt MD Active MUCINEX D 60-600 MG ORAL TABLET EXTENDED RELEASE 12 HO UR 1 po BID PRN Congestion PSEUDOEPHEDRINE-GUAIFENESIN 08889398629 Active Luke Christian EMERGENCY DETAIL DRIVER Active ZITHROMAX Z-PETE 250 MG ORAL TABLET 2 today, then 1 daily for 4 d ays AZITHROMYCIN 34520923705 No Longer Active Luke Gonzales EMERGENCY DETAIL DRIVER Active MORPHINE SULFATE ER 60 MG ORAL TABLET EXTENDED RELEASE 1 twi ce a day for pain MORPHINE SULFATE 00399155387 No Longer Active Luke valdez APRN Active MORPHINE SULFATE ER 100 MG ORAL TABLET EXTENDED RELEASE one tabl et at bedtime MORPHINE SULFATE 41393110373 No Longer Active Luke Gonzales EMERGENCY DETAIL DRIVER Active DEPO-TESTOSTERONE 100 MG/ML INTRAMUSCULAR SOLUTION 1mL q4H TESTOSTERONE CYPIONATE 06908726060 No Longer Active Luke Gonzales EMERGENCY DETAIL DRIVER Active PANTOPRAZOLE SODIUM 40 MG ORAL TABLET DELAYED RELEASE 1 pill by mouth daily PANTOPRAZOLE SODIUM 99253841999 No Longer Active Jose Arndt MD Active FLOMAX 0.4 MG ORAL CAPSULE one capsule in the evening 1/2 hour a fter supper TAMSULOSIN HCL 21889287476 No Longer Active Rui Arndt MD Active LEVOTHYROXINE SODIUM 175 MCG ORAL TABLET 1 pill by mouth daily f or thyroid LEVOTHYROXINE SODIUM 76274967673 No Longer Active Fabiana Perdomo RN Active CLARITIN 10 MG ORAL TABLET 1 tablet by mouth daily as needed for allergies LORATADINE 05201805209 No Longer Active Mari bhakta PA-C Active CARAFATE 1 GM ORAL TABLET Take 1 tablet 4 times daily. Before meals and at bedtime SUCRALFATE 45020334628 No Longer Active Mari Stanley PA-C Active DULCOLAX 5 MG ORAL TABLET DELAYED RELEASE 1 tab daily BISACODYL 09618199691 Active Sara Moeller RN Active SUCRALFATE 1 GM ORAL TABLET 1 four times a day for GERD SUCRALFATE 69156041892 No Longer Active Sara Moeller RN Act berna FISH OIL CAPSULE 1 capsule daily OMEGA-3 FATTY ACIDS CAPS 05814312591 No Longer Active Sara Moeller RN Active PROBIOTIC DAILY ORAL CAPSULE 1 capsule daily 3 PROBIOTIC PRODUCT 27172687498 No Longer Active Sara Moeller RN Act berna B COMPLEX FORMULA 1 ORAL TABLET 1 tablet daily B COMPLEX- FOLIC ACID 22375642276 No Longer Active Sara Moeller RN Act berna PROAIR HFA 108 (90 BASE) MCG/ACT INHALATION AEROSOL SO LUTION 2 puffs four times a day as needed ALBUTEROL SULFATE 99198666629 No Long er Active Sara Moeller RN Active MULTIVITAMINS ORAL CAPSULE Take 1 daily MULTIPL E VITAMIN 81178349199 No Longer Active Sara Moeller RN Active CLONAZEPAM 2 MG ORAL TABLET one tablet at bed time CLONAZEPAM 15738725960 No Longer Active Sara Moeller RN Active DEPO-TESTOSTERONE 200 MG/ML INTRAMUSCULAR SOLUTION 100mg it[place] ry 4 weeks TESTOSTERONE CYPIONATE 91950623010 No Longer Active Sara Moeller RN Active ATIVAN 0.5 MG ORAL TABLET 1 tab 30 minutes prior to sleep study LORAZEPAM 84517279207 No Longer Active Rui Arndt MD Active NARCAN 4 MG/0.1ML NASAL LIQUID 1 spray in nostril ever y 2 to 3 minutes until responsive or EMS arrives NALOXONE HCL 87946158384 Active Rui Arndt MD Active LEVAQUIN 500 MG ORAL TABLET 1 daily for infection 2017 LEVOFLOXACIN 79459211702 No Longer Active Dena Lacy APRN Active PREDNISONE 20 MG TABS Take 2 daily for 5 days and then 1 stephy ly for 5 days PREDNISONE 65033235732 No Longer Active Rui saleem MD Active PREDNISONE 20 MG ORAL TABLET 2 tabs daily for 4 days, 1 tab daily for 4 days, 1/2 tab daily for 4 days PREDNISONE 72318296995 No Longer Active Rui Arndt MD Active OXYGEN 2L at night time - Dx: J44.9 Active Lori Winter LPN Active PREDNISONE 20 MG ORAL TABLET Take 2 daily for 5 days a nd then 1 daily for 5 days PREDNISONE 56117017578 No Longer Active Rui Arndt MD Active NORCO 10-325 MG ORAL TABLET Take 1-2 tablets every 6 hours a s needed for pain HYDROCODONE-ACETAMINOPHEN 66804304088 No Longer Activ e Rui Arndt MD Active FUROSEMIDE 20 MG ORAL TABLET 1 daily for blood pressure and swel ling FUROSEMIDE 46168657139 No Longer Active Rui Arndt MD Active PAMELOR 10 MG ORAL CAPSULE NORTRIPTY LINE HCL 08973026348 No Longer Active Rui Arndt MD Active AEROSPAN 80 MCG/ACT INHALATION AEROSOL SOLUTION 2 puffs twice FLUNISOLIDE HFA 64670199130 No Longer Active Rui Arndt MD Active LISINOPRIL 10 MG ORAL TABLET take one tab once daily 09/22 LISINOPRIL 36433647970 No Longer Active Rui Arndt MD Active BD INTEGRA SYRINGE 25G X 1" 1 ML Use with Depo provera INSULIN SYRINGE-NEEDLE U-100 Active Brittny Aguila MA Act berna MORPHINE SULFATE ER BEADS 75 MG ORAL CAPSULE EXTENDED RELEASE 24 HOUR 1 twice a day MORPHINE SULFATE BEADS 56992887086 No Longer Ac tive Rui Arndt MD Active COMBIVENT RESPIMAT 20-100 MCG/ACT INHALATION AEROSOL S OLUTION 1 puff four times a day IPRATROPIUM-ALBUTEROL 33868319339 No Longer Act berna Rui Arndt MD Active POTASSIUM CHLORIDE 20 MEQ ORAL PACKET 1 qDay with Lasix POTASSIUM CHLORIDE 73073068260 No Longer Active Rui Arndt MD Activ e PROAIR HFA 108 (90 Base) MCG/ACT INHALATION AEROSOL SO LUTION 2 puffs four times a day as needed ALBUTEROL SULFATE 69735247124 No Longer Ac tive Rui Arndt MD Active ASMANEX 60 METERED DOSES 220 MCG/INH INHALATION AEROSO L POWDER BREATH ACTIVATED 1 puff bid with rinse after MOMETASONE FUROATE 2191053 4102 No Longer Active Rui Arndt MD Active OMEPRAZOLE 40 MG ORAL CAPSULE DELAYED RELEASE 1 po q a.m. OMEPRAZOLE 11505829060 No Longer Active Anahi Ashley LPN Act [...] daily 2 LISINOPRIL 10 MG ORAL TABLET 725481 LISINOPRIL Inactive AEROSPAN 80 MCG/ACT INHALATION AEROSOL SOLUTION 2 puffs twice AEROSPAN 80 MCG/ACT INHALATION AEROSOL SOLUTION FLUNISOLIDE HFA Inactive PAMELOR 10 MG ORAL CAPSULE PAMELOR 1 0 MG ORAL CAPSULE 336269 NORTRIPTYLINE HCL Inactive FUROSEMIDE 20 MG ORAL TABLET 1 daily for blood pressure and swel ling FUROSEMIDE 20 MG ORAL TABLET 327211 FUROSEMIDE Corinna ctive NORCO 10-325 MG ORAL TABLET Take 1-2 tablets every 6 hours a s needed for pain NORCO 10-325 MG ORAL TABLET HYDROCODONE-A CETAMINOPHEN Inactive PREDNISONE 20 MG ORAL TABLET 2 tabs daily for 4 days, 1 tab daily for 4 days, 1/2 tab daily for 4 days PREDNISONE 20 MG ORAL T ABLET 743192 PREDNISONE Inactive LEVAQUIN 500 MG ORAL TABLET 1 daily for infection 2017 LEVAQUIN 500 MG ORAL TABLET 247758 LEVOFLOXACIN Inactive ATIVAN 0.5 MG ORAL TABLET 1 tab 30 minutes prior to sleep study ATIVAN 0.5 MG ORAL TABLET 418776 LORAZEPAM Inacti ve DEPO-TESTOSTERONE 200 MG/ML INTRAMUSCULAR SOLUTION 100mg it[place] ry 4 weeks DEPO-TESTOSTERONE 200 MG/ML INTRAMUSCULA R SOLUTION 0076468 TESTOSTERONE CYPIONATE Inactive CLONAZEPAM 2 MG ORAL TABLET one tablet at bed time 201 11/01/12 CLONAZEPAM 2 MG ORAL TABLET 110015 CLONAZEPAM Inactive MULTIVITAMINS ORAL CAPSULE Take 1 [...] capsule daily 3 PROBIOTIC DAILY ORAL CAPSULE 8277391 PROBIOTIC PRODUCT Inactive FISH OIL CAPSULE 1 capsule daily FISH OIL CAPSUL E OMEGA- 3 FATTY ACIDS CAPS Inactive SUCRALFATE 1 GM ORAL TABLET 1 four times a day for GERD SUCRALFATE 1 GM ORAL TABLET 590429 SUCRALFATE Inactive CARAFATE 1 GM ORAL TABLET Take 1 tablet 4 times daily. Before meals and at bedtime CARAFATE 1 GM ORAL TABLET 449260 SUCRALFATE Inactive CLARITIN 10 MG ORAL TABLET 1 tablet by mouth daily as needed for allergies CLARITIN 10 MG ORAL TABLET 236072 LORATADINE I nactive LEVOTHYROXINE SODIUM 175 MCG ORAL TABLET 1 pill by mouth daily f or thyroid LEVOTHYROXINE SODIUM 175 MCG ORAL TABLET 017339 LEVOTHY ROXINE SODIUM Inactive FLOMAX 0.4 MG ORAL CAPSULE one capsule in the evening 1/2 hour a fter supper FLOMAX 0.4 MG ORAL CAPSULE 142199 TAMSULOSIN HCL Inact berna PANTOPRAZOLE SODIUM 40 MG ORAL TABLET DELAYED RELEASE 1 pill by mouth daily PANTOPRAZOLE SODIUM 40 MG ORAL TABLET DE LAYED RELEASE 478491 PANTOPRAZOLE SODIUM Inactive DEPO-TESTOSTERONE 100 MG/ML INTRAMUSCULAR SOLUTION 1mL q4H DEPO-TESTOSTERONE 100 MG/ML INTRAMUSCULAR SOLUTION 934526 TESTOSTERONE CYPIONATE Inactive MORPHINE SULFATE ER 100 [...] three days PREDNISONE 20 MG ORAL TABLET 119437 PREDNIS ONE Inactive ASPIRIN 325 MG ORAL TABLET Take 1 tablet daily ASPIRIN 325 MG ORAL TABLET 415519 ASPIRIN Inactive PLAVIX 75 MG ORAL TABLET 1 tablet by mouth daily 03/11 PLAVIX 75 MG ORAL TABLET 869222 CLOPIDOGREL BISULFATE Inactive PLAVIX 75 MG ORAL TABLET 1 tablet by mouth daily for 30 days PLAVIX 75 MG ORAL TABLET 310041 CLOPIDOGREL BISULFATE I nactive KLOR-CON M10 10 MEQ ORAL TABLET EXTENDED RELEASE one tablet twic e a day KLOR-CON M10 10 MEQ ORAL TABLET EXTENDED RELEASE 3073774 POTASSIUM CHLORIDE JORDAN CR Inactive PREDNISONE 20 MG ORAL TABLET Take 2 tablets daily for 5 days and 1 tablet daily for 5 days. PREDNISONE 20 MG ORAL TABLET 991787 PREDNISONE Inactive FLOMAX 0.4 MG ORAL CAPSULE 1 capsule by mouth in the evening for prostate FLOMAX 0.4 MG ORAL CAPSULE 990667 TAMSULOSIN HCL Inactive PROAIR HFA 108 (90 BASE) MCG/ACT INHALATION AEROSOL SO LUTION 2 puffs four times a day as needed PROAIR HFA 108 (90 B ASE) MCG/ACT INHALATION AEROSOL SOLUTION ALBUTEROL SULFATE Inactive LEVOTHYROXINE SODIUM 200 MCG ORAL TABLET 1 po q a.m. for thyroid LEVOTHYROXINE SODIUM 200 MCG ORAL TABLET 544141 LEVOTHY ROXINE SODIUM Inactive VENTOLIN HFA 108 (90 BASE) MCG/ACT INHALATION AEROSOL SOLUTI ON 1 puff every day VENTOLIN HFA 108 (90 BASE) M CG/ACT INHALATION AEROSOL SOLUTION ALBUTEROL SULFATE Inactive POTASSIUM CHLORIDE 20 MEQ ORAL PACKET 1 qDay with Lasix POTASSIUM CHLORIDE 20 MEQ ORAL PACKET 3811842 POTASSIUM CHLORIDE Inactive PREDNISONE 20 MG ORAL TABLET Take 2 daily for 5 days a nd then 1 daily for 5 days PREDNISONE 20 MG ORAL TABLET 206951 PREDNIS ONE Inactive PREDNISONE 20 MG TABS Take 2 daily for 5 days and then 1 stephy ly for 5 days PREDNISONE 20 MG TABS 289126 PREDNISONE Inacti ve ZITHROMAX Z-PETE 250 MG ORAL TABLET 2 today, then 1 daily for 4 d ays ZITHROMAX Z-PETE 250 MG ORAL TABLET 375716 AZITHROMYCIN Inactive CEFUROXIME AXETIL 500 MG ORAL TABLET TAKE 1/2 TABLET TWICE DAILY CEFUROXIME AXETIL 500 MG ORAL TABLET 371719 CEFUROXIME AXETIL Inactive Advance Directives Directive Description [...] Magnesium - Chemistry sodium, serum 138 mmol/L 374-324 7417/12/04 carbon dioxide, venous blood 28.3 mmol/L 21.0-32 [...] 0.90 mg/dL 0.00-1.00 cholesterol, serum 121 mg/dL 656-627 0960/12/04 triglyceride, serum, fasting 137 mg/dL 30-200 HDL [...] 2.60 ng/mL 0.00-4.00 sodium, serum 136 mmol/L 510-343 2225/10/06 carbon dioxide, venous blood 29.5 mmol/L 21.0-32 [...] endation and action PSA ordered Office Visit: víctor, pduq 110 - PMH sexually transmitted disease no risk noted Encounters Code Encounter Date Provider Facility CPT-56998 05107: Ofc Vst-Est Level IV-Moderate MDM or 30-39 minutes 12:21:30 CDT Rui Arndt MD [facility] CPT-71735 46762-Ruh Vst-Est Level IV 09:46:31 CDT Lobo Arndt MD [facility] CPT-68075 54360-Jvo Vst-Est Level IV 10:42:47 ROUNDHOUSE FIRER/FIREMAN Lobo Arndt MD [facility] CPT-25841 02545-Bnv Vst-Est Level IV 11:02:04 CDT Lobo Arndt MD [facility] CPT-58624 05393-Ovg Vst-Est Level IV 13:58:45 CDT Lobo Arndt MD [facility] CPT-29018 94496-Gao Vst-Est Level IV 15:13:53 CDT Lobo Arndt MD [facility] CPT-21929 47104-Dpv Vst-Est Level IV 11:54:49 CDT Lobo Arndt MD [facility] CPT-38965 99418-Fth Vst-Est Level IV 11:04:27 ROUNDHOUSE FIRER/FIREMAN Lobo Arndt MD [facility] CPT-74066 Level 4 New Patient 12:35:21 CDT Ade chung MD [facility] CPT-98816 Ofc Vst-Est Level IV 16:12:07 CDT Rui Arndt MD [facility] CPT-89032 19271-Wxp Vst-Est Level IV 16:25:05 CDT Lobo Arndt MD [facility] CPT-56876 05731-Zub Vst-Est Level III 10:55:45 CDT Rui Arndt MD [facility] CPT-85830 77676-Ikc Vst-Est Level IV 14:16:20 CDT Lobo Arndt MD [facility] CPT-82855 Level 3 Est. Patient 13:14:20 CDT Luke rascon EMERGENCY DETAIL DRIVER [facility] CPT-66229 67965-Rkn Vst-Est Level IV 09:53:37 ROUNDHOUSE FIRER/FIREMAN Lobo Arndt MD [facility]-77448 21462-Rry Vst-Est Level IV 09:44:38 CDT Lobo Arndt MD [facility] CPT-95100 Level 3 Est. Patient 15:23:12 CDT Dena ley [facility] CPT-51624 Level 4 Est. Patient 13:12:22 CDT Rui Arndt MD [facility] CPT-37257 Level 4 Est. Patient 14:44:13 CDT Dena ley [facility]-11171 92353-Cve Vst-Est Level III 11:23:31 CDT Rui Arndt MD [facility]-72839 31738-Lss Vst-Est Level V 10:04:33 CDT Jose Arndt MD [facility] CPT-82727 Level 4 Est. Patient 16:17:47 CDT Rui Arndt MD [facility] CPT-24314 Level 4 Est. Patient 10:53:57 CDT Rui Arndt MD [facility] CPT-72405 Level 3 Est. Patient 16:09:12 CDT Jemal marti MD [facility] CPT-26657 Level 4 Est. Patient 11:32:24 ROUNDHOUSE FIRER/FIREMAN Rui Arndt MD [facility] CPT-44090 Level 4 Est. Patient 14:55:39 ROUNDHOUSE FIRER/FIREMAN Dena ley [facility] CPT-17259 Level 3 Est. Patient 15:10:46 ROUNDHOUSE FIRER/FIREMAN Rui Arndt MD [facility] CPT-67749 Level 3 Est. Patient 12:01:26 ROUNDHOUSE FIRER/FIREMAN Rui Arndt MD [facility] CPT-70281 Level 3 Est. Patient 10:35:15 ROUNDHOUSE FIRER/FIREMAN Rui Arndt MD [facility] CPT-80468 Level 3 Est. Patient 15:04:30 CDT Rui Arndt MD [facility]-97095 Level 3 Est. Patient 10:15:00 CDT Vinod Nhi padminikaitlin [facility] CPT-27555 Level 4 Est. Patient 14:59:25 CDT Rui Arndt MD [facility]-25826 Level 4 Est. Patient 12:07:34 CDT Rui Arndt MD [facility] CPT-98635 Level 3 Est. Patient 10:42:08 ROUNDHOUSE FIRER/FIREMAN Rui Arndt MD [facility]-15742 Level 3 Est. Patient 17:29:10 ROUNDHOUSE FIRER/FIREMAN Rui Arndt MD [facility]-14529 Level 4 Est. Patient 15:12:05 CDT Rui Arndt MD [facility]-84591 Level 2 Est. Patient 16:27:53 CDT Rui Arndt MD [facility]-89810 Level 3 Est. Patient 12:02:36 CDT Rui Arndt MD [facility] CPT-11408 Level 4 Est. Patient 11:17:39 CDT Rui Arndt MD [facility]-17169 Level 4 Est. Patient 15:46:07 CDT Rui Arndt MD [facility]-75165 Level 4 Est. Patient 17:18:59 ROUNDHOUSE FIRER/FIREMAN Rui Arndt MD [facility]-53937 Level 4 Est. Patient 15:09:55 CDT Fabiana Vizcaino [facility] CPT-18314 Level 3 Est. Patient 15:49:06 CDT Rui Arndt MD [facility] CPT-97137 Level 3 Est. Patient 11:40:46 CDT Rui Arndt MD [facility] CPT-09131 Level 3 Est. Patient 18:00:51 CDT Rui Arndt MD [facility] CPT-25850 Level 4 Est. Patient 10:25:35 CDT Rui Arndt MD [facility] CPT-31067 Level 3 Est. Patient 15:45:51 CDT Rui Arndt MD [facility] CPT-51436 Level 4 Est. Patient 11:32:17 ROUNDHOUSE FIRER/FIREMAN Rui Arndt MD [facility] CPT-02588 Level 4 New Patient 17:03:03 CDT Rui yoder MD [facility] Procedures Code Procedure Name Date Entry Date Standard Desc ription CPT-J1071 Depo Testosterone 100mg 13:15:20 CDT 09/16 CPT-28964 Abx/Therapy Injection 13:15:20 CDT CPT-J1071 Depo Testosterone 100mg 13:00:53 CDT 08/18 CPT-63014 Abx/Therapy Injection 13:00:53 CDT CPT-J1071 Depo Testosterone 100mg 16:00:36 CDT 07/22 CPT-57753 Abx/Therapy Injection 16:00:36 CDT CPT-J1071 Depo Testosterone 100mg 15:59:22 CDT 06/24 CPT-54003 Abx/Therapy Injection 15:59:22 CDT CPT-J1071 Depo Testosterone 100mg 17:34:08 ROUNDHOUSE FIRER/FIREMAN 05/27 CPT-53876 Abx/Therapy Injection 17:34:08 ROUNDHOUSE FIRER/FIREMAN CPT-GB1971K (4274F) Influenza immunization administe red or previously received 12:03:02 ROUNDHOUSE FIRER/FIREMAN CPT-RP8050S (4274F) Influenza immunization administe red or previously received 10:42:46 ROUNDHOUSE FIRER/FIREMAN CPT-J1071 Depo Testosterone 100mg 14:29:40 ROUNDHOUSE FIRER/FIREMAN 05/19 CPT-87201 Abx/Therapy Injection 14:29:40 ROUNDHOUSE FIRER/FIREMAN CPT-19509 Venipuncture Draw Fee 09:50:26 ROUNDHOUSE FIRER/FIREMAN CPT-44789 Venipuncture Draw Fee 11:06:37 ROUNDHOUSE FIRER/FIREMAN CPT-J1071 Depo Testosterone 100mg 13:49:54 ROUNDHOUSE FIRER/FIREMAN 04/20 CPT-14795 Abx/Therapy Injection 13:49:54 ROUNDHOUSE FIRER/FIREMAN CPT-J1071 Depo Testosterone 100mg 16:22:38 CDT CPT-75096 Abx/Therapy Injection 16:22:38 CDT CPT-000 Give Appropriate Flu Vaccine 11:02:04 CDT 2 CPT-48626 97213 - Immun Admin 1 vac 11:43:22 CDT 2019 CPT-53641 [employer] Quadrivalent [place] 11:43:22 CDT CPT-40120 Venipuncture Draw Fee 11:14:23 CDT CPT-WN2555N (4274F 2P) Patient Reason Influenza immu nization not administered 11:02:04 CDT CPT-G0439 Subsequent Annual Wellness Exam 14:24:52 CDT CPT-RG6095Q (4013F) Statin therapy prescribed or cur rently being taken 14:24:52 CDT CPT-XS9759U (4274F 2P) Patient Reason Influenza immu nization not administered 14:24:52 CDT CPT-J1071 Depo Testosterone 100mg 13:29:13 CDT 12/23 CPT-39167 Abx/Therapy Injection 13:29:13 CDT CPT-J1071 Depo Testosterone 100mg 14:43:03 CDT 0 11/24 CPT-47227 Abx/Therapy Injection 14:43:03 CDT CPT-J1071 Depo Testosterone 100mg 17:18:41 CDT 0 10/27 CPT-32020 Abx/Therapy Injection 17:18:41 CDT CPT-77637 4M Drug Screen cup test, Multi-panel, urine 2019 13:58:45 CDT CPT-J1071 Depo Testosterone 100mg 16:42:20 CDT 0 09/23 CPT-68248 Abx/Therapy Injection 16:42:20 CDT CPT-J1071 Depo Testosterone 100mg 16:43:18 CDT 0 08/26 CPT-50533 Abx/Therapy Injection 16:43:18 CDT CPT-08426 Venipuncture Draw Fee 13:01:56 CDT CPT-J1071 Depo Testosterone 100mg 15:54:02 CDT 0 07/28 CPT-16759 Abx/Therapy Injection 15:54:02 CDT CPT-J1071 Depo Testosterone 100mg 15:17:11 CDT 20200 06/30 CPT-11751 Abx/Therapy Injection 15:17:10 CDT CPT-88471 Venipuncture Draw Fee 11:58:13 CDT CPT-J1071 Depo Testosterone 200mg 14:59:06 CDT [address] 06/02 CPT-23768 Abx/Therapy Injection 14:59:06 CDT CPT-J1071 Depo Testosterone 100mg 14:08:37 [employer] 05/06 CPT-36010 Abx/Therapy Injection 14:08:37 [employer] CPT-36357 Venipuncture Draw Fee 15:15:20 [employer] CPT-J1071 Depo Testosterone 100mg 15:40:35 [employer] 04/08 CPT-86964 Abx/Therapy Injection 15:40:35 [employer] CPT-TCMM Transitional Care Mgmt-Moderate 12:40:08 CS T CPT-TX3028O (4274F) Influenza immunization administe red or previously received 12:40:07 [employer] CPT-57991 Venipuncture Draw Fee 15:13:23 [employer] CPT-04948 Venipuncture Draw Fee 12:39:[address] [facility] CPT-J1071 Depo Testosterone 100mg 11:35:50 [employer] 05/12 CPT-34518 Abx/Therapy Injection 11:35:50 [employer] CPT-ZR8927A (4274F) Influenza immunization administe red or previously received 11:04:25 [employer] CPT-J1071 Depo Testosterone 100mg 11:32:22 [employer] 04/13 CPT-31139 Abx/Therapy Injection 11:32:22 [employer] CPT-00826 52779 - Immun Admin 1 vac 16:43:51 [employer] 2018 CPT-20231 Shingrix 16:43:51 [employer] CPT-J1071 Depo Testosterone 100mg 18:38:18 CDT CPT-76362 Abx/Therapy Injection 18:38:17 CDT CPT-J1071 Depo Testosterone 100mg 14:36:52 CDT 12/18 CPT-75483 Abx/Therapy Injection 14:36:52 CDT CPT-G0008 Administration of Influenza Virus Vaccine 12/18 14:35:05 CDT CPT-66288 Fluzone (Flu) 10Pk Syringe IM (Medicare) 14:35:05 CDT CPT-36732 Bladder Scan 12:35:21 CDT CPT-82128 Venipuncture Draw Fee 16:41:57 CDT CPT-76384 43294 - Immun Admin 1 vac 16:31:08 CDT 2018 CPT-44669 Shingrix 16:31:07 CDT CPT-G0439 [facility] Annual Wellness Exam 16:12:06 CDT CPT-J1071 Depo Testosterone 100mg 12:18:42 CDT 11/20 CPT-97210 Abx/Therapy Injection 12:18:42 CDT CPT-J1071 Depo Testosterone 100mg 11:42:38 CDT 09/03 CPT-75030 Abx/Therapy Injection 11:42:38 CDT CPT-J1071 Depo Testosterone 100mg 12:00:58 CDT 08/06 CPT-15372 Abx/Therapy Injection 12:00:58 CDT CPT-J1071 Depo Testosterone 100mg 12:34:21 CDT 07/09 CPT-27986 Abx/Therapy Injection 12:34:21 CDT CPT-35086 Abdomen, 2 views 13:20:15 CDT CPT-17528 Chest, 2 views 13:20:15 CDT CPT-J1071 Depo Testosterone 200mg 14:21:46 CDT 06/12 CPT-73489 Abx/Therapy Injection 14:21:46 CDT CPT-J1071 Depo Testosterone 100mg 14:34:38 [employer] 05/14 CPT-62153 Abx/Therapy Injection 14:34:38 [employer] CPT-000 Give Pneumovax 11:57:22 CDT CPT-J1071 Depo Testosterone 100mg 17:09:47 [employer] 04/13 CPT-41166 Abx/Therapy Injection 17:09:47 [employer] CPT-J1071 Depo Testosterone 100mg 15:41:42 [employer] 05/17 CPT-86148 Abx/Therapy Injection 15:41:42 [employer] CPT-J1071 Depo Testosterone 100mg 13:42:43 [employer] 04/18 CPT-14366 Abx/Therapy Injection 13:42:43 [employer] CPT-J1071 Depo Testosterone 100mg 13:24:43 CDT CPT-14795 Abx/Therapy Injection 13:24:43 CDT CPT-23828 First Vx - Ix admin for Medicare patients 18:07:22 CDT CPT-15372 Fluzone Quadrivalent Intramuscular Suspe nsion 0.5 ML 18:07:22 CDT CPT-J1071 Depo Testosterone 100mg 12:06:21 CDT 12/21 CPT-21736 Abx/Therapy Injection 12:06:21 CDT CPT-J1071 Depo Testosterone 100mg 16:09:00 CDT 11/23 CPT-07693 Abx/Therapy Injection 16:09:00 CDT CPT-G0439 Subsequent Annual Wellness Exam 13:12:23 CDT CPT-J1071 Depo Testosterone 100mg 10:40:29 CDT 10/26 CPT-26161 Abx/Therapy Injection 10:40:29 CDT CPT-J1071 Depo Testosterone 100mg 09:15:44 CDT 09/28 CPT-96096 Abx/Therapy Injection 09:15:43 CDT CPT-J1071 Depo Testosterone 100mg 10:53:34 CDT 08/31 CPT-46765 Abx/Therapy Injection 10:53:34 CDT CPT-78979 [place] pre/post w graphic rec - XRAY USE ONLY 201 10/30/06 10:24:51 CDT CPT-J1071 Depo Testosterone 100mg 14:11:00 CDT 08/03 CPT-33398 Abx/Therapy Injection 14:11:00 CDT CPT-J1071 Depo Testosterone 100mg 15:15:13 CDT 07/04 CPT-98706 Abx/Therapy Injection 15:15:13 CDT CPT-J2310 Narcan HCI .4mg per 1 ml 15:52:42 CDT 06/26 CPT-35234 Chest, 2 views 15:11:39 CDT CPT-000 Give Appropriate Flu Vaccine 12:01:26 [employer] 2 CPT-26947 Chest single view 16:11:20 CDT CPT-J1071 Depo Testosterone 100mg 10:50:45 [employer] 05/29 CPT-39279 Abx/Therapy Injection 10:50:45 [employer] CPT-82875 Chest, 2 views 11:49:28 [employer] CPT-J1071 Depo Testosterone 100mg 16:07:43 [employer] 05/02 CPT-10475 Abx/Therapy Injection 16:07:43 [employer] CPT-J1071 Depo Testosterone 100mg 15:31:04 [employer] 03/31 CPT-61720 Abx/Therapy Injection 15:31:04 [employer] CPT-J1071 Depo Testosterone 100mg 16:29:48 CDT CPT-98802 Abx/Therapy Injection 16:29:48 CDT CPT-J1071 Depo Testosterone 100mg 14:42:01 CDT 12/23 CPT-48576 Abx/Therapy Injection 14:42:01 CDT CPT-G0439 [facility] Annual Wellness Exam 14:14:09 CDT CPT-J1071 Depo Testosterone 100mg 13:48:18 CDT 11/17 CPT-59494 Abx/Therapy Injection 13:48:18 CDT CPT-G0009 Administration of Pneumococcal Vaccine 4 12:06:23 CDT CPT-32665 Pneumovax 23 Injection Injectable 25 MCG /0.5ML 12:06:23 CDT CPT-J1071 Depo Testosterone 100mg 13:11:36 CDT 10/19 CPT-90774 Abx/Therapy Injection 13:11:36 CDT CPT-J1071 Depo Testosterone 100mg 13:17:59 CDT 09/21 CPT-03283 Abx/Therapy Injection 13:17:59 CDT CPT-J1071 Depo Testosterone 100mg 13:08:38 CDT 09/21 CPT-J1071 Depo Testosterone 100mg 13:06:32 CDT 09/21 CPT-54281 Bone Density - XRAY USE ONLY 09:04:29 [employer] 2 CPT-51690 BMP - LAB USE ONLY 17:39:11 [employer] CPT-53995 Venipuncture Draw Fee 17:39:11 [employer] CPT-000 Give Appropriate Flu Vaccine 15:16:28 CDT CPT-J1071 Depo Testosterone 200mg 16:59:53 CDT 10/21 CPT-09106 Abx/Therapy Injection 16:59:53 CDT CPT-45219 Abx/Therapy Injection 18:58:42 [employer] CPT-80317 First Vx - Ix admin for Medicare patients 15:47:06 CDT CPT-74002 Fluzone High-Dose Intramuscular Suspension 01/19 15:47:06 CDT CPT-43221 Abx/Therapy Injection 14:12:15 CDT CPT-30608 Abx/Therapy Injection 13:34:08 CDT CPT-42051 Abx/Therapy Injection 14:41:47 CDT CPT-G0438 Initial Annual Wellness Exam 10:06:26 CD T CPT-J1071 Depo Testosterone 200mg 11:42:49 CDT 09/22 CPT-95943 Abx/Therapy Injection 11:42:49 CDT CPT-25149 Abx/Therapy Injection 16:55:18 CDT CPT-56758 Abx/Therapy Injection 13:49:32 CDT CPT-J1071 Depo Testosterone 200mg 09:48:27 CDT 06/28 CPT-43076 Abx/Therapy Injection 09:48:27 CDT CPT-86236 Abx/Therapy Injection 16:27:06 [employer] CPT-60585 No Charge Offi Visit 18:00:02 [employer] 8 CPT-65227 Abd compl w upright 12:29:27 [employer] CPT-000 Give Appropriate Flu Vaccine 16:15:45 [employer] 2 CPT-46090 Abx/Therapy Injection 11:03:39 [employer] CPT-28389 Venipuncture Draw Fee 13:07:59 [employer] CPT-34823 Immunization Single Admin 12:03:42 [employer] 2014 CPT-93471 Fluzone High Dose (65+) 12:03:41 [employer] 05/05 CPT-59483 Chest 2V Frontal and Lat 15:25:23 CDT 12/29 CPT-87945 Venipuncture Draw Fee 15:57:34 CDT CPT-82219 Abx/Therapy Injection 12:52:43 CDT CPT-07630 Abx/Therapy Injection 08:58:56 CDT CPT-98220 Venipuncture Draw Fee 15:59:37 CDT CPT-03533 Abx/Therapy Injection 08:36:16 CDT CPT-000 Give Pneumovax 11:32:18 [employer] CPT-000 Give Appropriate Flu Vaccine 11:32:18 [employer] CPT-15420 Abx/Therapy Injection 09:52:48 CDT CPT-27935 Abx/Therapy Injection 09:56:54 CDT CPT-OV Office Visit 16:35:19 CDT CPT-07355 Abx/Therapy Injection 08:25:48 CDT CPT-78924 Abx/Therapy Injection 09:17:15 [employer] CPT-64557 Abx/Therapy Injection 08:52:31 [employer] CPT-93384 Abx/Therapy Injection 09:32:50 [employer] CPT-68118 Abx/Therapy Injection 08:28:14 [employer] CPT-35927 Abx/Therapy Injection 10:43:07 CDT CPT-J1070 Depo Testosterone 100 mg 08:39:09 CDT 12/05 CPT-17408 Abx/Therapy Injection 08:39:09 CDT CPT-04942 Abx/Therapy Injection 11:22:03 CDT CPT-23296 Shoulder comp min 2V 14:11:48 CDT 1 CPT-76512 Abx/Therapy Injection 09:56:35 CDT CPT-LR Lesion Removal 09:49:45 CDT
--- OUTSIDE RECORDS SUMMARY | 2020-12-04 06:14 | XMS REPORT | Clinical Summary ---
Author Author Mya, Charlie Hankins Organization [place] Address Unknown Phone Unavailable Allergies, Adverse Reactions, Alerts Allergy Name Reaction Description Start Date Severity Status Pr ovider NKA Critical Active Dena Lacy APR N KEFLEX Mild No Longer Active Rui Arndt MD KEFLEX itch Moderate No Longer Active Vinod Alatorre ERECTOR OPERATOR NKDA Critical No Longer Active Rui [...] fatigue Monoclonal gammopathy 273.1 Active Eboni villasenor OPEN SHANK COVERER Monoclonal paraproteinemia Peripheral edema 782.3 Active Fabiana Speaks A PRN Edema Dyspnea 786.09 Resolved Rui Arndt MD Other dyspnea and respiratory abnormality Need for prophylactic vaccination and inoculation against in fluenza V04.81 Resolved Rui Arndt MD Need for prophylactic vaccination and inoculation against influenza Peripheral artery disease 443.9 Active Laurita ChongMilton [facility] Peripheral vascular disease, unspecified Abdominal pain, left [...] heart failure, chronic 428.0 Active 20 09/10/05 Trei Howard APRN Congestive heart failure, unspecified Wound [...] Class II (BMI 35-39.9) 278.00 Refinement 05/09 Riu Arndt MD Obesity, unspecified Obesity Class III [...] atherosclerosis of unspecified type of vessel , duckwater or graft 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 POTASSIUM CHLORIDE 23674573473 Active AGUSTO Hall Active OMEPRAZOLE 40MG TAKE 1 CAPSULE BY MOUTH EVERY MORNING OMEPRAZOLE 92503187504 Active AGUSTO Hall Active SPIRIVA HANDIHLR INHALE CONTENTS OF ONE CAPSULE VIA HANDI HALER ONCE DAILY TIOTROPIUM BROMIDE MONOHYDRATE 17369408647 Active AGUSTO Hall Active BUMETANIDE 1MG TAKE 1 TABLET BY MOUTH ONCE DAILY IF NEE DED FOR SWELLING BUMETANIDE 21566361574 Active AGUSTO Hall Active ZOLPIDEM TARTRATE 10 MG TABS TAKE 1 TABLET BY MOUTH AT NIGHT IF NEEDED FOR SLEEP ZOLPIDEM TARTRATE 88532165799 Active Rui Arndt MD Active FUROSEMIDE 40MG TAKE 2 TABLETS BY MOUTH EVERY MORNING FUROSEMIDE 62961340679 Active Liudmila Tirado RN Active GABAPENTIN 300MG TAKE 1 CAPSULE BY MOUTH THREE TIMES DAILY GABAPENTIN 53225033527 Active AGUSTO Hall Active ATORVASTATIN 80MG TAKE 1 TABLET BY MOUTH DAILY AT BEDTIME 6 ATORVASTATIN CALCIUM 63080916665 Active AGUSTO Hall A ctive SUPER B-100 ORAL TABLET 1 q d B COMPLEX-BIOTI N-FA 05435447496 Active Tarun Chavez MD Active ASPIRIN 325 MG ORAL TABLET 1 q d ASPIRIN 5416710776 9 Active Tarun Chavez MD Active DIGITEK 125 MCG ORAL TABLET 1 q d DIGOXIN 488225896 01 Active Tarun Chavez MD Active VENTOLIN HFA 108 (90 BASE) MCG/ACT INHALATION AEROSOL SOLUTI ON 1 puff every day ALBUTEROL SULFATE 44591909107 No Longer Active Alan Chavez MD Active LEVOTHYROXINE SODIUM 200 MCG ORAL TABLET 1 po q a.m. for thyroid LEVOTHYROXINE SODIUM 65148043524 No Longer Active Tarun Chavez MD Active PROAIR HFA 108 (90 BASE) MCG/ACT INHALATION AEROSOL SO LUTION 2 puffs four times a day as needed ALBUTEROL SULFATE 84632970657 No Long er Active Tarun Chavez MD Active FLOMAX 0.4 MG ORAL CAPSULE 1 capsule by mouth in the evening for prostate TAMSULOSIN HCL 65028083824 No Longer Active Tarun Chavez MD Active ELIQUIS 5 MG TABS TAKE ONE TABLET BY MOUTH TWO TIMES A DAY APIXABAN 86360443110 Active AGUSTO Hall Active PREDNISONE 20 MG ORAL TABLET Take 2 tablets daily for 5 days and 1 tablet daily for 5 days. PREDNISONE 55728545249 No Longer Active Rui Arndt MD Active POTASSIUM CHLORIDE ER 10 MEQ CR-TABS TAKE ONE TABLET BY CATERINA TWICE DAILY. POTASSIUM CHLORIDE 98270971910 Active AGUSTO Hall Active KLOR-CON M10 10 MEQ ORAL TABLET EXTENDED RELEASE one tablet tw e a day POTASSIUM CHLORIDE JORDAN CR 82544583692 No Longer Active AGUSTO Suarez Active LORATADINE 10MG ORAL TABLET TAKE ONE TABLET BY MOUTH ONE TIME DAILY IF NEEDED FOR ALLERGIES. LORATADINE 19034567747 Active AGUSTO Hall Active LEVOTHYROXINE SODIUM 150MCG ORAL TABLET TAKE ONE TABLE T BY MOUTH ONE TIME DAILY FOR THYROID. LEVOTHYROXINE SODIUM 11031995432 Active AGUSTO Aquino Active PLAVIX 75 MG ORAL TABLET 1 tablet by mouth daily for 30 days 202 CLOPIDOGREL BISULFATE 81775305207 No Longer Active Rui Arndt MD Active PLAVIX 75 MG ORAL TABLET 1 tablet by mouth daily 03/11 CLOPIDOGREL BISULFATE 61595185365 No Longer Active Rui Arndt MD Activ e ASPIRIN 325 MG ORAL TABLET Take 1 tablet daily ASPIRIN 85530370546 No Longer Active Rui Arndt MD Active PREDNISONE 20 MG ORAL TABLET 1 tab twice daily for 3 d ay, then one daily for three days PREDNISONE 06013644136 No Longer Active Rui Arndt MD Active MORPHINE SULFATE ER 15 MG ORAL TABLET EXTENDED RELEASE 1 TID a d ay MORPHINE SULFATE 50993008892 No Longer Active Rui Arndt MD Active DEPO-TESTOSTERONE 100 MG/ML INTRAMUSCULAR SOLUTION 201 11/29/02 TESTOSTERONE CYPIONATE 58582380030 Active Brittny Aguila MA Active SUBOXONE 2-0.5 MG SUBLINGUAL FILM Bring to appointment before taking for induction. Stop the Morphine 12 hours before the appointment. BUPRENORPHINE HCL-NALOXONE HCL 12073235233 No Longer Active Rui Arndt MD Active MUCINEX D 60-600 MG ORAL TABLET EXTENDED RELEASE 12 HO UR 1 po BID PRN Congestion PSEUDOEPHEDRINE-GUAIFENESIN 24653294059 Active Luke Christian ERECTOR OPERATOR Active ZITHROMAX Z-PETE 250 MG ORAL TABLET 2 today, then 1 daily for 4 d ays AZITHROMYCIN 81194997236 No Longer Active Luke Gonzales ERECTOR OPERATOR Active MORPHINE SULFATE ER 60 MG ORAL TABLET EXTENDED RELEASE 1 twi ce a day for pain MORPHINE SULFATE 70812729217 No Longer Active Luke valdez ERECTOR OPERATOR Active MORPHINE SULFATE ER 100 MG ORAL TABLET EXTENDED RELEASE one tabl et at bedtime MORPHINE SULFATE 06365570716 No Longer Active Luke Gonzales ERECTOR OPERATOR Active DEPO-TESTOSTERONE 100 MG/ML INTRAMUSCULAR SOLUTION 1mL q4H TESTOSTERONE CYPIONATE 05691739513 No Longer Active Luke Gonzales ERECTOR OPERATOR Active PANTOPRAZOLE SODIUM 40 MG ORAL TABLET DELAYED RELEASE 1 pill by mouth daily PANTOPRAZOLE SODIUM 21129903324 No Longer Active Jose Arndt MD Active FLOMAX 0.4 MG ORAL CAPSULE one capsule in the evening 1/2 hour a fter supper TAMSULOSIN HCL 30280157697 No Longer Active Rui Arndt MD Active LEVOTHYROXINE SODIUM 175 MCG ORAL TABLET 1 pill by mouth daily f or thyroid LEVOTHYROXINE SODIUM 80304578264 No Longer Active Fabiana Perdomo RN Active CLARITIN 10 MG ORAL TABLET 1 tablet by mouth daily as needed for allergies LORATADINE 68560118722 No Longer Active Mari bhakta PA-C Active CARAFATE 1 GM ORAL TABLET Take 1 tablet 4 times daily. Before meals and at bedtime SUCRALFATE 48722173479 No Longer Active Mari Stanley PA-C Active DULCOLAX 5 MG ORAL TABLET DELAYED RELEASE 1 tab daily BISACODYL 82027101550 Active Sara Moeller RN Active SUCRALFATE 1 GM ORAL TABLET 1 four times a day for GERD SUCRALFATE 91177137970 No Longer Active Sara Moeller RN Act berna FISH OIL CAPSULE 1 capsule daily OMEGA-3 FATTY ACIDS CAPS 80049775761 No Longer Active Sara Moeller RN Active PROBIOTIC DAILY ORAL CAPSULE 1 capsule daily 3 PROBIOTIC PRODUCT 57851124439 No Longer Active Sara Moeller RN Act berna B COMPLEX FORMULA 1 ORAL TABLET 1 tablet daily B COMPLEX- FOLIC ACID 37157646926 No Longer Active Sara Moeller RN Act berna PROAIR HFA 108 (90 BASE) MCG/ACT INHALATION AEROSOL SO LUTION 2 puffs four times a day as needed ALBUTEROL SULFATE 35814141804 No Long er Active Sara Moeller RN Active MULTIVITAMINS ORAL CAPSULE Take 1 daily MULTIPL E VITAMIN 04518336280 No Longer Active Sara Moeller RN Active CLONAZEPAM 2 MG ORAL TABLET one tablet at bed time CLONAZEPAM 66687884441 No Longer Active Sara Moeller RN Active DEPO-TESTOSTERONE 200 MG/ML INTRAMUSCULAR SOLUTION 100mg it[place] ry 4 weeks TESTOSTERONE CYPIONATE 20557630256 No Longer Active Sara Moeller RN Active ATIVAN 0.5 MG ORAL TABLET 1 tab 30 minutes prior to sleep study LORAZEPAM 04547332554 No Longer Active Rui Arndt MD Active NARCAN 4 MG/0.1ML NASAL LIQUID 1 spray in nostril ever y 2 to 3 minutes until responsive or EMS arrives NALOXONE HCL 49935481154 Active Rui Arndt MD Active LEVAQUIN 500 MG ORAL TABLET 1 daily for infection 2017 LEVOFLOXACIN 60239144568 No Longer Active Dena Lacy APRN Active PREDNISONE 20 MG TABS Take 2 daily for 5 days and then 1 stephy ly for 5 days PREDNISONE 15863806607 No Longer Active Rui saleem MD Active PREDNISONE 20 MG ORAL TABLET 2 tabs daily for 4 days, 1 tab daily for 4 days, 1/2 tab daily for 4 days PREDNISONE 61239111605 No Longer Active Rui Arndt MD Active OXYGEN 2L at night time - Dx: J44.9 Active Lori Winter LPN Active PREDNISONE 20 MG ORAL TABLET Take 2 daily for 5 days a nd then 1 daily for 5 days PREDNISONE 74573792703 No Longer Active Rui Arndt MD Active NORCO 10-325 MG ORAL TABLET Take 1-2 tablets every 6 hours a s needed for pain HYDROCODONE-ACETAMINOPHEN 59788389256 No Longer Activ e Rui Arndt MD Active FUROSEMIDE 20 MG ORAL TABLET 1 daily for blood pressure and swel ling FUROSEMIDE 80733727055 No Longer Active Rui Arndt MD Active PAMELOR 10 MG ORAL CAPSULE NORTRIPTY LINE HCL 75498540108 No Longer Active Rui Arndt MD Active AEROSPAN 80 MCG/ACT INHALATION AEROSOL SOLUTION 2 puffs twice FLUNISOLIDE HFA 75009636611 No Longer Active Rui Arndt MD Active LISINOPRIL 10 MG ORAL TABLET take one tab once daily 09/22 LISINOPRIL 21165710005 No Longer Active Rui Arndt MD Active BD INTEGRA SYRINGE 25G X 1" 1 ML Use with Depo provera INSULIN SYRINGE-NEEDLE U-100 Active Brittny Mingo, MA Act berna MORPHINE SULFATE ER BEADS 75 MG ORAL CAPSULE EXTENDED RELEASE 24 HOUR 1 twice a day MORPHINE SULFATE BEADS 73523514744 No Longer Ac tive Rui Arndt MD Active COMBIVENT RESPIMAT 20-100 MCG/ACT INHALATION AEROSOL S OLUTION 1 puff four times a day IPRATROPIUM-ALBUTEROL 89958620458 No Longer Act berna Rui Arndt MD Active POTASSIUM CHLORIDE 20 MEQ ORAL PACKET 1 qDay with Lasix POTASSIUM CHLORIDE 16717539313 No Longer Active Rui Arndt MD Activ e PROAIR HFA 108 (90 Base) MCG/ACT INHALATION AEROSOL SO LUTION 2 puffs four times a day as needed ALBUTEROL SULFATE 41716194999 No Longer Ac tive Rui Arndt MD Active ASMANEX 60 METERED DOSES 220 MCG/INH INHALATION AEROSO L POWDER BREATH ACTIVATED 1 puff bid with rinse after MOMETASONE FUROATE 4743826 4102 No Longer Active Rui Arndt MD Active OMEPRAZOLE 40 MG ORAL CAPSULE DELAYED RELEASE 1 po q a.m. OMEPRAZOLE 54946241787 No Longer Active Anahi Ashley LPN Act [...] daily 2 LISINOPRIL 10 MG ORAL TABLET 558305 LISINOPRIL Inactive AEROSPAN 80 MCG/ACT INHALATION AEROSOL SOLUTION 2 puffs twice AEROSPAN 80 MCG/ACT INHALATION AEROSOL SOLUTION FLUNISOLIDE HFA Inactive PAMELOR 10 MG ORAL CAPSULE PAMELOR 1 0 MG ORAL CAPSULE 786361 NORTRIPTYLINE HCL Inactive FUROSEMIDE 20 MG ORAL TABLET 1 daily for blood pressure and swel ling FUROSEMIDE 20 MG ORAL TABLET 966870 FUROSEMIDE Corinna ctive NORCO 10-325 MG ORAL TABLET Take 1-2 tablets every 6 hours a s needed for pain NORCO 10-325 MG ORAL TABLET HYDROCODONE-A CETAMINOPHEN Inactive PREDNISONE 20 MG ORAL TABLET 2 tabs daily for 4 days, 1 tab daily for 4 days, 1/2 tab daily for 4 days PREDNISONE 20 MG ORAL T ABLET 231964 PREDNISONE Inactive LEVAQUIN 500 MG ORAL TABLET 1 daily for infection 2017 LEVAQUIN 500 MG ORAL TABLET 511822 LEVOFLOXACIN Inactive ATIVAN 0.5 MG ORAL TABLET 1 tab 30 minutes prior to sleep study ATIVAN 0.5 MG ORAL TABLET 335536 LORAZEPAM Inacti ve DEPO-TESTOSTERONE 200 MG/ML INTRAMUSCULAR SOLUTION 100mg it[place] ry 4 weeks DEPO-TESTOSTERONE 200 MG/ML INTRAMUSCULA R SOLUTION 0237362 TESTOSTERONE CYPIONATE Inactive CLONAZEPAM 2 MG ORAL TABLET one tablet at bed time 201 11/01/12 CLONAZEPAM 2 MG ORAL TABLET 298866 CLONAZEPAM Inactive MULTIVITAMINS ORAL CAPSULE Take 1 [...] capsule daily 3 PROBIOTIC DAILY ORAL CAPSULE 6187995 PROBIOTIC PRODUCT Inactive FISH OIL CAPSULE 1 capsule daily FISH OIL CAPSUL E OMEGA- 3 FATTY ACIDS CAPS Inactive SUCRALFATE 1 GM ORAL TABLET 1 four times a day for GERD SUCRALFATE 1 GM ORAL TABLET 555225 SUCRALFATE Inactive CARAFATE 1 GM ORAL TABLET Take 1 tablet 4 times daily. Before meals and at bedtime CARAFATE 1 GM ORAL TABLET 358859 SUCRALFATE Inactive CLARITIN 10 MG ORAL TABLET 1 tablet by mouth daily as needed for allergies CLARITIN 10 MG ORAL TABLET 786856 LORATADINE I nactive LEVOTHYROXINE SODIUM 175 MCG ORAL TABLET 1 pill by mouth daily f or thyroid LEVOTHYROXINE SODIUM 175 MCG ORAL TABLET 214484 LEVOTHY ROXINE SODIUM Inactive FLOMAX 0.4 MG ORAL CAPSULE one capsule in the evening 1/2 hour a fter supper FLOMAX 0.4 MG ORAL CAPSULE 054745 TAMSULOSIN HCL Inact berna PANTOPRAZOLE SODIUM 40 MG ORAL TABLET DELAYED RELEASE 1 pill by mouth daily PANTOPRAZOLE SODIUM 40 MG ORAL TABLET DE LAYED RELEASE 585101 PANTOPRAZOLE SODIUM Inactive DEPO-TESTOSTERONE 100 MG/ML INTRAMUSCULAR SOLUTION 1mL q4H DEPO-TESTOSTERONE 100 MG/ML INTRAMUSCULAR SOLUTION 903835 TESTOSTERONE CYPIONATE Inactive MORPHINE SULFATE ER 100 [...] three days PREDNISONE 20 MG ORAL TABLET 427044 PREDNIS ONE Inactive ASPIRIN 325 MG ORAL TABLET Take 1 tablet daily ASPIRIN 325 MG ORAL TABLET 818591 ASPIRIN Inactive PLAVIX 75 MG ORAL TABLET 1 tablet by mouth daily 03/11 PLAVIX 75 MG ORAL TABLET 192925 CLOPIDOGREL BISULFATE Inactive PLAVIX 75 MG ORAL TABLET 1 tablet by mouth daily for 30 days PLAVIX 75 MG ORAL TABLET 355251 CLOPIDOGREL BISULFATE I nactive KLOR-CON M10 10 MEQ ORAL TABLET EXTENDED RELEASE one tablet twic e day KLOR-CON M10 10 MEQ ORAL TABLET EXTENDED RELEASE 8112285 POTASSIUM CHLORIDE JORDAN CR Inactive PREDNISONE 20 MG ORAL TABLET Take 2 tablets daily for 5 days and 1 tablet daily for 5 days. PREDNISONE 20 MG ORAL TABLET 301270 PREDNISONE Inactive FLOMAX 0.4 MG ORAL CAPSULE 1 capsule by mouth in the evening for prostate FLOMAX 0.4 MG ORAL CAPSULE 791538 TAMSULOSIN HCL Inactive PROAIR HFA 108 (90 BASE) MCG/ACT INHALATION AEROSOL SO LUTION 2 puffs four times a day as needed PROAIR HFA 108 (90 B ASE) MCG/ACT INHALATION AEROSOL SOLUTION ALBUTEROL SULFATE Inactive LEVOTHYROXINE SODIUM 200 MCG ORAL TABLET 1 po q a.m. for thyroid LEVOTHYROXINE SODIUM 200 MCG ORAL TABLET 061773 LEVOTHY ROXINE SODIUM Inactive VENTOLIN HFA 108 (90 BASE) MCG/ACT INHALATION AEROSOL SOLUTI ON 1 puff every day VENTOLIN HFA 108 (90 BASE) M CG/ACT INHALATION AEROSOL SOLUTION ALBUTEROL SULFATE Inactive POTASSIUM CHLORIDE 20 MEQ ORAL PACKET 1 qDay with Lasix POTASSIUM CHLORIDE 20 MEQ ORAL PACKET 7267734 POTASSIUM CHLORIDE Inactive PREDNISONE 20 MG ORAL TABLET Take 2 daily for 5 days a nd then 1 daily for 5 days PREDNISONE 20 MG ORAL TABLET 062085 PREDNIS ONE Inactive PREDNISONE 20 MG TABS Take 2 daily for 5 days and then 1 stephy ly for 5 days PREDNISONE 20 MG TABS 511012 PREDNISONE Inacti ve ZITHROMAX Z-PETE 250 MG ORAL TABLET 2 today, then 1 daily for 4 d ays ZITHROMAX Z-PETE 250 MG ORAL TABLET 107197 AZITHROMYCIN Inactive CEFUROXIME AXETIL 500 MG ORAL TABLET TAKE 1/2 TABLET TWICE DAILY CEFUROXIME AXETIL 500 MG ORAL TABLET 233334 CEFUROXIME AXETIL Inactive Advance Directives Directive Description [...] Magnesium - Chemistry sodium, serum 138 mmol/L 569-086 4348/12/04 carbon dioxide, venous blood 28.3 mmol/L 21.0-32 [...] 0.90 mg/dL 0.00-1.00 cholesterol, serum 121 mg/dL 746-543 2344/12/04 triglyceride, serum, fasting 137 mg/dL 30-200 HDL [...] 2.60 ng/mL 0.00-4.00 sodium, serum 136 mmol/L 298-399 7489/10/06 carbon dioxide, venous blood 29.5 mmol/L 21.0-32 [...] noted Encounters Code Encounter Date Provider Facility CPT-36036 21349: Ofc Vst-Est Level IV-Moderate MDM or 30-39 minutes 12:21:30 CDT Rui Arndt MD [facility] CPT-76671 75923-Gin Vst-Est Level IV 09:46:31 CDT Lobo Arndt MD [facility] CPT-29518 18798-Tat Vst-Est Level IV 10:42:47 INDUSTRIAL MAINTENANCE REPAIRER Lobo Arndt MD [facility] CPT-32742 96696-Wkb Vst-Est Level IV 11:02:04 CDT Lobo Arndt MD [facility] CPT-90482 04480-Kvs Vst-Est Level IV 13:58:45 CDT Lobo Arndt MD [facility] CPT-40272 97778-Ytx Vst-Est Level IV 15:13:53 CDT Lobo Arndt MD [facility] CPT-84817 30586-Cra Vst-Est Level IV 11:54:49 CDT Lobo Arndt MD [facility] CPT-50049 35504-Veh Vst-Est Level IV 11:04:27 INDUSTRIAL MAINTENANCE REPAIRER Lobo Arndt MD [facility] CPT-53063 Level 4 New Patient 12:35:21 CDT Ade chung MD [facility] CPT-49885 Ofc Vst-Est Level IV 16:12:07 CDT Rui Arndt MD [facility] CPT-95505 92181-Rps Vst-Est Level IV 16:25:05 CDT Lobo Arndt MD [facility] CPT-99835 77054-Hki Vst-Est Level III 10:55:45 CDT Rui Arndt MD [facility] CPT-28952 34519-Mcl Vst-Est Level IV 14:16:20 CDT Lobo Arndt MD [facility] CPT-45596 Level 3 Est. Patient 13:14:20 CDT Luke rascon ERECTOR OPERATOR [facility] CPT-94587 74336-Uiz Vst-Est Level IV 09:53:37 INDUSTRIAL MAINTENANCE REPAIRER Lobo Arndt MD [facility] CPT-06508 99026-Amw Vst-Est Level IV 09:44:38 CDT Lobo Arndt MD [facility] CPT-55131 Level 3 Est. Patient 15:23:12 CDT Dena ley [facility] CPT-97029 Level 4 Est. Patient 13:12:22 CDT Rui Arndt MD [facility] CPT-15704 Level 4 Est. Patient 14:44:13 CDT Dena ley [facility] CPT-36519 53549-Dkg Vst-Est Level III 11:23:31 CDT Rui Arndt MD [facility] CPT-29790 41540-Wux Vst-Est Level V 10:04:33 CDT Jose Arndt MD [facility] CPT-45959 Level 4 Est. Patient 16:17:47 CDT Rui Arndt MD [facility] CPT-71584 Level 4 Est. Patient 10:53:57 CDT Rui Arndt MD [facility] CPT-53847 Level 3 Est. Patient 16:09:12 CDT Jemal marti MD [facility] CPT-32289 Level 4 Est. Patient 11:32:24 INDUSTRIAL MAINTENANCE REPAIRER Rui Arndt MD [facility] CPT-13045 Level 4 Est. Patient 14:55:39 INDUSTRIAL MAINTENANCE REPAIRER Dena ley [facility] CPT-97400 Level 3 Est. Patient 15:10:46 INDUSTRIAL MAINTENANCE REPAIRER Rui Arndt MD [facility] CPT-74302 Level 3 Est. Patient 12:01:26 INDUSTRIAL MAINTENANCE REPAIRER Rui Arndt MD [facility] CPT-56176 Level 3 Est. Patient 10:35:15 INDUSTRIAL MAINTENANCE REPAIRER Rui Arndt MD [facility] CPT-69393 Level 3 Est. Patient 15:04:30 CDT Rui Arndt MD [facility]-39581 Level 3 Est. Patient 10:15:00 CDT Vinod Nhi padminikaitlin [facility]-05331 Level 4 Est. Patient 14:59:25 CDT Rui Arndt MD [facility]-36023 Level 4 Est. Patient 12:07:34 CDT Rui Arndt MD [facility]-90012 Level 3 Est. Patient 10:42:08 INDUSTRIAL MAINTENANCE REPAIRER Rui Arndt MD [facility]-76945 Level 3 Est. Patient 17:29:10 INDUSTRIAL MAINTENANCE REPAIRER Rui Arndt MD [facility]-75973 Level 4 Est. Patient 15:12:05 CDT Rui Arndt MD [facility]-31518 Level 2 Est. Patient 16:27:53 CDT Rui Arndt MD [facility]-19839 Level 3 Est. Patient 12:02:36 CDT Rui Arndt MD [facility]-90293 Level 4 Est. Patient 11:17:39 CDT Rui Arndt MD [facility]-01882 Level 4 Est. Patient 15:46:07 CDT Rui Arndt MD [facility]-67190 Level 4 Est. Patient 17:18:59 INDUSTRIAL MAINTENANCE REPAIRER Rui Arndt MD [facility]-52233 Level 4 Est. Patient 15:09:55 CDT Fabiana Vizcaino [facility]-78951 Level 3 Est. Patient 15:49:06 CDT Rui Arndt MD [facility]-87707 Level 3 Est. Patient 11:40:46 CDT Rui Arndt MD [facility]-96387 Level 3 Est. Patient 18:00:51 CDT Rui Arndt MD [facility]-45904 Level 4 Est. Patient 10:25:35 CDT Rui Arndt MD [facility] CPT-62378 Level 3 Est. Patient 15:45:51 CDT Rui Arndt MD [facility] CPT-49905 Level 4 Est. Patient 11:32:17 INDUSTRIAL MAINTENANCE REPAIRER Rui Arndt MD [facility] CPT-77493 Level 4 New Patient 17:03:03 CDT Rui yoder MD [facility] Procedures Code Procedure Name Date Entry Date Standard Desc ription CPT-J1071 Depo Testosterone 100mg 13:15:20 CDT 09/16 CPT-68461 Abx/Therapy Injection 13:15:20 CDT CPT-J1071 Depo Testosterone 100mg 13:00:53 CDT 08/18 CPT-45068 Abx/Therapy Injection 13:00:53 CDT CPT-J1071 Depo Testosterone 100mg 16:00:36 CDT 07/22 CPT-26022 Abx/Therapy Injection 16:00:36 CDT CPT-J1071 Depo Testosterone 100mg 15:59:22 CDT 06/24 CPT-86103 Abx/Therapy Injection 15:59:22 CDT CPT-J1071 Depo Testosterone 100mg 17:34:08 INDUSTRIAL MAINTENANCE REPAIRER 05/27 CPT-06286 Abx/Therapy Injection 17:34:08 INDUSTRIAL MAINTENANCE REPAIRER CPT-PK8553D (4274F) Influenza immunization administe red or previously received 12:03:02 INDUSTRIAL MAINTENANCE REPAIRER CPT-KI1137W (4274F) Influenza immunization administe red or previously received 10:42:46 INDUSTRIAL MAINTENANCE REPAIRER CPT-J1071 Depo Testosterone 100mg 14:29:40 INDUSTRIAL MAINTENANCE REPAIRER 05/19 CPT-37391 Abx/Therapy Injection 14:29:40 INDUSTRIAL MAINTENANCE REPAIRER CPT-77691 Venipuncture Draw Fee 09:50:26 INDUSTRIAL MAINTENANCE REPAIRER CPT-12503 Venipuncture Draw Fee 11:06:37 INDUSTRIAL MAINTENANCE REPAIRER CPT-J1071 Depo Testosterone 100mg 13:49:54 INDUSTRIAL MAINTENANCE REPAIRER 04/20 CPT-42580 Abx/Therapy Injection 13:49:54 INDUSTRIAL MAINTENANCE REPAIRER CPT-J1071 Depo Testosterone 100mg 16:22:38 CDT CPT-97821 Abx/Therapy Injection 16:22:38 CDT CPT-000 Give Appropriate Flu Vaccine 11:02:04 CDT 2 CPT-20397 03275 - Immun Admin 1 vac 11:43:22 CDT 2019 CPT-34872 [employer] Quadrivalent [place] 11:43:22 CDT CPT-28555 Venipuncture Draw Fee 11:14:23 CDT CPT-LP4109S (4274F 2P) Patient Reason Influenza immu nization not administered 11:02:04 CDT CPT-G0439 Subsequent Annual Wellness Exam 14:24:52 CDT CPT-TQ4791G (4013F) Statin therapy prescribed or cur rently being taken 14:24:52 CDT CPT-DT0930U (4274F 2P) Patient Reason Influenza immu nization not administered 14:24:52 CDT CPT-J1071 Depo Testosterone 100mg 13:29:13 CDT 12/23 CPT-60604 Abx/Therapy Injection 13:29:13 CDT CPT-J1071 Depo Testosterone 100mg 14:43:03 CDT 0 11/24 CPT-35065 Abx/Therapy Injection 14:43:03 CDT CPT-J1071 Depo Testosterone 100mg 17:18:41 CDT 0 10/27 CPT-06623 Abx/Therapy Injection 17:18:41 CDT CPT-74391 4M Drug Screen cup test, Multi-panel, urine 2019 13:58:45 CDT CPT-J1071 Depo Testosterone 100mg 16:42:20 CDT 0 09/23 CPT-39772 Abx/Therapy Injection 16:42:20 CDT CPT-J1071 Depo Testosterone 100mg 16:43:18 CDT 0 08/26 CPT-50522 Abx/Therapy Injection 16:43:18 CDT CPT-30932 Venipuncture Draw Fee 13:01:56 CDT CPT-J1071 Depo Testosterone 100mg 15:54:02 CDT 0 07/28 CPT-06662 Abx/Therapy Injection 15:54:02 CDT CPT-J1071 Depo Testosterone 100mg 15:17:11 CDT 20200 06/30 CPT-25166 Abx/Therapy Injection 15:17:10 CDT CPT-27296 Venipuncture Draw Fee 11:58:13 CDT CPT-J1071 Depo Testosterone 200mg 14:59:06 CDT 20200 06/02 CPT-85965 Abx/Therapy Injection 14:59:06 CDT CPT-J1071 Depo Testosterone 100mg 14:08:37 INDUSTRIAL MAINTENANCE REPAIRER 05/06 CPT-17532 Abx/Therapy Injection 14:08:37 INDUSTRIAL MAINTENANCE REPAIRER CPT-96181 Venipuncture Draw Fee 15:15:20 INDUSTRIAL MAINTENANCE REPAIRER CPT-J1071 Depo Testosterone 100mg 15:40:35 INDUSTRIAL MAINTENANCE REPAIRER 04/08 CPT-45567 Abx/Therapy Injection 15:40:35 INDUSTRIAL MAINTENANCE REPAIRER CPT-TCMM Transitional Care Mgmt-Moderate 12:40:08 CS T CPT-[id number] (4274F) Influenza immunization administe red or previously received 12:40:07 INDUSTRIAL MAINTENANCE REPAIRER CPT-51098 Venipuncture Draw Fee 15:13:23 INDUSTRIAL MAINTENANCE REPAIRER CPT-74521 Venipuncture Draw Fee 12:39:02 INDUSTRIAL MAINTENANCE REPAIRER CPT-J1071 Depo Testosterone 100mg 11:35:50 INDUSTRIAL MAINTENANCE REPAIRER 05/12 CPT-02922 Abx/Therapy Injection 11:35:50 INDUSTRIAL MAINTENANCE REPAIRER CPT-[id number] (4274F) Influenza immunization administe red or previously received 11:04:25 INDUSTRIAL MAINTENANCE REPAIRER CPT-J1071 Depo Testosterone 100mg 11:32:22 INDUSTRIAL MAINTENANCE REPAIRER 04/13 CPT-91911 Abx/Therapy Injection 11:32:22 INDUSTRIAL MAINTENANCE REPAIRER CPT-44277 41108 - Immun Admin 1 vac 16:43:51 INDUSTRIAL MAINTENANCE REPAIRER 2018 CPT-27783 Shingrix 16:43:51 INDUSTRIAL MAINTENANCE REPAIRER CPT-J1071 Depo Testosterone 100mg 18:38:18 CDT CPT-66423 Abx/Therapy Injection 18:38:17 CDT CPT-J1071 Depo Testosterone 100mg 14:36:52 CDT 12/18 CPT-51765 Abx/Therapy Injection 14:36:52 CDT CPT-G0008 Administration of Influenza Virus Vaccine 12/18 14:35:05 CDT CPT-72638 Fluzone (Flu) 10Pk Syringe IM (Medicare) 14:35:05 CDT CPT-49691 Bladder Scan 12:35:21 CDT CPT-46674 Venipuncture Draw Fee 16:41:57 CDT CPT-53967 31525 - Immun Admin 1 vac 16:31:08 CDT 2018 CPT-18683 Shingrix 16:31:07 CDT CPT-G0439 [facility] Annual Wellness Exam 16:12:06 CDT CPT-J1071 Depo Testosterone 100mg 12:18:42 CDT 11/20 CPT-43640 Abx/Therapy Injection 12:18:42 CDT CPT-J1071 Depo Testosterone 100mg 11:42:38 CDT 09/03 CPT-75583 Abx/Therapy Injection 11:42:38 CDT CPT-J1071 Depo Testosterone 100mg 12:00:58 CDT 08/06 CPT-60584 Abx/Therapy Injection 12:00:58 CDT CPT-J1071 Depo Testosterone 100mg 12:34:21 CDT 07/09 CPT-74784 Abx/Therapy Injection 12:34:21 CDT CPT-33390 Abdomen, 2 views 13:20:15 CDT CPT-99146 Chest, 2 views 13:20:15 CDT CPT-J1071 Depo Testosterone 200mg 14:21:46 CDT 06/12 CPT-89118 Abx/Therapy Injection 14:21:46 CDT CPT-J1071 Depo Testosterone 100mg 14:34:38 INDUSTRIAL MAINTENANCE REPAIRER 05/14 CPT-75229 Abx/Therapy Injection 14:34:38 INDUSTRIAL MAINTENANCE REPAIRER CPT-000 Give Pneumovax 11:57:22 CDT CPT-J1071 Depo Testosterone 100mg 17:09:47 INDUSTRIAL MAINTENANCE REPAIRER 04/13 CPT-58981 Abx/Therapy Injection 17:09:47 INDUSTRIAL MAINTENANCE REPAIRER CPT-J1071 Depo Testosterone 100mg 15:41:42 INDUSTRIAL MAINTENANCE REPAIRER 05/17 CPT-81708 Abx/Therapy Injection 15:41:42 INDUSTRIAL MAINTENANCE REPAIRER CPT-J1071 Depo Testosterone 100mg 13:42:43 INDUSTRIAL MAINTENANCE REPAIRER 04/18 CPT-96802 Abx/Therapy Injection 13:42:43 INDUSTRIAL MAINTENANCE REPAIRER CPT-J1071 Depo Testosterone 100mg 13:24:43 CDT CPT-44820 Abx/Therapy Injection 13:24:43 CDT CPT-44064 First Vx - Ix admin for Medicare patients 18:07:22 CDT CPT-12352 Fluzone Quadrivalent Intramuscular Suspe nsion 0.5 ML 18:07:22 CDT CPT-J1071 Depo Testosterone 100mg 12:06:21 CDT 12/21 CPT-48494 Abx/Therapy Injection 12:06:21 CDT CPT-J1071 Depo Testosterone 100mg 16:09:00 CDT 11/23 CPT-57793 Abx/Therapy Injection 16:09:00 CDT CPT-G0439 [facility] Annual Wellness Exam 13:12:23 CDT CPT-J1071 Depo Testosterone 100mg 10:40:29 CDT 0 10/26 CPT-88132 Abx/Therapy Injection 10:40:29 CDT CPT-J1071 Depo Testosterone 100mg 09:15:44 CDT 09/28 CPT-28782 Abx/Therapy Injection 09:15:43 CDT CPT-J1071 Depo Testosterone 100mg 10:53:34 CDT 08/31 CPT-82189 Abx/Therapy Injection 10:53:34 CDT CPT-16265 Selby pre/post w graphic rec - XRAY USE ONLY 201 10/30/06 10:24:51 CDT CPT-J1071 Depo Testosterone 100mg 14:11:00 CDT 08/03 CPT-02622 Abx/Therapy Injection 14:11:00 CDT CPT-J1071 Depo Testosterone 100mg 15:15:13 CDT 07/04 CPT-30302 Abx/Therapy Injection 15:15:13 CDT CPT-J2310 Narcan HCI .4mg per 1 ml 15:52:42 CDT 06/26 CPT-49979 Chest, 2 views 15:11:39 CDT CPT-000 Give Appropriate Flu Vaccine 12:01:26 INDUSTRIAL MAINTENANCE REPAIRER 2 CPT-32695 Chest single view 16:11:20 CDT CPT-J1071 Depo Testosterone 100mg 10:50:45 INDUSTRIAL MAINTENANCE REPAIRER 05/29 CPT-29018 Abx/Therapy Injection 10:50:45 INDUSTRIAL MAINTENANCE REPAIRER CPT-41789 Chest, 2 views 11:49:28 INDUSTRIAL MAINTENANCE REPAIRER CPT-J1071 Depo Testosterone 100mg 16:07:43 INDUSTRIAL MAINTENANCE REPAIRER 05/02 CPT-23735 Abx/Therapy Injection 16:07:43 INDUSTRIAL MAINTENANCE REPAIRER CPT-J1071 Depo Testosterone 100mg 15:31:04 INDUSTRIAL MAINTENANCE REPAIRER 03/31 CPT-13511 Abx/Therapy Injection 15:31:04 INDUSTRIAL MAINTENANCE REPAIRER CPT-J1071 Depo Testosterone 100mg 16:29:48 CDT CPT-89184 Abx/Therapy Injection 16:29:48 CDT CPT-J1071 Depo Testosterone 100mg 14:42:01 CDT 12/23 CPT-93076 Abx/Therapy Injection 14:42:01 CDT CPT-G0439 [facility] Annual Wellness Exam 14:14:09 CDT CPT-J1071 Depo Testosterone 100mg 13:48:18 CDT 11/17 CPT-37008 Abx/Therapy Injection 13:48:18 CDT CPT-G0009 Administration of Pneumococcal Vaccine 4 12:06:23 CDT CPT-33298 Pneumovax 23 Injection Injectable 25 MCG /0.5ML 12:06:23 CDT CPT-J1071 Depo Testosterone 100mg 13:11:36 CDT 10/19 CPT-69818 Abx/Therapy Injection 13:11:36 CDT CPT-J1071 Depo Testosterone 100mg 13:17:59 CDT 09/21 CPT-49935 Abx/Therapy Injection 13:17:59 CDT CPT-J1071 Depo Testosterone 100mg 13:08:38 CDT 09/21 CPT-J1071 Depo Testosterone 100mg 13:06:32 CDT 09/21 CPT-93871 Bone Density - XRAY USE ONLY 09:04:29 INDUSTRIAL MAINTENANCE REPAIRER 2 CPT-94008 BMP - LAB USE ONLY 17:39:11 INDUSTRIAL MAINTENANCE REPAIRER CPT-92985 Venipuncture Draw Fee 17:39:11 INDUSTRIAL MAINTENANCE REPAIRER CPT-000 Give Appropriate Flu Vaccine 15:16:28 CDT CPT-J1071 Depo Testosterone 200mg 16:59:53 CDT 10/21 CPT-40243 Abx/Therapy Injection 16:59:53 CDT CPT-45124 Abx/Therapy Injection 18:58:42 INDUSTRIAL MAINTENANCE REPAIRER CPT-33014 First Vx - Ix admin for Medicare patients 15:47:06 CDT CPT-72588 Fluzone High-Dose Intramuscular Suspension 01/19 15:47:06 CDT CPT-62237 Abx/Therapy Injection 14:12:15 CDT CPT-73369 Abx/Therapy Injection 13:34:08 CDT CPT-28480 Abx/Therapy Injection 14:41:47 CDT CPT-G0438 Initial Annual Wellness Exam 10:06:26 CD T CPT-J1071 Depo Testosterone 200mg 11:42:49 CDT 09/22 CPT-17959 Abx/Therapy Injection 11:42:49 CDT CPT-08482 Abx/Therapy Injection 16:55:18 CDT CPT-68112 Abx/Therapy Injection 13:49:32 CDT CPT-J1071 Depo Testosterone 200mg 09:48:27 CDT 06/28 CPT-16804 Abx/Therapy Injection 09:48:27 CDT CPT-14652 Abx/Therapy Injection 16:27:06 INDUSTRIAL MAINTENANCE REPAIRER CPT-76442 No Charge Offi Visit 18:00:02 INDUSTRIAL MAINTENANCE REPAIRER 8 CPT-09136 Abd compl w upright 12:29:27 INDUSTRIAL MAINTENANCE REPAIRER CPT-000 Give Appropriate Flu Vaccine 16:15:45 INDUSTRIAL MAINTENANCE REPAIRER 2 CPT-53775 Abx/Therapy Injection 11:03:39 INDUSTRIAL MAINTENANCE REPAIRER CPT-45317 Venipuncture Draw Fee 13:07:59 INDUSTRIAL MAINTENANCE REPAIRER CPT-72226 Immunization Single Admin 12:03:42 INDUSTRIAL MAINTENANCE REPAIRER 2014 CPT-62427 Fluzone High Dose (65+) 12:03:41 INDUSTRIAL MAINTENANCE REPAIRER 05/05 CPT-59234 Chest 2V Frontal and Lat 15:25:23 CDT 12/29 CPT-03371 Venipuncture Draw Fee 15:57:34 CDT CPT-59310 Abx/Therapy Injection 12:52:43 CDT CPT-71785 Abx/Therapy Injection 08:58:56 CDT CPT-45937 Venipuncture Draw Fee 15:59:37 CDT CPT-48824 Abx/Therapy Injection 08:36:16 CDT CPT-000 Give Pneumovax 11:32:18 INDUSTRIAL MAINTENANCE REPAIRER CPT-000 Give Appropriate Flu Vaccine 11:32:18 INDUSTRIAL MAINTENANCE REPAIRER 2 CPT-01708 Abx/Therapy Injection 09:52:48 CDT CPT-77249 Abx/Therapy Injection 09:56:54 CDT CPT-OV Office Visit 16:35:19 CDT CPT-33806 Abx/Therapy Injection 08:25:48 CDT CPT-16660 Abx/Therapy Injection 09:17:15 INDUSTRIAL MAINTENANCE REPAIRER CPT-45326 Abx/Therapy Injection 08:52:31 INDUSTRIAL MAINTENANCE REPAIRER CPT-62701 Abx/Therapy Injection 09:32:50 INDUSTRIAL MAINTENANCE REPAIRER CPT-90217 Abx/Therapy Injection 08:28:14 INDUSTRIAL MAINTENANCE REPAIRER CPT-00991 Abx/Therapy Injection 10:43:07 CDT CPT-J1070 Depo Testosterone 100 mg 08:39:09 CDT 12/05 CPT-34690 Abx/Therapy Injection 08:39:09 CDT CPT-11958 Abx/Therapy Injection 11:22:03 CDT CPT-41477 Shoulder comp min 2V 14:11:48 CDT 1 CPT-07190 Abx/Therapy Injection 09:56:35 CDT CPT-LR Lesion Removal 09:49:45 CDT
--- OUTSIDE RECORDS SUMMARY | 2020-12-04 06:14 | XMS REPORT | Clinical Summary ---
Author Author Admin, Charlie Hankins Organization [facility] [employer] Address Unknown Phone Unavailable Allergies, Adverse Reactions, Alerts Allergy Name Reaction Description Start Date Severity Status Pr ovider NKA Critical Active Dena Lacy APR N KEFLEX Mild No Longer Active Rui Arndt MD KEFLEX itch Moderate No Longer Active Vinod Alatorre TRAY SERVER NKDA Critical No Longer Active Rui Arntd MD NKDA Critical Inactive Irma Chaidez KEFLEX [...] [facility] 366.9 Inactive Rui Arndt [...] fatigue Monoclonal gammopathy 273.1 Active Eboni villasenor VIDEO GAME ANIMATOR Monoclonal paraproteinemia Peripheral edema 782.3 Active Fabiana Speaks A PRN Edema Dyspnea 786.09 Resolved Rui Arndt MD Other dyspnea and respiratory abnormality Need for prophylactic vaccination and inoculation against in fluenza V04.81 Resolved Rui Arndt MD Need for prophylactic vaccination and inoculation against influenza Peripheral artery disease 443.9 Active Laurita ChongMilton [facility] Peripheral vascular disease, unspecified Abdominal [...] SUBLINGUAL TABLET SUBLINGUAL Take 1 tablet dailyDEA; [id number] BUPRENORPHINE HCL-NALOXONE HCL 02953864156 Acti ve Rui Arndt MD Active CEFUROXIME AXETIL 500 MG ORAL TABLET TAKE 1/2 TABLET TWICE DAILY CEFUROXIME AXETIL 48295526743 No Longer Active Rui Arndt MD Active POTASSIUM CHLORIDE ER 10 MEQ CR-CAPS TAKE ONE TABLET BY MOUT H TWICE DAILY. POTASSIUM CHLORIDE 83512118335 Active AGUSTO Hall Active OMEPRAZOLE 40MG TAKE 1 CAPSULE BY MOUTH EVERY MORNING OMEPRAZOLE 11727295421 Active AGUSTO Hall Active SPIRIVA HANDIHLR INHALE CONTENTS OF ONE CAPSULE VIA HANDI HALER ONCE DAILY TIOTROPIUM BROMIDE MONOHYDRATE 00293417106 Active AGUSTO Hall Active BUMETANIDE 1MG TAKE 1 TABLET BY MOUTH ONCE DAILY IF NEE DED FOR SWELLING BUMETANIDE 21272620560 Active AGUSTO Hall Active ZOLPIDEM TARTRATE 10 MG TABS TAKE 1 TABLET BY MOUTH AT NIGHT IF NEEDED FOR SLEEP ZOLPIDEM TARTRATE 21253084853 Active Rui Arndt MD Active FUROSEMIDE 40MG TAKE 2 TABLETS BY MOUTH EVERY MORNING FUROSEMIDE 73746287775 Active Liudmila Tirado RN Active GABAPENTIN 300MG TAKE 1 CAPSULE BY MOUTH THREE TIMES DAILY GABAPENTIN 29428352641 Active AGUSTO Hall Active ATORVASTATIN 80MG TAKE 1 TABLET BY MOUTH DAILY AT BEDTIME 6 ATORVASTATIN CALCIUM 75371098966 Active AGUSTO Hall A ctive SUPER B-100 ORAL TABLET 1 q d B COMPLEX-BIOTI N-FA 38324117407 Active Tarun Chavez MD Active ASPIRIN 325 MG ORAL TABLET 1 q d ASPIRIN 3120859507 9 Active Tarun Chavez MD Active DIGITEK 125 MCG ORAL TABLET 1 q d DIGOXIN 363980392 01 Active Tarun Chavez MD Active VENTOLIN HFA 108 (90 BASE) MCG/ACT INHALATION AEROSOL SOLUTI ON 1 puff every day ALBUTEROL SULFATE 33806708604 No Longer Active Alan Chavez MD Active LEVOTHYROXINE SODIUM 200 MCG ORAL TABLET 1 po q a.m. for thyroid LEVOTHYROXINE SODIUM 81038638754 No Longer Active Tarun Chavez MD Active PROAIR HFA 108 (90 BASE) MCG/ACT INHALATION AEROSOL SO LUTION 2 puffs four times a day as needed ALBUTEROL SULFATE 86165739222 No Long er Active Tarun Chavez MD Active FLOMAX 0.4 MG ORAL CAPSULE 1 capsule by mouth in the evening for prostate TAMSULOSIN HCL 43458291865 No Longer Active Tarun Chavez MD Active ELIQUIS 5 MG TABS TAKE ONE TABLET BY MOUTH TWO TIMES A DAY APIXABAN 93392184408 Active AGSUTO Hall Active PREDNISONE 20 MG ORAL TABLET Take 2 tablets daily for 5 days and 1 tablet daily for 5 days. PREDNISONE 18928969276 No Longer Active Rui Arndt MD Active POTASSIUM CHLORIDE ER 10 MEQ CR-TABS TAKE ONE TABLET BY CATERINA TWICE DAILY. POTASSIUM CHLORIDE 79561207851 Active AGUSTO Hall Active KLOR-CON M10 10 MEQ ORAL TABLET EXTENDED RELEASE one tablet tw e a day POTASSIUM CHLORIDE JORDAN CR 70548556778 No Longer Active AGUSTO Suarez Active LORATADINE 10MG ORAL TABLET TAKE ONE TABLET BY MOUTH ONE TIME DAILY IF NEEDED FOR ALLERGIES. LORATADINE 47579293446 Active AGUSTO Hall Active LEVOTHYROXINE SODIUM 150MCG ORAL TABLET TAKE ONE TABLE T BY MOUTH ONE TIME DAILY FOR THYROID. LEVOTHYROXINE SODIUM 86338345272 Active AGUSTO Aquino Active PLAVIX 75 MG ORAL TABLET 1 tablet by mouth daily for 30 days 202 CLOPIDOGREL BISULFATE 38864234630 No Longer Active Rui Arndt MD Active PLAVIX 75 MG ORAL TABLET 1 tablet by mouth daily 03/11 CLOPIDOGREL BISULFATE 05143437704 No Longer Active Rui Arndt MD Activ e ASPIRIN 325 MG ORAL TABLET Take 1 tablet daily ASPIRIN 26770531601 No Longer Active Rui Arndt MD Active PREDNISONE 20 MG ORAL TABLET 1 tab twice daily for 3 d ay, then one daily for three days PREDNISONE 96861595221 No Longer Active Rui Arndt MD Active MORPHINE SULFATE ER 15 MG ORAL TABLET EXTENDED RELEASE 1 TID a d ay MORPHINE SULFATE 48198732949 No Longer Active Rui Arndt MD Active DEPO-TESTOSTERONE 100 MG/ML INTRAMUSCULAR SOLUTION 201 11/29/02 TESTOSTERONE CYPIONATE 50972279994 Active Brittny Aguila MA Active SUBOXONE 2-0.5 MG SUBLINGUAL FILM Bring to appointment before taking for induction. Stop the Morphine 12 hours before the appointment. BUPRENORPHINE HCL-NALOXONE HCL 22991501327 No Longer Active Rui Arndt MD Active MUCINEX D 60-600 MG ORAL TABLET EXTENDED RELEASE 12 HO UR 1 po BID PRN Congestion PSEUDOEPHEDRINE-GUAIFENESIN 59220815012 Active Luke Christian TRAY SERVER Active ZITHROMAX Z-PETE 250 MG ORAL TABLET 2 today, then 1 daily for 4 d ays AZITHROMYCIN 23254338074 No Longer Active Luke Gonzales TRAY SERVER Active MORPHINE SULFATE ER 60 MG ORAL TABLET EXTENDED RELEASE 1 twi ce a day for pain MORPHINE SULFATE 13407072230 No Longer Active Luke valdez APRN Active MORPHINE SULFATE ER 100 MG ORAL TABLET EXTENDED RELEASE one tabl et at bedtime MORPHINE SULFATE 21030770718 No Longer Active Luke Gonzales TRAY SERVER Active DEPO-TESTOSTERONE 100 MG/ML INTRAMUSCULAR SOLUTION 1mL q4H TESTOSTERONE CYPIONATE 65158382856 No Longer Active Luke Gonzales TRAY SERVER Active PANTOPRAZOLE SODIUM 40 MG ORAL TABLET DELAYED RELEASE 1 pill by mouth daily PANTOPRAZOLE SODIUM 18614083343 No Longer Active Jose Arndt MD Active FLOMAX 0.4 MG ORAL CAPSULE one capsule in the evening 1/2 hour a fter supper TAMSULOSIN HCL 76333881371 No Longer Active Rui Arndt MD Active LEVOTHYROXINE SODIUM 175 MCG ORAL TABLET 1 pill by mouth daily f or thyroid LEVOTHYROXINE SODIUM 15154845576 No Longer Active Fabiana Perdomo RN Active CLARITIN 10 MG ORAL TABLET 1 tablet by mouth daily as needed for allergies LORATADINE 71722327671 No Longer Active Mari bhakta PA-C Active CARAFATE 1 GM ORAL TABLET Take 1 tablet 4 times daily. Before meals and at bedtime SUCRALFATE 92855353853 No Longer Active Mari Stanley PA-C Active DULCOLAX 5 MG ORAL TABLET DELAYED RELEASE 1 tab daily BISACODYL 13090838937 Active Sara Moeller RN Active SUCRALFATE 1 GM ORAL TABLET 1 four times a day for GERD SUCRALFATE 64705393695 No Longer Active Sara Moeller RN Act berna FISH OIL CAPSULE 1 capsule daily OMEGA-3 FATTY ACIDS CAPS 07474632643 No Longer Active Sara Moeller RN Active PROBIOTIC DAILY ORAL CAPSULE 1 capsule daily 3 PROBIOTIC PRODUCT 96351284409 No Longer Active Sara Moeller RN Act berna B COMPLEX FORMULA 1 ORAL TABLET 1 tablet daily B COMPLEX- FOLIC ACID 30139132130 No Longer Active Sara Moeller RN Act berna PROAIR HFA 108 (90 BASE) MCG/ACT INHALATION AEROSOL SO LUTION 2 puffs four times a day as needed ALBUTEROL SULFATE 51495588192 No Long er Active Sara Moeller RN Active MULTIVITAMINS ORAL CAPSULE Take 1 daily MULTIPL E VITAMIN 99090242199 No Longer Active Sara Moeller RN Active CLONAZEPAM 2 MG ORAL TABLET one tablet at bed time CLONAZEPAM 22727381933 No Longer Active Sara Moeller RN Active DEPO-TESTOSTERONE 200 MG/ML INTRAMUSCULAR SOLUTION 100mg italia ry 4 weeks TESTOSTERONE CYPIONATE 35039004518 No Longer Active Sara Moeller RN Active ATIVAN 0.5 MG ORAL TABLET 1 tab 30 minutes prior to sleep study LORAZEPAM 29563014802 No Longer Active Rui Arndt MD Active NARCAN 4 MG/0.1ML NASAL LIQUID 1 spray in nostril ever y 2 to 3 minutes until responsive or EMS arrives NALOXONE HCL 97975309152 Active Rui Arndt MD Active LEVAQUIN 500 MG ORAL TABLET 1 daily for infection 2017 LEVOFLOXACIN 01525765862 No Longer Active Dena Lacy APRN Active PREDNISONE 20 MG TABS Take 2 daily for 5 days and then 1 stephy ly for 5 days PREDNISONE 65402139762 No Longer Active Rui saleem MD Active PREDNISONE 20 MG ORAL TABLET 2 tabs daily for 4 days, 1 tab daily for 4 days, 1/2 tab daily for 4 days PREDNISONE 40641787317 No Longer Active Rui Arndt MD Active OXYGEN 2L at night time - Dx: J44.9 Active Lori Winter LPN Active PREDNISONE 20 MG ORAL TABLET Take 2 daily for 5 days a nd then 1 daily for 5 days PREDNISONE 55946815522 No Longer Active Rui Arndt MD Active NORCO 10-325 MG ORAL TABLET Take 1-2 tablets every 6 hours a s needed for pain HYDROCODONE-ACETAMINOPHEN 62932491287 No Longer Activ e Rui Arndt MD Active FUROSEMIDE 20 MG ORAL TABLET 1 daily for blood pressure and swel ling FUROSEMIDE 03560821058 No Longer Active Rui Arndt MD Active PAMELOR 10 MG ORAL CAPSULE NORTRIPTY LINE HCL 24969703889 No Longer Active Rui Arndt MD Active AEROSPAN 80 MCG/ACT INHALATION AEROSOL SOLUTION 2 puffs twice FLUNISOLIDE HFA 44680815106 No Longer Active Rui Arndt MD Active LISINOPRIL 10 MG ORAL TABLET take one tab once daily 09/22 LISINOPRIL 70673949260 No Longer Active Rui Arndt MD Active BD INTEGRA SYRINGE 25G X 1" 1 ML Use with Depo provera INSULIN SYRINGE-NEEDLE U-100 Active Brittny Aguila MA Act berna MORPHINE SULFATE ER BEADS 75 MG ORAL CAPSULE EXTENDED RELEASE 24 HOUR 1 twice a day MORPHINE SULFATE BEADS 95949602056 No Longer Ac tive Rui Arndt MD Active COMBIVENT RESPIMAT 20-100 MCG/ACT INHALATION AEROSOL S OLUTION 1 puff four times a day IPRATROPIUM-ALBUTEROL 01109278107 No Longer Act berna Rui Arndt MD Active POTASSIUM CHLORIDE 20 MEQ ORAL PACKET 1 qDay with Lasix POTASSIUM CHLORIDE 42205566407 No Longer Active Rui Arndt MD Activ e PROAIR HFA 108 (90 Base) MCG/ACT INHALATION AEROSOL SO LUTION 2 puffs four times a day as needed ALBUTEROL SULFATE 59262261270 No Longer Ac tive Rui Arndt MD Active ASMANEX 60 METERED DOSES 220 MCG/INH INHALATION AEROSO L POWDER BREATH ACTIVATED 1 puff bid with rinse after MOMETASONE FUROATE 4216659 4102 No Longer Active Rui Arndt MD Active OMEPRAZOLE 40 MG ORAL CAPSULE DELAYED RELEASE 1 po q a.m. OMEPRAZOLE 81513761571 No Longer Active Anahi Ashley LPN Act [...] daily 2 LISINOPRIL 10 MG ORAL TABLET 932299 LISINOPRIL Inactive AEROSPAN 80 MCG/ACT INHALATION AEROSOL SOLUTION 2 puffs twice AEROSPAN 80 MCG/ACT INHALATION AEROSOL SOLUTION FLUNISOLIDE HFA Inactive PAMELOR 10 MG ORAL CAPSULE PAMELOR 1 0 MG ORAL CAPSULE 764081 NORTRIPTYLINE HCL Inactive FUROSEMIDE 20 MG ORAL TABLET 1 daily for blood pressure and swel ling FUROSEMIDE 20 MG ORAL TABLET 897006 FUROSEMIDE Corinna ctive NORCO 10-325 MG ORAL TABLET Take 1-2 tablets every 6 hours a s needed for pain NORCO 10-325 MG ORAL TABLET HYDROCODONE-A CETAMINOPHEN Inactive PREDNISONE 20 MG ORAL TABLET 2 tabs daily for 4 days, 1 tab daily for 4 days, 1/2 tab daily for 4 days PREDNISONE 20 MG ORAL T ABLET 331714 PREDNISONE Inactive LEVAQUIN 500 MG ORAL TABLET 1 daily for infection 2017 LEVAQUIN 500 MG ORAL TABLET 133920 LEVOFLOXACIN Inactive ATIVAN 0.5 MG ORAL TABLET 1 tab 30 minutes prior to sleep study ATIVAN 0.5 MG ORAL TABLET 218794 LORAZEPAM Inacti ve DEPO-TESTOSTERONE 200 MG/ML INTRAMUSCULAR SOLUTION 100mg italia ry 4 weeks DEPO-TESTOSTERONE 200 MG/ML INTRAMUSCULA R SOLUTION 4822306 TESTOSTERONE CYPIONATE Inactive CLONAZEPAM 2 MG ORAL TABLET one tablet at bed time 201 11/01/12 CLONAZEPAM 2 MG ORAL TABLET 216692 CLONAZEPAM Inactive MULTIVITAMINS ORAL CAPSULE Take 1 [...] capsule daily 3 PROBIOTIC DAILY ORAL CAPSULE 3735931 PROBIOTIC PRODUCT Inactive FISH OIL CAPSULE 1 capsule daily FISH OIL CAPSUL E OMEGA- 3 FATTY ACIDS CAPS Inactive SUCRALFATE 1 GM ORAL TABLET 1 four times a day for GERD SUCRALFATE 1 GM ORAL TABLET 089705 SUCRALFATE Inactive CARAFATE 1 GM ORAL TABLET Take 1 tablet 4 times daily. Before meals and at bedtime CARAFATE 1 GM ORAL TABLET 324144 SUCRALFATE Inactive CLARITIN 10 MG ORAL TABLET 1 tablet by mouth daily as needed for allergies CLARITIN 10 MG ORAL TABLET 398781 LORATADINE I nactive LEVOTHYROXINE SODIUM 175 MCG ORAL TABLET 1 pill by mouth daily f or thyroid LEVOTHYROXINE SODIUM 175 MCG ORAL TABLET 342923 LEVOTHY ROXINE SODIUM Inactive FLOMAX 0.4 MG ORAL CAPSULE one capsule in the evening 1/2 hour a fter supper FLOMAX 0.4 MG ORAL CAPSULE 697261 TAMSULOSIN HCL Inact berna PANTOPRAZOLE SODIUM 40 MG ORAL TABLET DELAYED RELEASE 1 pill by mouth daily PANTOPRAZOLE SODIUM 40 MG ORAL TABLET DE LAYED RELEASE 223698 PANTOPRAZOLE SODIUM Inactive DEPO-TESTOSTERONE 100 MG/ML INTRAMUSCULAR SOLUTION 1mL q4H DEPO-TESTOSTERONE 100 MG/ML INTRAMUSCULAR SOLUTION 497804 TESTOSTERONE CYPIONATE Inactive MORPHINE SULFATE ER 100 [...] three days PREDNISONE 20 MG ORAL TABLET 542546 PREDNIS ONE Inactive ASPIRIN 325 MG ORAL TABLET Take 1 tablet daily ASPIRIN 325 MG ORAL TABLET 219153 ASPIRIN Inactive PLAVIX 75 MG ORAL TABLET 1 tablet by mouth daily 03/11 PLAVIX 75 MG ORAL TABLET 291464 CLOPIDOGREL BISULFATE Inactive PLAVIX 75 MG ORAL TABLET 1 tablet by mouth daily for 30 days PLAVIX 75 MG ORAL TABLET 994998 CLOPIDOGREL BISULFATE I nactive KLOR-CON M10 10 MEQ ORAL TABLET EXTENDED RELEASE one tablet twic e a day KLOR-CON M10 10 MEQ ORAL TABLET EXTENDED RELEASE 9319422 POTASSIUM CHLORIDE JORDAN CR Inactive PREDNISONE 20 MG ORAL TABLET Take 2 tablets daily for 5 days and 1 tablet daily for 5 days. PREDNISONE 20 MG ORAL TABLET 091292 PREDNISONE Inactive FLOMAX 0.4 MG ORAL CAPSULE 1 capsule by mouth in the evening for prostate FLOMAX 0.4 MG ORAL CAPSULE 769402 TAMSULOSIN HCL Inactive PROAIR HFA 108 (90 BASE) MCG/ACT INHALATION AEROSOL SO LUTION 2 puffs four times a day as needed PROAIR HFA 108 (90 B ASE) MCG/ACT INHALATION AEROSOL SOLUTION ALBUTEROL SULFATE Inactive LEVOTHYROXINE SODIUM 200 MCG ORAL TABLET 1 po q a.m. for thyroid LEVOTHYROXINE SODIUM 200 MCG ORAL TABLET 412928 LEVOTHY ROXINE SODIUM Inactive VENTOLIN HFA 108 (90 BASE) MCG/ACT INHALATION AEROSOL SOLUTI ON 1 puff every day VENTOLIN HFA 108 (90 BASE) M CG/ACT INHALATION AEROSOL SOLUTION ALBUTEROL SULFATE Inactive POTASSIUM CHLORIDE 20 MEQ ORAL PACKET 1 qDay with Lasix POTASSIUM CHLORIDE 20 MEQ ORAL PACKET 6176314 POTASSIUM CHLORIDE Inactive PREDNISONE 20 MG ORAL TABLET Take 2 daily for 5 days a nd then 1 daily for 5 days PREDNISONE 20 MG ORAL TABLET 286207 PREDNIS ONE Inactive PREDNISONE 20 MG TABS Take 2 daily for 5 days and then 1 stephy ly for 5 days PREDNISONE 20 MG TABS 059549 PREDNISONE Inacti ve ZITHROMAX Z-PETE 250 MG ORAL TABLET 2 today, then 1 daily for 4 d ays ZITHROMAX Z-PETE 250 MG ORAL TABLET 020733 AZITHROMYCIN Inactive CEFUROXIME AXETIL 500 MG ORAL TABLET TAKE 1/2 TABLET TWICE DAILY CEFUROXIME AXETIL 500 MG ORAL TABLET 611270 CEFUROXIME AXETIL Inactive Advance Directives Directive Description [...] Magnesium - Chemistry sodium, serum 138 mmol/L 792-215 3774/12/04 carbon dioxide, venous blood 28.3 mmol/L 21.0-32 [...] 0.90 mg/dL 0.00-1.00 cholesterol, serum 121 mg/dL 978-230 1633/12/04 triglyceride, serum, fasting 137 mg/dL 30-200 HDL [...] 2.60 ng/mL 0.00-4.00 sodium, serum 136 mmol/L 744-337 5943/10/06 carbon dioxide, venous blood 29.5 mmol/L 21.0-32 [...] noted Encounters Code Encounter Date Provider Facility CPT-23977 51009: Ofc Vst-Est Level IV-Moderate MDM or 30-39 minutes 12:21:30 CDT Rui Arndt MD [facility] CPT-46847 [id number] Vst-Est Level IV 09:46:31 CDT Lobo Arndt MD [facility] CPT-78830 [id number] Vst-Est Level IV 10:42:47 DIRECT 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 Lobo Arndt MD [facility] CPT-59289 [id number] Vst-Est Level IV 11:02:04 CDT Lobo Arndt MD [facility] CPT-21287 [id number] Vst-Est Level IV 13:58:45 CDT Lobo Arndt MD [facility] CPT-46094 59427-Hnl Vst-Est Level IV 15:13:53 CDT Lobo Arndt MD [facility] CPT-77344 64235-Qxx Vst-Est Level IV 11:54:49 CDT Lobo Arndt MD [facility] CPT-17972 79425-Joj Vst-Est Level IV 11:04:27 DIRECT 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 Lobo Arndt MD [facility] CPT-65535 Level 4 New Patient 12:35:21 CDT Ade chung MD [facility] CPT-70979 Ofc Vst-Est Level IV 16:12:07 CDT Rui Arndt MD [facility] CPT-06029 54590-Wky Vst-Est Level IV 16:25:05 CDT Lobo Arndt MD [facility] CPT-82460 [id number] Vst-Est Level III 10:55:45 CDT Rui Arndt MD [facility] CPT-89597 08524-Fhb Vst-Est Level IV 14:16:20 CDT Lobo Arndt MD [facility] CPT-84990 Level 3 Est. Patient 13:14:20 CDT Luke rascon TRAY SERVER [facility] CPT-94098 51582-Epk Vst-Est Level IV 09:53:37 DIRECT 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 Lobo Arndt MD [facility]-39193 77465-Pwg Vst-Est Level IV 09:44:38 CDT Lobo Arndt MD [facility] CPT-18000 Level 3 Est. Patient 15:23:12 CDT Dena ley [facility] CPT-53979 Level 4 Est. Patient 13:12:22 CDT Rui Arndt MD [facility] CPT-95979 Level 4 Est. Patient 14:44:13 CDT Dena ley [facility]-02551 97058-Dsp Vst-Est Level III 11:23:31 CDT Rui Arndt MD [facility]-75054 34445-Fec Vst-Est Level V 10:04:33 CDT Jose Arndt MD [facility] CPT-19992 Level 4 Est. Patient 16:17:47 CDT Rui Arndt MD [facility] CPT-83020 Level 4 Est. Patient 10:53:57 CDT Rui Arndt MD [facility] CPT-71235 Level 3 Est. Patient 16:09:12 CDT Jemal marti MD [facility] CPT-87948 Level 4 Est. Patient 11:32:24 DIRECT 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 Rui Arndt MD [facility] CPT-96115 Level 4 Est. Patient 14:55:39 DIRECT 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 Dena ley [facility] CPT-95989 Level 3 Est. Patient 15:10:46 DIRECT 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 Riu Arndt MD [facility] CPT-59488 Level 3 Est. Patient 12:01:26 DIRECT 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 Rui Arndt MD [facility] CPT-19986 Level 3 Est. Patient 10:35:15 DIRECT 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 Rui Arndt MD [facility] CPT-39805 Level 3 Est. Patient 15:04:30 CDT Rui Arndt MD [facility]-37802 Level 3 Est. Patient 10:15:00 CDT Vinod Nhi padminikaitlin [facility] CPT-26631 Level 4 Est. Patient 14:59:25 CDT Rui Arndt MD [facility]-78939 Level 4 Est. Patient 12:07:34 CDT Rui Arndt MD [facility] CPT-94853 Level 3 Est. Patient 10:42:08 DIRECT 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 Rui Arndt MD [facility]-82273 Level 3 Est. Patient 17:29:10 DIRECT 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 Rui Arndt MD [facility]-37357 Level 4 Est. Patient 15:12:05 CDT Rui Arndt MD [facility]-22611 Level 2 Est. Patient 16:27:53 CDT Rui Arndt MD [facility]-73931 Level 3 Est. Patient 12:02:36 CDT Rui Arndt MD [facility] CPT-21534 Level 4 Est. Patient 11:17:39 CDT Rui Arndt MD [facility]-48340 Level 4 Est. Patient 15:46:07 CDT Rui Arndt MD [facility]-47926 Level 4 Est. Patient 17:18:59 DIRECT 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 Rui Arndt MD [facility]-22124 Level 4 Est. Patient 15:09:55 CDT Fabiana Vizcaino [facility] CPT-31506 Level 3 Est. Patient 15:49:06 CDT Rui Arndt MD [facility] CPT-64623 Level 3 Est. Patient 11:40:46 CDT Rui Arndt MD [facility] CPT-42551 Level 3 Est. Patient 18:00:51 CDT Rui Arndt MD [facility] CPT-45839 Level 4 Est. Patient 10:25:35 CDT Rui Arndt MD [facility] CPT-14415 Level 3 Est. Patient 15:45:51 CDT Rui Arndt MD [facility] CPT-59525 Level 4 Est. Patient 11:32:17 DIRECT 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 Rui Arndt MD [facility] CPT-41003 Level 4 New Patient 17:03:03 CDT Rui yoder MD [facility] Procedures Code Procedure Name Date Entry Date Standard Desc ription CPT-J1071 Depo Testosterone 100mg 13:15:20 CDT 09/16 CPT-96828 Abx/Therapy Injection 13:15:20 CDT CPT-J1071 Depo Testosterone 100mg 13:00:53 CDT 08/18 CPT-66740 Abx/Therapy Injection 13:00:53 CDT CPT-J1071 Depo Testosterone 100mg 16:00:36 CDT 07/22 CPT-72263 Abx/Therapy Injection 16:00:36 CDT CPT-J1071 Depo Testosterone 100mg 15:59:22 CDT 06/24 CPT-62805 Abx/Therapy Injection 15:59:22 CDT CPT-J1071 Depo Testosterone 100mg 17:34:08 DIRECT 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 05/27 CPT-41264 Abx/Therapy Injection 17:34:08 DIRECT 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 CPT-YE3408C (4274F) Influenza immunization administe red or previously received 12:03:02 DIRECT 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 CPT-AN6790D (4274F) Influenza immunization administe red or previously received 10:42:46 DIRECT 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 CPT-J1071 Depo Testosterone 100mg 14:29:40 DIRECT 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 05/19 CPT-30609 Abx/Therapy Injection 14:29:40 DIRECT 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 CPT-90677 Venipuncture Draw Fee 09:50:26 DIRECT 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 CPT-40355 Venipuncture Draw Fee 11:06:37 DIRECT 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 CPT-J1071 Depo Testosterone 100mg 13:49:54 DIRECT 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 04/20 CPT-31917 Abx/Therapy Injection 13:49:54 DIRECT 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 CPT-J1071 Depo Testosterone 100mg 16:22:38 CDT CPT-59583 Abx/Therapy Injection 16:22:38 CDT CPT-000 Give Appropriate Flu Vaccine 11:02:04 CDT 2 CPT-87276 53374 - Immun Admin 1 vac 11:43:22 CDT 2019 CPT-65099 [employer] Quadrivalent [place] 11:43:22 CDT CPT-89296 Venipuncture Draw Fee 11:14:23 CDT CPT-XB1453W (4274F 2P) Patient Reason Influenza immu nization not administered 11:02:04 CDT CPT-G0439 Subsequent Annual Wellness Exam 14:24:52 CDT CPT-RW2331B (4013F) Statin therapy prescribed or cur rently being taken 14:24:52 CDT CPT-PC1414G (4274F 2P) Patient Reason Influenza immu nization not administered 14:24:52 CDT CPT-J1071 Depo Testosterone 100mg 13:29:13 CDT 12/23 CPT-89280 Abx/Therapy Injection 13:29:13 CDT CPT-J1071 Depo Testosterone 100mg 14:43:03 CDT 0 11/24 CPT-71942 Abx/Therapy Injection 14:43:03 CDT CPT-J1071 Depo Testosterone 100mg 17:18:41 CDT 0 10/27 CPT-13167 Abx/Therapy Injection 17:18:41 CDT CPT-70370 4M Drug Screen cup test, Multi-panel, urine 2019 13:58:45 CDT CPT-J1071 Depo Testosterone 100mg 16:42:20 CDT 0 09/23 CPT-45414 Abx/Therapy Injection 16:42:20 CDT CPT-J1071 Depo Testosterone 100mg 16:43:18 CDT 0 08/26 CPT-56467 Abx/Therapy Injection 16:43:18 CDT CPT-68509 Venipuncture Draw Fee 13:01:56 CDT CPT-J1071 Depo Testosterone 100mg 15:54:02 CDT 0 07/28 CPT-26797 Abx/Therapy Injection 15:54:02 CDT CPT-J1071 Depo Testosterone 100mg 15:17:11 CDT 20200 06/30 CPT-49187 Abx/Therapy Injection 15:17:10 CDT CPT-37526 Venipuncture Draw Fee 11:58:13 CDT CPT-J1071 Depo Testosterone 200mg 14:59:06 CDT 20200 06/02 CPT-47599 Abx/Therapy Injection 14:59:06 CDT CPT-J1071 Depo Testosterone 100mg 14:08:37 DIRECT 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 05/06 CPT-35218 Abx/Therapy Injection 14:08:37 DIRECT 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 CPT-34155 Venipuncture Draw Fee 15:15:20 DIRECT 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 CPT-J1071 Depo Testosterone 100mg 15:40:35 DIRECT 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 04/08 CPT-46843 Abx/Therapy Injection 15:40:35 DIRECT 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 CPT-TCMM Transitional Care Mgmt-Moderate 12:40:08 CS T CPT-IP3074N (4274F) Influenza immunization administe red or previously received 12:40:07 DIRECT 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 CPT-38658 Venipuncture Draw Fee 15:13:23 DIRECT 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 CPT-24993 Venipuncture Draw Fee 12:39:02 [facility] CPT-J1071 Depo Testosterone 100mg 11:35:50 DIRECT 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 05/12 CPT-80497 Abx/Therapy Injection 11:35:50 DIRECT 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 CPT-VK8660U (4274F) Influenza immunization administe red or previously received 11:04:25 DIRECT 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 CPT-J1071 Depo Testosterone 100mg 11:32:22 DIRECT 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 04/13 CPT-60528 Abx/Therapy Injection 11:32:22 DIRECT 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 CPT-70636 37305 - Immun Admin 1 vac 16:43:51 DIRECT 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 2018 CPT-60661 Shingrix 16:43:51 DIRECT 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 CPT-J1071 Depo Testosterone 100mg 18:38:18 CDT CPT-42373 Abx/Therapy Injection 18:38:17 CDT CPT-J1071 Depo Testosterone 100mg 14:36:52 CDT 12/18 CPT-84563 Abx/Therapy Injection 14:36:52 CDT CPT-G0008 Administration of Influenza Virus Vaccine 12/18 14:35:05 CDT CPT-76926 Fluzone (Flu) 10Pk Syringe IM (Medicare) 14:35:05 CDT CPT-25403 Bladder Scan 12:35:21 CDT CPT-28162 Venipuncture Draw Fee 16:41:57 CDT CPT-10552 74093 - Immun Admin 1 vac 16:31:08 CDT 2018 CPT-73796 Shingrix 16:31:07 CDT CPT-G0439 [facility] Annual Wellness Exam 16:12:06 CDT CPT-J1071 Depo Testosterone 100mg 12:18:42 CDT 11/20 CPT-18150 Abx/Therapy Injection 12:18:42 CDT CPT-J1071 Depo Testosterone 100mg 11:42:38 CDT 09/03 CPT-38226 Abx/Therapy Injection 11:42:38 CDT CPT-J1071 Depo Testosterone 100mg 12:00:58 CDT 08/06 CPT-35878 Abx/Therapy Injection 12:00:58 CDT CPT-J1071 Depo Testosterone 100mg 12:34:21 CDT 07/09 CPT-58240 Abx/Therapy Injection 12:34:21 CDT CPT-55307 Abdomen, 2 views 13:20:15 CDT CPT-04750 Chest, 2 views 13:20:15 CDT CPT-J1071 Depo Testosterone 200mg 14:21:46 CDT 06/12 CPT-41582 Abx/Therapy Injection 14:21:46 CDT CPT-J1071 Depo Testosterone 100mg 14:34:38 DIRECT 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 05/14 CPT-19558 Abx/Therapy Injection 14:34:38 DIRECT 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 CPT-000 Give Pneumovax 11:57:22 CDT CPT-J1071 Depo Testosterone 100mg 17:09:47 DIRECT 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 04/13 CPT-31618 Abx/Therapy Injection 17:09:47 DIRECT 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 CPT-J1071 Depo Testosterone 100mg 15:41:42 DIRECT 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 05/17 CPT-06579 Abx/Therapy Injection 15:41:42 DIRECT 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 CPT-J1071 Depo Testosterone 100mg 13:42:43 DIRECT 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 04/18 CPT-55016 Abx/Therapy Injection 13:42:43 DIRECT 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 CPT-J1071 Depo Testosterone 100mg 13:24:43 CDT CPT-66655 Abx/Therapy Injection 13:24:43 CDT CPT-36840 First Vx - Ix admin for Medicare patients 18:07:22 CDT CPT-62275 Fluzone Quadrivalent Intramuscular Suspe nsion 0.5 ML 18:07:22 CDT CPT-J1071 Depo Testosterone 100mg 12:06:21 CDT 12/21 CPT-14874 Abx/Therapy Injection 12:06:21 CDT CPT-J1071 Depo Testosterone 100mg 16:09:00 CDT 11/23 CPT-48944 Abx/Therapy Injection 16:09:00 CDT CPT-G0439 Subsequent Annual Wellness Exam 13:12:23 CDT CPT-J1071 Depo Testosterone 100mg 10:40:29 CDT 10/26 CPT-92408 Abx/Therapy Injection 10:40:29 CDT CPT-J1071 Depo Testosterone 100mg 09:15:44 CDT 09/28 CPT-58271 Abx/Therapy Injection 09:15:43 CDT CPT-J1071 Depo Testosterone 100mg 10:53:34 CDT 08/31 CPT-99629 Abx/Therapy Injection 10:53:34 CDT CPT-90071 [place] pre/post w graphic rec - XRAY USE ONLY 201 10/30/06 10:24:51 CDT CPT-J1071 Depo Testosterone 100mg 14:11:00 CDT 08/03 CPT-91204 Abx/Therapy Injection 14:11:00 CDT CPT-J1071 Depo Testosterone 100mg 15:15:13 CDT 07/04 CPT-74142 Abx/Therapy Injection 15:15:13 CDT CPT-J2310 Narcan HCI .4mg per 1 ml 15:52:42 CDT 06/26 CPT-60986 Chest, 2 views 15:11:39 CDT CPT-000 Give Appropriate Flu Vaccine 12:01:26 DIRECT 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 2 CPT-87167 Chest single view 16:11:20 CDT CPT-J1071 Depo Testosterone 100mg 10:50:45 DIRECT 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 05/29 CPT-47427 Abx/Therapy Injection 10:50:45 DIRECT 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 CPT-26629 Chest, 2 views 11:49:28 DIRECT 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 CPT-J1071 Depo Testosterone 100mg 16:07:43 DIRECT 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 05/02 CPT-86929 Abx/Therapy Injection 16:07:43 DIRECT 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 CPT-J1071 Depo Testosterone 100mg 15:31:04 DIRECT 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 03/31 CPT-73033 Abx/Therapy Injection 15:31:04 DIRECT 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 CPT-J1071 Depo Testosterone 100mg 16:29:48 CDT CPT-52717 Abx/Therapy Injection 16:29:48 CDT CPT-J1071 Depo Testosterone 100mg 14:42:01 CDT 12/23 CPT-34979 Abx/Therapy Injection 14:42:01 CDT CPT-G0439 [facility] Annual Wellness Exam 14:14:09 CDT CPT-J1071 Depo Testosterone 100mg 13:48:18 CDT 11/17 CPT-03625 Abx/Therapy Injection 13:48:18 CDT CPT-G0009 Administration of Pneumococcal Vaccine 4 12:06:23 CDT CPT-66117 Pneumovax 23 Injection Injectable 25 MCG /0.5ML 12:06:23 CDT CPT-J1071 Depo Testosterone 100mg 13:11:36 CDT 10/19 CPT-01796 Abx/Therapy Injection 13:11:36 CDT CPT-J1071 Depo Testosterone 100mg 13:17:59 CDT 09/21 CPT-84770 Abx/Therapy Injection 13:17:59 CDT CPT-J1071 Depo Testosterone 100mg 13:08:38 CDT 09/21 CPT-J1071 Depo Testosterone 100mg 13:06:32 CDT 09/21 CPT-42596 Bone Density - XRAY USE ONLY 09:04:29 DIRECT 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 2 CPT-52657 BMP - LAB USE ONLY 17:39:11 DIRECT 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 CPT-70602 Venipuncture Draw Fee 17:39:11 DIRECT 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 CPT-000 Give Appropriate Flu Vaccine 15:16:28 CDT CPT-J1071 Depo Testosterone 200mg 16:59:53 CDT 10/21 CPT-97469 Abx/Therapy Injection 16:59:53 CDT CPT-46433 Abx/Therapy Injection 18:58:42 DIRECT 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 CPT-58706 First Vx - Ix admin for Medicare patients 15:47:06 CDT CPT-91114 Fluzone High-Dose Intramuscular Suspension 01/19 15:47:06 CDT CPT-72753 Abx/Therapy Injection 14:12:15 CDT CPT-97360 Abx/Therapy Injection 13:34:08 CDT CPT-58025 Abx/Therapy Injection 14:41:47 CDT CPT-G0438 Initial Annual Wellness Exam 10:06:26 CD T CPT-J1071 Depo Testosterone 200mg 11:42:49 CDT 09/22 CPT-35806 Abx/Therapy Injection 11:42:49 CDT CPT-16807 Abx/Therapy Injection 16:55:18 CDT CPT-17244 Abx/Therapy Injection 13:49:32 CDT CPT-J1071 Depo Testosterone 200mg 09:48:27 CDT 06/28 CPT-79513 Abx/Therapy Injection 09:48:27 CDT CPT-22668 Abx/Therapy Injection 16:27:06 DIRECT 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 CPT-44015 No Charge Offi Visit 18:00:02 DIRECT 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 8 CPT-32958 Abd compl w upright 12:29:27 DIRECT 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 CPT-000 Give Appropriate Flu Vaccine 16:15:45 DIRECT 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 2 CPT-63760 Abx/Therapy Injection 11:03:39 DIRECT 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 CPT-51378 Venipuncture Draw Fee 13:07:59 DIRECT 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 CPT-05501 Immunization Single Admin 12:03:42 DIRECT 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 2014 CPT-89763 Fluzone High Dose (65+) 12:03:41 DIRECT 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 05/05 CPT-71388 Chest 2V Frontal and Lat 15:25:23 CDT 12/29 CPT-78459 Venipuncture Draw Fee 15:57:34 CDT CPT-99700 Abx/Therapy Injection 12:52:43 CDT CPT-70440 Abx/Therapy Injection 08:58:56 CDT CPT-81594 Venipuncture Draw Fee 15:59:37 CDT CPT-25960 Abx/Therapy Injection 08:36:16 CDT CPT-000 Give Pneumovax 11:32:18 DIRECT 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 CPT-000 Give Appropriate Flu Vaccine 11:32:18 DIRECT 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 CPT-89520 Abx/Therapy Injection 09:52:48 CDT CPT-05237 Abx/Therapy Injection 09:56:54 CDT CPT-OV Office Visit 16:35:19 CDT CPT-67080 Abx/Therapy Injection 08:25:48 CDT CPT-85026 Abx/Therapy Injection 09:17:15 DIRECT 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 CPT-34970 Abx/Therapy Injection 08:52:31 DIRECT 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 CPT-01218 Abx/Therapy Injection 09:32:50 DIRECT 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 CPT-42513 Abx/Therapy Injection 08:28:14 DIRECT 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 CPT-53026 Abx/Therapy Injection 10:43:07 CDT CPT-J1070 Depo Testosterone 100 mg 08:39:09 CDT 12/05 CPT-56323 Abx/Therapy Injection 08:39:09 CDT CPT-37123 Abx/Therapy Injection 11:22:03 CDT CPT-33932 Shoulder comp min 2V 14:11:48 CDT 1 CPT-99802 Abx/Therapy Injection 09:56:35 CDT CPT-LR Lesion Removal 09:49:45 CDT
[2020-12-04] MEDS ORDERED: LACTATED RINGERS 1,000 ML IV PRN (06:30)
[2020-12-04] MEDS ORDERED: BSS 15 ML ONE (06:40)
[2020-12-04] MEDS ORDERED: LIDOCAINE/EPI 1%-1:100,000 (XYLOCAINE) 20ML ONE (06:40)
[2020-12-04] MEDS ORDERED: MUPIROCIN 2% OINT 22 GM (BACTROBAN) TUBE ONE (06:40)
[2020-12-04] MEDS ORDERED: RT-ALBUINH INH (06:53)
[2020-12-04] MEDS ORDERED: APIX5TAB PO (06:53)
[2020-12-04] MEDS ORDERED: TIOT18CA2 IH ×2 (06:53→06:56)
[2020-12-04] MEDS ORDERED: ATOR80TA76 PO (06:53)
[2020-12-04] MEDS ORDERED: FURO80TA3 PO (06:56)
[2020-12-04] MEDS ORDERED: POTA10TA36 PO (06:56)
[2020-12-04] MEDS ORDERED: LEVO150C4 PO (06:56)
[2020-12-04] MEDS ORDERED: DIGO0.12 PO (06:58)
[2020-12-04] MEDS ORDERED: GABA-486 PO (06:58)
[2020-12-04] MEDS ORDERED: BUPR1TAB SL (06:58)
[2020-12-04] MEDS ORDERED: ZOLP10TA PO (06:58)
[2020-12-04] MEDS ORDERED: RT-ALBUTEROL/IPRATROPIUM 3 ML (DUONEB) VIAL INH ONE (07:00)
[2020-12-04] MEDS ORDERED: fentaNYL INJ 100 MCG/2 ML AMP ONE ×2 (07:01→08:54)
[2020-12-04] MEDS ORDERED: LIDOCAINE PF 2% 5 ML (XYLOCAINE) VIAL ONE (07:01)
[2020-12-04] MEDS ORDERED: ONDANSETRON 4 MG/2 ML (SDV) Z0FRAN ONE (07:01)
[2020-12-04] MEDS ORDERED: NEOSTIGMINE 3 MG/3 ML VIAL ONE (07:01)
[2020-12-04] MEDS ORDERED: ROCURONIUM 10 MG/ML 5 ML SYRINGE IV ONE (07:01)
[2020-12-04] MEDS ORDERED: GLYCOPYRROLATE 0.2 MG/ML (ROBINUL) 2 ML VIAL ONE (07:01)
[2020-12-04] MEDS ORDERED: RT-ALBUTEROL SULF 2.5 MG/3 ML PRE-MIX VIAL ONE (07:01)
[2020-12-04] MEDS ORDERED: proPOfol 200 MG/20 ML (DIPRIVAN) VIAL IV ONE (07:01)
--- NOTE | 2020-12-04 07:02 | Progress Note-Pre Operative ---
Pre-Operative Progress Note H&P Reviewed The H&P was reviewed, patient examined and no changes noted. Date Seen by Provider: Dec 04, 2020 Time Seen by Provider: 06:30 Date H&P Reviewed: Dec 04, 2020 Time H&P Reviewed: 06:30 Pre-Operative Diagnosis: Left Parotid Mass ROSALIA TRISTAN MD Dec 04, 2020 07:02
[2020-12-04] MEDS ORDERED: RT-ALBUTEROL SULF 2.5 MG/3 ML PRE-MIX VIAL INH ONE (07:15)
[2020-12-04] MEDS ORDERED: SUCCINYLCHOLINE INJ 100 MG/5 ML SYR/VIAL ONE (07:23)
[2020-12-04] MEDS ORDERED: PHENYLEPHRINE 100 MCG/ML 10 ML (ANESTHESIA) SYR ONE (07:51)
--- NOTE | 2020-12-04 09:25 | Progress Note-Post Operative ---
Post-Operative Progess Note Surgeon (s)/Page Designer (s) Surgeon ROSALIA TRISTAN MD Page Designer n/a Pre-Operative Diagnosis Left Parotid Mass Post-Operative Diagnosis same Post-Op Procedure Note Date of Procedure: Dec 04, 2020 Name of Procedure Performed: Left Paroridectomy with Preservation of FAcial Nerve Description & Findings Description and Findings: n/a Anesthesia Type get Estimated Blood Loss minimal Packing none. Specimen(s) collected/removed right Parotid for frozen section ROSALIA TRISTAN MD Dec 04, 2020 09:25
[2020-12-04] MEDS ORDERED: SEVOFLURANE (ULTANE) 15 ML INHAL SOLN ONE (10:12)
[2020-12-04] MEDS ORDERED: ONDANSETRON 4 MG/2 ML (SDV) Z0FRAN IVP PRN (10:15)
[2020-12-04] MEDS ORDERED: morphine INJ 10 MG/ML 1ML (SYR OR VIAL) IVP ONE (10:15)
[2020-12-04] MEDS: D5 1/2 NS W/KCL 20 MEQ/L 1,000 ML IV SCH (12:23)
[2020-12-04] MEDS: HYDROcodone/APAP 5 MG/325 MG (LORTAB) TAB PO PRN ×2 (12:24→17:58)
[2020-12-04] MEDS ORDERED: PATIENT MAY USE OWN MEDS, ALL MC SCH (15:00)
[2020-12-04] MEDS ORDERED: RT-ALBUTEROL SULF 2.5 MG/3 ML PRE-MIX VIAL INH PRN (15:00)
[2020-12-04] MEDS ORDERED: RT-ALBUTEROL HFA 8.5 GM INHALER IH PRN (15:15)
[2020-12-04] MEDS ORDERED: KCL 10 MEQ TAB (MICRO K) PO SCH (18:00)
[2020-12-04] MEDS ORDERED: GABAPENTIN 300 MG (NEURONTIN) CAP PO SCH (21:00)
[2020-12-04] MEDS ORDERED: ZOLPIDEM 5 MG (AMBIEN) TAB PO SCH (21:00)
[2020-12-04] MEDS ORDERED: NON-FORMULARY MEDICATION 1 EA EA (Zolpidem Tartrate (Ambien) 10 MG) PO SCH (21:00)
[2020-12-04] MEDS ORDERED: GABAPENTIN 100 MG (NEURONTIN) CAP PO SCH (21:00)
[2020-12-04] MEDS ORDERED: NON-FORMULARY MEDICATION 1 EA EA (Potassium Chloride 10 MEQ) PO SCH (21:00)
[2020-12-05 04:41] VITALS: BP 136/68
[2020-12-05] MEDS: D5 1/2 NS W/KCL 20 MEQ/L 1,000 ML IV SCH (04:44)
[2020-12-05] MEDS ORDERED: LEVOTHYROXINE 150 MCG (LEVOTHROID) TAB PO SCH (06:30)
[2020-12-05] MEDS ORDERED: MULTIVIT W/MINERALS TAB (THERAGRAN M) PO SCH (07:00)
[2020-12-05] MEDS ORDERED: FUROSEMIDE 40 MG (LASIX) TAB PO SCH (07:00)
[2020-12-05 08:00] VITALS: BP 145/66
[2020-12-05] MEDS ORDERED: TIOTROPIUM BROMIDE (SPIRIVA) 5'S INHALER IH SCH (08:00)
[2020-12-05] MEDS ORDERED: NALOXONE SL SCH (09:00)
[2020-12-05] MEDS ORDERED: BUPRENORPHINE SL SCH (09:00)
[2020-12-05] MEDS ORDERED: DIGOXIN 0.125 MG PO SCH (09:00)
[2020-12-05] MEDS ORDERED: DIGOXIN 0.125 MG (LANOXIN) TAB PO SCH (09:00)
[2020-12-05] MEDS ORDERED: NON-FORMULARY MEDICATION 1 EA EA (Furosemide 80 MG) PO SCH (09:00)
[2020-12-05] MEDS ORDERED: PANTOPRAZOLE 40 MG (PROTONIX) TAB PO SCH (09:00)
[2020-12-05] MEDS ORDERED: NON-FORMULARY MEDICATION 1 EA EA (Levothyroxine Sodium (Levothyroxine) 150 MCG) PO SCH (09:00)
--- NOTE | 2020-12-05 11:43 | Anesthesia-General Post-Op ---
General Patient Condition Mental Status/LOC: Same as Preop Cardiovascular: Satisfactory Nausea/Vomiting: Absent Respiratory: Satisfactory Pain: Controlled Complications: Absent Post Op Complications Complications None Follow Up Care/Instructions Patient Instructions None needed. Anesthesia/Patient Condition Patient Condition Patient is doing well, no complaints, stable vital signs, no apparent adverse anesthesia problems. No complications reported per nursing. [place] [facility] [place]: Yes FAMILIA GRANT CRNA Dec 05, 2020 11:43
== END 2020-12-05 08:00 | disposition home or self-care (01) ==
LOC: SDC 06:07 → 4TH 11:00 → SDC 12-05 08:00
PROVIDERS: ATTEND Otolaryngology Otolaryngology/Facial Plastic Surgery
DX: D11.0 Benign neoplasm of parotid gland (principal); Z79.899 Other long term (current) drug therapy; Z79.01 Long term (current) use of anticoagulants
CPT/HCPCS: 87081; 88307; 88331